=== PATIENT | male | born 1955 | race African-American/Black ===

== ENCOUNTER → 2017-02-20 | Outpatient (CLI) | payer MEDICARE ==
--- NOTE | 2017-02-20 15:51 | US ---
EXAMINATION TYPE: US venous doppler duplex UE DATE OF EXAM: 02/20/2017 COMPARISON: NONE CLINICAL HISTORY: 61-year-old male R22.32, R22.31 SWELLING, Mass, lump LT AND RT UPPER LIMB. Pain elvin ateral arms. Superficial lumps noted bilateral arms, patient on blood thinner SIDE PERFORMED: bilateral TECHNIQUE: Grayscale, color doppler, spectral doppler imaging performed of the deep veins of the upp er extremities without and with compression. FINDINGS: There is normal flow, compressibility and vascular waveforms. Right Arm: No evidence of DVT. Hyperechoic area noted within area of lump right upper arm = 1.3 x 0.6 x 0.8cm Left Arm: No evidence of DVT. Fistula noted left lower arm IMPRESSION: 1. No evidence for DVT within the bilateral upper extremities. 2. At the site of lump in the right upper arm, there is a 1.3 cm hyperechoic area just deep to the sk in surface. This could represent a lipoma or area of fat necrosis. This can be followed clinically. I f there is enlargement, the area can be reimaged.
== END | disposition home or self-care (01) ==
LOC: RADUSWWP 14:43
PROVIDERS: ATTEND Family Medicine
DX: R22.31 Localized swelling, mass and lump, right upper limb (principal)
CPT/HCPCS: 93970

== ENCOUNTER 2017-08-24 23:45 | Inpatient (IN) | payer MEDICARE ==
[2017-08-25] MEDS ORDERED: NAFCILLIN 2 GM in DEXTROSE 5% IN WATER 50 ML IVPB STA ×2 (00:34)
[2017-08-25 01:08] LABS: Anisocytosis Slight; Basophils % (A) 0 %; Eosinophils % (A) 0 %; HCT 36.1 % (39.0-53.0); HGB 11.6 gm/dL (13.0-17.5); Lymphocytes # (A) 2.2 k/uL (1.0-4.8); Lymphocytes % (A) 25 %; MCH 32.3 pg (25.0-35.0); MCHC 32.2 g/dL (31.0-37.0); MCV 100.1 fL (80.0-100.0); Macrocytosis Slight; Mean Platelet Volume 7.8; Monocytes # (A) 0.5 k/uL (0-1.0); Monocytes % (A) 6 %; Neutrophils # (A) 6.1 k/uL (1.3-7.7); Neutrophils % (A) 67 %; Platelet Count 203 k/uL (150-450); RBC 3.61 m/uL (4.30-5.90); RDW 17.3 % (11.5-15.5); WBC 9.1 k/uL (3.8-10.6)
[2017-08-25 01:20] LABS: Calcium 8.8 mg/dL (8.4-10.2); Potassium 4.9 mmol/L (3.5-5.1)
--- NOTE | 2017-08-25 01:29 | XR ---
EXAMINATION TYPE: XR foot complete RT DATE OF EXAM: 08/25/2017 COMPARISON: 11/30/2013 HISTORY: Pain and swelling TECHNIQUE: 3 views. FINDINGS: There is erosion on the first metatarsal head. There is erosion on both sides of the IP joint of the big toe. There is amputation deformity of multiple toes at the PIP joint of the second third and four th toes. There is subluxation significant deformity at the fifth MP joint. There are plantar and Achi lles calcaneal spurs. There is soft tissue swelling around the entire foot. IMPRESSION: Multiple amputation deformity. Erosions and subluxation could relate to rheumatoid arthri tis. No specific evidence for osteomyelitis. There is progression of amputation deformity of the toes compared to old exam.
[2017-08-25 01:56] LABS: Erythrocyte Sedimentation Rate 46 mm/hr (0-15)
[2017-08-25] MEDS ORDERED: HYDROmorphone 0.5 MG/0.5 ML SYRINGE IVP STA (02:42)
--- NOTE | 2017-08-25 02:59 | ED ---
Lower Extremity Injury HPI - General Chief Complaint: Extremity Injury, Lower Stated Complaint: Foot Pain Time Seen by Provider: 08/25/17 00:03 Source: patient Mode of arrival: wheelchair Limitations: no limitations - History of Present Illness Initial Comments: this patient is a 62-year-old man with history of previous foot ulcers, post amputation. He presents to be evaluated for suspected right foot infection, as well as having left pretibial ulcer. the symptoms have been developing over the past few days, worsening today. History is also from the patient's who states that he started having drainage from his foot today and given his past history there were concerned about developing infection. The patient does believe that over the past few days she has been having an exacerbation of his rheumatoid arthritis related to swelling of his bilatera feet. patient also denies systemic symptoms, no fever or chills, chest pain, dyspnea, palpitations MD Complaint: foot injury -: days(s) Injury: Leg: Left, Foot: Right, Left Place: home Severity: moderate Improves With: nothing Worsens With: palpation Associated Symptoms: swelling - Related Data Previous Rx's Medication Instructions Recorded Clindamycin HCl [Cleocin] 450 mg PO Q8H #21 cap 08/25/17 Allergies Allergy/AdvReac Type Severity Reaction Status Date / Time Sulfa (Sulfonamide Allergy Rash/Hives Verified 08/24/17 23:52 Antibiotics) Review of Systems ROS Statement: Those systems with pertinent positive or pertinent negative responses have been documented in the HPI. ROS Other: All systems not noted in ROS Statement are negative. Constitutional: Denies: fever, chills, weakness Respiratory: Denies: cough, dyspnea Cardiovascular: Reports: edema. Denies: chest pain, palpitations, orthopnea, syncope Gastrointestinal: Denies: abdominal pain, vomiting, diarrhea Musculoskeletal: Denies: back pain Skin: Reports: lesions (left leg and right foot). Denies: rash Neurological: Reports: paresthesias (chronic). Denies: weakness, numbness Hematological/Lymphatic: Denies: easy bleeding Past Medical History Past Medical History: Dialysis, Deep Vein Thrombosis (DVT), Pulmonary Embolus ( PE), Rheumatoid Arthritis (RA) Additional Past Medical History / Comment(s): gout, sickle cell History of Any Multi-Drug Resistant Organisms: MRSA MDRO Source:: foot Past Surgical History: Joint Replacement, Orthopedic Surgery Past Psychological History: No Psychological Hx Reported Smoking Status: Never smoker Past Alcohol Use History: None Reported Past Drug Use History: Marijuana General Exam Limitations: no limitations General appearance: alert, in no apparent distress, obese Head exam: Present: atraumatic, normocephalic Eye exam: Present: normal appearance. Absent: scleral icterus, conjunctival injection Respiratory exam: Present: normal lung sounds bilaterally. Absent: respiratory distress, wheezes, rales, rhonchi, stridor Cardiovascular Exam: Present: regular rate, normal rhythm, normal heart sounds. Absent: systolic murmur, diastolic murmur, rubs, gallop GI/Abdominal exam: Present: soft. Absent: distended, tenderness, guarding, rebound Extremities exam: Present: pedal edema, other Right Upper Leg exam: Present: normal inspection Knee exam: Present: normal inspection Lower Leg exam: Present: full ROM, swelling. Absent: tenderness, abrasion, erythema, palpable cord, Homans' sign Ankle exam: Present: full ROM, tenderness, swelling. Absent: abrasion, laceration, ecchymosis, deformity, crepitus, erythema Foot/Toe exam: Present: swelling (patient has a small ulceration to the distal end of the toe. There was some small amount of serous drainage. No obvious purulent drainage. Minimal erythema, and no warmth.) Neurovascular tendon exam: Present: no vascular compromise, sensory deficit Back exam: Absent: CVA tenderness (R), CVA tenderness (L) Neurological exam: Present: alert. Absent: motor sensory deficit Course Vital Signs 08/24/17 08/25/17 08/25/17 23:48 02:10 04:31 Temperature 98.3 F 100.1 F H Pulse Rate 71 74 Respiratory 18 18 Rate Blood Pressure 150/67 133/79 O2 Sat by Pulse 100 Oximetry 08/25/17 05:16 Temperature 97.2 F L Pulse Rate 74 Respiratory 18 Rate Blood Pressure 133/79 O2 Sat by Pulse 97 Oximetry Medical Decision Making - Medical Decision Making this patient is a 62-year-old man with history of previous MRSA infection of the feet, he is a patient of Dr. Schroeder, having been seen here previously. Patient had x-ray of the foot which does not show gas in the tissue nor evidence of osteomyelitis on the x-ray. Patient is started on nafcillin here, and we discussed outpatient course of clindamycin, but the patient is complaining of increasing pain and therefore admitted under observation to control symptoms and have infectious disease consult. He is given 1 dose of vancomycin. I did obtain a culture of the drainage from the toe and this is pending. - Lab Data Result diagrams: 08/25/17 00:45 08/25/17 00:45 Lab Results 08/25/17 08/25/17 Range/Units 00:45 00:45 WBC 9.1 (3.8-10.6) k/uL RBC 3.61 L (4.30-5.90) m/uL Hgb 11.6 L (13.0-17.5) gm/dL Hct 36.1 L (39.0-53.0) % MCV 100.1 H (80.0-100.0) fL MCH 32.3 (25.0-35.0) pg MCHC 32.2 (31.0-37.0) g/dL RDW 17.3 H (11.5-15.5) % Plt Count 203 (150-450) k/uL Neutrophils % 67 % Lymphocytes % 25 % Monocytes % 6 % Eosinophils % 0 % Basophils % 0 % Neutrophils # 6.1 (1.3-7.7) k/uL Lymphocytes # 2.2 (1.0-4.8) k/uL Monocytes # 0.5 (0-1.0) k/uL Eosinophils # 0.0 (0-0.7) k/uL Basophils # 0.0 (0-0.2) k/uL Anisocytosis Slight Macrocytosis Slight ESR 46 H (0-15) mm/hr Sodium 143 (137-145) mmol/L Potassium 4.9 (3.5-5.1) mmol/L Chloride 109 H (98-107) mmol/L Carbon Dioxide 24 (22-30) mmol/L Anion Gap 10 mmol/L BUN 38 H (9-20) mg/dL Creatinine 1.50 H (0.66-1.25) mg/dL Est GFR (MDRD) Af Amer 58 (>60 ml/min/1.73 sqM) Est GFR (MDRD) Non-Af 48 (>60 ml/min/1.73 sqM) Glucose 113 H (74-99) mg/dL Calcium 8.8 (8.4-10.2) mg/dL Disposition Clinical Impression: Foot ulcer, right Disposition: ADMITTED IP TO THIS HOSP Condition: Fair
[2017-08-25] MEDS ORDERED: NALOXONE 0.4 MG/ML 1 ML VIAL IV PRN (04:59)
[2017-08-25] MEDS ORDERED: ACETAMINOPHEN TAB 325 MG TAB PO PRN (04:59)
[2017-08-25] MEDS ORDERED: ONDANSETRON 4 MG/2 ML VIAL IVP PRN (04:59)
[2017-08-25] MEDS ORDERED: VANCOMYCIN IV PER PHARMACY 1 EACH MISC MISCELLANE PRN (05:02)
[2017-08-25] MEDS ORDERED: VANCOMYCIN 2,250 MG in SODIUM CHLORIDE 0.9% 500 ML IVPB STA (05:05)
[2017-08-25] MEDS ORDERED: methylPREDNISolone SOD SUCCI 125 MG/2 ML VIAL IV STA (06:02)
[2017-08-25] MEDS: SODIUM CHLORIDE 0.9% 1,000 ML IV SCH (06:29)
[2017-08-25] MEDS ORDERED: NAFCILLIN 2 GM in DEXTROSE 5% IN WATER 50 ML IVPB SCH ×2 (08:00)
[2017-08-25] MEDS ORDERED: METHOTREXATE 20 MG PO SCH (09:00)
[2017-08-25 11:47] LABS: INR 3.4 (<1.2); Prothrombin Time 30.7 sec (9.0-12.0)
[2017-08-25] MEDS: predniSONE 10 MG TAB PO SCH ×2 (12:19→21:16)
[2017-08-25] MEDS: FOLIC ACID 1 MG TAB PO SCH (12:20)
[2017-08-25] MEDS: CHOLECALCIFEROL 1,000 UNIT TAB PO SCH (12:20)
[2017-08-25] MEDS: amLODIPine 10 MG TAB PO SCH (12:20)
[2017-08-25] MEDS: ALLOPURINOL 300 MG TAB PO SCH (12:20)
[2017-08-25] MEDS: METOPROLOL TARTRATE 25 MG TAB PO SCH ×2 (12:21→21:16)
[2017-08-25] MEDS: CITALOPRAM HYDROBROMIDE 20 MG TAB PO SCH (12:21)
[2017-08-25] MEDS: LISINOPRIL 10 MG TAB PO SCH ×2 (12:21→21:16)
[2017-08-25] MEDS: CYANOCOBALAMIN 500 MCG TAB PO SCH (12:21)
[2017-08-25] MEDS ORDERED: METHOTREXATE SODIUM 2.5 MG TAB PO SCH (14:00)
[2017-08-25] MEDS: cefTRIAXone IN SWFI 2,000 MG/20 ML SYRINGE IVP SCH (14:37)
--- NOTE | 2017-08-25 14:40 | P.CONS ---
History of Present Illness - Reason for Consult Consult date: 08/25/17 - Chief Complaint New ulcer right foot second toe - History of Present Illness 62-year-old male presents to the emergency center for evaluation of the new onset of ulceration to his right foot second toe. 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 He has a long-standing history of rheumatoid arthritis with significant destruction. He is on methotrexate and prednisone as the only therapy. He is not on a biological. He relates his arthritis of course is progressive but has been doing relatively well. He had a small ulceration which was from a skin crack to the site of the current ulceration. This is a couple weeks ago. His treated locally and was doing well but now was reopened and is draining. It is at a site where he used to have a nail but that's been gone for a long time. He's had no systemic symptoms such as fevers chills or rigors or sweats. He does have ongoing difficulties with his mobility but pushes through with the treatment of his arthritis. He is [place] citizen living in [place]. He this point in time is denying any other new significant symptoms. Review of Systems HEENT:Denies headache or acute visual change. Denies sinus or mouth discomforts. Denies neck stiffness or pain. Denies significant oral cavity pain. Denies difficulty on swallowing. Lungs: Denies significant shortness of breath, cough, sputum production, or hemoptysis. Cardiovascular: Denies significant shortness of breath, chest pain, chest wall pain, orthopnea, dyspnea on exertion, syncope Gastrointestinal:Denies nausea, vomiting, diarrhea, constipation, hematemesis, melena, hematochezia. No no significant change of bowel habit noticed. Musculoskeletal: Has chronic joint pains from his progressive rheumatoid arthritis. Skin: As per the HPI has the new ulcer right foot second toe Neuro: Denies headache or visual change. Denies any new onset weakness or difficulty with ambulation. Denies falls or seizures. Psychiatric:Denies anxiety or depression. Endocrine: Denies significant fatigue, denies significant weight loss or weight gain. Past Medical History Past Medical History: Dialysis, Deep Vein Thrombosis (DVT), Pulmonary Embolus ( PE), Rheumatoid Arthritis (RA) Additional Past Medical History / Comment(s): gout, sickle cell History of Any Multi-Drug Resistant Organisms: MRSA Year Discovered:: 2013 MDRO Source:: foot Past Surgical History: Joint Replacement, Orthopedic Surgery Additional Past Surgical History / Comment(s): Left knee replaced; multiple toe amputations Past Psychological History: No Psychological Hx Reported Additional Psychological History / Comment(s): lives with his . [place] citizen living in [place]. 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 No animal exposures Smoking Status: Never smoker Past Alcohol Use History: None Reported Past Drug Use History: Marijuana Medications and Allergies Home Medications and Allergies Comment(s): Current Medications Acetaminophen (Tylenol Tab) 650 mg PO Q6HR PRN PRN Reason: Mild Pain or Fever > 100.5 Hydrocodone Bitart/Acetaminophen ([place] 5-325) 1 each PO Q4HR PRN PRN Reason: Moderate Pain Allopurinol (Zyloprim) 300 mg PO DAILY [facility] Last Admin: 08/25/17 12:20 Dose: 300 mg Amlodipine Besylate (Norvasc) 10 mg PO DAILY [facility] Last Admin: 08/25/17 12:20 Dose: 10 mg Ceftriaxone Sodium (Rocephin) 2,000 mg IVP Q24HR [facility] Cholecalciferol (Vitamin D3) 1,000 unit PO DAILY [facility] Last Admin: 08/25/17 12:20 Dose: 1,000 unit Citalopram Hydrobromide (Celexa) 20 mg PO DAILY [facility] Last Admin: 08/25/17 12:21 Dose: 20 mg Cyanocobalamin (Vitamin B-12) 1,000 mcg PO DAILY [facility] Last Admin: 08/25/17 12:21 Dose: 1,000 mcg Folic Acid (Folic Acid) 0.5 mg PO DAILY [facility] Last Admin: 08/25/17 12:20 Dose: 0.5 mg Sodium Chloride (Saline 0.9%) 1,000 mls @ 20 mls/hr IV .Q24H [facility] Last Admin: 08/25/17 06:29 Dose: 20 mls/hr Vancomycin HCl 2,250 mg/ (Sodium Chloride) 500 mls @ 167 mls/hr IVPB Q16H [facility] Lisinopril (Zestril) 10 mg PO BID [facility] Last Admin: 08/25/17 12:21 Dose: 10 mg Methotrexate (Methotrexate) 20 mg PO Long@0900 [facility] Last Admin: 08/25/17 14:14 Dose: 20 mg Metoprolol Tartrate (Lopressor) 25 mg PO BID [facility] Last Admin: 08/25/17 12:21 Dose: 25 mg Naloxone HCl (Narcan) 0.2 mg IV Q2M PRN PRN Reason: Opioid Reversal Ondansetron HCl (Zofran) 4 mg IVP Q8HR PRN PRN Reason: Nausea And Vomiting Prednisone () 10 mg PO BID [facility] Last Admin: 08/25/17 12:19 Dose: 10 mg Warfarin Sodium (Coumadin) 2.5 mg [facility] Warfarin Sodium (Coumadin) 5 mg PO SUMO [facility] Home Medications Medication Instructions Recorded Confirmed Type Allopurinol [Zyloprim] 300 mg PO DAILY 08/25/17 08/25/17 History Cholecalciferol [Vitamin D3] 1,000 unit PO DAILY 08/25/17 08/25/17 History Cinnamon Bark [Cinnamon] 500 mg PO DAILY 08/25/17 08/25/17 History Citalopram Hydrobromide [CeleXA] 20 mg PO DAILY 08/25/17 08/25/17 History Cyanocobalamin (Vitamin B-12) 1,000 mcg PO DAILY 08/25/17 08/25/17 History [Vitamin B-12] Fish Oil/Dha/Epa [Fish Oil 1,200 1 cap PO DAILY 08/25/17 08/25/17 History mg Fish Oil] Folic Acid 0.4 mg PO DAILY 08/25/17 08/25/17 History Lisinopril [Zestril] 10 mg PO BID 08/25/17 08/25/17 History Methotrexate Sodium [Methotrexate] 20 mg PO Q7D 08/25/17 08/25/17 History Metoprolol Tartrate [Lopressor] 25 mg PO BID 08/25/17 08/25/17 History Warfarin [Coumadin] 2.5 mg PO TUTH 08/25/17 08/25/17 History Warfarin [Coumadin] 5 mg PO SUMOWEFRSA 08/25/17 08/25/17 History amLODIPine [Norvasc] 10 mg PO DAILY 08/25/17 08/25/17 History oxyCODONE-APAP 10-325MG [Percocet 1 tab PO Q6HR PRN 08/25/17 08/25/17 History 10-325 mg] predniSONE 10 mg PO BID 08/25/17 08/25/17 History Allergies Allergy/AdvReac Type Severity Reaction Status Date / Time Sulfa (Sulfonamide Allergy Rash/Hives Verified 08/25/17 08:13 Antibiotics) Physical Exam Vitals: Vital Signs Temp Pulse Pulse Resp BP BP Pulse Ox 08/25/17 06:04 97.1 F L 76 16 139/83 98 08/25/17 05:16 97.2 F L 74 18 133/79 97 08/25/17 04:31 74 18 133/79 08/25/17 02:10 100.1 F H 08/24/17 23:48 98.3 F 71 18 150/67 100 Intake and Output 08/24/17 08/25/17 08/25/17 22:59 06:59 14:59 Other: # Voids 0 Weight 158.757 kg Pleasant superobese 62-year-old male who is in no acute distress. HEENT: Anicteric conjunctiva are pink and moist nasal mucosa grossly intact without significant lesions, there is no thrush. Neck: The neck is supple without significant lymphadenopathy or thyromegaly. Lungs: Good bilateral air entry without significant crackles or wheezing. There is no significant bronchial sounds. There is no egophony or dullness. Heart: Regular rate and rhythm with an audible S1-S2, no S3 loud S4. There is no significant murmur click or rub, PMI was nondisplaced. Abdomen: Obese, Positive bowel sounds soft and nontender without palpable masses or organomegaly. There was no guarding or rebound. Extremities: The upper extremities do show evidence of the significant changes from his rheumatoid arthritis with swelling and joint destruction. The right lower extremity has evidence of the stomach and bony absorption from the rheumatoid arthritis and has had amputation to the great toe. Right lower extremity shows similar but there is now swelling to the foot on its dorsum as well as the new ulceration to the right foot second toe. Ulceration is measuring a 0.5 x 0.5 x 0.5 cm. Bloody drainage sent to the laboratory for anaerobic culture. Neuro: Awake alert oriented to person place and time. There are no acute new gross focal sensory motor deficits. Results CBC & Chem 7: 08/25/17 00:45 08/25/17 00:45 Labs: Abnormal Lab Results - Last 24 Hours (Table) 08/25/17 08/25/17 08/25/17 Range/Units 00:45 00:45 00:45 RBC 3.61 L (4.30-5.90) m/uL Hgb 11.6 L (13.0-17.5) gm/dL Hct 36.1 L (39.0-53.0) % MCV 100.1 H (80.0-100.0) fL RDW 17.3 H (11.5-15.5) % ESR 46 H (0-15) mm/hr PT 30.7 H (9.0-12.0) sec INR 3.4 H (<1.2) Chloride 109 H (98-107) mmol/L BUN 38 H (9-20) mg/dL Creatinine 1.50 H (0.66-1.25) mg/dL Glucose 113 H (74-99) mg/dL Microbiology - Last 24 Hours (Table) 08/25/17 00:45 Wound Culture - Preliminary Foot - Right Laboratory Results WBC 9.1 k/uL (3.8-10.6) 08/25/17 00:45 RBC 3.61 m/uL (4.30-5.90) L 08/25/17 00:45 Hgb 11.6 gm/dL (13.0-17.5) L 08/25/17 00:45 Hct 36.1 % (39.0-53.0) L 08/25/17 00:45 MCV 100.1 fL (80.0-100.0) H 08/25/17 00:45 MCH 32.3 pg (25.0-35.0) 08/25/17 00:45 MCHC 32.2 g/dL (31.0-37.0) 08/25/17 00:45 RDW 17.3 % (11.5-15.5) H 08/25/17 00:45 Plt Count 203 k/uL (150-450) 08/25/17 00:45 Neutrophils % 67 % 08/25/17 00:45 Lymphocytes % 25 % 08/25/17 00:45 Monocytes % 6 % 08/25/17 00:45 Eosinophils % 0 % 08/25/17 00:45 Basophils % 0 % 01/14/18 00:45 Neutrophils # 6.1 k/uL (1.3-7.7) 08/25/17 00:45 Lymphocytes # 2.2 k/uL (1.0-4.8) 08/25/17 00:45 Monocytes # 0.5 k/uL (0-1.0) 08/25/17 00:45 Eosinophils # 0.0 k/uL (0-0.7) 08/25/17 00:45 Basophils # 0.0 k/uL (0-0.2) 08/25/17 00:45 Anisocytosis Slight 08/25/17 00:45 Macrocytosis Slight 08/25/17 00:45 ESR 46 mm/hr (0-15) H 08/25/17 00:45 PT 30.7 sec (9.0-12.0) H 08/25/17 00:45 INR 3.4 (<1.2) H 08/25/17 00:45 Sodium 143 mmol/L (137-145) 08/25/17 00:45 Potassium 4.9 mmol/L (3.5-5.1) 08/25/17 00:45 Chloride 109 mmol/L (98-107) H 08/25/17 00:45 Carbon Dioxide 24 mmol/L (22-30) 08/25/17 00:45 Anion Gap 10 mmol/L 08/25/17 00:45 BUN 38 mg/dL (9-20) H 08/25/17 00:45 Creatinine 1.50 mg/dL (0.66-1.25) H 08/25/17 00:45 Est GFR (MDRD) Af Amer 58 (>60 ml/min/1.73 sqM) 08/25/17 00:45 Est GFR (MDRD) Non-Af 48 (>60 ml/min/1.73 sqM) 08/25/17 00:45 Glucose 113 mg/dL (74-99) H 08/25/17 00:45 Calcium 8.8 mg/dL (8.4-10.2) 08/25/17 00:45 Microbiology 08/25/17 00:45 Foot - Right Wound Culture - Preliminary Comments: X-ray shows evidence of the significant destruction rheumatoid arthritis not able to discern most mellitus of the right foot second toe Assessment and Plan (1) Rheumatoid arthritis involving multiple sites Current Visit: Yes Status: Acute Code(s): M06.9 - RHEUMATOID ARTHRITIS, UNSPECIFIED SNOMED Code(s): 567765755 (2) Foot ulcer, right Narrative/Plan: 62-year-old male presents to which she center with the new onset of ulceration to the right foot second toe. He had a small injury to that area several weeks ago the site was treated and healed but is now reopened with a significant ulceration and likely is tracking to bone by its depth. Bone scan is requested to further evaluate this infection. Wound culture including anaerobic culture now been sent. Has history of MRSA. With that antimicrobial therapy with vancomycin is started. Also with concerns will add and Rocephin until we have further data so gram negatives are coverage such as E. coli. He does not have a history of Pseudomonas infection. He is nondiabetic. Is very dry skin and this will be treated. Has significant swelling to the left leg will be treated and wrapped. Recent laboratory is requesting that his sed rate and CRP which will be difficult to discern with his underlying rheumatoid arthritis. It bone scan is positive option #1 will be antibiotic therapy. However given his advanced arthritis he may do well if the site is amputated. Watchers nutrition is adequate multivitamin will be added and monitor. Current Visit: Yes Status: Acute Code(s): L97.519 - NON-PRS CHRONIC ULCER OTH PRT RIGHT FOOT W UNSP SEVERITY SNOMED Code(s): 10237759
[2017-08-25] MEDS: AMMONIUM LACTATE 12% CREAM 140 GM TUBE TOPICAL SCH (16:24)
--- NOTE | 2017-08-25 16:43 | HP ---
HISTORY AND PHYSICAL DATE OF ADMISSION: 08/25/17 PRESENTING COMPLAINT: Right big toe infection. HISTORY OF PRESENTING COMPLAINT: This is a very pleasant 62-year-old patient of Dr. Vaca. Here with his . Chronic stable medical conditions include history of gout, sickle cell, has got advanced rheumatoid arthritis. The patient has got history of DVT and PE. The patient has rather debilitating rheumatoid arthritis, was following with Dr. Damico locally, but now is looking into follow up with [facility]. About a week ago, the patient had a slit of the right big toe that was locally treated by the and that healed up. Now the patient presented with some pus coming out of the right big toe and decided to present to the hospital. At the same time patient's rheumatoid arthritis has flared up. Denies any fever, loss of appetite. Infectious Disease was consulted. REVIEW OF SYSTEMS: CONSTITUTIONAL: Tired. HEENT: None. RESPIRATORY: None. CARDIOVASCULAR: None. GASTROINTESTINAL: None. GENITOURINARY: None. MUSCULOSKELETAL: Aches and pains in different joints. DERMATOLOGICAL: As above. LYMPHATICS: None. PSYCHIATRY: None. NEUROLOGICAL: Uses a cane. PAST MEDICAL HISTORY: DVT, PE, advanced rheumatoid arthritis, gout, sickle cell disease. PAST SURGICAL HISTORY: Joint replacement, left knee replacement, multiple toe amputations. SOCIAL HISTORY: The patient is an [place] citizen, but lives with his in [place]. Does not drink or smoke alcohol. 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 Patient does use marijuana for pain. HOME MEDICATIONS: 1. Methotrexate 20 mg every 7 days. 2. Prednisone 10 mg p.o. b.i.d. 3. Percocet 10 1 tab q.6h p.r.n. 4. Norvasc 10 mg p.o. daily. 5. Coumadin 2.5 mg on Saturday, and 5 mg on Saturday, Saturday, Saturday, Saturday, Saturday. 6. Lopressor 25 mg p.o. b.i.d. 7. Zestril 10 mg b.i.d. 8. Folic acid 0.4 mg p.o. daily. 9. Fish oil 1 capsule p.o. daily. 10.Vitamin B12 1000 mcg p.o. daily. 11.Celexa 20 mg p.o. daily. 12.Cinnamon 500 mg p.o. daily. 13.Vitamin D3 1000 units p.o. daily. 14.Allopurinol 300 mg p.o. daily. ALLERGIES: SULFUR. PHYSICAL EXAMINATION: Temperature 97.7, pulse 54, respiratory 18, blood pressure 133/72, pulse ox 97% on room air. GENERAL APPEARANCE: Well built, BMI 44.9, lying in bed, not in distress. EYES: Pupils equal. Conjunctivae normal. HEENT: Oral cavity normal. NECK: JVD not raised. Mass not palpable. RESPIRATORY: Effort, lungs slightly decreased breath sounds. CARDIOVASCULAR: First and second sounds, no edema. ABDOMEN: Soft, nontender. Liver and spleen not palpable. LYMPHATIC: No lymph node palpable in neck or axillae. PSYCHIATRY: Alert and oriented x3. Mood and affect normal. EXTREMITIES: Amputation of the toe on the left side. Dressing over the right toe. Severe disfigurement of both hands and feet with classical findings of advanced rheumatoid arthritis including prominent metacarpophalangeal joint, ulnar division of the fingers, both swan-neck and boutonniere deformity. INVESTIGATION: White count 9.1, hemoglobin 11.6, INR 3.4, potassium 4.9, BUN 38, creatinine 1.50. Patient's BUN and creatinine were 41/1.97 back in September of 2015. ASSESSMENT: 1. Acute right big toe infection. Need to rule out osteomyelitis. 2. Chronic advanced debilitating rheumatoid arthritis in multiple joints, bilateral. 3. Morbid obesity, BMI 44.9. 4. Gout. 5. Coumadin monitoring. 6. Depression, not otherwise specified. 7. Chronic gout. PLAN: At this point, the patient is on IV ceftriaxone, vancomycin, INR will be closely followed. The patient was seen by Dr. Schroeder from Infectious Disease and a bone scan was ordered. Care was discussed with the patient and at the bedside. Questions were answered. We will get Vascular Surgery involved in anticipation in case surgery needs to be done. Care was discussed with the patient and . Questions were answered. MMODL / IJN: [id number] /
[2017-08-25] MEDS: VANCOMYCIN 2,250 MG in SODIUM CHLORIDE 0.9% 500 ML IVPB SCH (17:00)
[2017-08-25] MEDS: HYDROcodone/APAP 5-325MG 1 EACH TAB PO PRN (21:23)
[2017-08-26] MEDS: SODIUM CHLORIDE 0.9% 1,000 ML IV SCH (05:01)
[2017-08-26] MEDS: cefTRIAXone IN SWFI 2,000 MG/20 ML SYRINGE IVP SCH (09:17)
[2017-08-26] MEDS: VANCOMYCIN 2,250 MG in SODIUM CHLORIDE 0.9% 500 ML IVPB SCH (09:17)
[2017-08-26] MEDS: AMMONIUM LACTATE 12% CREAM 140 GM TUBE TOPICAL SCH (09:17)
[2017-08-26] MEDS: CHOLECALCIFEROL 1,000 UNIT TAB PO SCH (09:17)
[2017-08-26] MEDS: LISINOPRIL 10 MG TAB PO SCH ×2 (09:18→21:27)
[2017-08-26] MEDS: ALLOPURINOL 300 MG TAB PO SCH (09:18)
[2017-08-26] MEDS: amLODIPine 10 MG TAB PO SCH (09:18)
[2017-08-26] MEDS: CITALOPRAM HYDROBROMIDE 20 MG TAB PO SCH (09:18)
[2017-08-26] MEDS: predniSONE 10 MG TAB PO SCH ×2 (09:18→21:29)
[2017-08-26] MEDS: METOPROLOL TARTRATE 25 MG TAB PO SCH ×2 (09:18→21:27)
[2017-08-26] MEDS: FOLIC ACID 1 MG TAB PO SCH (09:18)
[2017-08-26] MEDS: CYANOCOBALAMIN 500 MCG TAB PO SCH (09:18)
[2017-08-26 11:26] LABS: INR 2.4 (<1.2); Prothrombin Time 21.9 sec (9.0-12.0)
[2017-08-26] MEDS: MULTIVITAMINS, THERA 1 EACH TAB PO SCH (12:15)
--- NOTE | 2017-08-26 13:23 | CONS ---
CONSULTATION This is a 62-year-old gentleman who came to the emergency room with history of ulceration of the right foot, third toe. The patient has history of arthritis. He had second toe and fourth and fifth toes have been removed in the past. PHYSICAL EXAMINATION: NECK: Supple. Trachea central. CHEST: Clear on auscultation. ABDOMEN: Soft. Brachial and radial pulses are present. Femorals are 1+. Right foot third toe has ulcer at the distal phalanx. He had some toe removed in the past. PLAN: Plan is patient is scheduled to have a bone scan. The patient was seen by Dr. Rhett Schroeder. At this point, we will continue with Beatris and jose a for the ulcer and the patient is scheduled to have a bone scan. If it is positive, he may need toe amputation. We will follow with you. I have discussed this case with Dr. Rhett Schroeder, when patient needs surgical intervention, we will proceed. MMMARIMARL / SHERYLN: [id number] /
[2017-08-26 13:27] LABS: Anisocytosis Slight; Basophils % (A) 0 %; Eosinophils % (A) 0 %; HCT 32.9 % (39.0-53.0); HGB 10.1 gm/dL (13.0-17.5); Lymphocytes # (A) 1.2 k/uL (1.0-4.8); Lymphocytes % (A) 16 %; MCH 32.1 pg (25.0-35.0); MCHC 30.8 g/dL (31.0-37.0); MCV 104.2 fL (80.0-100.0); Macrocytosis Moderate; Mean Platelet Volume 8.6; Monocytes # (A) 0.6 k/uL (0-1.0); Monocytes % (A) 8 %; Neutrophils # (A) 5.4 k/uL (1.3-7.7); Neutrophils % (A) 75 %; Platelet Count 182 k/uL (150-450); RBC 3.16 m/uL (4.30-5.90); RDW 17.2 % (11.5-15.5); WBC 7.3 k/uL (3.8-10.6)
--- NOTE | 2017-08-26 14:18 | NM ---
EXAMINATION TYPE: NM bone 3 phase DATE OF EXAM: 08/26/2017 COMPARISON: X-ray 08/25/2017 HISTORY: Swelling right foot Triple phase bone scintigraphy was performed following the injection of29.1 mCi Tc 99m MDP. Immediat e images and hours post injection images acquired. FINDINGS: There is increased perfusion to the right foot near the second and third digit. Increased soft tissue uptake noted. Delayed imaging demonstrates increased focal uptake. IMPRESSION: Findings are positive triple phase bone scan. Findings may been the basis of osteomyelitis involving the right second or third digit although the x-ray suggests a area of dislocation of the distal phala nx which could also account for the findings. Correlate clinically.
[2017-08-26 14:26] VITALS: BMI 44.9
--- NOTE | 2017-08-26 17:26 | PN ---
PROGRESS NOTE DATE OF SERVICE: 08/26/17 ATTENDING NOTE: Patient seen and examined by me. I discussed with nurse practitioner, Ms. Woodson. The patient presents with right foot toe suspected osteolysis. Saw the patient earlier today. Bone scan is pending. Pain is controlled. at the bedside. EXAMINATION: Temperature 96.7, pulse 72, respiratory 18, blood pressure 135/74, pulse ox 94%. Lying in bed. Lungs fair entry. Cardiovascular: First and second sounds normal. INVESTIGATION: White count 7.3, hemoglobin 10.1, INR 2.4. ASSESSMENT: 1. Acute right foot 2nd toe infection, possible osteomyelitis. Bone scan pending. 2. Chronic advanced debilitating rheumatoid arthritis, multiple joints bilateral. 3. Chronic kidney disease stage 3 probably from nephrosclerosis. PLAN: Continue current medication and treatment plan. Await input from Dr. Schroeder and follow. MMODL / IJN: [id number] /
[2017-08-26] MEDS ORDERED: WARFARIN 5 MG TAB PO SCH (18:00)
--- NOTE | 2017-08-26 19:11 | P.PN ---
Progress Note - Text Progress Note Date: 08/26/17 DATE OF SERVICE: 08/26/2017 PRESENTING COMPLAINT: Right second toe infection HISTORY OF PRESENT ILLNESS: 62-year-old male who noticed about a week ago had a slit in the right second toe that received local wound care treatment by his and healed. It was noted again to have some pus coming out of the right second toe and presented to the emergency department and was admitted for an acute right second toe infection. INTERVAL HISTORY: 08/26/2017: Lying in bed appears comfortable. is at the bedside. Dressing changes per infectious disease, afebrile, no nausea no vomiting no diarrhea. Right second toe does not bother him not painful. Tolerating his diet eating between 50-100% of his meals, up with assistance and a walker. Last BM prior 2017.. REVIEW OF SYSTEMS: Done for constitutional ,cardiovascular, GI, pulmonary with relevant findings as above. CURRENT MEDICATIONS Tylenol, [place], Zyloprim, Norvasc, Rocephin, vitamin D3, Celexa, vitamin B12, folic acid, Zestril, methotrexate, Lopressor, Theragran vitamins, Narcan, Zofran , prednisone, vancomycin, warfarin PHYSICAL EXAM VITAL SIGNS: Temperature 96.7, pulse 62, respiratory rate 18, pressure 135/74, oxygen saturation 94% on CPAP. GENERAL APPEARANCE: Lying in bed, not in distress. HEENT: Normocephalic, Pupils equal. Conjunctiva normal. JVD not raised. Mass not palpable.: RESPIRATORY: Respiratory effort increased. Lungs decreased to auscultation. CARDIOVASCULAR: First and second sounds normal. No edema. ABDOMEN: Soft. Liver and spleen not palpable. No tenderness. No mass palpable. PSYCHIATRY: Alert and oriented x3. Mood and affect normal. EXTREMITIES: Left upper extremity with AV fistula in place positive for thrill and bruit Amputation of toes on the left side. Dressing over the right toe, severe disfigurement of both hands and feet with classical Finding of rheumatoid arthritis including metacarpophalangeal joint ulnar division of the fingers and both swan neck and boutonniere deformity INVESTIGATIONS: LABS: Hemoglobin 10.1, INR 2.4, BONE SCAN: Findings are positive triple phase bone scan may be the base of osteomyelitis involving the right second or third digit although x-ray suggested area of dislocation at the distal phalanx which could also account for the findings. ASSESSMENT: -Acute right second toe infection, in a patient who has advanced rheumatoid arthritis in multiple joints, bone scan confirms osteomyelitis. -Chronic advanced debilitating rheumatoid arthritis multiple joints, bilateral. -Organ obesity body mass index 44.9. -Gout -Coumadin and 90 monitoring. -Depression not otherwise specified. PLAN: Continue patient on IV ceftriaxone and vancomycin, follow INR. Local wound care to the right second toe include medical honey with a dressing. Vascular surgery is involved and is prepared to perform whatever surgery is necessary. Await additional input from Dr. Schroeder. Plan of care discussed with the patient and at bedside there in agreement. We will follow closely. SOFTWARE REVERSE ENGINEER statement: Patient was seen and examined by nurse practitioner Alicia Woodson and all elements of the case discussed with attending Dr. Berry
--- NOTE | 2017-08-26 20:28 | P.PN ---
Subjective Progress Note Date: 08/26/17 Principal diagnosis: Infection right foot 62-year-old male presents to the emergency center for evaluation of the new onset of ulceration to his right foot second toe. 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 He has a long-standing history of rheumatoid arthritis with significant destruction. He is on methotrexate and prednisone as the only therapy. He is not on a biological. He relates his arthritis of course is progressive but has been doing relatively well. He had a small ulceration which was from a skin crack to the site of the current ulceration. This is a couple weeks ago. His treated locally and was doing well but now was reopened and is draining. It is at a site where he used to have a nail but that's been gone for a long time. He's had no systemic symptoms such as fevers chills or rigors or sweats. He does have ongoing difficulties with his mobility but pushes through with the treatment of his arthritis. He is [place] citizen living in [place]. He this point in time is denying any other new significant symptoms. Bone scan has been performed revealing evidence of the osteomyelitis to the right foot deformed toe. Objective - Vital Signs Vital signs: Vital Signs Temp 97.0 F L 08/26/17 15:00 Pulse 69 08/26/17 15:41 Resp 18 08/26/17 15:41 BP 127/75 08/26/17 15:00 Pulse Ox 100 08/26/17 15:00 Intake & Output 08/26/17 08/26/17 08/27/17 06:59 18:59 06:59 Intake Total 660 500 Balance 660 500 Weight 158.757 kg Intake: IV 660 500 Sodium Chloride 0.9% 1, 160 000 ml @ 20 mls/hr IV . Q24H KEVIN Rx#:[id number] Vancomycin 2,250 mg In 500 500 Sodium Chloride 0.9% 500 ml @ 167 mls/hr IVPB Q16H KEVIN Rx#:[id number] Other: # Voids 2 2 # Bowel Movements 2 - Exam Pleasant superobese 62-year-old male who is in no acute distress. HEENT: Anicteric conjunctiva are pink and moist nasal mucosa grossly intact without significant lesions, there is no thrush. Neck: The neck is supple without significant lymphadenopathy or thyromegaly. Lungs: Good bilateral air entry without significant crackles or wheezing. There is no significant bronchial sounds. There is no egophony or dullness. Heart: Regular rate and rhythm with an audible S1-S2, no S3 loud S4. There is no significant murmur click or rub, PMI was nondisplaced. Abdomen: Obese, Positive bowel sounds soft and nontender without palpable masses or organomegaly. There was no guarding or rebound. Extremities: The upper extremities do show evidence of the significant changes from his rheumatoid arthritis with swelling and joint destruction. The right lower extremity has evidence of the stomach and bony absorption from the rheumatoid arthritis and has had amputation to the great toe. Right lower extremity shows similar but there is now swelling to the foot on its dorsum as well as the new ulceration to the right foot second toe. Ulceration is measuring a 0.5 x 0.5 x 0.5 cm. Bloody drainage sent to the laboratory for anaerobic culture. Neuro: Awake alert oriented to person place and time. There are no acute new gross focal sensory motor deficits. - Labs CBC & Chem 7: 08/26/17 10:59 08/25/17 00:45 Labs: Abnormal Lab Results - Last 24 Hours (Table) 08/26/17 08/26/17 Range/Units 10:59 10:59 RBC 3.16 L (4.30-5.90) m/uL Hgb 10.1 L (13.0-17.5) gm/dL Hct 32.9 L (39.0-53.0) % MCV 104.2 H (80.0-100.0) fL MCHC 30.8 L (31.0-37.0) g/dL RDW 17.2 H (11.5-15.5) % PT 21.9 H (9.0-12.0) sec INR 2.4 H (<1.2) Microbiology - Last 24 Hours (Table) 08/25/17 00:45 Gram Stain - Preliminary Foot - Right Wound Culture - Preliminary Presumptive Staph aureus 08/25/17 00:45 Blood Culture - Preliminary Blood No Growth after 24 hours 08/25/17 13:11 Anaerobic Culture - Preliminary Foot - Right Laboratory Results WBC 7.3 k/uL (3.8-10.6) 08/26/17 10:59 RBC 3.16 m/uL (4.30-5.90) L 08/26/17 10:59 Hgb 10.1 gm/dL (13.0-17.5) L 08/26/17 10:59 Hct 32.9 % (39.0-53.0) L 08/26/17 10:59 MCV 104.2 fL (80.0-100.0) H 08/26/17 10:59 MCH 32.1 pg (25.0-35.0) 08/26/17 10:59 MCHC 30.8 g/dL (31.0-37.0) L 08/26/17 10:59 RDW 17.2 % (11.5-15.5) H 08/26/17 10:59 Plt Count 182 k/uL (150-450) 08/26/17 10:59 Neutrophils % 75 % 08/26/17 10:59 Lymphocytes % 16 % 08/26/17 10:59 Monocytes % 8 % 08/26/17 10:59 Eosinophils % 0 % 08/26/17 10:59 Basophils % 0 % 08/26/17 10:59 Neutrophils # 5.4 k/uL (1.3-7.7) 08/26/17 10:59 Lymphocytes # 1.2 k/uL (1.0-4.8) 08/26/17 10:59 Monocytes # 0.6 k/uL (0-1.0) 08/26/17 10:59 Eosinophils # 0.0 k/uL (0-0.7) 08/26/17 10:59 Basophils # 0.0 k/uL (0-0.2) 08/26/17 10:59 Anisocytosis Slight 08/26/17 10:59 Macrocytosis Moderate 08/26/17 10:59 ESR 46 mm/hr (0-15) H 08/25/17 00:45 PT 21.9 sec (9.0-12.0) H 08/26/17 10:59 INR 2.4 (<1.2) H 08/26/17 10:59 Sodium 143 mmol/L (137-145) 08/25/17 00:45 Potassium 4.9 mmol/L (3.5-5.1) 08/25/17 00:45 Chloride 109 mmol/L (98-107) H 08/25/17 00:45 Carbon Dioxide 24 mmol/L (22-30) 08/25/17 00:45 Anion Gap 10 mmol/L 08/25/17 00:45 BUN 38 mg/dL (9-20) H 08/25/17 00:45 Creatinine 1.50 mg/dL (0.66-1.25) H 08/25/17 00:45 Est GFR (MDRD) Af Amer 58 (>60 ml/min/1.73 sqM) 08/25/17 00:45 Est GFR (MDRD) Non-Af 48 (>60 ml/min/1.73 sqM) 08/25/17 00:45 Glucose 113 mg/dL (74-99) H 08/25/17 00:45 Calcium 8.8 mg/dL (8.4-10.2) 08/25/17 00:45 Microbiology 08/25/17 00:45 Foot - Right Gram Stain - Preliminary 08/25/17 00:45 Foot - Right Wound Culture - Preliminary Presumptive Staph aureus 08/25/17 00:45 Blood Blood Culture - Preliminary No Growth after 24 hours 08/25/17 13:11 Foot - Right Anaerobic Culture - Preliminary Assessment and Plan (1) Rheumatoid arthritis involving multiple sites Current Visit: Yes Status: Acute Code(s): M06.9 - RHEUMATOID ARTHRITIS, UNSPECIFIED SNOMED Code(s): 490582696 (2) Foot ulcer, right Narrative/Plan: 62-year-old male presents to which she center with the new onset of ulceration to the right foot second toe. He had a small injury to that area several weeks ago the site was treated and healed but is now reopened with a significant ulceration and likely is tracking to bone by its depth. Bone scan is requested to further evaluate this infection. Wound culture including anaerobic culture now been sent. Has history of MRSA. With that antimicrobial therapy with vancomycin is started. Also with concerns will add and Rocephin until we have further data so gram negatives are coverage such as E. coli. He does not have a history of Pseudomonas infection. He is nondiabetic. Is very dry skin and this will be treated. Has significant swelling to the left leg will be treated and wrapped. Recent laboratory is requesting that his sed rate and CRP which will be difficult to discern with his underlying rheumatoid arthritis. Case is discussed with the vascular surgeon. The bone scan is positive for infection of that deformed toe. Given the great difficulties at that site amputation of the toe appears to be the most prudent at this point in time. Ensure that nutrition is adequate multivitamin will be added and monitor. Antibiotic therapy is streamlined to vancomycin until surgery, and then plans will be for oral therapy at discharge Current Visit: Yes Status: Acute Code(s): L97.519 - NON-PRS CHRONIC ULCER OTH PRT RIGHT FOOT W UNSP SEVERITY SNOMED Code(s): 51613693
[2017-08-26] MEDS: HYDROcodone/APAP 5-325MG 1 EACH TAB PO PRN (23:26)
[2017-08-27] MEDS: VANCOMYCIN 2,250 MG in SODIUM CHLORIDE 0.9% 500 ML IVPB SCH ×2 (02:44→17:22)
[2017-08-27] MEDS: SODIUM CHLORIDE 0.9% 1,000 ML IV SCH (06:05)
[2017-08-27 08:22] LABS: Anion Gap 8 mmol/L; Blood Urea Nitrogen 21 mg/dL (9-20); Carbon Dioxide 24 mmol/L (22-30); Chloride 112 mmol/L (98-107); Glucose 107 mg/dL (74-99); INR 1.7 (<1.2); Potassium 4.3 mmol/L (3.5-5.1); Sodium 144 mmol/L (137-145)
[2017-08-27] MEDS: predniSONE 10 MG TAB PO SCH ×2 (09:00→21:08)
[2017-08-27] MEDS: METOPROLOL TARTRATE 25 MG TAB PO SCH ×2 (09:00→21:08)
[2017-08-27] MEDS: LISINOPRIL 10 MG TAB PO SCH ×2 (09:00→21:08)
[2017-08-27] MEDS: AMMONIUM LACTATE 12% CREAM 140 GM TUBE TOPICAL SCH (10:36)
--- NOTE | 2017-08-27 11:14 | CDI ---
Last Revision, July 2017 Documentation Clarification Form Date: 08/27/2017 10:44:00 AM From: Karen White RN, CCDS Admit Date: 08/26/2017 2:06:00 PM Patient Name: Danyel Tobar Visit Number: [id number] Discharge Date: ATTENTION: The Clinical Documentation Specialists (CDI) and [facility] Coding Staff appreciate your assistance in clarifying documentation. Please respond to the clarification below the line at the bottom and electronically sign. The CDI & [facility] Coding staff will review the response and follow-up if needed. Please note: Queries are made part of the Legal Health Record. If you have any questions, please contact the author of this message via ITS. Dr. Rhett Schroeder Osteomyelitis has been documented in the progress notes 08/26/17. History/Risk Factors: Chronic Rheumatoid arthritis, CKD stage 3, Chronic gout, Sickle cell, previous MRSA of the feet Clinical Indicators: Present for evaluation of suspected right foot infection developing over the past few days. Labs: WBC 9.1, BUN 38, CR 1.50, ESR 46 Bone scan: Findings may be the basis of osteomyelitis involving the right second or third digit although the x-ray suggests area of dislocation of the distal phalanx with could also account for the findings. Treatment: Vancomycin IV PTD Dressing change per protocol/orders Nutrition support with MVI Surgery consult In your professional opinion, please specify the following: Laterality and Location (if known, specify part of bone): Left Right Bilateral Upper Lower Acuity: Acute Chronic Subacute Unable to Determine Cause: Viral (specify organism if know): Bacterial (specify organism if know): Other (please specify): Unable to Determine Associated condition (if applicable): Diabetic Major osseous defect (specify site) Other (please specify): Please continue to document in your progress notes and discharge summary in order to capture severity of illness and risk of mortality. Include clinical findings that support your diagnosis. Patient had osteomyelitis of the right distal third toe with Staph Aureus, Acute in nature associated with his rheumatoid arthritis MTDD
--- NOTE | 2017-08-27 11:36 | P.PN ---
Progress Note - Text 62-year-old gentleman, patient was seen right foot third toe ulcer with osteo- patient is an IV antibiotic under care of Dr. Rhett Schroeder patient is scheduled to have a right foot third toe amputation risk and complication bleeding infection nonhealing has been discussed patient understand and we will proceed
[2017-08-27] MEDS ORDERED: IV FLUID CONTINUATION 1,000 ML IV ONE (11:56)
[2017-08-27] MEDS ORDERED: MIDAZOLAM 2 MG/2 ML VIAL ONE (12:38)
[2017-08-27] MEDS ORDERED: fentaNYL (PF) 50 MCG/ML 2 ML AMP ONE (12:38)
[2017-08-27] MEDS ORDERED: KETAMINE 10 MG/ML 20 ML VIAL ONE (12:38)
[2017-08-27] MEDS ORDERED: PROPOFOL 10 MG/ML 20 ML VIAL IV ONE (12:38)
[2017-08-27] MEDS ORDERED: GLYCOPYRROLATE 0.2 MG/ML 2 ML VIAL ONE (12:38)
[2017-08-27] MEDS ORDERED: LIDOCAINE 1% INJ 10MG/ML (20 ML MDV) SQ ONE ×2 (12:56)
--- NOTE | 2017-08-27 13:45 | OP ---
OPERATIVE REPORT PREOPERATIVE DIAGNOSIS: Infected ulcer right foot, third toe. OPERATION: Amputation of the right foot, third toe. PROCEDURE: This patient was brought to the operating room. Right foot was prepped and draped in a sterile manner. 1% Lidocaine was infiltrated for block and a circular incision was made at the base of the proximal phalanx. Deepened through the skin and tendon of the plantar and dorsal aspect of the foot were divided. Then the use of bone cutter and phalanx was divided and there was some bleeding point which was controlled and wound was copiously irrigated with saline and fascia was approximated with 3-0 Vicryl and the skin was closed with 4-0 Vicryl with interrupted suture. Dressing applied. Patient tolerated the procedure well. LUCIANO / SHERYLN: [id number] /
[2017-08-27] MEDS ORDERED: HYDROmorphone 2 MG/ML 1 ML SYRINGE IVP ONE ×2 (14:04→14:12)
[2017-08-27] MEDS: CHOLECALCIFEROL 1,000 UNIT TAB PO SCH (15:01)
[2017-08-27] MEDS: CITALOPRAM HYDROBROMIDE 20 MG TAB PO SCH (15:01)
[2017-08-27] MEDS: CYANOCOBALAMIN 500 MCG TAB PO SCH (15:01)
[2017-08-27] MEDS: FOLIC ACID 1 MG TAB PO SCH (15:01)
[2017-08-27] MEDS: ALLOPURINOL 300 MG TAB PO SCH (15:01)
[2017-08-27] MEDS: MULTIVITAMINS, THERA 1 EACH TAB PO SCH (15:01)
[2017-08-27] MEDS: amLODIPine 10 MG TAB PO SCH (15:01)
[2017-08-27] MEDS ORDERED: VANCOMYCIN TROUGH DUE 1 EACH MISC MISCELLANE ONE (17:00)
[2017-08-27] MEDS: HYDROcodone/APAP 5-325MG 1 EACH TAB PO PRN ×2 (17:30→21:09)
[2017-08-27] MEDS ORDERED: WARFARIN 2.5 MG TAB PO SCH (18:00)
--- NOTE | 2017-08-27 19:15 | P.PN ---
Progress Note - Text Progress Note Date: 08/27/17 DATE OF SERVICE: 08/27/2017 PRESENTING COMPLAINT: Right second toe infection HISTORY OF PRESENT ILLNESS: 62-year-old male who noticed about a week ago had a slit in the right second toe that received local wound care treatment by his and healed. It was noted again to have some pus coming out of the right second toe and presented to the emergency department and was admitted for an acute right second toe infection. INTERVAL HISTORY: 08/27/2017: Lying in bed appears comfortable. at the bedside. Currently nothing by mouth for right third toe amputation. Afebrile, vital signs stable. No complaints of pain or discomfort. Up with assistance and a walker or wheelchair. Last BM 08/26/2017. 08/26/2017: Lying in bed appears comfortable. is at the bedside. Dressing changes per infectious disease, afebrile, no nausea no vomiting no diarrhea. Right second toe does not bother him not painful. Tolerating his diet eating between 50-100% of his meals, up with assistance and a walker. Last BM 08/26/2017.. REVIEW OF SYSTEMS: Done for constitutional ,cardiovascular, GI, pulmonary with relevant findings as above. CURRENT MEDICATIONS Tylenol, [place], Zyloprim, Norvasc, Rocephin, vitamin D3, Celexa, vitamin B12, folic acid, Zestril, methotrexate, Lopressor, Theragran vitamins, Narcan, Zofran , prednisone, vancomycin, warfarin PHYSICAL EXAM VITAL SIGNS: Temperature 97.4, pulse 76, respiratory rate 18, blood pressure 141/74, oxygen saturation 98% on room air. GENERAL APPEARANCE: Lying in bed, not in distress. HENT: Normocephalic, JVD not raised. Mass not palpable. EYES: Pupils equal. Conjunctiva normal RESPIRATORY: Respiratory effort increased. Lungs decreased to auscultation. CARDIOVASCULAR: First and second sounds normal. No edema. ABDOMEN: Soft, pendulous abdomen Liver and spleen not palpable. No tenderness. No mass palpable. PSYCHIATRY: Alert and oriented x3. Mood and affect normal. EXTREMITIES: Left upper extremity with AV fistula in place positive for thrill and bruit Amputation of toes on the left side. Dressing over the right toe, severe disfigurement of both hands and feet with classical Finding of rheumatoid arthritis including metacarpophalangeal joint ulnar division of the fingers and both swan neck and boutonniere deformity INVESTIGATIONS: LABS: INR 1.7, chloride 112, BUN 21, creatinine 1.30 ASSESSMENT: -Acute osteomyelitis of the right third toe in a patient who has advanced rheumatoid arthritis in multiple joints. -Chronic kidney disease stage III likely due to hypertensive nephrosclerosis -Chronic advanced debilitating rheumatoid arthritis multiple joints, bilateral. -Morbid obesity body mass index 44.9. -Gout -Coumadin monitoring. -Depression not otherwise specified. PLAN: Patient is scheduled to be taken to the OR for a right third toe amputation for osteomyelitis. Antibiotics streamlined to IV vancomycin, at time of discharge patient will be placed on oral antibiotics. Follow INR. Plan of care discussed with the patient and at bedside and they are in agreement. We will follow closely. CAN SEALER statement: Patient was seen and examined by nurse practitioner Alicia Woodson and all elements of the case discussed with attending Dr. Berry
--- NOTE | 2017-08-27 21:48 | P.PN ---
Subjective Progress Note Date: 08/27/17 Principal diagnosis: Infection right foot 62-year-old male presents to the emergency center for evaluation of the new onset of ulceration to his right foot second toe. 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 He has a long-standing history of rheumatoid arthritis with significant destruction. He is on methotrexate and prednisone as the only therapy. He is not on a biological. He relates his arthritis of course is progressive but has been doing relatively well. He had a small ulceration which was from a skin crack to the site of the current ulceration. This is a couple weeks ago. His treated locally and was doing well but now was reopened and is draining. It is at a site where he used to have a nail but that's been gone for a long time. He's had no systemic symptoms such as fevers chills or rigors or sweats. He does have ongoing difficulties with his mobility but pushes through with the treatment of his arthritis. He is [place] citizen living in [place]. He this point in time is denying any other new significant symptoms. Bone scan has been performed revealing evidence of the osteomyelitis to the right foot deformed toe. Vascular surgery was contacted. Patient is now had the amputation of that grossly infected toe Objective - Vital Signs Vital signs: Vital Signs Temp 97.5 F L 08/27/17 15:00 Pulse 66 08/27/17 15:50 Resp 18 08/27/17 15:00 BP 115/63 08/27/17 15:50 Pulse Ox 99 08/27/17 15:35 Intake & Output 08/27/17 08/27/17 08/28/17 06:59 18:59 06:59 Intake Total 250 Output Total 5 Balance 245 Weight 158.757 kg Intake: IV 250 Output: Estimated Blood Loss 5 Other: # Voids 1 3 1 # Bowel Movements 1 1 - Exam Pleasant superobese 62-year-old male who is in no acute distress. HEENT: Anicteric conjunctiva are pink and moist nasal mucosa grossly intact without significant lesions, there is no thrush. Neck: The neck is supple without significant lymphadenopathy or thyromegaly. Lungs: Good bilateral air entry without significant crackles or wheezing. There is no significant bronchial sounds. There is no egophony or dullness. Heart: Regular rate and rhythm with an audible S1-S2, no S3 loud S4. There is no significant murmur click or rub, PMI was nondisplaced. Abdomen: Obese, Positive bowel sounds soft and nontender without palpable masses or organomegaly. There was no guarding or rebound. Extremities: The upper extremities do show evidence of the significant changes from his rheumatoid arthritis with swelling and joint destruction. The right lower extremity has evidence of the stomach and bony absorption from the rheumatoid arthritis and has had amputation to the great toe. The right foot is dressed from the recent toe amputation. The dressings that removed in its a short time since the surgery. Neuro: Awake alert oriented to person place and time. There are no acute new gross focal sensory motor deficits. - Labs CBC & Chem 7: 08/26/17 10:59 08/27/17 07:24 Labs: Abnormal Lab Results - Last 24 Hours (Table) 08/27/17 08/27/17 Range/Units 07:24 07:24 PT 16.0 H (9.0-12.0) sec INR 1.7 H (<1.2) Chloride 112 H (98-107) mmol/L BUN 21 H (9-20) mg/dL Creatinine 1.30 H (0.66-1.25) mg/dL Glucose 107 H (74-99) mg/dL Microbiology - Last 24 Hours (Table) 08/27/17 13:15 Tissue Culture - Preliminary Toe - Right Third 08/27/17 13:15 Anaerobic Culture - Preliminary Toe - Right Third 08/25/17 00:45 Gram Stain - Final Foot - Right Wound Culture - Final Staphylococcus aureus 08/25/17 00:45 Blood Culture - Preliminary Blood No Growth after 48 hours Laboratory Results WBC 7.3 k/uL (3.8-10.6) 08/26/17 10:59 RBC 3.16 m/uL (4.30-5.90) L 08/26/17 10:59 Hgb 10.1 gm/dL (13.0-17.5) L 08/26/17 10:59 Hct 32.9 % (39.0-53.0) L 08/26/17 10:59 MCV 104.2 fL (80.0-100.0) H 08/26/17 10:59 MCH 32.1 pg (25.0-35.0) 08/26/17 10:59 MCHC 30.8 g/dL (31.0-37.0) L 08/26/17 10:59 RDW 17.2 % (11.5-15.5) H 08/26/17 10:59 Plt Count 182 k/uL (150-450) 08/26/17 10:59 Neutrophils % 75 % 08/26/17 10:59 Lymphocytes % 16 % 08/26/17 10:59 Monocytes % 8 % 08/26/17 10:59 Eosinophils % 0 % 08/26/17 10:59 Basophils % 0 % 08/26/17 10:59 Neutrophils # 5.4 k/uL (1.3-7.7) 08/26/17 10:59 Lymphocytes # 1.2 k/uL (1.0-4.8) 08/26/17 10:59 Monocytes # 0.6 k/uL (0-1.0) 08/26/17 10:59 Eosinophils # 0.0 k/uL (0-0.7) 08/26/17 10:59 Basophils # 0.0 k/uL (0-0.2) 08/26/17 10:59 Anisocytosis Slight 08/26/17 10:59 Macrocytosis Moderate 08/26/17 10:59 ESR 46 mm/hr (0-15) H 08/25/17 00:45 PT 16.0 sec (9.0-12.0) H 08/27/17 07:24 INR 1.7 (<1.2) H 08/27/17 07:24 Sodium 144 mmol/L (137-145) 08/27/17 07:24 Potassium 4.3 mmol/L (3.5-5.1) 08/27/17 07:24 Chloride 112 mmol/L (98-107) H 08/27/17 07:24 Carbon Dioxide 24 mmol/L (22-30) 08/27/17 07:24 Anion Gap 8 mmol/L 08/27/17 07:24 BUN 21 mg/dL (9-20) H 08/27/17 07:24 Creatinine 1.30 mg/dL (0.66-1.25) H 08/27/17 07:24 Est GFR (MDRD) Af Amer >60 (>60 ml/min/1.73 sqM) 08/27/17 07:24 Est GFR (MDRD) Non-Af 56 (>60 ml/min/1.73 sqM) 08/27/17 07:24 Glucose 107 mg/dL (74-99) H 08/27/17 07:24 Calcium 9.0 mg/dL (8.4-10.2) 08/27/17 07:24 Vancomycin Trough 23.7 ug/mL 08/27/17 16:58 C. difficile (EIA) Intrp Negative (Negative) 08/26/17 20:18 Microbiology 08/27/17 13:15 Toe - Right Third Tissue Culture - Preliminary 08/27/17 13:15 Toe - Right Third Anaerobic Culture - Preliminary 08/25/17 00:45 Foot - Right Gram Stain - Final 08/25/17 00:45 Foot - Right Wound Culture - Final Staphylococcus aureus 08/25/17 00:45 Blood Blood Culture - Preliminary No Growth after 48 hours 08/25/17 13:11 Foot - Right Anaerobic Culture - Preliminary Assessment and Plan (1) Rheumatoid arthritis involving multiple sites Current Visit: Yes Status: Acute Code(s): M06.9 - RHEUMATOID ARTHRITIS, UNSPECIFIED SNOMED Code(s): 003473435 (2) Foot ulcer, right Narrative/Plan: 62-year-old male presents to which she center with the new onset of ulceration to the right foot second toe. He had a small injury to that area several weeks ago the site was treated and healed but is now reopened with a significant ulceration and likely is tracking to bone by its depth. Bone scan is requested to further evaluate this infection. Wound culture including anaerobic culture now been sent. Has history of MRSA. With that antimicrobial therapy with vancomycin is started. Also with concerns will add and Rocephin until we have further data so gram negatives are coverage such as E. coli. He does not have a history of Pseudomonas infection. He is nondiabetic. Is very dry skin and this will be treated. Has significant swelling to the left leg will be treated and wrapped. Recent laboratory is requesting that his sed rate and CRP which will be difficult to discern with his underlying rheumatoid arthritis. Case is discussed with the vascular surgeon. The bone scan is positive for infection of that deformed toe. Given the great difficulties amputation was deemed most appropriate in this is now occurred. Ensure that nutrition is adequate multivitamin will be added and monitor. Antibiotic therapy is streamlined to vancomycin until surgery, and then plans will be for oral therapy at discharge, Keflex 500 mg every 8 hours for 7 days will be sent. Likely discharge tomorrow. Current Visit: Yes Status: Acute Code(s): L97.519 - NON-PRS CHRONIC ULCER OTH PRT RIGHT FOOT W UNSP SEVERITY SNOMED Code(s): 56577380
--- NOTE | 2017-08-27 22:12 | PN ---
PROGRESS NOTE DATE OF SERVICE: 08/27/2017. ATTENDING NOTE: This patient was seen and examined by me. I discussed the case with the nurse practitioner Ms. Woodson. Patient presented with osteomyelitis of the right foot third toe, status post amputation. Dressing in place. at the bedside. Rather comfortable. On examination, temperature 97.5, pulse 91, respiration 18, blood pressure 112/58, pulse ox 96% on room air. Lungs are clear. CARDIOVASCULAR: First and second sounds normal. Right foot in a dressing. ASSESSMENT: 1. Acute osteomyelitis of the right foot third toe, status post amputation. 2. Chronic advanced debilitating rheumatoid arthritis in multiple joints. PLAN: Coumadin to be resumed. MMODL / IJN: [id number] /
[2017-08-28] MEDS: SODIUM CHLORIDE 0.9% 1,000 ML IV SCH (06:09)
[2017-08-28 08:10] LABS: INR 1.4 (<1.2); Prothrombin Time 13.4 sec (9.0-12.0)
[2017-08-28] MEDS: HYDROcodone/APAP 5-325MG 1 EACH TAB PO PRN ×2 (08:33→13:56)
[2017-08-28] MEDS: amLODIPine 10 MG TAB PO SCH (08:33)
[2017-08-28] MEDS: ALLOPURINOL 300 MG TAB PO SCH (08:33)
[2017-08-28] MEDS: CHOLECALCIFEROL 1,000 UNIT TAB PO SCH (08:34)
[2017-08-28] MEDS: CITALOPRAM HYDROBROMIDE 20 MG TAB PO SCH (08:34)
[2017-08-28] MEDS: predniSONE 10 MG TAB PO SCH (08:35)
[2017-08-28] MEDS: CYANOCOBALAMIN 500 MCG TAB PO SCH (08:35)
[2017-08-28] MEDS: METOPROLOL TARTRATE 25 MG TAB PO SCH (08:35)
[2017-08-28] MEDS: FOLIC ACID 1 MG TAB PO SCH (08:35)
[2017-08-28] MEDS: LISINOPRIL 10 MG TAB PO SCH (08:35)
[2017-08-28] MEDS ORDERED: VANCOMYCIN 2,250 MG in SODIUM CHLORIDE 0.9% 500 ML IVPB SCH (12:00)
[2017-08-28] MEDS: MULTIVITAMINS, THERA 1 EACH TAB PO SCH (13:56)
--- NOTE | 2017-08-28 14:10 | DS ---
DISCHARGE SUMMARY DATE OF ADMISSION: 08/25/2017 DATE OF DISCHARGE: 08/28/2017 FINAL DIAGNOSES: 1. Acute osteomyelitis of the right third toe in a patient who has got advanced rheumatoid arthritis. 2. Chronic advancing debilitating rheumatoid arthritis, multiple joints, bilateral. 3. Morbid obesity, body mass index of 44.9. 4. Gout. 5. Coumadin monitoring. 6. Depression, not otherwise specified. 7. Chronic kidney disease stage 3 from nephrosclerosis. HOSPITAL COURSE: This very pleasant gentleman presented with osteomyelitis of the right foot, third toe. Bone scan was done. Seen by Dr. Schroeder, Infectious Disease and Dr. Colmenares from Vascular Surgery. Decision was made, admitted the patient. Did have an amputation of the same. I spoke to Dr. Colmenares today. Okayed the patient to go home. Patient will see him in the office in a week's time. Patient has some pain from his rheumatoid arthritis. Patient's BUN and creatinine is 21/1.30. Care was discussed the patient. PHYSICAL EXAM: Lungs are clear. CARDIOVASCULAR: First and second sounds are normal. Dressing over the right foot. DISCHARGE MEDICATIONS: 1. Allopurinol 300 mg p.o. daily. 2. Vitamin D three thousand units p.o. daily. 3. Cinnamon 500 mg p.o. daily. 4. Celexa 20 mg p.o. daily. 5. Vitamin B12 one thousand mcg p.o. daily. 6. Fish oil 1 capsule p.o. daily. 7. Folic acid 0.4 mg p.o. daily. 8. Zestril 10 mg p.o. b.i.d. 9. Methotrexate 20 mg p.o. daily for 7 days. 10.Lopressor 25 p.o. b.i.d. 11.Coumadin 2.5 mg on Saturday, and 5 mg on Saturday, Saturday, Saturday, Saturday, Saturday. 12.Norvasc 10 mg a day. 13.Percocet 10 one tablet q.6 p.r.n. 14.Prednisone 10 mg b.i.d. 15.Keflex 500 mg p.o. q.8. 16.Lac-Hydrin 12% topical daily. 17.Multivitamin 1 tab p.o. daily. Follow up with Dr. Vaca in 1 week; Dr. Schroeder in [address] John Colmenares in 1 week. Labs, CBC, BMP in a week. Pro time in 3 days. Care was discussed with the patient. MMMARIMARL / IJN: [id number] /
[2017-08-28 14:47] VITALS: BP 138/69; PULSE 74; RESP 18; TEMP 97.2
== END 2017-08-28 16:50 | disposition home or self-care (01) | DRG 504 ==
LOC: EC 23:45 → 4MS4W 08-25 04:59 → OBSVTOIN 08-26 14:06
PROVIDERS: ADMIT Hospitalist; ATTEND Hospitalist
PROC: 0Y6T0Z1 Detachment at Right 3rd Toe, High, Open Approach (ICD-10-PCS; principal; 2017-08-27 07:30)
DX: M86.171 Other acute osteomyelitis, right ankle and foot (principal); Z68.41 Body mass index [BMI] 40.0-44.9, adult; N18.3 Chronic kidney disease, stage 3 (moderate); D57.1 Sickle-cell disease without crisis; E66.01 Morbid (severe) obesity due to excess calories; L97.519 Non-pressure chronic ulcer of other part of right foot with unspecified severity; M06.9 Rheumatoid arthritis, unspecified; F32.9 Major depressive disorder, single episode, unspecified; I12.9 Hypertensive chronic kidney disease with stage 1 through stage 4 chronic kidney disease, or unspecified chronic kidney disease; M1A.9XX0 Chronic gout, unspecified, without tophus (tophi); Z79.01 Long term (current) use of anticoagulants; Z79.52 Long term (current) use of systemic steroids; Z79.899 Other long term (current) drug therapy; Z86.718 Personal history of other venous thrombosis and embolism; Z86.711 Personal history of pulmonary embolism; Z96.652 Presence of left artificial knee joint; Z89.429 Acquired absence of other toe(s), unspecified side; Z88.2 Allergy status to sulfonamides; Z86.14 Personal history of Methicillin resistant Staphylococcus aureus infection
CPT/HCPCS: 36415; 78315; 80048; 80202; 85025; 85610; 85652; 87040; 87070; 87075; 87077; 87186; 87205; 87324; 96365; 96375; 99284

== ENCOUNTER → 2018-01-09 | Outpatient (CLI) | payer MEDICARE ==
--- NOTE | 2018-01-09 17:36 | CT ---
EXAMINATION TYPE: CT abdomen w con DATE OF EXAM: 01/09/2018 COMPARISON: NONE INDICATION: Upper Abdominal pain DLP: 3722.8 mGycm, Automated exposure control for dose reduction was used. CONTRAST: 100 mL of Isovue 300. Study performed with Oral Contrast TECHNIQUE: Axial images were obtained from above the diaphragm to the pubic rami in the axial plane a t 5 mm thick sections. Reconstructed images are reviewed on the computer in the coronal plane. FINDINGS: Limited CT sections are obtained the lung bases. The lung bases are clear. CT ABDOMEN: Liver: There is a 1.5 cm ill-defined density along the medial right lobe liver. Series 4 image 25. Carlos rders are irregular. This does not appear to be a simple cyst. Metastatic disease is not excluded. Fo llow-up is recommended. Consider ultrasound abdomen for additional evaluation. Series 4 image 25 Spleen: Normal Pancreas: Normal Adrenal glands: The adrenal glands are normal. Gallbladder: Normal Kidneys: No masses are evident. No hydronephrosis is present. Multiple renal cysts are present bila terally. No individual cyst appears suspicious. There is beam hardening artifact causing some limitat ion on the evaluation. The largest cyst on the right is in the posterior lateral right mid kidney reg ion measuring 5.4 cm but 46 Hounsfield units. The largest cyst on the left is at the superior pole me asures 3.5 cm and 46 Hounsfield units. Recommend attempting renal ultrasound for better documentation of the cysts. Aorta: Vascular calcification is within the aorta. Inferior vena cava: Normal. CT PELVIS: Loops of bowel within the abdomen and pelvis are normal. Fecal debris is within the colon. No dil ated loops of bowel are evident. Appendix: There is limited visualization of a normal-appearing appendix. IMPRESSIONS: 1. Multiple bilateral renal cysts. Whether artifact from beam hardening or complex cysts these canno t be classified as simple cysts on the kidneys and additional evaluation with ultrasound is recommend ed. 2. Ill-defined 1.5 cm hypodensity medial right lobe liver. Recommend additional evaluation with abdom en ultrasound.
== END | disposition home or self-care (01) ==
LOC: RADCTMAIN 12:20
PROVIDERS: ATTEND Family Medicine
DX: N28.1 Cyst of kidney, acquired (principal); R93.2 Abnormal findings on diagnostic imaging of liver and biliary tract
CPT/HCPCS: 82565; 84520; 74160; 36415; Q9967

== ENCOUNTER → 2018-04-29 | Outpatient (CLI) | payer MEDICARE ==
--- NOTE | 2018-04-29 11:47 | US ---
EXAMINATION TYPE: US liver DATE OF EXAM: 04/29/2018 COMPARISON: CT 01/09/2018, ultrasound 03/19/2012 CLINICAL HISTORY: K76.9 Liver lesion,R93.[address] scanned showed liver lesion. EXAM MEASUREMENTS: Liver Length: 21.2 cm Gallbladder Wall: 0.2 cm Right Kidney: 11.2 x 6.3 x 5.9 cm Pancreas: wnl Liver: Echogenic. Enlarged. Right lobe liver lesion with posterior enhancement, internal echoes an d irregular borders = 3.7 x 2.0 x 2.1 cm., similar lesion present on prior ultrasound. Left lobe cyst ic appearing lesion - 1.2 x 1.4 x 1.2 cm Gallbladder: wnl Evidence for sonographic Benson's sign: neg CBD: Obscured by overlying bowel gas CHD: wnl Right Kidney: Multiple cystic appearing lesions seen throughout kidney. Largest lateral - 5.1 x 5.0 x 5.9 cm. Largest medial, lower pole = 4.1 x 3.6 x 4.0 cm IMPRESSION: Correlate for hepatic steatosis, hepatomegaly. Liver lesions are chronic, possible julia iomas, MRI liver could be performed for better characterization. Multiple cysts associated with the r ight kidney.
== END | disposition home or self-care (01) ==
LOC: RADUSWWP 08:56
PROVIDERS: ATTEND Surgery Plastic and Reconstructive Surgery
DX: K76.9 Liver disease, unspecified (principal); N28.1 Cyst of kidney, acquired
CPT/HCPCS: 76705

== ENCOUNTER 2018-05-14 19:03 | Inpatient (IN) | payer MEDICARE ==
--- NOTE | 2018-05-14 19:42 | ED ---
General Adult HPI - General Chief complaint: Extremity Injury, Lower Stated complaint: Leg rash Time Seen by Provider: 05/14/18 19:21 Source: patient, RN notes reviewed Mode of arrival: wheelchair Limitations: no limitations - History of Present Illness Initial comments: Patient is a pleasant 63-year-old male presenting to the emergency department with rash and right leg. Patient does have history of similar symptoms previously associated with cellulitis. Patient did have an episode 2 days ago where his knee gave out and he fell. Patient felt too weak to get up. Patient noticed rash this morning. Patient has discomfort of his right leg. Patient does have similar rash previously associated with cellulitis. Patient does have some discomfort however states it is mild. No swelling of the knee itself. No fevers. Patient does feel shaky. Patient does have history of severe peripheral vascular disease. Patient does have previous amputations and did have fistula placed however is not on dialysis. - Related Data Home Medications Medication Instructions Recorded Confirmed Allopurinol [Zyloprim] 300 mg PO DAILY 08/25/17 05/14/18 Cholecalciferol [Vitamin D3] 1,000 unit PO DAILY 08/25/17 05/14/18 Cyanocobalamin (Vitamin B-12) 1,000 mcg PO DAILY 08/25/17 05/14/18 [Vitamin B-12] Fish Oil/Dha/Epa [Fish Oil 1,200 1 cap PO DAILY 08/25/17 05/14/18 mg Fish Oil] Folic Acid 0.4 mg PO DAILY 08/25/17 05/14/18 Lisinopril [Zestril] 10 mg PO BID 08/25/17 05/14/18 Methotrexate Sodium [Methotrexate] 20 mg PO CASANOVA 08/25/17 05/14/18 Metoprolol Tartrate [Lopressor] 25 mg PO BID 08/25/17 05/14/18 Warfarin [Coumadin] 2.5 mg PO TH 08/25/17 05/14/18 Warfarin [Coumadin] 5 mg PO SUMOTUWEFRSA 08/25/17 05/14/18 oxyCODONE-APAP 10-325MG [Percocet 1 tab PO Q6HR PRN 08/25/17 05/14/18 10-325 mg] predniSONE 20 mg PO BID 08/25/17 05/14/18 Atorvastatin Calcium [Lipitor] 20 mg PO DAILY 05/14/18 05/14/18 DULoxetine HCL [Cymbalta] 30 mg PO DAILY 05/14/18 05/14/18 Multivitamins, Thera [Multivitamin 1 tab PO DAILY@1200 05/14/18 05/14/18 (formulary)] Previous Rx's Medication Instructions Recorded Ammonium Lactate Cream [Lac-Hydrin 1 applic TOPICAL DAILY cream 08/28/17 12% Cream] Allergies Allergy/AdvReac Type Severity Reaction Status Date / Time Sulfa (Sulfonamide Allergy Rash/Hives Verified 05/14/18 19:56 Antibiotics) Review of Systems ROS Statement: Those systems with pertinent positive or pertinent negative responses have been documented in the HPI. ROS Other: All systems not noted in ROS Statement are negative. Constitutional: Denies: fever Eyes: Denies: eye pain ENT: Denies: ear pain Respiratory: Denies: cough Cardiovascular: Denies: chest pain Endocrine: Reports: fatigue Gastrointestinal: Denies: abdominal pain Genitourinary: Denies: dysuria Musculoskeletal: Denies: back pain Skin: Reports: rash Neurological: Reports: weakness (Generalized) Past Medical History Past Medical History: Dialysis, Deep Vein Thrombosis (DVT), Pulmonary Embolus ( PE), Rheumatoid Arthritis (RA) Additional Past Medical History / Comment(s): gout, sickle cell History of Any Multi-Drug Resistant Organisms: MRSA Date of last positivie culture/infection: 2013 MDRO Source:: foot Past Surgical History: Joint Replacement, Orthopedic Surgery Additional Past Surgical History / Comment(s): Left knee replaced; multiple toe amputations Past Psychological History: No Psychological Hx Reported Smoking Status: Never smoker Past Alcohol Use History: None Reported Past Drug Use History: Marijuana General Exam Limitations: no limitations General appearance: alert, in no apparent distress Head exam: Present: atraumatic Eye exam: Present: normal appearance ENT exam: Present: normal oropharynx Neck exam: Present: normal inspection Respiratory exam: Present: normal lung sounds bilaterally Cardiovascular Exam: Present: irregular rhythm GI/Abdominal exam: Present: soft. Absent: tenderness Extremities exam: Present: other (Right leg with erythema from the mid thigh to mid calf on the medial portion. There is some bolus formation. There is mild warmth and mild tenderness. No significant knee swelling or effusion. Only mild discomfort with range of motion.) Neurological exam: Present: alert Psychiatric exam: Present: normal affect, normal mood Skin exam: Present: erythema Course Vital Signs 05/14/18 19:14 Temperature 98.1 F Pulse Rate 64 Respiratory 20 Rate Blood Pressure 129/66 O2 Sat by Pulse 99 Oximetry - Reevaluation(s) Reevaluation #1: 05/14/18 21:19 Case was discussed in detail with Dr. Hernandez from orthopedics. He states patient could be placed in knee immobilizer and follow-up with him. He states patient does not need to be admitted for orthopedic trauma reasons. Secondary to this patient would be admitted to medicine however he states he can still consult. 05/14/18 22:41 Fluid bolus given based on ideal body weight of 86.2 kg. EKG Findings - EKG Comments: EKG Findings:: A. fib with rate of 113. QRS 74. QT 284. QTC 389. Normal axis. Normal QRS. Nonspecific T waves. Procedures - Sepsis Sepsis Focused Exam #1 Sepsis Focused Exam Date: 05/14/18 Sepsis Focused Exam Time: 22:42 Sepsis Focused Exam Complete: Yes Vital Signs & RN Notes Reviewed: Yes Capillary Refill: < 2 Seconds: Fingers, Toes Peripheral Pulses: Normal: Radial (R), Radial (L) Skin Color: Erythema Respiratory Exam: normal lung sounds Cardiovascular Exam: tachycardia Medical Decision Making - Medical Decision Making Patient reevaluated and resting comfortably in bed. Patient and family updated on results and plan. Leg reexamined. Leg is not tense. Distally the leg is neurovascular intact. There is still concern for cellulitis. Lactic acid is likely secondary to patient and lactic acidosis with elevation of CPK. Case was also discussed in detail with Dr. machado, who will admit for Dr. Vaca. He also request consult with Dr. Schroeder. - Lab Data Result diagrams: 05/14/18 19:47 05/14/18 19:47 Lab Results 05/14/18 05/14/18 05/14/18 Range/Units 19:47 19:47 19:47 WBC 12.6 H (3.8-10.6) k/uL RBC 3.23 L (4.30-5.90) m/uL Hgb 10.5 L (13.0-17.5) gm/dL Hct 31.9 L (39.0-53.0) % MCV 98.8 (80.0-100.0) fL MCH 32.4 (25.0-35.0) pg MCHC 32.8 (31.0-37.0) g/dL RDW 16.6 H (11.5-15.5) % Plt Count 226 (150-450) k/uL Neutrophils % 76 % Lymphocytes % 19 % Monocytes % 4 % Eosinophils % 1 % Basophils % 0 % Neutrophils # 9.6 H (1.3-7.7) k/uL Lymphocytes # 2.4 (1.0-4.8) k/uL Monocytes # 0.5 (0-1.0) k/uL Eosinophils # 0.1 (0-0.7) k/uL Basophils # 0.0 (0-0.2) k/uL Anisocytosis Slight Macrocytosis Slight Sodium 140 (137-145) mmol/L Potassium 5.0 (3.5-5.1) mmol/L Chloride 104 (98-107) mmol/L Carbon Dioxide 22 (22-30) mmol/L Anion Gap 14 mmol/L BUN 41 H (9-20) mg/dL Creatinine 1.89 H (0.66-1.25) mg/dL Est GFR (CKD-EPI)AfAm 43 (>60 ml/min/1.73 sqM) Est GFR (CKD-EPI)NonAf 37 (>60 ml/min/1.73 sqM) Glucose 155 H (74-99) mg/dL Plasma Lactic Acid [place] 5.3 H* (0.7-2.0) mmol/L Calcium 9.8 (8.4-10.2) mg/dL Total Bilirubin 1.5 H (0.2-1.3) mg/dL AST 88 H (17-59) U/L ALT 43 (21-72) U/L Alkaline Phosphatase 64 (38-126) U/L Creatine Kinase (55-170) U/L Total Protein 6.5 (6.3-8.2) g/dL Albumin 3.7 (3.5-5.0) g/dL 05/14/18 Range/Units 20:18 WBC (3.8-10.6) k/uL RBC (4.30-5.90) m/uL Hgb (13.0-17.5) gm/dL Hct (39.0-53.0) % MCV (80.0-100.0) fL MCH (25.0-35.0) pg MCHC (31.0-37.0) g/dL RDW (11.5-15.5) % Plt Count (150-450) k/uL Neutrophils % % Lymphocytes % % Monocytes % % Eosinophils % % Basophils % % Neutrophils # (1.3-7.7) k/uL Lymphocytes # (1.0-4.8) k/uL Monocytes # (0-1.0) k/uL Eosinophils # (0-0.7) k/uL Basophils # (0-0.2) k/uL Anisocytosis Macrocytosis Sodium (137-145) mmol/L Potassium (3.5-5.1) mmol/L Chloride (98-107) mmol/L Carbon Dioxide (22-30) mmol/L Anion Gap mmol/L BUN (9-20) mg/dL Creatinine (0.66-1.25) mg/dL Est GFR (CKD-EPI)AfAm (>60 ml/min/1.73 sqM) Est GFR (CKD-EPI)NonAf (>60 ml/min/1.73 sqM) Glucose (74-99) mg/dL Plasma Lactic Acid [place] (0.7-2.0) mmol/L Calcium (8.4-10.2) mg/dL Total Bilirubin (0.2-1.3) mg/dL AST (17-59) U/L ALT (21-72) U/L Alkaline Phosphatase (38-126) U/L Creatine Kinase 1541 H* (55-170) U/L Total Protein (6.3-8.2) g/dL Albumin (3.5-5.0) g/dL - Radiology Data Radiology results: image reviewed (X-ray of the right knee shows proximal tib- fib fracture with displacement.) Disposition Clinical Impression: Cellulitis of right leg, Lactic acidosis Disposition: ADMITTED IP TO THIS [facility] Condition: Serious Is patient prescribed a controlled substance at d/c from ED?: No Decision Time: 21:41
[2018-05-14] MEDS ORDERED: SODIUM CHLORIDE 0.9% 500 ML 500 ML IV SCH (19:45)
[2018-05-14 20:10] LABS: Anisocytosis Slight; Basophils % (A) 0 %; Eosinophils # (A) 0.1 k/uL (0-0.7); Eosinophils % (A) 1 %; HCT 31.9 % (39.0-53.0); HGB 10.5 gm/dL (13.0-17.5); Lymphocytes # (A) 2.4 k/uL (1.0-4.8); Lymphocytes % (A) 19 %; MCH 32.4 pg (25.0-35.0); MCHC 32.8 g/dL (31.0-37.0); MCV 98.8 fL (80.0-100.0); Macrocytosis Slight; Mean Platelet Volume 7.4; Monocytes # (A) 0.5 k/uL (0-1.0); Monocytes % (A) 4 %; Neutrophils # (A) 9.6 k/uL (1.3-7.7); Neutrophils % (A) 76 %; Platelet Count 226 k/uL (150-450); RBC 3.23 m/uL (4.30-5.90); RDW 16.6 % (11.5-15.5); WBC 12.6 k/uL (3.8-10.6)
[2018-05-14 20:20] LABS: Albumin 3.7 g/dL (3.5-5.0); Calcium 9.8 mg/dL (8.4-10.2); Total Bilirubin 1.5 mg/dL (0.2-1.3); Total Protein 6.5 g/dL (6.3-8.2)
--- NOTE | 2018-05-14 20:32 | XR ---
EXAMINATION TYPE: XR knee complete RT DATE OF EXAM: 05/14/2018 COMPARISON: NONE HISTORY: Pain TECHNIQUE: 3 views FINDINGS: There is comminuted fractures of the proximal tibia and fibula metaphyses. There is no sign ificant displacement of the major fragments. There is 1 cm posterior displacement of the distal tibia fragment. There is extensive spurring on the patella. There is a 2 cm bony density inferior to the p atella that could be a large chip fracture of the tibia. 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 IMPRESSION: Comminuted acute fractures proximal tibia and fibula.
[2018-05-14] MEDS ORDERED: SODIUM CHLORIDE 0.9% 1,000 ML IV STA ×2 (21:35)
[2018-05-14] MEDS ORDERED: SODIUM CHLORIDE 0.9% 500 ML 600 ML IV STA (21:35)
[2018-05-14] MEDS ORDERED: PIPERACILLIN-TAZOBACTAM 3.375 GM in DEXTROSE/WATER 1 50ML.BAG IVPB STA (21:36)
[2018-05-14] MEDS ORDERED: NALOXONE 0.4 MG/ML 1 ML VIAL IV PRN (21:41)
[2018-05-14] MEDS ORDERED: HYDROmorphone 1 MG/ML 1 ML SYRINGE IVP PRN (21:41)
[2018-05-14 22:16] LABS: Appearance,Urine Clear (Clear); Bilirubin,Urine Negative (Negative); Blood,Urine Negative (Negative); Color,Urine Yellow; Glucose,Urine (UA) Negative (Negative); Ketones,Urine Negative (Negative); Leukocyte Esterase,Urine Negative (Negative); Nitrite,Urine Negative (Negative); PH, Urine 6.5 (5.0-8.0); Protein,Urine Trace (Negative); Urobilinogen,Urine <2.0 mg/dL (<2.0)
[2018-05-14] MEDS: HYDROmorphone 1 MG/ML 1 ML SYRINGE IVP PRN (22:18)
[2018-05-14] MEDS: predniSONE 20 MG TAB PO SCH (23:42)
[2018-05-14] MEDS: LISINOPRIL 10 MG TAB PO SCH (23:42)
[2018-05-14] MEDS: METOPROLOL TARTRATE 25 MG TAB PO SCH (23:42)
[2018-05-14] MEDS: SODIUM CHLORIDE 0.9% 1,000 ML IV SCH (23:43)
[2018-05-15 00:15] VITALS: BMI 43.6
[2018-05-15 00:35] LABS: INR 3.6 (<1.2); Partial Thromboplastin Time 44.7 sec (22.0-30.0); Prothrombin Time 32.2 sec (9.0-12.0)
[2018-05-15 01:15] LABS: Creatine Kinase MB 3.8 ng/mL (0.0-2.4)
[2018-05-15 01:21] LABS: Troponin I 0.046 ng/mL (0.000-0.034)
[2018-05-15] MEDS: HYDROmorphone 1 MG/ML 1 ML SYRINGE IVP PRN ×2 (04:17→17:57)
[2018-05-15] MEDS: SODIUM CHLORIDE 0.9% 1,000 ML IV SCH ×3 (06:06→23:07)
[2018-05-15 06:31] LABS: Anisocytosis Slight; Basophils % (A) 0 %; Eosinophils # (A) 0.1 k/uL (0-0.7); Eosinophils % (A) 1 %; HCT 27.1 % (39.0-53.0); HGB 9.1 gm/dL (13.0-17.5); Lymphocytes # (A) 1.3 k/uL (1.0-4.8); Lymphocytes % (A) 14 %; MCH 33.2 pg (25.0-35.0); MCHC 33.4 g/dL (31.0-37.0); MCV 99.3 fL (80.0-100.0); Macrocytosis Slight; Mean Platelet Volume 7.2; Monocytes # (A) 0.5 k/uL (0-1.0); Monocytes % (A) 5 %; Neutrophils # (A) 7.3 k/uL (1.3-7.7); Neutrophils % (A) 79 %; Platelet Count 181 k/uL (150-450); RBC 2.73 m/uL (4.30-5.90); RDW 16.8 % (11.5-15.5); WBC 9.1 k/uL (3.8-10.6)
[2018-05-15 06:35] LABS: INR 3.4 (<1.2); Prothrombin Time 30.2 sec (9.0-12.0)
[2018-05-15 07:17] LABS: Albumin 2.8 g/dL (3.5-5.0); Calcium 8.7 mg/dL (8.4-10.2); Potassium 4.8 mmol/L (3.5-5.1); Total Bilirubin 1.5 mg/dL (0.2-1.3); Total Protein 5.5 g/dL (6.3-8.2)
[2018-05-15 07:44] LABS: Troponin I 0.05 ng/mL (0.000-0.034)
[2018-05-15] MEDS: oxyCODONE-APAP 10-325MG 1 EACH TAB PO PRN ×3 (07:53→20:26)
--- NOTE | 2018-05-15 08:30 | P.CNOR ---
History of Present Illness - [facility] Consult date: 05/15/18 Consult reason: fracture (Proximal tibia/fibular fracture) History of present illness: This is a 63-year-old male with multiple medical comorbidities with history of injury to his right leg. He states that he was ambulating in his home and felt a crack in his lower leg which caused him to fall. He is fairly certain that his leg fracture prior to the fall. He has history of rheumatoid arthritis and has been on prednisone and methotrexate for several years. The patient also has peripheral vascular disease and neuropathy. He states that he is not diabetic that he is aware of. He has had removal of the lesser toes to the right foot secondary to vascular compromise. The date of his fall is 2017. He reportedly was unable to ambulate at the time and laid on the floor for quite some time. The patient was found to be and rhabdomyolysis on arrival to the emergency department last evening. He was found to have a proximal tib/ fib fracture. He is admitted to internal medicine and we're consulted for orthopedic evaluation. Patient's BMI is 43.6. Past Medical History Past Medical History: Dialysis, Deep Vein Thrombosis (DVT), Hypertension, Pulmonary Embolus (PE), Renal Disease, Rheumatoid Arthritis (RA) Additional Past Medical History / Comment(s): gout, sickle cell, CKD stage 3 ( dialysis 2004), sleep apnea, pneuropathy, glaucoma History of Any Multi-Drug Resistant Organisms: MRSA Year Discovered:: 2013 MDRO Source:: foot Past Surgical History: Joint Replacement, Orthopedic Surgery Additional Past Surgical History / Comment(s): Left knee replaced; multiple toe amputations Past Anesthesia/Blood Transfusion Reactions: No Reported Reaction Past Psychological History: No Psychological Hx Reported Additional Psychological History / Comment(s): lives with his . [place] citizen living in [place]. 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 No animal exposures Smoking Status: Never smoker Past Alcohol Use History: None Reported Past Drug Use History: Marijuana Additional Drug Use History / Comment(s): Patient uses marijuana brownies for pain, weekly - Past Family History Father Family Medical History: Diabetes Mellitus, Myocardial Infarction ([place]) Mother Family Medical History: CVA/TIA Sister(s) Family Medical History: Hypertension Additional Family Medical History / Comment(s): RA Medications and Allergies Home Medications Medication Instructions Recorded Confirmed Type Allopurinol [Zyloprim] 300 mg PO DAILY 08/25/17 05/14/18 History Cholecalciferol [Vitamin D3] 1,000 unit PO DAILY 08/25/17 05/14/18 History Cyanocobalamin (Vitamin B-12) 1,000 mcg PO DAILY 08/25/17 05/14/18 History [Vitamin B-12] Fish Oil/Dha/Epa [Fish Oil 1,200 1 cap PO DAILY 08/25/17 05/14/18 History mg Fish Oil] Folic Acid 0.4 mg PO DAILY 08/25/17 05/14/18 History Lisinopril [Zestril] 10 mg PO BID 08/25/17 05/14/18 History Methotrexate Sodium [Methotrexate] 20 mg PO CASANOVA 08/25/17 05/14/18 History Metoprolol Tartrate [Lopressor] 25 mg PO BID 08/25/17 05/14/18 History Warfarin [Coumadin] 2.5 mg PO TH 08/25/17 05/14/18 History Warfarin [Coumadin] 5 mg PO SUMOTUWEFRSA 08/25/17 05/14/18 History oxyCODONE-APAP 10-325MG [Percocet 1 tab PO Q6HR PRN 08/25/17 05/14/18 History 10-325 mg] predniSONE 20 mg PO BID 08/25/17 05/14/18 History Ammonium Lactate Cream [Lac-Hydrin 1 applic TOPICAL DAILY cream 08/28/17 Rx 12% Cream] Atorvastatin Calcium [Lipitor] 20 mg PO DAILY 05/14/18 05/14/18 History DULoxetine HCL [Cymbalta] 30 mg PO DAILY 05/14/18 05/14/18 History Multivitamins, Thera [Multivitamin 1 tab PO DAILY@1200 05/14/18 05/14/18 History (formulary)] Allergies Allergy/AdvReac Type Severity Reaction Status Date / Time Sulfa (Sulfonamide Allergy Rash/Hives Verified 05/14/18 19:56 Antibiotics) Physical Examination This is a 63-year-old male in no acute distress. He is alert and oriented 3. The patient is moderately obese. Exam of the head neck reveal no obvious deformity. He complains of no neck pain. Exam of the upper extremities unremarkable. No deformities noted. Exam of the lower extremities reveals multiple large fracture blisters to the anterior aspect of the right lower leg. One of the blisters has opened. There is moderate swelling to the lower leg. There is pain with palpation about the proximal tibia. Significant swelling to the foot. He is missing the lesser toes. Exam of the left lower extremity is unremarkable. Pedal pulses are not palpable. Results X-rays of the right tib-fib reveal a minimally displaced proximal tibia fracture and proximal fibular fracture. There is possibly an avulsion of the tibial tubercle which is displaced superiorly. - Labs Labs: Abnormal Lab Results - Last 24 Hours (Table) 05/14/18 05/14/18 05/14/18 Range/Units 19:47 19:47 19:47 WBC 12.6 H (3.8-10.6) k/uL RBC 3.23 L (4.30-5.90) m/uL Hgb 10.5 L (13.0-17.5) gm/dL Hct 31.9 L (39.0-53.0) % RDW 16.6 H (11.5-15.5) % Neutrophils # 9.6 H (1.3-7.7) k/uL PT (9.0-12.0) sec INR (<1.2) APTT (22.0-30.0) sec Chloride (98-107) mmol/L Carbon Dioxide (22-30) mmol/L BUN 41 H (9-20) mg/dL Creatinine 1.89 H (0.66-1.25) mg/dL Glucose 155 H (74-99) mg/dL Plasma Lactic Acid Easton 5.3 H* (0.7-2.0) mmol/L Total Bilirubin 1.5 H (0.2-1.3) mg/dL AST 88 H (17-59) U/L Creatine Kinase (55-170) U/L Total Creatine Kinase (55-170) U/L CK-MB (CK-2) (0.0-2.4) ng/mL Troponin I (0.000-0.034) ng/mL Total Protein (6.3-8.2) g/dL Albumin (3.5-5.0) g/dL Urine Protein (Negative) 05/14/18 05/14/18 05/14/18 Range/Units 20:18 22:01 23:54 WBC (3.8-10.6) k/uL RBC (4.30-5.90) m/uL Hgb (13.0-17.5) gm/dL Hct (39.0-53.0) % RDW (11.5-15.5) % Neutrophils # (1.3-7.7) k/uL PT 32.2 H (9.0-12.0) sec INR 3.6 H (<1.2) APTT 44.7 H (22.0-30.0) sec Chloride (98-107) mmol/L Carbon Dioxide (22-30) mmol/L BUN (9-20) mg/dL Creatinine (0.66-1.25) mg/dL Glucose (74-99) mg/dL Plasma Lactic Acid Easton (0.7-2.0) mmol/L Total Bilirubin (0.2-1.3) mg/dL AST (17-59) U/L Creatine Kinase 1541 H* (55-170) U/L Total Creatine Kinase (55-170) U/L CK-MB (CK-2) (0.0-2.4) ng/mL Troponin I (0.000-0.034) ng/mL Total Protein (6.3-8.2) g/dL Albumin (3.5-5.0) g/dL Urine Protein Trace H (Negative) 05/14/18 05/14/18 05/15/18 Range/Units 23:54 23:54 06:13 WBC (3.8-10.6) k/uL RBC 2.73 L (4.30-5.90) m/uL Hgb 9.1 L (13.0-17.5) gm/dL Hct 27.1 L (39.0-53.0) % RDW 16.8 H (11.5-15.5) % Neutrophils # (1.3-7.7) k/uL PT (9.0-12.0) sec INR (<1.2) APTT (22.0-30.0) sec Chloride (98-107) mmol/L Carbon Dioxide (22-30) mmol/L BUN (9-20) mg/dL Creatinine (0.66-1.25) mg/dL Glucose (74-99) mg/dL Plasma Lactic Acid Easton 2.4 H* (0.7-2.0) mmol/L Total Bilirubin (0.2-1.3) mg/dL AST (17-59) U/L Creatine Kinase (55-170) U/L Total Creatine Kinase 1443 H* (55-170) U/L CK-MB (CK-2) 3.8 H (0.0-2.4) ng/mL Troponin I 0.046 H* (0.000-0.034) ng/mL Total Protein (6.3-8.2) g/dL Albumin (3.5-5.0) g/dL Urine Protein (Negative) 05/15/18 05/15/18 05/15/18 Range/Units 06:13 06:13 06:13 WBC (3.8-10.6) k/uL RBC (4.30-5.90) m/uL Hgb (13.0-17.5) gm/dL Hct (39.0-53.0) % RDW (11.5-15.5) % Neutrophils # (1.3-7.7) k/uL PT 30.2 H (9.0-12.0) sec INR 3.4 H (<1.2) APTT (22.0-30.0) sec Chloride 112 H (98-107) mmol/L Carbon Dioxide 20 L (22-30) mmol/L BUN 35 H (9-20) mg/dL Creatinine 1.69 H (0.66-1.25) mg/dL Glucose 146 H (74-99) mg/dL Plasma Lactic Acid Easton (0.7-2.0) mmol/L Total Bilirubin 1.5 H (0.2-1.3) mg/dL AST 77 H (17-59) U/L Creatine Kinase (55-170) U/L Total Creatine Kinase 1282 H* (55-170) U/L CK-MB (CK-2) 3.0 H (0.0-2.4) ng/mL Troponin I 0.050 H* (0.000-0.034) ng/mL Total Protein 5.5 L (6.3-8.2) g/dL Albumin 2.8 L (3.5-5.0) g/dL Urine Protein (Negative) Microbiology - Last 24 Hours (Table) 05/14/18 22:01 Urine Culture - Preliminary Urine,Voided H & H 05/14/18 05/15/18 Range/Units 19:47 06:13 Hgb 10.5 L 9.1 L (13.0-17.5) gm/dL Hct 31.9 L 27.1 L (39.0-53.0) % Coagulation 05/14/18 05/15/18 Range/Units 23:54 06:13 INR 3.6 H 3.4 H (<1.2) Result Diagrams: 05/15/18 06:13 05/15/18 06:13 Assessment and Plan (1) Fracture, pathologic, tibia/fibula Current Visit: Yes Status: Acute Code(s): M84.469A - PATHOLOGICAL FRACTURE, UNSP TIBIA AND FIBULA, INIT FOR FX SNOMED Code(s): 873883414 (2) Lactic acidosis Current Visit: Yes Status: Acute Code(s): E87.2 - ACIDOSIS SNOMED Code(s) : 70274033 (3) Rheumatoid arthritis involving multiple sites Current Visit: No Status: Acute Code(s): M06.9 - RHEUMATOID ARTHRITIS, UNSPECIFIED SNOMED Code(s): 262597385 (4) Atrial fibrillation Current Visit: Yes Status: Acute Code(s): I48.91 - UNSPECIFIED ATRIAL FIBRILLATION SNOMED Code(s): 46515564 (5) Obesity Current Visit: Yes Status: Acute Code(s): E66.9 - OBESITY, UNSPECIFIED SNOMED Code(s): 302423430 (6) Peripheral vascular disease Current Visit: Yes Status: Acute Code(s): I73.9 - PERIPHERAL VASCULAR DISEASE, UNSPECIFIED SNOMED Code(s): 485003493 (7) Rhabdomyolysis Current Visit: Yes Status: Acute Code(s): M62.82 - RHABDOMYOLYSIS SNOMED Code(s): 819809978 Plan: The clinical and x-fabrice findings are discussed with the patient and with Dr. Hernandez is recommended he have CT scan for further evaluation. With his multiple medical comorbidities and the extent of this fracture, it may be recommended that he go to a tertiary care center for fixation. He will need the fracture blisters to resolve prior to any surgical fixation. It may be 1-2 weeks before any surgical intervention is recommended. He is to remain in the knee immobilizer and remain nonweightbearing.
[2018-05-15] MEDS: PIPERACILLIN-TAZOBACTAM 3.375 GM in DEXTROSE/WATER 1 50ML.BAG IVPB SCH ×2 (09:40→17:48)
[2018-05-15] MEDS: ATORVASTATIN 20 MG TAB PO SCH (09:41)
[2018-05-15] MEDS: LISINOPRIL 10 MG TAB PO SCH ×2 (09:42→20:25)
[2018-05-15] MEDS: CYANOCOBALAMIN 500 MCG TAB PO SCH (09:42)
[2018-05-15] MEDS: DULoxetine HCL 30 MG CAPSULE.DR PO SCH (09:42)
[2018-05-15] MEDS: predniSONE 20 MG TAB PO SCH ×2 (09:43→20:26)
[2018-05-15] MEDS: FOLIC ACID 1 MG TAB PO SCH (09:43)
[2018-05-15] MEDS: METOPROLOL TARTRATE 25 MG TAB PO SCH ×2 (09:43→20:26)
[2018-05-15] MEDS: PANTOPRAZOLE 40 MG/10 ML VIAL IV SCH (09:44)
[2018-05-15] MEDS: AMMONIUM LACTATE 12% CREAM 140 GM TUBE TOPICAL SCH (09:52)
[2018-05-15] MEDS: ALLOPURINOL 300 MG TAB PO SCH (09:52)
[2018-05-15 13:07] LABS: Magnesium 1.7 mg/dL (1.6-2.3)
--- NOTE | 2018-05-15 13:18 | ECHOF ---
Referral Reason:elevated trop, new afib MEASUREMENTS -------- HEIGHT: 188.0 cm WEIGHT: 153.8 kg BP: 121/84 RVIDd: 3.9 cm (< 3.3) IVSd: 1.6 cm (0.6 - 1.1) LVIDd: 5.3 cm (3.9 - 5.3) LVPWd: 1.6 cm (0.6 - 1.1) IVSs: 2.1 cm LVIDs: 4.1 cm LVPWs: 2.1 cm LAESV Index (A-L): 27.58 ml/m Ao Diam: 3.6 cm (2.0 - 3.7) AV Cusp: 1.8 cm (1.5 - 2.6) LA Diam: 4.7 cm (2.7 - 3.8) EPSS: 1.1 cm MV E Robin: 0.87 m/s MV DecT: 343 ms MV A Robin: 0.01 m/s MV E/A Ratio: 137.35 RAP: 5.00 mmHg RVSP: 27.68 mmHg MV EF SLOPE: 142.03 mm/s (70 - 150) MV EXCURSION: 2.49 cm (> 18.000) FINDINGS -------- Atrial fibrillation. This was a technically adequate study. The left ventricular size is normal. There is mild concentric left ventricular hypertrophy. Overa ll left ventricular systolic function is low-normal with, an EF between 50 - 55 %. The right ventricle is mild to moderately enlarged. Normal LA size by volume 22+/-6 ml/m2. The right atrium is normal in size. There is mild aortic valve sclerosis. Trace amount of aortic regurgitation. There is no evidence of aortic stenosis. Mild mitral annular calcification present. Mild mitral regurgitation is present. Mild tricuspid regurgitation present. Right ventricular systolic pressure is normal at < 35 mmHg. The right ventricular systolic pressure, as measured by Doppler, is 27.68mmHg. The pulmonic valve was not well visualized. There is no pulmonic regurgitation present. The aortic root size is normal. Normal inferior vena cava with normal inspiratory collapse consistent with estimated right atrial pre ssure of 5 mmHg. There is no pericardial effusion. CONCLUSIONS -------- 1. Atrial fibrillation. 2. This was a technically adequate study. 3. The left ventricular size is normal. 4. There is mild concentric left ventricular hypertrophy. 5. Overall left ventricular systolic function is low-normal with, an EF between 50 - 55 %. 6. The right ventricle is mild to moderately enlarged. 7. Normal LA size by volume 22+/-6 ml/m2. 8. There is mild aortic valve sclerosis. 9. Mild mitral annular calcification present. 10. Mild mitral regurgitation is present. 11. Mild tricuspid regurgitation present. 12. Right ventricular systolic pressure is normal at < 35 mmHg. 13. The pulmonic valve was not well visualized. 14. There is no pulmonic regurgitation present. 15. The aortic root size is normal. 16. There is no pericardial effusion. ENVIRONMENTAL REMEDIATION ENGINEER: Glenroy Maza RDCS
[2018-05-15] MEDS ORDERED: METOPROLOL TARTRATE 25 MG TAB PO STA (13:30)
[2018-05-15 13:33] LABS: Creatine Kinase MB 3.5 ng/mL (0.0-2.4)
[2018-05-15] MEDS: MULTIVITAMINS, THERA 1 EACH TAB PO SCH (13:34)
--- NOTE | 2018-05-15 13:36 | P.CRDCN ---
History of Present Illness History of present illness: Mr. Ventura is a pleasant 63-year-old male past medical history significant for chronic kidney disease secondary to nephrosclerosis history of hemodialysis in the past, hypertension, rheumatoid arthritis, gout, PE and DVT in the past on schedule announcer anticoagulation and dyslipidemia. He denies coronary artery disease or arrhythmia. 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 We have been asked to see him in consultation for elevated troponin and atrial fibrillation on admission. He denies history of a- fib in the past and states he has been on coumadin for history of recurrent PE. He states on Saturday he fell at home after his knee "gave out". He states he was too weak to get himself up and he laid on the floor until his came back into town Saturday. Then after that he was helped up to bed and slept until yesterday. He was having right leg pain so he came in for evaluation. Xray obtained of the right knee indicates he suffered a comminuted acute fracture of proximal tib/fib. Ortho has been consulted and is ordering a CT for further information. Laboratory data obtained on admission reveals acute rhabdomyolysis. WBC 12.6 repeat today 9.1, hgb 9.1, plt 181, INR 3.4, sodium 140 , potassium 4.8, creatinine 1.69, lactic acid on admission 5.3 repeat 2.4, CK 1541, 1443. 1282, troponin 0.046, 0.05. He was given a 2L bolus in ED. He denies chest pain, shortness of breath, dizziness or palpitations. He states his urine is dark brown in color. EKG reveals atrial fibrillation with rate 113. No acute ST or T-wave abnormalities. Current cardiac medications include lisinopril 10 mg BID, lopressor 25 mg BID, atorvastatin 20 mg daily and coumadin. He also takes cymbalta, prednisone, percocet, methotrexate and allopurinol. Review of Systems At the time of my exam: CONSTITUTIONAL: Denies fever. Denies chills. EYES: Denies blurred vision. Denies vision changes. Denies eye pain. EARS, NOSE, MOUTH & THROAT: Denies headache. Denies sore throat. Denies ear pain. CARDIOVASCULAR: Denies chest pain. Denies shortness of breath. Denies orthopnea. Denies PND. Denies palpitations. RESPIRATORY: Denies cough. GASTROINTESTINAL: Denies abdominal pain. Denies diarrhea. Denies constipation. Denies nausea. Denies vomiting. MUSCULOSKELETAL: Complains of pain in the right knee and leg. INTEGUMENTARY: Denies pruitis. Denies rash. NEUROLOGIC: Denies numbness. Denies tingling. Denies weakness. PSYCHIATRIC: Denies anxiety. Denies depression. ENDOCRINE: Denies fatigue. Denies weight change. Denies polydipsia. Denies polyurina. GENITOURINARY: Denies burning, hematuria or urgency with micturation. Complains of dark colored urine. HEMATOLOGIC: Denies history of anemia. Denies bleeding. Past Medical History Past Medical History: Dialysis, Deep Vein Thrombosis (DVT), Hypertension, Pulmonary Embolus (PE), Renal Disease, Rheumatoid Arthritis (RA) Additional Past Medical History / Comment(s): gout, sickle cell, CKD stage 3 ( dialysis 2004), sleep apnea, pneuropathy, glaucoma History of Any Multi-Drug Resistant Organisms: MRSA Date of last positivie culture/infection: 2013 MDRO Source:: foot Past Surgical History: Joint Replacement, Orthopedic Surgery Additional Past Surgical History / Comment(s): Left knee replaced; multiple toe amputations Past Anesthesia/Blood Transfusion Reactions: No Reported Reaction Past Psychological History: No Psychological Hx Reported Additional Psychological History / Comment(s): lives with his . [place] citizen living in [place]. 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 No animal exposures Smoking Status: Never smoker Past Alcohol Use History: None Reported Past Drug Use History: Marijuana Additional Drug Use History / Comment(s): Patient uses marijuana brownies for pain, weekly - Past Family History Father Family Medical History: Diabetes Mellitus, Myocardial Infarction ([place]) Mother Family Medical History: CVA/TIA Sister(s) Family Medical History: Hypertension Additional Family Medical History / Comment(s): RA Medications and Allergies Home Medications Medication Instructions Recorded Confirmed Type Allopurinol [Zyloprim] 300 mg PO DAILY 08/25/17 05/14/18 History Cholecalciferol [Vitamin D3] 1,000 unit PO DAILY 08/25/17 05/14/18 History Cyanocobalamin (Vitamin B-12) 1,000 mcg PO DAILY 08/25/17 05/14/18 History [Vitamin B-12] Fish Oil/Dha/Epa [Fish Oil 1,200 1 cap PO DAILY 08/25/17 05/14/18 History mg Fish Oil] Folic Acid 0.4 mg PO DAILY 08/25/17 05/14/18 History Lisinopril [Zestril] 10 mg PO BID 08/25/17 05/14/18 History Methotrexate Sodium [Methotrexate] 20 mg PO CASANOVA 08/25/17 05/14/18 History Metoprolol Tartrate [Lopressor] 25 mg PO BID 08/25/17 05/14/18 History Warfarin [Coumadin] 2.5 mg PO TH 08/25/17 05/14/18 History Warfarin [Coumadin] 5 mg PO SUMOTUWEFRSA 08/25/17 05/14/18 History oxyCODONE-APAP 10-325MG [Percocet 1 tab PO Q6HR PRN 08/25/17 05/14/18 History 10-325 mg] predniSONE 20 mg PO BID 08/25/17 05/14/18 History Ammonium Lactate Cream [Lac-Hydrin 1 applic TOPICAL DAILY cream 08/28/17 Rx 12% Cream] Atorvastatin Calcium [Lipitor] 20 mg PO DAILY 05/14/18 05/14/18 History DULoxetine HCL [Cymbalta] 30 mg PO DAILY 05/14/18 05/14/18 History Multivitamins, Thera [Multivitamin 1 tab PO DAILY@1200 05/14/18 05/14/18 History (formulary)] Allergies Allergy/AdvReac Type Severity Reaction Status Date / Time Sulfa (Sulfonamide Allergy Rash/Hives Verified 05/14/18 19:56 Antibiotics) Physical Exam Vitals: Vital Signs Temp Pulse Pulse Resp BP BP Pulse Ox 05/15/18 03:17 101 H 18 05/15/18 02:59 98.9 F 101 H 18 121/84 95 05/14/18 23:26 99.2 F 101 H 18 131/87 05/14/18 23:06 111 H 16 05/14/18 19:14 98.1 F 64 20 129/66 99 Intake and Output 05/14/18 05/15/18 05/15/18 22:59 06:59 14:59 Intake Total 222 Output Total 500 Balance -500 222 Intake: Oral 222 Output: Urine 500 Other: # Voids 1 Weight 154.221 kg 154.2 kg GENERAL: This is a 63-year-old -[place] male in no apparent distress at the time of my examination. HEENT: Head is atraumatic, normocephalic. Pupils are equal, round. Sclerae anicteric. Conjunctivae are clear. Mucous membranes of the mouth are moist. Neck is supple. There is no jugular venous distention. No carotid bruit is heard. LUNGS: Clear to auscultation no wheezes, rales or rhonchi. No chest wall tenderness is noted on palpation or with deep breathing. HEART: Irregular rate and rhythm without murmurs, rubs or gallops. S1 and S2 heard. ABDOMEN: Soft, nontender. Bowel sounds are heard. No organomegaly noted. EXTREMITIES: No calf tenderness noted. Bilateral lower extremity nonpitting edema. Bilateral hand and wrist deformity. VASCULAR: Radial and dorsalis pedis pulses palpated, no evidence of clubbing. NEUROLOGIC: Patient is awake, alert and oriented x3. Results 05/15/18 06:13 05/15/18 06:13 Cardiac Enzymes 05/14/18 05/14/18 05/15/18 Range/Units 19:47 23:54 06:13 AST 88 H 77 H (17-59) U/L CK-MB (CK-2) 3.8 H (0.0-2.4) ng/mL Troponin I 0.046 H* (0.000-0.034) ng/mL 05/15/18 Range/Units 06:13 AST (17-59) U/L CK-MB (CK-2) 3.0 H (0.0-2.4) ng/mL Troponin I 0.050 H* (0.000-0.034) ng/mL Coagulation 05/14/18 05/15/18 Range/Units 23:54 06:13 PT 32.2 H 30.2 H (9.0-12.0) sec APTT 44.7 H (22.0-30.0) sec CBC 05/14/18 05/15/18 Range/Units 19:47 06:13 WBC 12.6 H 9.1 (3.8-10.6) k/uL RBC 3.23 L 2.73 L (4.30-5.90) m/uL Hgb 10.5 L 9.1 L (13.0-17.5) gm/dL Hct 31.9 L 27.1 L (39.0-53.0) % Plt Count 226 181 (150-450) k/uL Comprehensive Metabolic Panel 05/14/18 05/15/18 Range/Units 19:47 06:13 Sodium 140 140 (137-145) mmol/L Potassium 5.0 4.8 (3.5-5.1) mmol/L Chloride 104 112 H (98-107) mmol/L Carbon Dioxide 22 20 L (22-30) mmol/L BUN 41 H 35 H (9-20) mg/dL Creatinine 1.89 H 1.69 H (0.66-1.25) mg/dL Glucose 155 H 146 H (74-99) mg/dL Calcium 9.8 8.7 (8.4-10.2) mg/dL AST 88 H 77 H (17-59) U/L ALT 43 38 (21-72) U/L Alkaline Phosphatase 64 55 (38-126) U/L Total Protein 6.5 5.5 L (6.3-8.2) g/dL Albumin 3.7 2.8 L (3.5-5.0) g/dL Current Medications Generic Name Dose Route Start Last Admin Trade Name Freq PRN Reason Stop Dose Admin Allopurinol 300 mg 05/15/18 09:00 Zyloprim PO DAILY [facility] Atorvastatin Calcium 20 mg 05/15/18 09:00 Lipitor PO DAILY [facility] Cyanocobalamin 1,000 mcg 05/15/18 09:00 Vitamin B-12 PO DAILY [facility] Duloxetine HCl 30 mg 05/15/18 09:00 Cymbalta PO DAILY [facility] Folic Acid 0.5 mg 05/15/18 09:00 Folic Acid PO DAILY [facility] Hydromorphone HCl 1 mg 05/14/18 21:41 05/15/18 04:17 Dilaudid IVP 1 mg Q3HR PRN Administration Severe Pain Hydromorphone HCl 0.5 mg 05/14/18 21:41 Dilaudid IVP Q3HR PRN Moderate Pain Piperacillin/Tazobactam/ 50 mls @ 12.5 mls/hr 05/15/18 08:00 Dextrose 3.375 gm/ IV Solution IVPB Q8HR [facility] Sodium Chloride 1,000 mls @ 125 mls/hr 05/14/18 21:45 05/15/18 06:06 Saline 0.9% IV Not Given .Q8H [facility] Lactic Acid 1 applic 05/15/18 09:00 Ammonium Lactate TOPICAL DAILY [facility] Lisinopril 10 mg 05/14/18 22:30 05/14/18 23:42 Zestril PO 10 mg BID KEVIN Administration Methotrexate 20 mg 05/18/18 09:00 Methotrexate PO CASANOVA [facility] Metoprolol Tartrate 25 mg 05/14/18 22:30 05/14/18 23:42 Lopressor PO 25 mg BID KEVIN Administration Multivitamins 1 each 05/15/18 12:00 Theragran PO DAILY@1200 [facility] Naloxone HCl 0.2 mg 05/14/18 21:41 Narcan IV Q2M PRN Opioid Reversal Oxycodone/Acetaminophen 1 each 05/14/18 22:24 05/15/18 07:53 Percocet 10-325 PO 1 each Q6HR PRN Administration Pain Pantoprazole Sodium 40 mg 05/15/18 09:00 Protonix IV DAILY [facility] Prednisone 20 mg 05/14/18 22:30 05/14/18 23:42 PO 20 mg BID KEVIN Administration Warfarin Sodium 2.5 mg 05/15/18 18:00 Coumadin PO Th@1800 [facility] Warfarin Sodium 5 mg 05/16/18 18:00 Coumadin PO SuMoTuWeFrSa@1800 [facility] Intake and Output 05/14/18 05/15/18 05/15/18 22:59 06:59 14:59 Intake Total 222 Output Total 500 Balance -500 222 Intake: Oral 222 Output: Urine 500 Other: # Voids 1 Weight 154.221 kg 154.2 kg 05/15/18 06:13 05/15/18 06:13 Assessment and Plan Assessment: ASSESSMENT Acute rhabdomyolysis secondary to fall and prolonged time on the floor due to weakness and inability to himself up. Lactic acidosis Acute fracture of right tib/fib Supratherapeutic INR, 3.4-3.6 Chronic kidney disease, GFR 50 Paroxysmal atrial fibrillation with mildly rapid ventricular response Hypertension Dyslipidemia History of neuropathy with multiple toe amputations in the past, most recently in August 2017 History of DVT and PE in the past on senior living anticoagulation. Last PE was in 2012 per the patient. Rheumatoid arthritis Morbid obesity PLAN Obtain 2D echocardiogram and doppler study to assess cardiac structure and function. Ongoing telemetry monitoring. Check TSH and magnesium level. Coumadin has been held per primary for possibility of surgical intervention and supratherapeutic INR. Continue with beta stephen as previously ordered, may increase if needed. We will continue to follow and make recommendations accordingly. Thank you kindly for this consultation. Nurse Practitioner note has been reviewed, I agree with a documented findings and plan of care. Patient was seen and examined.
[2018-05-15 13:51] LABS: Troponin I 0.038 ng/mL (0.000-0.034)
--- NOTE | 2018-05-15 14:01 | CT ---
EXAMINATION TYPE: CT knee RT wo con DATE OF EXAM: 05/15/2018 COMPARISON: Plain film 05/14/2018 HISTORY: right knee fracture. CT DLP: 913.3 mGycm Automated exposure control for dose reduction was used. Helical imaging through the right knee. Three -dimensional post processing performed on an alternate workstation. FINDINGS: The proximal metadiaphyseal comminuted fracture of the tibia with displacement of fracture fragments is confirmed. Some medial displacement of the distal femur in relation to the fracture. Underlying os teoarthritic changes are extensive. Multiple ossific foreign bodies present within the suprapatellar joint space compatible with synovial osteochondromatosis, suprapatellar joint effusion noted, suprapa tellar bursa is distended. There are likely loose bodies within the joint and about the joint. Joint space loss is present especially in the medial lateral compartments, hypertrophic change also present at the patellofemoral joint. Extensive subcutaneous edema is present. Patellar tendon is intact, nneka driceps tendon intact. There is no evident dislocation. Mild subluxation laterally at the patellofemo ral joint. Proximal fibular shows a comminuted fracture. Additional ossific densities present about t he knee. Subchondral geode formation is present. Ossific density present distal to the patella shows chronic remodeling change. IMPRESSION: PROXIMAL TIBIA AND FIBULAR FRACTURES DESCRIBED, ADDITIONAL FINDINGS ABOVE.
[2018-05-15] MEDS ORDERED: WARFARIN 2.5 MG TAB PO SCH (18:00)
--- NOTE | 2018-05-15 19:25 | PN ---
PROGRESS NOTE ADDENDUM: The nurse called me back in the telemetry room, there was a message for me about the patient being bradycardic. Hence, that information is to be deleted. The patient is not bradycardic, nor has he had any pauses. LUCIANO / EILU: [id number] /
--- NOTE | 2018-05-15 19:49 | HP ---
HISTORY AND PHYSICAL DATE OF ADMISSION: 05/14/2018 DATE OF SERVICE: 05/15/2018 PRESENTING COMPLAINT: Fall. HISTORY OF PRESENTING COMPLAINT: This is a very pleasant 63-year-old patient of Dr. Vaca. Chronic stable medical conditions include chronic debilitating rheumatoid arthritis, morbid obesity, gout, depression, chronic kidney disease, stage III, from nephrosclerosis. The patient is an [place] citizen who lives near [place] with his . Normally he uses a walker to get about. Two days ago patient was walking and suddenly felt a pop in his leg and went down on the floor. He could not pick himself up. He was on the floor at least overnight. Subsequently the patient was transferred here and admitted. Patient was found to have bullae on the right lower extremity below the fracture. Patient was found to have acute fractures of the proximal tibia and fibula with some displacement of the distal tibia. Denies any fever or chills. Orthopedics was consulted. The patient also when presented was found to be in atrial fibrillation, rate uncontrolled, and patient was put on Lopressor earlier by Cardiology; patient actually is on his home dose. This afternoon actually patient had an episode, as per the telemetry room, where he had about a 2- or 3-second pause and the heart rate has gone down to the 40s and 30s. Patient currently has a support wrap on the right lower extremity. Orthopedics is not planning for any acute intervention at the present time. REVIEW OF SYSTEMS: CONSTITUTIONAL: None. HEENT: None. RESPIRATORY: None. CARDIOVASCULAR: As above. GASTROINTESTINAL: None. GENITOURINARY: None. MUSCULOSKELETAL: As above. Arthritic pain in the joints. DERMATOLOGICAL: Bullae on the right lower extremity. HEMATOLOGICAL: None. LYMPHATICS: None. PSYCHIATRY: Depression, controlled. NEUROLOGICAL: Patient has neuropathic changes. PAST MEDICAL HISTORY: 1. DVT. 2. Hypertension. 3. PE. 4. Chronic kidney disease. 5. Sickle disease. 6. Rheumatoid arthritis. 7. Gout. 8. Sleep apnea. 9. Peripheral neuropathy. 10.Glaucoma. PAST SURGICAL HISTORY: 1. Joint replacement. 2. Left knee replaced. 3. Multiple toe amputations. SOCIAL HISTORY: Patient is to his and lives near [place] in [place]. No alcohol or smoking. 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 No smoking. The patient does use marijuana brownies for chronic pain. FAMILY HISTORY: Diabetes, myocardial infarction. HOME MEDICATIONS: 1. Cymbalta 30 mg p.o. daily. 2. Prednisone 20 mg p.o. b.i.d. 3. Vitamin B12 1000 mcg p.o. daily. 4. Lipitor 20 mg p.o. daily. 5. Percocet 1 tablet q.6 p.r.n. 6. Coumadin 2.5 mg on and 5 mg on Saturday, Saturday, Saturday, Saturday, Saturday, Saturday. 7. Multivitamin 1 tablet p.o. daily. 8. Lopressor 25 mg b.i.d. 9. Methotrexate 20 mg on Saturday. 10.Zestril 10 mg p.o. b.i.d. 11.Folic acid 0.4 mg p.o. daily. 12.Fish oil 1 capsule p.o. daily. 13.Vitamin D3 1000 units p.o. daily. 14.Lac-Hydrin 12% one application topically daily. 15.Allopurinol 300 mg p.o. daily. ALLERGIES: SULFA. PHYSICAL EXAMINATION: VITAL SIGNS ON PRESENTATION: Temperature 98.1, pulse 111, respiration 18, blood pressure 131/87, pulse ox 95% on CPAP. GENERAL APPEARANCE: Well built; BMI 43.6. Sitting up. Tired-appearing. EYES: Pupils equal. Conjunctivae normal. HEENT: External appearance of nose and ears normal. Oral cavity normal. NECK: JVD unable to assess. Mass not palpable. RESPIRATORY: Effort normal. LUNGS: Fair air entry. CARDIOVASCULAR: Heart sounds irregular. No edema. ABDOMEN: Soft, nontender. Liver and spleen not palpable. LYMPHATIC: No lymph node palpable in neck or axillae. PSYCHIATRY: Alert and oriented x3. Mood and affect slightly anxious-appearing. MUSCULOSKELETAL: Severe deformity in multiple digits. Patient has got also evidence of amputation on the feet of the digits. DERMATOLOGICAL: Patient has superficial blisters on the right lower extremity. PSYCHIATRY: Alert and oriented x3. Mood and affect normal. INVESTIGATIONS: White count 12.6, hemoglobin 10.5. INR was 3.6, potassium 5, BUN 41, creatinine 1.89. Lactic acid 5.3. CPK 1541. Troponin 0.046, 0.050. EKG tracing, personally reviewed by me, shows atrial flutter/fibrillation with rapid ventricular rate. Also I was called that the patient was having between 2- and 3- second pauses later this afternoon. Patient has a tibia and fibula fracture. ASSESSMENT: 1. Persistent atrial fibrillation with rapid ventricular rate, also with episodes of bradycardia and sinus pause. 2. Spontaneous tibia and fibula fracture on the right side. 3. Acute rhabdomyolysis in the setting of renal failure secondary to fall. 4. Morbid obesity with body mass index of 43.6. 5. Chronic kidney disease, stage III, probably from nephrosclerosis. 6. Coumadin monitoring. INR is therapeutic. 7. Normocytic anemia, likely due to underlying chronic kidney disease. 8. Obstructive sleep apnea. Uses CPAP machine. 9. Troponin leak in the setting of renal failure and no clinical evidence of acute coronary syndrome. 10.Lactic acidosis in the clinical setting. If patient is not septic, does not need any further intervention; probably a type 2. 11.Depression not otherwise specified. 12.Metabolic acidosis from renal failure. PLAN: Patient was started on IV Zosyn. Consultations were made to Cardiology, Infectious Disease. Care was discussed with the patient and his at the bedside. We will also add sodium bicarbonate tablets. MMODL / IJN: [id number] /
[2018-05-15 20:49] LABS: Glucose,Whole Blood 135 mg/dL (75-99)
--- NOTE | 2018-05-15 22:16 | P.CONS ---
History of Present Illness - Reason for Consult Consult date: 05/15/18 - Chief Complaint Fracture right leg - History of Present Illness 63-year-old -[place] male presents to the emergency center by car after suffering a fall at home. The patient is well-known to the service from his multiple bouts of osteomyelitis related to his diabetic foot infections. The patient called his who was at a conference in [place], they do live in [place]. She was concerned that something was wrong and left a conference to check on the . Upon getting home he was lying on the floor unable to arise. The patient related that he was walking carrying food that he had just ordered he hurt his leg snap felted snap and then he fell to the ground. He was unable to get of the strength to move but was able to call his for help. EMS did lower him into the car and brought him to our emergency center. Upon arrival there is evidence of the pathological fracture to the right leg and is ready been seen by orthopedics. There are large fracture blisters that are present which is inhibiting surgical intervention at this time. With concerns to his diabetes and infection the consult was requested. Review of Systems HEENT:Denies headache or acute visual change. Denies sinus or mouth discomforts. Denies neck stiffness or pain. Denies significant oral cavity pain. Denies difficulty on swallowing. Lungs: Denies significant shortness of breath, cough, sputum production, or hemoptysis. Cardiovascular: Denies significant shortness of breath, chest pain, chest wall pain, orthopnea, dyspnea on exertion, syncope Gastrointestinal:Denies nausea, vomiting, diarrhea, constipation, hematemesis, melena, hematochezia. No no significant change of bowel habit noticed. Musculoskeletal: Has chronic joint pains from his progressive rheumatoid arthritis. Has evidence of the swelling and pain to the right leg, and a history of several toe amputation Skin: Significant blisters to the right leg Neuro: Denies headache or visual change. Denies any new onset weakness or difficulty with ambulation. Patient is clear that the leg snap and then he fell he had no loss of consciousness or seizure Psychiatric:Denies anxiety or depression. Endocrine: Denies significant fatigue, denies significant weight loss or weight gain. Past Medical History Past Medical History: Dialysis, Deep Vein Thrombosis (DVT), Hypertension, Pulmonary Embolus (PE), Renal Disease, Rheumatoid Arthritis (RA) Additional Past Medical History / Comment(s): gout, sickle cell, CKD stage 3 ( dialysis 2004), sleep apnea, pneuropathy, glaucoma History of Any Multi-Drug Resistant Organisms: MRSA Year Discovered:: 2013 MDRO Source:: foot Past Surgical History: Joint Replacement, Orthopedic Surgery Additional Past Surgical History / Comment(s): Left knee replaced; multiple toe amputations Past Anesthesia/Blood Transfusion Reactions: No Reported Reaction Past Psychological History: No Psychological Hx Reported Additional Psychological History / Comment(s): lives with his . [place] citizen living in [place]. No tobacco use or alcohol use. 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 No international travel. No animal exposures Smoking Status: Never smoker Past Alcohol Use History: None Reported Past Drug Use History: Marijuana Additional Drug Use History / Comment(s): Patient uses marijuana brownies for pain, weekly - Past Family History Father Family Medical History: Diabetes Mellitus, Myocardial Infarction (CA) Mother Family Medical History: CVA/TIA Sister(s) Family Medical History: Hypertension Additional Family Medical History / Comment(s): RA Medications and Allergies Home Medications and Allergies Comment(s): Current Medications Allopurinol (Zyloprim) 300 mg PO DAILY [facility] Last Admin: 05/15/18 09:52 Dose: 300 mg Atorvastatin Calcium (Lipitor) 20 mg PO DAILY [facility] Last Admin: 05/15/18 09:41 Dose: 20 mg Cyanocobalamin (Vitamin B-12) 1,000 mcg PO DAILY [facility] Last Admin: 05/15/18 09:42 Dose: 1,000 mcg Duloxetine HCl (Cymbalta) 30 mg PO DAILY [facility] Last Admin: 05/15/18 09:42 Dose: 30 mg Folic Acid (Folic Acid) 0.5 mg PO DAILY [facility] Last Admin: 05/15/18 09:43 Dose: 0.5 mg Hydromorphone HCl (Dilaudid) 1 mg IVP Q3HR PRN PRN Reason: Severe Pain Last Admin: 05/15/18 17:57 Dose: 1 mg Hydromorphone HCl (Dilaudid) 0.5 mg IVP Q3HR PRN PRN Reason: Moderate Pain Piperacillin/Tazobactam/ (Dextrose 3.375 gm/ IV Solution) 50 mls @ 12.5 mls/hr IVPB Q8HR [facility] Last Admin: 05/15/18 17:48 Dose: 12.5 mls/hr Sodium Chloride (Saline 0.9%) 1,000 mls @ 125 mls/hr IV .Q8H [facility] Last Admin: 05/15/18 13:53 Dose: 125 mls/hr Daptomycin 500 mg/ Sodium (Chloride) 50 mls @ 100 mls/hr IVPB HS [facility]; Protocol Lactic Acid (Ammonium Lactate) 1 applic TOPICAL DAILY [facility] Last Admin: 05/15/18 09:52 Dose: 1 applic Lisinopril (Zestril) 10 mg PO BID [facility] Last Admin: 05/15/18 20:25 Dose: 10 mg Methotrexate (Methotrexate) 20 mg PO CASANOVA [facility] Metoprolol Tartrate (Lopressor) 25 mg PO BID [facility] Last Admin: 05/15/18 20:26 Dose: 25 mg Multivitamins (Theragran) 1 each PO DAILY@1200 [facility] Last Admin: 05/15/18 13:34 Dose: 1 each Naloxone HCl (Narcan) 0.2 mg IV Q2M PRN PRN Reason: Opioid Reversal Oxycodone/Acetaminophen (Percocet 10-325) 1 each PO Q6HR PRN PRN Reason: Pain Last Admin: 05/15/18 20:26 Dose: 1 each Pantoprazole Sodium (Protonix) 40 mg IV DAILY [facility] Last Admin: 05/15/18 09:44 Dose: 40 mg Prednisone () 20 mg PO BID [facility] Last Admin: 05/15/18 20:26 Dose: 20 mg Warfarin Sodium (Coumadin) 2.5 mg PO Th@1800 [facility] Warfarin Sodium (Coumadin) 5 mg PO [id number] [facility] Home Medications Medication Instructions Recorded Confirmed Type Allopurinol [Zyloprim] 300 mg PO DAILY 08/25/17 05/14/18 History Cholecalciferol [Vitamin D3] 1,000 unit PO DAILY 08/25/17 05/14/18 History Cyanocobalamin (Vitamin B-12) 1,000 mcg PO DAILY 08/25/17 05/14/18 History [Vitamin B-12] Fish Oil/Dha/Epa [Fish Oil 1,200 1 cap PO DAILY 08/25/17 05/14/18 History mg Fish Oil] Folic Acid 0.4 mg PO DAILY 08/25/17 05/14/18 History Lisinopril [Zestril] 10 mg PO BID 08/25/17 05/14/18 History Methotrexate Sodium [Methotrexate] 20 mg PO CASANOVA 08/25/17 05/14/18 History Metoprolol Tartrate [Lopressor] 25 mg PO BID 08/25/17 05/14/18 History Warfarin [Coumadin] 2.5 mg PO TH 08/25/17 05/14/18 History Warfarin [Coumadin] 5 mg PO [id number] 08/25/17 05/14/18 History oxyCODONE-APAP 10-325MG [Percocet 1 tab PO Q6HR PRN 08/25/17 05/14/18 History 10-325 mg] predniSONE 20 mg PO BID 08/25/17 05/14/18 History Ammonium Lactate Cream [Lac-Hydrin 1 applic TOPICAL DAILY cream 08/28/17 Rx 12% Cream] Atorvastatin Calcium [Lipitor] 20 mg PO DAILY 05/14/18 05/14/18 History DULoxetine HCL [Cymbalta] 30 mg PO DAILY 05/14/18 05/14/18 History Multivitamins, Thera [Multivitamin 1 tab PO DAILY@1200 05/14/18 05/14/18 History (formulary)] Allergies Allergy/AdvReac Type Severity Reaction Status Date / Time Sulfa (Sulfonamide Allergy Rash/Hives Verified 05/14/18 19:56 Antibiotics) Physical Exam Vitals: Vital Signs Temp Pulse Pulse Pulse Pulse Resp BP 05/15/18 20:19 98.7 F 86 18 104/69 05/15/18 15:00 125 H 05/15/18 14:56 98.9 F 98 16 104/61 05/15/18 13:30 117 H 05/15/18 07:41 98.5 F 95 18 110/72 05/15/18 03:17 101 H 18 05/15/18 02:59 98.9 F 101 H 18 121/84 05/14/18 23:26 99.2 F 101 H 18 131/87 05/14/18 23:06 111 H 16 Pulse Ox 05/15/18 20:19 98 05/15/18 15:00 05/15/18 14:56 99 05/15/18 13:30 05/15/18 07:41 05/15/18 03:17 05/15/18 02:59 95 05/14/18 23:26 10/03/18 23:06 Intake and Output 05/15/18 05/15/18 05/15/18 06:59 14:59 22:59 Intake Total 2454 780 Output Total 500 1200 Balance -500 1254 780 Intake: Intake, IV Titration 800 500 Amount Piperacillin-Tazobactam 3 50 .375 gm In Dextrose/Water 1 50ml.bag @ 12.5 mls/hr IVPB ONCE STA Rx#: [id number] Sodium Chloride 0.9% 1, 750 500 000 ml @ 125 mls/hr IV . Q8H [facility] Rx#:[id number] Oral 1654 280 Output: Urine 500 1200 Other: # Voids 1 Weight 154.2 kg 154.2 kg Pleasant superobese 63-year-old male who is in no acute distress. HEENT: Anicteric conjunctiva are pink and moist nasal mucosa grossly intact without significant lesions, there is no thrush. Neck: The neck is supple without significant lymphadenopathy or thyromegaly. Lungs: Good bilateral air entry without significant crackles or wheezing. There is no significant bronchial sounds. There is no egophony or dullness. Heart: Regular rate and rhythm with an audible S1-S2, no S3 loud S4. There is no significant murmur click or rub, PMI was nondisplaced. Abdomen: Obese, Positive bowel sounds soft and nontender without palpable masses or organomegaly. There was no guarding or rebound. Extremities: The upper extremities do show evidence of the significant changes from his rheumatoid arthritis with swelling and joint destruction. The right lower extremity has evidence of the stomach and bony absorption from the rheumatoid arthritis and has had amputation to the great toe. The right leg reveals evidence of the significant swelling from the knee distally. Multiple fracture blisters are seen anteriorly. There is discomfort with any range of motion. The foot itself has minimal swelling compared to baseline but no new eye but it ulcers are seen. Neuro: Awake alert oriented to person place and time. There are no acute new gross focal sensory motor deficits.Does have distinct neuropathy from the feet proximally Results CBC & Chem 7: 05/15/18 06:13 05/15/18 06:13 Labs: Abnormal Lab Results - Last 24 Hours (Table) 05/14/18 05/14/18 05/14/18 Range/Units 22:01 23:54 23:54 RBC (4.30-5.90) m/uL Hgb (13.0-17.5) gm/dL Hct (39.0-53.0) % RDW (11.5-15.5) % PT 32.2 H (9.0-12.0) sec INR 3.6 H (<1.2) APTT 44.7 H (22.0-30.0) sec Chloride (98-107) mmol/L Carbon Dioxide (22-30) mmol/L BUN (9-20) mg/dL Creatinine (0.66-1.25) mg/dL Glucose (74-99) mg/dL POC Glucose (mg/dL) (75-99) mg/dL Plasma Lactic Acid [place] (0.7-2.0) mmol/L Total Bilirubin (0.2-1.3) mg/dL AST (17-59) U/L Total Creatine Kinase 1443 H* (55-170) U/L CK-MB (CK-2) 3.8 H (0.0-2.4) ng/mL Troponin I 0.046 H* (0.000-0.034) ng/mL Total Protein (6.3-8.2) g/dL Albumin (3.5-5.0) g/dL Urine Protein Trace H (Negative) 05/14/18 05/15/18 05/15/18 Range/Units 23:54 06:13 06:13 RBC 2.73 L (4.30-5.90) m/uL Hgb 9.1 L (13.0-17.5) gm/dL Hct 27.1 L (39.0-53.0) % RDW 16.8 H (11.5-15.5) % PT (9.0-12.0) sec INR (<1.2) APTT (22.0-30.0) sec Chloride 112 H (98-107) mmol/L Carbon Dioxide 20 L (22-30) mmol/L BUN 35 H (9-20) mg/dL Creatinine 1.69 H (0.66-1.25) mg/dL Glucose 146 H (74-99) mg/dL POC Glucose (mg/dL) (75-99) mg/dL Plasma Lactic Acid [place] 2.4 H* (0.7-2.0) mmol/L Total Bilirubin 1.5 H (0.2-1.3) mg/dL AST 77 H (17-59) U/L Total Creatine Kinase (55-170) U/L CK-MB (CK-2) (0.0-2.4) ng/mL Troponin I (0.000-0.034) ng/mL Total Protein 5.5 L (6.3-8.2) g/dL Albumin 2.8 L (3.5-5.0) g/dL Urine Protein (Negative) 05/15/18 05/15/18 05/15/18 Range/Units 06:13 06:13 12:19 RBC (4.30-5.90) m/uL Hgb (13.0-17.5) gm/dL Hct (39.0-53.0) % RDW (11.5-15.5) % PT 30.2 H (9.0-12.0) sec INR 3.4 H (<1.2) APTT (22.0-30.0) sec Chloride (98-107) mmol/L Carbon Dioxide (22-30) mmol/L BUN (9-20) mg/dL Creatinine (0.66-1.25) mg/dL Glucose (74-99) mg/dL POC Glucose (mg/dL) (75-99) mg/dL Plasma Lactic Acid [place] (0.7-2.0) mmol/L Total Bilirubin (0.2-1.3) mg/dL AST (17-59) U/L Total Creatine Kinase 1282 H* 1323 H* (55-170) U/L CK-MB (CK-2) 3.0 H 3.5 H (0.0-2.4) ng/mL Troponin I 0.050 H* 0.038 H* (0.000-0.034) ng/mL Total Protein (6.3-8.2) g/dL Albumin (3.5-5.0) g/dL Urine Protein (Negative) 05/15/18 Range/Units 20:38 RBC (4.30-5.90) m/uL Hgb (13.0-17.5) gm/dL Hct (39.0-53.0) % RDW (11.5-15.5) % PT (9.0-12.0) sec INR (<1.2) APTT (22.0-30.0) sec Chloride (98-107) mmol/L Carbon Dioxide (22-30) mmol/L BUN (9-20) mg/dL Creatinine (0.66-1.25) mg/dL Glucose (74-99) mg/dL POC Glucose (mg/dL) 135 H (75-99) mg/dL Plasma Lactic Acid [place] (0.7-2.0) mmol/L Total Bilirubin (0.2-1.3) mg/dL AST (17-59) U/L Total Creatine Kinase (55-170) U/L CK-MB (CK-2) (0.0-2.4) ng/mL Troponin I (0.000-0.034) ng/mL Total Protein (6.3-8.2) g/dL Albumin (3.5-5.0) g/dL Urine Protein (Negative) Microbiology - Last 24 Hours (Table) 05/14/18 22:01 Urine Culture - Preliminary Urine,Voided Laboratory Results WBC 9.1 k/uL (3.8-10.6) 05/15/18 06:13 RBC 2.73 m/uL (4.30-5.90) L 05/15/18 06:13 Hgb 9.1 gm/dL (13.0-17.5) L 05/15/18 06:13 Hct 27.1 % (39.0-53.0) L 05/15/18 06:13 MCV 99.3 fL (80.0-100.0) 05/15/18 06:13 MCH 33.2 pg (25.0-35.0) 05/15/18 06:13 MCHC 33.4 g/dL (31.0-37.0) 05/15/18 06:13 RDW 16.8 % (11.5-15.5) H 05/15/18 06:13 Plt Count 181 k/uL (150-450) 05/15/18 06:13 Neutrophils % 79 % 05/15/18 06:13 Lymphocytes % 14 % 05/15/18 06:13 Monocytes % 5 % 05/15/18 06:13 Eosinophils % 1 % 05/15/18 06:13 Basophils % 0 % 05/15/18 06:13 Neutrophils # 7.3 k/uL (1.3-7.7) 05/15/18 06:13 Lymphocytes # 1.3 k/uL (1.0-4.8) 05/15/18 06:13 Monocytes # 0.5 k/uL (0-1.0) 05/15/18 06:13 Eosinophils # 0.1 k/uL (0-0.7) 05/15/18 06:13 Basophils # 0.0 k/uL (0-0.2) 05/15/18 06:13 Anisocytosis Slight 05/15/18 06:13 Macrocytosis Slight 05/15/18 06:13 PT 30.2 sec (9.0-12.0) H 05/15/18 06:13 INR 3.4 (<1.2) H 05/15/18 06:13 APTT 44.7 sec (22.0-30.0) H 05/14/18 23:54 Sodium 140 mmol/L (137-145) 05/15/18 06:13 Potassium 4.8 mmol/L (3.5-5.1) 05/15/18 06:13 Chloride 112 mmol/L (98-107) H 05/15/18 06:13 Carbon Dioxide 20 mmol/L (22-30) L 05/15/18 06:13 Anion Gap 8 mmol/L 05/15/18 06:13 BUN 35 mg/dL (9-20) H 05/15/18 06:13 Creatinine 1.69 mg/dL (0.66-1.25) H 05/15/18 06:13 Est GFR (CKD-EPI)AfAm 50 (>60 ml/min/1.73 sqM) 05/15/18 06:13 Est GFR (CKD-EPI)NonAf 43 (>60 ml/min/1.73 sqM) 05/15/18 06:13 Glucose 146 mg/dL (74-99) H 05/15/18 06:13 POC Glucose (mg/dL) 135 mg/dL (75-99) H 05/15/18 20:38 POC Glu Insurance Billing Specialist ID Liliam Reno 05/15/18 20:38 Lactic Ac Sepsis Rflx Y 05/14/18 20:28 Plasma Lactic Acid [place] 2.4 mmol/L (0.7-2.0) H* 05/14/18 23:54 Calcium 8.7 mg/dL (8.4-10.2) 05/15/18 06:13 Magnesium 1.7 mg/dL (1.6-2.3) 05/15/18 12:19 Total Bilirubin 1.5 mg/dL (0.2-1.3) H 05/15/18 06:13 AST 77 U/L (17-59) H 05/15/18 06:13 ALT 38 U/L (21-72) 05/15/18 06:13 Alkaline Phosphatase 55 U/L (38-126) 05/15/18 06:13 Creatine Kinase 1541 U/L (55-170) H* 05/14/18 20:18 Total Creatine Kinase 1323 U/L (55-170) H* 05/15/18 12:19 CK-MB (CK-2) 3.5 ng/mL (0.0-2.4) H 05/15/18 12:19 CK-MB (CK-2) Rel Index 0.3 05/15/18 12:19 Troponin I 0.038 ng/mL (0.000-0.034) H* 05/15/18 12:19 Total Protein 5.5 g/dL (6.3-8.2) L 05/15/18 06:13 Albumin 2.8 g/dL (3.5-5.0) L 05/15/18 06:13 TSH 0.600 mIU/L (0.465-4.680) 05/15/18 12:19 Urine Color Yellow 05/14/18 22:01 Urine Appearance Clear (Clear) 05/14/18 22:01 Urine pH 6.5 (5.0-8.0) 05/14/18 22:01 Ur Specific [place] 1.010 (1.001-1.035) 05/14/18 22:01 Urine Protein Trace (Negative) H 05/14/18 22:01 Urine Glucose (UA) Negative (Negative) 05/14/18 22:01 Urine Ketones Negative (Negative) 05/14/18 22:01 Urine Blood Negative (Negative) 05/14/18 22:01 Urine Nitrite Negative (Negative) 05/14/18 22:01 Urine Bilirubin Negative (Negative) 05/14/18 22:01 Urine Urobilinogen <2.0 mg/dL (<2.0) 05/14/18 22:01 Ur Leukocyte Esterase Negative (Negative) 05/14/18 22:01 Microbiology 05/14/18 22:01 Urine,Voided Urine Culture - Preliminary Comments: X-ray of the right knee reveals a comminuted fracture of the proximal tibia and fibula Assessment and Plan (1) Fracture, pathologic, tibia/fibula Narrative/Plan: 63-year-old male presents to Hospital via car after EMS in [place] was able to pick him up and place him into the car. Upon arrival to the emergency center there was evidence of the significant abnormality to the right leg and x-ray revealed evidence of the significant fracture to the right tibia and fibula. The patient is a long-standing history of rheumatoid arthritis and is on multiple agents that includes methotrexate and steroids. Patient likely has a pathological fracture at this area. Orthopedics is evaluated. His developed large fracture blisters and hopefully those will settle soon and the go to the operating room for more definitive surgical intervention. With his long-standing history of diabetes he is at significant risk of infection and antibiotics have been already started with Zosyn, will add in daptomycin for now with concerns to her resistant gram-positive infection. Pathology at the time of surgery to further help define the etiology and whether this is a chronic infection at the site resulting in this difficulty. Pathology will also help to find other types of disease potential. Pain control appears to be adequate Continue with close blood glucose control. Patient does have new onset atrial fibrillation and is being monitored by cardiology. With his history of pulmonary embolism is already anticoagulated. The results of pathology will be followed closely. Cultures in process. Current Visit: Yes Status: Acute Code(s): M84.469A - PATHOLOGICAL FRACTURE, UNSP TIBIA AND FIBULA, INIT FOR FX SNOMED Code(s): 617541206 (2) Blister of right leg Current Visit: Yes Status: Acute Code(s): S80.821A - BLISTER (NONTHERMAL), RIGHT LOWER LEG, INITIAL ENCOUNTER SNOMED Code(s): 389664980 (3) Diabetes mellitus type 2 with complications Current Visit: Yes Status: Acute Code(s): E11.8 - TYPE 2 DIABETES MELLITUS WITH UNSPECIFIED COMPLICATIONS SNOMED Code(s): 51769285
[2018-05-15] MEDS ORDERED: DAPTOmycin 500 MG in SODIUM CHLORIDE 0.9% 50 ML IVPB SCH (23:00)
[2018-05-16] MEDS: PIPERACILLIN-TAZOBACTAM 3.375 GM in DEXTROSE/WATER 1 50ML.BAG IVPB SCH ×3 (01:32→17:20)
[2018-05-16] MEDS: oxyCODONE-APAP 10-325MG 1 EACH TAB PO PRN ×3 (02:59→17:59)
[2018-05-16] MEDS: HYDROmorphone 1 MG/ML 1 ML SYRINGE IVP PRN ×2 (05:12→10:40)
[2018-05-16] MEDS: SODIUM CHLORIDE 0.9% 1,000 ML IV SCH ×2 (07:05→13:17)
[2018-05-16] MEDS: ATORVASTATIN 20 MG TAB PO SCH (08:12)
[2018-05-16] MEDS: AMMONIUM LACTATE 12% CREAM 140 GM TUBE TOPICAL SCH (08:12)
[2018-05-16] MEDS: predniSONE 20 MG TAB PO SCH (08:12)
[2018-05-16] MEDS: DULoxetine HCL 30 MG CAPSULE.DR PO SCH (08:12)
[2018-05-16] MEDS: CYANOCOBALAMIN 500 MCG TAB PO SCH (08:12)
[2018-05-16] MEDS: PANTOPRAZOLE 40 MG/10 ML VIAL IV SCH (08:12)
[2018-05-16] MEDS: LISINOPRIL 10 MG TAB PO SCH (08:13)
[2018-05-16] MEDS: METOPROLOL TARTRATE 25 MG TAB PO SCH (08:13)
[2018-05-16] MEDS: ALLOPURINOL 300 MG TAB PO SCH (08:13)
[2018-05-16] MEDS: FOLIC ACID 1 MG TAB PO SCH (08:19)
[2018-05-16 08:20] LABS: INR 2.5 (<1.2); Prothrombin Time 22.5 sec (9.0-12.0)
[2018-05-16 08:28] LABS: Calcium 8.3 mg/dL (8.4-10.2); Potassium 4.8 mmol/L (3.5-5.1)
[2018-05-16] MEDS ORDERED: METOPROLOL TARTRATE 25 MG TAB PO STA (10:33)
--- NOTE | 2018-05-16 10:36 | P.PN ---
Subjective Mr. Rosen is seen and examined sitting up in bed in no acute distress. Past medical history significant for chronic kidney disease secondary to nephrosclerosis history of hemodialysis in the past, hypertension, rheumatoid arthritis, gout, PE and DVT in the past on snf anticoagulation and dyslipidemia. He was found to be in atrial fibrillation upon admission. Documented heart rates have been between 60-80, although telemetry tracings indicated episodes of rapid rate 115-120. Currently maintained on lopresor [address] of the knee confirms diagnosis of proximal tib/fib fractures. Pt states there is no immediate plans for surgery until blisters heal to the lower extremity. Blood pressure 148/82. Laboratory data reviewed, sodium 140, potassium 4.8, creatinine 1.7, INR 2.5, TSH 0.6, magnesium 1.7, No repeat lactic acid or total CK. Echocardiogram obtained reveals preserved left ventricular systolic function with ejection fraction 50-55%, mild aortic valve sclerosis with no stenosis, mild MR and mild TR. Objective - Vital Signs Vital signs: Vital Signs Temp 97.5 F L 05/16/18 07:35 Pulse 63 05/16/18 07:35 Resp 18 05/16/18 07:35 BP 148/82 05/16/18 07:35 Pulse Ox 95 05/16/18 07:35 Intake & Output 05/15/18 05/16/18 05/16/18 18:59 06:59 18:59 Intake Total 2734 1500 440 Output Total 1200 1000 Balance 1534 500 440 Weight 154.2 kg Intake: Intake, IV Titration 800 1500 Amount Piperacillin-Tazobactam 3 50 .375 gm In Dextrose/Water 1 50ml.bag @ 12.5 mls/hr IVPB ONCE STA Rx#: [id number] Sodium Chloride 0.9% 1, 750 1500 000 ml @ 125 mls/hr IV . Q8H [facility] Rx#:[id number] Oral 1934 440 Output: Urine 1200 1000 - Exam GENERAL: Well-appearing, well-nourished and in no acute distress. NECK: Supple without JVD or thyromegaly. LUNGS: Breath sounds clear to auscultation bilaterally. Respiration equal and unlabored. No wheezes, rales or rhonchi. HEART: Irregular rate and rhythm without murmurs, rubs or gallops. S1 and S2 heard. EXTREMITIES: Normal range of motion, bilateral lower extremity non-pitting edema. Right lower leg brace in place. No clubbing or cyanosis. Peripheral pulses intact. - Labs CBC & Chem 7: 05/15/18 06:13 05/16/18 07:47 Labs: Abnormal Lab Results - Last 24 Hours (Table) 05/15/18 05/15/18 05/16/18 Range/Units 12:19 20:38 07:47 PT 22.5 H (9.0-12.0) sec INR 2.5 H (<1.2) Chloride (98-107) mmol/L Carbon Dioxide (22-30) mmol/L BUN (9-20) mg/dL Creatinine (0.66-1.25) mg/dL Glucose (74-99) mg/dL POC Glucose (mg/dL) 135 H (75-99) mg/dL Calcium (8.4-10.2) mg/dL Total Creatine Kinase 1323 H* (55-170) U/L CK-MB (CK-2) 3.5 H (0.0-2.4) ng/mL Troponin I 0.038 H* (0.000-0.034) ng/mL 05/16/18 Range/Units 07:47 PT (9.0-12.0) sec INR (<1.2) Chloride 113 H (98-107) mmol/L Carbon Dioxide 18 L (22-30) mmol/L BUN 39 H (9-20) mg/dL Creatinine 1.70 H (0.66-1.25) mg/dL Glucose 132 H (74-99) mg/dL POC Glucose (mg/dL) (75-99) mg/dL Calcium 8.3 L (8.4-10.2) mg/dL Total Creatine Kinase (55-170) U/L CK-MB (CK-2) (0.0-2.4) ng/mL Troponin I (0.000-0.034) ng/mL Microbiology - Last 24 Hours (Table) 05/14/18 19:47 Blood Culture - Preliminary Blood No Growth after 24 hours 05/14/18 22:01 Urine Culture - Preliminary Urine,Voided Assessment and Plan Assessment: ASSESSMENT Acute rhabdomyolysis secondary to fall and prolonged time on the floor due to weakness and inability to himself up. Lactic acidosis Acute fracture of right tib/fib Supratherapeutic INR, 3.4-3.6 Chronic kidney disease, GFR 50 Paroxysmal atrial fibrillation with mildly rapid ventricular response Hypertension Dyslipidemia History of neuropathy with multiple toe amputations in the past, most recently in August 2017 History of DVT and PE in the past on intermission coordinator anticoagulation. Last PE was in 2012 per the patient. Rheumatoid arthritis Morbid obesity PLAN If no plans for surgical intervention, coumadin should be resumed. Increase lopressor to 50 mg BID, additional dose of 25 mg now. Ongoing medical management. Follow up with Dr. Almonte in 2-3 weeks post-discharge. Nurse Practitioner note has been reviewed, I agree with a documented findings and plan of care. Patient was seen and examined.
[2018-05-16] MEDS: MULTIVITAMINS, THERA 1 EACH TAB PO SCH (10:40)
--- NOTE | 2018-05-16 10:46 | P.PN ---
Subjective Progress Note Date: 05/16/18 Principal diagnosis: Fracture right proximal tib-fib. Multiple fracture blisters right lower leg. Multiple medical comorbidities. This is a pleasant 63-year-old -[place] male who we're following regarding his proximal tib-fib fractures to the right leg. He has no new complaints or concerns today. He has maintained his knee immobilizer. Objective - Vital Signs Vital signs: Vital Signs Temp 97.5 F L 05/16/18 07:35 Pulse 63 05/16/18 07:35 Resp 18 05/16/18 07:35 BP 148/82 05/16/18 07:35 Pulse Ox 95 05/16/18 07:35 Intake & Output 05/15/18 05/16/18 05/16/18 18:59 06:59 18:59 Intake Total 2734 1500 440 Output Total 1200 1000 Balance 1534 500 440 Weight 154.2 kg Intake: Intake, IV Titration 800 1500 Amount Piperacillin-Tazobactam 3 50 .375 gm In Dextrose/Water 1 50ml.bag @ 12.5 mls/hr IVPB ONCE STA Rx#: [id number] Sodium Chloride 0.9% 1, 750 1500 000 ml @ 125 mls/hr IV . Q8H [facility] Rx#:[id number] Oral 1934 440 Output: Urine 1200 1000 - Exam This is a pleasant 63-year-old male in no acute distress. He is alert and oriented 3. Exam of the lower extremity reveals that his fracture blisters have ruptured. Dressing is in place. Dressing is changed today. His knee immobilizer has an opening at the top with an exposed metal stay. Immobilizer is removed. The patient can wiggle his great toe. Lesser toes are absent secondary to amputation. No palpable pulses noted to the foot. Full ankle motion. - Labs CBC & Chem 7: 05/15/18 06:13 05/16/18 07:47 Labs: Abnormal Lab Results - Last 24 Hours (Table) 05/15/18 05/15/18 05/16/18 Range/Units 12:19 20:38 07:47 PT 22.5 H (9.0-12.0) sec INR 2.5 H (<1.2) Chloride (98-107) mmol/L Carbon Dioxide (22-30) mmol/L BUN (9-20) mg/dL Creatinine (0.66-1.25) mg/dL Glucose (74-99) mg/dL POC Glucose (mg/dL) 135 H (75-99) mg/dL Calcium (8.4-10.2) mg/dL Total Creatine Kinase 1323 H* (55-170) U/L CK-MB (CK-2) 3.5 H (0.0-2.4) ng/mL Troponin I 0.038 H* (0.000-0.034) ng/mL 05/16/18 Range/Units 07:47 PT (9.0-12.0) sec INR (<1.2) Chloride 113 H (98-107) mmol/L Carbon Dioxide 18 L (22-30) mmol/L BUN 39 H (9-20) mg/dL Creatinine 1.70 H (0.66-1.25) mg/dL Glucose 132 H (74-99) mg/dL POC Glucose (mg/dL) (75-99) mg/dL Calcium 8.3 L (8.4-10.2) mg/dL Total Creatine Kinase (55-170) U/L CK-MB (CK-2) (0.0-2.4) ng/mL Troponin I (0.000-0.034) ng/mL Microbiology - Last 24 Hours (Table) 05/14/18 19:47 Blood Culture - Preliminary Blood No Growth after 24 hours Assessment and Plan (1) Fracture, pathologic, tibia/fibula Current Visit: Yes Status: Acute Code(s): M84.469A - PATHOLOGICAL FRACTURE, UNSP TIBIA AND FIBULA, INIT FOR FX SNOMED Code(s): 335727305 (2) Lactic acidosis Current Visit: Yes Status: Acute Code(s): E87.2 - ACIDOSIS SNOMED Code(s) : 52510032 (3) Rheumatoid arthritis involving multiple sites Current Visit: No Status: Acute Code(s): M06.9 - RHEUMATOID ARTHRITIS, UNSPECIFIED SNOMED Code(s): 543432673 (4) Atrial fibrillation Current Visit: Yes Status: Acute Code(s): I48.91 - UNSPECIFIED ATRIAL FIBRILLATION SNOMED Code(s): 71453960 (5) Obesity Current Visit: Yes Status: Acute Code(s): E66.9 - OBESITY, UNSPECIFIED SNOMED Code(s): 061426090 (6) Peripheral vascular disease Current Visit: Yes Status: Acute Code(s): I73.9 - PERIPHERAL VASCULAR DISEASE, UNSPECIFIED SNOMED Code(s): 878717772 (7) Rhabdomyolysis Current Visit: Yes Status: Acute Code(s): M62.82 - RHABDOMYOLYSIS SNOMED Code(s): 915473501 Plan: The clinical and x-fabrice findings are discussed with the patient. The patient is evaluated by Dr. Hernandez as well today who has reviewed the computed tomography scan. With the patient significant peripheral vascular disease and multiple medical comorbidities, it is recommended the patient be transferred to a tertiary care center for definitive treatment of this fracture and his arthritis. We're planning transfer today if it can possibly be arranged. The patient is advised that he may not have surgical intervention for another week or so while the fracture blisters resolve.
[2018-05-16 15:29] VITALS: BP 108/68; PULSE 70; RESP 16; TEMP 98.1
[2018-05-16] MEDS ORDERED: WARFARIN 5 MG TAB PO SCH ×2 (18:00)
[2018-05-16] MEDS ORDERED: METOPROLOL TARTRATE 25 MG TAB PO SCH (21:00)
--- NOTE | 2018-05-16 22:49 | P.PN ---
Subjective Progress Note Date: 05/16/18 63-year-old -[place] male presents to the emergency center by car after suffering a fall at home. The patient is well-known to the service from his multiple bouts of osteomyelitis related to his diabetic foot infections. The patient called his who was at a conference in [place], they do live in [place]. She was concerned that something was wrong and left a conference to check on the . Upon getting home he was lying on the floor unable to arise. The patient related that he was walking carrying food that he had just ordered he hurt his leg snap felted snap and then he fell to the ground. He was unable to get of the strength to move but was able to call his for help. EMS did lower him into the car and brought him to our emergency center. Upon arrival there is evidence of the pathological fracture to the right leg and is ready been seen by orthopedics. There are large fracture blisters that are present which is inhibiting surgical intervention at this time. 05/16/2018 patient has little change and the fracture blisters are present and leg swelling continues. Has been seen by ortho and are concerned. Objective - Vital Signs Vital signs: Vital Signs Temp 98.1 F 05/16/18 15:00 Pulse 70 05/16/18 15:00 Resp 16 05/16/18 15:00 BP 108/68 05/16/18 15:00 Pulse Ox 99 05/16/18 15:00 Intake & Output 05/16/18 05/16/18 05/17/18 06:59 18:59 06:59 Intake Total 1500 1740 Output Total 1000 Balance 500 1740 Intake: Intake, IV Titration 1500 Amount Sodium Chloride 0.9% 1, 1500 000 ml @ 125 mls/hr IV . Q8H [facility] Rx#:[id number] Oral 1740 Output: Urine 1000 Other: # Voids 3 - Exam Pleasant superobese 63-year-old male who is in no acute distress. HEENT: Anicteric conjunctiva are pink and moist nasal mucosa grossly intact without significant lesions, there is no thrush. Neck: The neck is supple without significant lymphadenopathy or thyromegaly. Lungs: Good bilateral air entry without significant crackles or wheezing. There is no significant bronchial sounds. There is no egophony or dullness. Heart: Regular rate and rhythm with an audible S1-S2, no S3 loud S4. There is no significant murmur click or rub, PMI was nondisplaced. Abdomen: Obese, Positive bowel sounds soft and nontender without palpable masses or organomegaly. There was no guarding or rebound. Extremities: The upper extremities do show evidence of the significant changes from his rheumatoid arthritis with swelling and joint destruction. The right lower extremity has evidence of the stomach and bony absorption from the rheumatoid arthritis and has had amputation to the great toe. The right leg reveals evidence of the significant swelling from the knee distally. Multiple fracture blisters are seen anteriorly. There is discomfort with any range of motion. The foot itself has minimal swelling compared to baseline but no new eye but it ulcers are seen. Neuro: Awake alert oriented to person place and time. There are no acute new gross focal sensory motor deficits.Does have distinct neuropathy from the feet proximally - Labs CBC & Chem 7: 05/15/18 06:13 05/16/18 07:47 Labs: Abnormal Lab Results - Last 24 Hours (Table) 05/16/18 05/16/18 Range/Units 07:47 07:47 PT 22.5 H (9.0-12.0) sec INR 2.5 H (<1.2) Chloride 113 H (98-107) mmol/L Carbon Dioxide 18 L (22-30) mmol/L BUN 39 H (9-20) mg/dL Creatinine 1.70 H (0.66-1.25) mg/dL Glucose 132 H (74-99) mg/dL Calcium 8.3 L (8.4-10.2) mg/dL Microbiology - Last 24 Hours (Table) 05/14/18 19:47 Blood Culture - Preliminary Blood No Growth after 48 hours 05/14/18 22:01 Urine Culture - Final Urine,Voided Laboratory Results WBC 9.1 k/uL (3.8-10.6) 05/15/18 06:13 RBC 2.73 m/uL (4.30-5.90) L 05/15/18 06:13 Hgb 9.1 gm/dL (13.0-17.5) L 05/15/18 06:13 Hct 27.1 % (39.0-53.0) L 05/15/18 06:13 MCV 99.3 fL (80.0-100.0) 05/15/18 06:13 MCH 33.2 pg (25.0-35.0) 05/15/18 06:13 MCHC 33.4 g/dL (31.0-37.0) 05/15/18 06:13 RDW 16.8 % (11.5-15.5) H 05/15/18 06:13 Plt Count 181 k/uL (150-450) 05/15/18 06:13 Neutrophils % 79 % 05/15/18 06:13 Lymphocytes % 14 % 05/15/18 06:13 Monocytes % 5 % 05/15/18 06:13 Eosinophils % 1 % 05/15/18 06:13 Basophils % 0 % 05/15/18 06:13 Neutrophils # 7.3 k/uL (1.3-7.7) 05/15/18 06:13 Lymphocytes # 1.3 k/uL (1.0-4.8) 05/15/18 06:13 Monocytes # 0.5 k/uL (0-1.0) 05/15/18 06:13 Eosinophils # 0.1 k/uL (0-0.7) 05/15/18 06:13 Basophils # 0.0 k/uL (0-0.2) 05/15/18 06:13 Anisocytosis Slight 05/15/18 06:13 Macrocytosis Slight 05/15/18 06:13 PT 22.5 sec (9.0-12.0) H 05/16/18 07:47 INR 2.5 (<1.2) H 05/16/18 07:47 APTT 44.7 sec (22.0-30.0) H 05/14/18 23:54 Sodium 140 mmol/L (137-145) 05/16/18 07:47 Potassium 4.8 mmol/L (3.5-5.1) 05/16/18 07:47 Chloride 113 mmol/L (98-107) H 05/16/18 07:47 Carbon Dioxide 18 mmol/L (22-30) L 05/16/18 07:47 Anion Gap 9 mmol/L 05/16/18 07:47 BUN 39 mg/dL (9-20) H 05/16/18 07:47 Creatinine 1.70 mg/dL (0.66-1.25) H 05/16/18 07:47 Est GFR (CKD-EPI)AfAm 50 (>60 ml/min/1.73 sqM) 05/16/18 07:47 Est GFR (CKD-EPI)NonAf 43 (>60 ml/min/1.73 sqM) 05/16/18 07:47 Glucose 132 mg/dL (74-99) H 05/16/18 07:47 POC Glucose (mg/dL) 135 mg/dL (75-99) H 05/15/18 20:38 POC Glu Fiber Technician BRITNEY Liliam [place] 05/15/18 20:38 Lactic Ac Sepsis Rflx Y 05/14/18 20:28 Plasma Lactic Acid [place] 2.4 mmol/L (0.7-2.0) H* 05/14/18 23:54 Calcium 8.3 mg/dL (8.4-10.2) L 05/16/18 07:47 Magnesium 1.7 mg/dL (1.6-2.3) 05/15/18 12:19 Total Bilirubin 1.5 mg/dL (0.2-1.3) H 05/15/18 06:13 AST 77 U/L (17-59) H 05/15/18 06:13 ALT 38 U/L (21-72) 05/15/18 06:13 Alkaline Phosphatase 55 U/L (38-126) 05/15/18 06:13 Creatine Kinase 1541 U/L (55-170) H* 05/14/18 20:18 Total Creatine Kinase 1323 U/L (55-170) H* 05/15/18 12:19 CK-MB (CK-2) 3.5 ng/mL (0.0-2.4) H 05/15/18 12:19 CK-MB (CK-2) Rel Index 0.3 05/15/18 12:19 Troponin I 0.038 ng/mL (0.000-0.034) H* 05/15/18 12:19 Total Protein 5.5 g/dL (6.3-8.2) L 05/15/18 06:13 Albumin 2.8 g/dL (3.5-5.0) L 05/15/18 06:13 TSH 0.600 mIU/L (0.465-4.680) 05/15/18 12:19 Urine Color Yellow 05/14/18: Urine Appearance Clear (Clear) 05/14/18 22: Urine pH 6.5 (5.0-8.0) 05/14/18 22: Ur Specific [place] 1.010 (1.001-1.035) 05/14/18 22: Urine Protein Trace (Negative) H 05/14/18 22: Urine Glucose (UA) Negative (Negative) 05/14/18: Urine Ketones Negative (Negative) 05/14/18 22: Urine Blood Negative (Negative) 05/14/18 22: Urine Nitrite Negative (Negative) 05/14/18 22: Urine Bilirubin Negative (Negative) 05/14/18: Urine Urobilinogen <2.0 mg/dL (<2.0) 05/14/18 22: Ur Leukocyte Esterase Negative (Negative) 05/14/18 22: Microbiology 05/14/18 19:47 Blood Blood Culture - Preliminary No Growth after 48 hours 05/14/18: Urine,Voided Urine Culture - Final Assessment and Plan (1) Fracture, pathologic, tibia/fibula Narrative/Plan: 63-year-old male presents to Hospital via car after EMS in [place] was able to pick him up and place him into the car. Upon arrival to the emergency center there was evidence of the significant abnormality to the right leg and x-ray revealed evidence of the significant fracture to the right tibia and fibula. The patient is a long-standing history of rheumatoid arthritis and is on multiple agents that includes methotrexate and steroids. Patient likely has a pathological fracture at this area. Orthopedics is evaluated. His developed large fracture blisters and hopefully those will settle soon and the go to the operating room for more definitive surgical intervention. With his long-standing history of diabetes he is at significant risk of infection and antibiotics have been already started with Zosyn, will add in daptomycin for now with concerns to her resistant gram-positive infection. Pathology at the time of surgery to further help define the etiology and whether this is a chronic infection at the site resulting in this difficulty. Pathology will also help to find other types of disease potential. Pain control appears to be adequate Continue with close blood glucose control. Patient does have new onset atrial fibrillation and is being monitored by cardiology. With his history of pulmonary embolism is already anticoagulated. The results of pathology will be followed closely. Cultures in process. 05/16/2018 patient will be transferred to the orthopedic trauma service at [facility] for surgical intervention soon. Continue antibiotics with Zosyn and Dapto for now. Status: Acute Code(s): M84.469A - PATHOLOGICAL FRACTURE, UNSP TIBIA AND FIBULA , INIT FOR FX SNOMED Code(s): 109316090 (2) Blister of right leg Status: Acute Code(s): S80.821A - BLISTER (NONTHERMAL), RIGHT LOWER LEG, INITIAL ENCOUNTER SNOMED Code(s): 194737086 (3) Diabetes mellitus type 2 with complications Status: Acute Code(s): E11.8 - TYPE 2 DIABETES MELLITUS WITH UNSPECIFIED COMPLICATIONS SNOMED Code(s): 36231335
--- NOTE | 2018-05-17 08:48 | DS ---
DISCHARGE SUMMARY DATE OF ADMISSION: 05/14/18. DATE OF DISCHARGE: 05/16/18. FINAL DIAGNOSES: 1. Acute right tibia fibula fracture secondary to fall. 2. Persistent atrial fibrillation with rapid ventricular rate on admission. 3. Acute rhabdomyolysis in the setting of renal failure and secondary to fall. 4. Morbid obesity, BMI of 43.6. 5. Chronic kidney disease stage III from nephrosclerosis. 6. Coumadin monitoring, INR is therapeutic. 7. Normocytic anemia likely due to chronic kidney disease. 8. Obstructive sleep apnea uses CPAP machine. 9. Troponin leak in setting of renal failure. No clinical evidence of acute coronary syndrome. 10.Lactic acidosis probably type 2. 11.Depression, not otherwise specified. 12.Metabolic acidosis from renal failure. 13.Possible acute cellulitis right lower extremity and fracture blisters. HOSPITAL COURSE: This patient has advanced rheumatoid arthritis and did take a fall secondary to spontaneous rupture of his tibia and fibula. Laid on the floor for some time, found to have fracture blisters on the leg and evidence of cellulitis. Patient is put on IV antibiotics. Also patient with atrial fibrillation with rapid ventricular rate. 2D echocardiogram was done that showed the EF of 50-55 percent. Given the complication of the right leg and fracture blisters infection, Orthopedics decided that the patient should get transferred out to [facility] and they spoke to the attending physician there for higher level of care. This was discussed with the patient and his . PHYSICAL EXAMINATION: Temperature 97.5, pulse 63, respirations 18, blood pressure 140/82, pulse ox 95% on room air. On exam, lungs fair entry. Multiple disfiguring joints both in the hand and feet and a brace on the right lower extremity. LABS: INR was 2.5. Potassium 4.8, BUN 39, creatinine 1.70. CONSULTATIONS: 1. Dr. Schroeder, Infectious Disease. 2. Dr. Almonte from Cardiology. 3. Dr. Hernandez from Orthopedics. DISPOSITION: [facility]. MMODL / IJN: [id number] /
[2018-05-18] MEDS ORDERED: METHOTREXATE SODIUM 2.5 MG TAB PO SCH (09:00)
--- NOTE | 2018-05-21 08:42 | CDI ---
Last Revision, July 2017 Documentation Clarification Form Date: 05/21/18 From: Noemi Padilla Phone: If you have a question regarding this query, please contact Anny Roland at [phone] between 8am and 5pm. Admit Date: 05/14/2018 9:41:00 PM Patient Name: Danyel Ventura Visit Number: [id number] Discharge Date: ATTENTION: The Clinical Documentation Specialists (CDI) and [facility] Coding Staff appreciate your assistance in clarifying documentation. Please respond to the clarification below the line at the bottom and electronically sign. The CDI & [facility] Coding staff will review the response and follow-up if needed. Please note: Queries are made part of the Legal Health Record. If you have any questions, please contact the author of this message via ITS. Will Stewart MD Conflicting documentation has been found in the medical record. Per the orthopedic consult the patient states that he is not diabetic that he is aware of. Per Rhett Schroeder consult note and 05/16 progress note, documentation states that the patient is well known to the service from his multiple bouts of osteomyelitis related to his diabetic foot infections. There is no documentation of diabetes in any of your notes. The patient is not on any type of diabetic medication. History/Risk Factors: Patient has a history of peripheral vascular disease and peripheral neuropathy with multiple lesser toe amputations previously and chronic debilitating rheumatoid arthritis for which the patient takes methotrexate and steroids. The patienet is on Patient was admitted for pathological fracture of the right proximal tib/fib. Clinical Indicators: Elevated blood sugar but patient is on steroids. Blood sugars ran between 132 and 155 during stay. Treatment: There was no hypoglycemic medication given to the patient. In your opinion what is the most clinically appropriate diagnosis for this patient? DM type I DM type II Other explanation of clinical findings Unable to determine (no explanation for clinical findings) __ pt does not have diabetes MTDD
[2018-05-22] MEDS ORDERED: WARFARIN 2.5 MG TAB PO SCH (18:00)
== END 2018-05-16 18:07 | disposition short-term general hospital (02) | DRG 543 ==
LOC: EC 19:03 → 3SUR 21:41
PROVIDERS: ADMIT Hospitalist; ATTEND Hospitalist
DX: M84.461A Pathological fracture, right tibia, initial encounter for fracture (principal); E87.2 Acidosis; I48.1 Persistent atrial fibrillation; L03.115 Cellulitis of right lower limb; M62.82 Rhabdomyolysis; Z68.41 Body mass index [BMI] 40.0-44.9, adult; M84.463A Pathological fracture, right fibula, initial encounter for fracture; E11.22 Type 2 diabetes mellitus with diabetic chronic kidney disease; E66.01 Morbid (severe) obesity due to excess calories; G62.9 Polyneuropathy, unspecified; D63.1 Anemia in chronic kidney disease; I73.9 Peripheral vascular disease, unspecified; E78.5 Hyperlipidemia, unspecified; F32.9 Major depressive disorder, single episode, unspecified; G47.33 Obstructive sleep apnea (adult) (pediatric); G89.29 Other chronic pain; H40.9 Unspecified glaucoma; I12.9 Hypertensive chronic kidney disease with stage 1 through stage 4 chronic kidney disease, or unspecified chronic kidney disease; M06.9 Rheumatoid arthritis, unspecified; M10.9 Gout, unspecified; N18.3 Chronic kidney disease, stage 3 (moderate); R79.1 Abnormal coagulation profile; R77.9 Abnormality of plasma protein, unspecified; I08.3 Combined rheumatic disorders of mitral, aortic and tricuspid valves; Z86.718 Personal history of other venous thrombosis and embolism; Z86.711 Personal history of pulmonary embolism; Z79.01 Long term (current) use of anticoagulants; Z79.52 Long term (current) use of systemic steroids; Z79.899 Other long term (current) drug therapy; Z88.2 Allergy status to sulfonamides; Z96.652 Presence of left artificial knee joint; Z86.14 Personal history of Methicillin resistant Staphylococcus aureus infection; Z83.3 Family history of diabetes mellitus; Z82.49 Family history of ischemic heart disease and other diseases of the circulatory system; Z82.61 Family history of arthritis; Z82.3 Family history of stroke; W19.XXXA Unspecified fall, initial encounter; Y92.009 Unspecified place in unspecified non-institutional (private) residence as the place of occurrence of the external cause
CPT/HCPCS: 36415; 80048; 80053; 81003; 82550; 82553; 83605; 83735; 84443; 84484; 85025; 85610; 85730; 87040; 87086; 93005; 93306; 96361; 96365; 96375; 99285

== ENCOUNTER 2018-10-13 16:40 | Inpatient (IN) | payer MEDICARE ==
[2018-10-13] MEDS ORDERED: SODIUM CHLORIDE 0.9% 1,000 ML IV STA (17:13)
--- NOTE | 2018-10-13 17:16 | ED ---
Chest Pain HPI - General Chief Complaint: Chest Pain Stated Complaint: chest pain Time Seen by Provider: 10/13/18 16:58 Source: patient, family, RN notes reviewed Mode of arrival: wheelchair Limitations: no limitations - History of Present Illness Initial Comments: This is a 63-year-old male with a history of rheumatoid arthritis history of pulmonary embolism in 2012 history of right ORIF of the tib-fib for a fracture from using steroids who presents with complaints of not feeling well for past 3 or 4 days she had some cough he's had a cough with some brown phlegm with specks of blood in this morning he coughed up about a teaspoon of blood he states it was dark red. His discomfort is chest some exertional dyspnea. He currently is having no chest pain he is some exertional dyspnea with no overt shortness of breath at rest. The patient is currently on Coumadin. MD Complaint: chest pain, other - Related Data Home Medications Medication Instructions Recorded Confirmed Allopurinol [Zyloprim] 300 mg PO DAILY 08/25/17 10/13/18 Cholecalciferol [Vitamin D3] 1,000 unit PO DAILY 08/25/17 10/13/18 Cyanocobalamin (Vitamin B-12) 1,000 mcg PO DAILY 08/25/17 10/13/18 [Vitamin B-12] Folic Acid 0.4 mg PO DAILY 08/25/17 10/13/18 Lisinopril [Zestril] 10 mg PO BID 08/25/17 10/13/18 Metoprolol Tartrate [Lopressor] 25 mg PO BID 08/25/17 10/13/18 Warfarin [Coumadin] 2.5 mg PO TU 08/25/17 10/13/18 Warfarin [Coumadin] 5 mg PO SUMOWETHFRSA 08/25/17 10/13/18 oxyCODONE-APAP 10-325MG [Percocet 1 tab PO Q6HR PRN 08/25/17 10/13/18 10-325 mg] Atorvastatin Calcium [Lipitor] 20 mg PO DAILY 05/14/18 10/13/18 DULoxetine HCL [Cymbalta] 30 mg PO DAILY 05/14/18 10/13/18 Multivitamins, Thera [Multivitamin 1 tab PO DAILY@1200 05/14/18 10/13/18 (formulary)] Latanoprost/Pf [Latanoprost 0.005% 1 drop BOTH EYES HS 10/13/18 10/13/18 Eye Drop] predniSONE 10 mg PO DAILY 10/13/18 10/13/18 Allergies Allergy/AdvReac Type Severity Reaction Status Date / Time Sulfa (Sulfonamide Allergy Rash/Hives Verified 10/13/18 17:29 Antibiotics) Review of Systems ROS Statement: Those systems with pertinent positive or pertinent negative responses have been documented in the HPI. ROS Other: All systems not noted in ROS Statement are negative. EKG Findings - EKG Results: EKG: interpreted by CAMMIED (Atrial fibrillation with a response rate of 104 QRS 80 QT since QTC 44/531 PVCs noted nonspecific anterior configuration.) Past Medical History Past Medical History: Deep Vein Thrombosis (DVT), Hypertension, Pulmonary Embolus (PE), Renal Disease, Rheumatoid Arthritis (RA) Additional Past Medical History / Comment(s): gout, sickle cell, CKD stage 3 ( dialysis 2004), sleep apnea, pneuropathy, glaucoma History of Any Multi-Drug Resistant Organisms: MRSA Date of last positivie culture/infection: 2013 MDRO Source:: foot Past Surgical History: Joint Replacement, Orthopedic Surgery Additional Past Surgical History / Comment(s): Left knee replaced; multiple toe amputations Past Anesthesia/Blood Transfusion Reactions: No Reported Reaction Past Psychological History: No Psychological Hx Reported Smoking Status: Never smoker Past Alcohol Use History: None Reported Past Drug Use History: Marijuana - Past Family History Father Family Medical History: Diabetes Mellitus, Myocardial Infarction (MA) Mother Family Medical History: CVA/TIA Sister(s) Family Medical History: Hypertension Additional Family Medical History / Comment(s): RA General Exam - General Exam Comments Initial Comments: This is a well-developed morbidly obese male who is awake alert oriented 3 Limitations: no limitations General appearance: alert, anxious Head exam: Present: atraumatic, normocephalic, normal inspection Eye exam: Present: normal appearance, PERRL, EOMI. Absent: scleral icterus, conjunctival injection, periorbital swelling ENT exam: Present: normal exam, mucous membranes moist Neck exam: Present: normal inspection. Absent: tenderness, meningismus, lymphadenopathy Respiratory exam: Present: normal lung sounds bilaterally. Absent: respiratory distress, wheezes, rales, rhonchi, stridor Cardiovascular Exam: Present: tachycardia, irregular rhythm. Absent: systolic murmur, diastolic murmur, rubs, gallop, clicks GI/Abdominal exam: Present: soft, normal bowel sounds. Absent: distended, tenderness, guarding, rebound, rigid Extremities exam: Present: normal inspection, full ROM, normal capillary refill , pedal edema (The edema in his lower extremities is no worse than usual.). Absent: tenderness, joint swelling, calf tenderness Back exam: Present: normal inspection Neurological exam: Present: alert, oriented X3, CN II-XII intact Psychiatric exam: Present: normal affect, normal mood Skin exam: Present: warm, dry, intact, normal color. Absent: rash Course Vital Signs 10/13/18 10/13/18 10/13/18 16:51 18:30 19:30 Temperature 97.8 F Pulse Rate 108 H 98 101 H Respiratory 18 20 20 Rate Blood Pressure 149/92 144/94 128/81 O2 Sat by Pulse 98 95 98 Oximetry - Reevaluation(s) Reevaluation #1: 10/13/18 20:35 Reevaluation patient reveals he is resting comfortably though still have some dyspnea no chest pain at this time. Reevaluation #2: 10/13/18 20:37 I did reevaluate patient several occasions thrown stay. Reevaluation #3: 10/13/18 20:37 secured entrance monitor: This is ordered due to the patient's chest pain and shortness of breath. Atrial fibrillation with a rapid ventricular response the scene of 105 on my examination. Occasional PVCs noted Chest Pain MDM - MDM Imaging reveals evidence of increased pulmonary vascular congestion. I did discuss findings the patient and his family as well as with Dr. Berry. The presentation is consistent with congestive heart failure chronic atrial fibrillation. Patient does have hemoptysis his Coumadin level subtherapeutic however because the hemoptysis after discussion with Dr. Berry the patient will remain without any coagulation at this time. Patient be admitted with cardiology consultation. He was hypomagnesemic and did receive IV magnesium. Critical Care Time Critical Care Time: Yes Critical Care Time: 3 AM is a cart was includes this presentation with history physical labs x-rays multiple reevaluation of the patient discussed with the patient family regarding findings review of old charting discussion with the admitting physician admission orders and documentation of the above. Disposition Clinical Impression: Congestive heart failure (CHF), Rapid atrial fibrillation, Hemoptysis, Elevated troponin, Renal insufficiency syndrome, Hypomagnesemia Disposition: ADMITTED IP TO THIS HOSP Condition: Serious Referrals: Josse Vaca DO [Primary Care Provider] - 1-2 days
[2018-10-13 17:47] LABS: Anisocytosis Slight; Basophils % (A) 0 %; Eosinophils # (A) 0.1 k/uL (0-0.7); Eosinophils % (A) 1 %; HCT 40.3 % (39.0-53.0); HGB 12.8 gm/dL (13.0-17.5); Lymphocytes # (A) 2.6 k/uL (1.0-4.8); Lymphocytes % (A) 29 %; MCH 29.6 pg (25.0-35.0); MCHC 31.7 g/dL (31.0-37.0); MCV 93.4 fL (80.0-100.0); Mean Platelet Volume 7.1; Monocytes # (A) 0.4 k/uL (0-1.0); Monocytes % (A) 5 %; Neutrophils # (A) 5.8 k/uL (1.3-7.7); Neutrophils % (A) 64 %; Platelet Count 236 k/uL (150-450); RBC 4.32 m/uL (4.30-5.90); RDW 17.8 % (11.5-15.5)
[2018-10-13 17:58] LABS: Albumin 3.5 g/dL (3.5-5.0); Calcium 9.5 mg/dL (8.4-10.2); INR 1.3 (<1.2); Magnesium 1.5 mg/dL (1.6-2.3); Partial Thromboplastin Time 28.5 sec (22.0-30.0); Potassium 4.8 mmol/L (3.5-5.1); Prothrombin Time 13.3 sec (9.0-12.0); Total Bilirubin 1.1 mg/dL (0.2-1.3); Total Protein 6.8 g/dL (6.3-8.2)
--- NOTE | 2018-10-13 18:15 | XR ---
EXAMINATION TYPE: XR chest 2V DATE OF EXAM: 10/13/2018 COMPARISON: Chest x-ray October 06, 2013 HISTORY: Shortness breath and chest pain. TECHNIQUE: Frontal and lateral views of the chest are obtained. FINDINGS: There is no focal air space opacity, pleural effusion, or pneumothorax seen. The cardiac silhouette size is enlarged. New mild central vascular congestion is felt present. Retrocardiac opa city felt to reflect moderate size hiatal hernia is noted. The osseous structures are intact. IMPRESSION: Cardiomegaly with perhaps new mild central vascular congestion, correlate for CHF exacer bation.
[2018-10-13] MEDS ORDERED: MAGNESIUM SULFATE-D5W PMX 1 GM in DEXTROSE/WATER 1 100ML.BAG IVPB ONE (19:18)
[2018-10-13] MEDS ORDERED: FUROSEMIDE 10 MG/ML 4 ML VIAL IV STA (19:18)
[2018-10-13] MEDS ORDERED: NITROGLYCERIN OINT 1 INCH/GM PACKET TOPICAL STA (20:44)
[2018-10-13] MEDS ORDERED: WARFARIN 5 MG TAB PO SCH (21:00)
[2018-10-13] MEDS: NITROGLYCERIN OINT 1 INCH/GM PACKET TOPICAL SCH (22:31)
[2018-10-13] MEDS: METOPROLOL TARTRATE 25 MG TAB PO SCH (22:54)
[2018-10-13] MEDS: LISINOPRIL 10 MG TAB PO SCH (22:54)
[2018-10-13] MEDS: oxyCODONE-APAP 10-325MG 1 EACH TAB PO PRN (22:54)
[2018-10-13] MEDS: LATANOPROST 0.005% OPHTH DROPS 2.5 ML BTL BOTH EYES SCH (22:54)
[2018-10-13] MEDS: IPRATROPIUM-ALBUTEROL 3 ML NEB INHALATION SCH (23:34)
--- NOTE | 2018-10-13 23:46 | HP ---
HISTORY AND PHYSICAL DATE OF ADMISSION: 10/13/2018. DATE OF SERVICE: 10/13/2018. PRESENTING COMPLAINT: Feeling unwell. HISTORY OF PRESENTING COMPLAINT: This is a very pleasant 63-year-old patient with multiple medical problems. The patient's chronic stable medical conditions include chronic debilitating rheumatoid arthritis, morbid obesity, gout, depression, chronic kidney disease stage 3 from nephrosclerosis. The patient lives near [place] with his . The patient was here in May of last year when he had a fracture of the tibia fibula. The patient was transferred out to [facility] where repair was carried out this month successfully. The patient now just started weightbearing. The patient also has known underlying atrial fibrillation. The patient now presents with 2 days of feeling unwell, felt a bit stuffy in the chest. Has got a cough, sputum that is yellow and brown. Also a little bit of blood was present. Patient is rather short of breath. Appetite otherwise is fair. Bowels are regular. There may be a slight fever. at the bedside. REVIEW OF SYSTEMS: CONSTITUTIONAL: Tired, low-grade fever. HEENT: None. RESPIRATORY: As above. CARDIOVASCULAR: None. GASTROINTESTINAL: None. GENITOURINARY: None. MUSCULOSKELETAL: Arthritic pain in different joints. DERMATOLOGICAL: None. HEMATOLOGICAL: None. LYMPHATIC: None. PSYCH: Depression, controlled. NEUROLOGIC: Neuropathic changes. PAST MEDICAL HISTORY: DVT, hypertension, PE, chronic kidney disease, sickle disease, rheumatoid arthritis, gout, sleep apnea, peripheral neuropathy, glaucoma, right tib-fib fracture. PAST SURGICAL HISTORY: Joint replacement, left knee replaced, multiple toe amputations, tib-fib surgery in May 2018 at [facility]. SOCIAL HISTORY: The patient is , lives with his near [place]. 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 No alcohol. Occasionally does marijuana for pain. FAMILY HISTORY: Diabetes, myocardial infarction, rheumatoid arthritis. HOME MEDICATIONS: 1. Prednisone 10 mg a day. 2. Percocet 10 one tablet every 6 hours p.r.n. 3. Coumadin 2.5 mg on Saturday, 5 mg on Saturday, Saturday, Saturday, , Saturday, Saturday. 4. Multivitamin tablet p.o. daily. 5. Lopressor 25 mg b.i.d. 6. Zestril 10 mg b.i.d. 7. Metoprolol 0.005% 1 drop to both eyes at bedtime. 8. Folic acid 0.4 mg a day. 9. Cymbalta 30 mg a day. 10.Vitamin B12, 1000 mcg a day. 11.Vitamin D3, 1000 units p.o. daily. 12.Lipitor 20 mg p.o. daily. 13.Allopurinol 300 mg p.o. daily. ALLERGIES: SULFA. PHYSICAL EXAMINATION: Vital signs on presentation, temperature 97.8, pulse 108, respiration 18, blood pressure 140/92, pulse ox 98% on room air. GENERAL APPEARANCE: Well built. BMI 48.8. Lying in bed, awake. EYES: Pupils equal. Conjunctiva slightly injected. HEENT: External appearance of nose is normal. Oral cavity normal. NECK JVD unable to assess. Mass not palpable. Respiratory effort increased. LUNGS: Diminished breath sounds. CARDIOVASCULAR: 1st and 2nd sounds. Minimal edema. ABDOMEN: Distended soft. Liver and spleen not palpable. LYMPHATIC: No lymph nodes palpable in the neck or axillae. PSYCHIATRY: Alert and oriented x3. Mood and affect normal. NEUROLOGIC: Pupils equal. Power and sensation grossly intact. Decreased sensation distally. INVESTIGATIONS: White count 9, hemoglobin 12.8, potassium 4.8, INR 1.3, BUN 23, creatinine 1.48. Troponin 0.042. ProBNP 3810. EKG tracing personally reviewed by me, shows atrial flutter fibrillation with some PVCs. Chest x-ray film cannot be reviewed, report shows cardiomegaly with possibly vascular congestion. ASSESSMENT: 1. This patient presents with feeling unwell for 2 days, stuffy, cold-like symptoms, cough with yellow-brown sputum. Most likely has underlying acute tracheobronchitis/pneumonia, which is a common cause of hemoptysis, especially that the patient has takes anticoagulation. 2. Recent right tibia fibula surgery. The patient is allowed to start weightbearing. 3. Persistent atrial flutter fibrillation, chronically on Coumadin. 4. Morbid obesity, BMI more than 45. 5. Chronic kidney disease stage 3 from nephrosclerosis. 6. Gastroesophageal reflux disease. 7. Obstructive sleep apnea, uses CPAP machine. 8. Depression, not otherwise specified. 9. Troponin leak in the setting of renal failure with no obvious cardiac symptoms, highly doubt acute coronary syndrome. 10.Coumadin monitoring with subtherapeutic INR. PLAN: Patient will be started on IV ceftriaxone. Home medications will be resumed. The patient's Coumadin will be continued right now until further evaluation by Pulmonary, especially in view of some amount of hemoptysis. If this is to become more severe, than the Coumadin will have to be held. We will get a cardiology opinion and a pulmonary opinion. Care was discussed with the patient and at the bedside. Questions were answered. MMMARIMARL / IJN: [id number] /
[2018-10-14] MEDS: FUROSEMIDE 40 MG TAB PO SCH ×2 (00:14→08:45)
[2018-10-14] MEDS: IPRATROPIUM-ALBUTEROL 3 ML NEB INHALATION SCH ×6 (04:32→23:31)
[2018-10-14] MEDS: ATORVASTATIN 20 MG TAB PO SCH (08:45)
[2018-10-14] MEDS: METOPROLOL TARTRATE 25 MG TAB PO SCH ×2 (08:45→20:55)
[2018-10-14] MEDS: ALLOPURINOL 300 MG TAB PO SCH (08:45)
[2018-10-14] MEDS: DULoxetine HCL 30 MG CAPSULE.DR PO SCH (08:45)
[2018-10-14] MEDS: LISINOPRIL 10 MG TAB PO SCH (08:45)
[2018-10-14] MEDS: predniSONE 10 MG TAB PO SCH (08:45)
[2018-10-14] MEDS: NITROGLYCERIN OINT 1 INCH/GM PACKET TOPICAL SCH (08:45)
[2018-10-14] MEDS: oxyCODONE-APAP 10-325MG 1 EACH TAB PO PRN ×3 (08:55→23:23)
[2018-10-14] MEDS ORDERED: APIXABAN 5 MG TAB PO SCH (10:15)
--- NOTE | 2018-10-14 10:18 | P.CRDCN ---
History of Present Illness Consult date: 10/14/18 Requesting physician: Will Berry Consult reason: congestive heart failure Chief complaint: Shortness of breath History of present illness: This is a pleasant 63-year-old -[place]ish gentleman with history of rheumatoid arthritis, prior pulmonary embolism and DVT in 2012, chronic persiste nt atrial fibrillation, history of right ORIF for a recent fracture, borderline diabetes, hypertension, hyperlipidemia, renal disease stage III, sickle cell anemia, who has been on Coumadin for anticoagulation. He presents to the hospital with symptoms of a 3-4 day duration of cough with associated brown phlegm with noted bright red blood, patient has also been more short of breath than usual. He had an episode of chest discomfort with associated shortness of breath. For all of these reasons she came to the emergency room for further evaluation. Patient's concern was that he may have another blood clot in his lung. Into the patient and his , he is recently seen Dr. bernardo dun[facility]. His chest x-ray on admission showed cardiomegaly with new mild central vascular congestion. EKG shows atrial fibrillation with mildly rapid ventricular response and occasional PVC. In May of this year, patient was admitted here to the hospital he had an echocardiogram with Doppler study performed at that time which revealed a normal left ventricular systolic function. Blood pressure on arrival here 148/90, heart rate 108, 98% on room air. White blood cell count is normal, hemoglobin 12.8, platelet count 236. Sodium 142, potassium 4.8, BUN 23 and creatinine 1.4. BNP level 3810. Magnesium 1.5. Troponins 0.042, 0.054. INR subtherapeutic at 1.3. Past Medical History Past Medical History: Atrial Fibrillation, Asthma, Deep Vein Thrombosis (DVT), Hypertension, Pulmonary Embolus (PE), Renal Disease, Rheumatoid Arthritis (RA) Additional Past Medical History / Comment(s): gout, sickle cell, CKD stage 3 (dialysis 2004), sleep apnea, pneuropathy, glaucoma History of Any Multi-Drug Resistant Organisms: MRSA Date of last positivie culture/infection: 2013 MDRO Source:: foot Past Surgical History: Joint Replacement, Orthopedic Surgery Additional Past Surgical History / Comment(s): Left knee replaced; multiple toe amputations, tib/fib surgery in May 2018 Past Anesthesia/Blood Transfusion Reactions: No Reported Reaction Past Psychological History: No Psychological Hx Reported Additional Psychological History / Comment(s): lives with his . [place] citizen living in [place]. No tobacco use or alcohol use. 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 No international travel. No animal exposures Smoking Status: Never smoker Past Alcohol Use History: None Reported Past Drug Use History: Marijuana Additional Drug Use History / Comment(s): pt. states he occasionally eats ma rijuana edibles for pain - Past Family History Father Family Medical History: Diabetes Mellitus, Myocardial Infarction ([place]) Mother Family Medical History: CVA/TIA Sister(s) Family Medical History: Hypertension Additional Family Medical History / Comment(s): RA Medications and Allergies Home Medications Medication Instructions Recorded Confirmed Type Allopurinol [Zyloprim] 300 mg PO DAILY 08/25/17 10/13/18 History Cholecalciferol [Vitamin D3] 1,000 unit PO DAILY 08/25/17 10/13/18 History Cyanocobalamin (Vitamin B-12) 1,000 mcg PO DAILY 08/25/17 10/13/18 History [Vitamin B-12] Folic Acid 0.4 mg PO DAILY 08/25/17 10/13/18 History Lisinopril [Zestril] 10 mg PO BID 08/25/17 10/13/18 History Metoprolol Tartrate [Lopressor] 25 mg PO BID 08/25/17 10/13/18 History Warfarin [Coumadin] 2.5 mg PO TU 08/25/17 10/13/18 History Warfarin [Coumadin] 5 mg PO SUMOWETHFRSA 08/25/17 10/13/18 History oxyCODONE-APAP 10-325MG [Percocet 1 tab PO Q6HR PRN 08/25/17 10/13/18 History 10-325 mg] Atorvastatin Calcium [Lipitor] 20 mg PO DAILY 05/14/18 10/13/18 History DULoxetine HCL [Cymbalta] 30 mg PO DAILY 05/14/18 10/13/18 History Multivitamins, Thera [Multivitamin 1 tab PO DAILY@1200 05/14/18 10/13/18 History (formulary)] Latanoprost/Pf [Latanoprost 0.005% 1 drop BOTH EYES HS 10/13/18 10/13/18 History Eye Drop] predniSONE 10 mg PO DAILY 10/13/18 10/13/18 History Allergies Allergy/AdvReac Type Severity Reaction Status Date / Time Sulfa (Sulfonamide Allergy Rash/Hives Verified 10/13/18 17:29 Antibiotics) Physical Exam Vitals: Vital Signs Temp Pulse Pulse Resp BP BP Pulse Ox 10/14/18 08:30 97.3 F L 111 H 22 146/89 98 10/14/18 08:03 84 10/14/18 07:53 80 10/14/18 05:25 88 19 10/14/18 05:05 98.3 F 88 18 125/79 100 10/14/18 04:45 88 10/14/18 04:33 88 10/14/18 01:30 88 19 10/14/18 00:00 98.3 F 101 H 19 137/81 100 10/13/18 23:43 90 10/13/18 23:35 90 100 10/13/18 21:45 98.1 F 85 20 136/78 99 10/13/18 21:40 20 10/13/18 21:00 97.8 F 68 20 135/97 95 10/13/18 19:30 101 H 20 128/81 98 10/13/18 18:30 98 20 144/94 95 10/13/18 16:51 97.8 F 108 H 18 149/92 98 Intake and Output 10/13/18 10/14/18 10/14/18 22:59 06:59 14:59 Intake Total 210 Balance 210 Intake: Intake, IV Titration 210 Amount Sodium Chloride 0.9% 1, 160 000 ml @ 20 mls/hr IV . Q24H [facility] Rx#:[id number] cefTRIAXone 1 gm In 50 Sodium Chloride 0.9% 50 ml @ 100 mls/hr IVPB Q24H [facility] Rx#:[id number] Other: Voiding Method Urinal Urinal # Voids 1 3 Weight 163.293 kg 165.4 kg GENERAL: This is a 63-year-old -[place] male in no apparent distress at the time of my examination. HEENT: Head is atraumatic, normocephalic. Pupils are equal, round. Sclerae anicteric. Conjunctivae are clear. Mucous membranes of the mouth are moist. Neck is supple. There is jugular venous distention. No carotid bruit is heard. LUNGS: Reveal diminished air entry to bilateral bases with rales noted at bilateral bases. HEART: Irregular rate and rhythm without murmurs, rubs or gallops. S1 and S2 heard. ABDOMEN: Soft, obese, nontender. Bowel sounds are heard. No organomegaly noted. EXTREMITIES: No calf tenderness noted. Bilateral lower extremity nonpitting edema. Bilateral hand and wrist deformity. VASCULAR: Radial and dorsalis pedis pulses palpated, no evidence of clubbing. NEUROLOGIC: Patient is awake, alert and oriented x3. Results 10/13/18 17:25 10/13/18 17:25 Cardiac Enzymes 10/13/18 10/13/18 10/14/18 Range/Units 17:25 17:25 03:09 AST 31 (17-59) U/L Troponin I 0.042 H* 0.054 H* (0.000-0.034) ng/mL Coagulation 10/13/18 Range/Units 17:25 PT 13.3 H (9.0-12.0) sec APTT 28.5 (22.0-30.0) sec CBC 10/13/18 Range/Units 17:25 WBC 9.0 (3.8-10.6) k/uL RBC 4.32 (4.30-5.90) m/uL Hgb 12.8 L (13.0-17.5) gm/dL Hct 40.3 (39.0-53.0) % Plt Count 236 (150-450) k/uL Comprehensive Metabolic Panel 10/13/18 Range/Units 17:25 Sodium 142 (137-145) mmol/L Potassium 4.8 (3.5-5.1) mmol/L Chloride 109 H (98-107) mmol/L Carbon Dioxide 23 (22-30) mmol/L BUN 23 H (9-20) mg/dL Creatinine 1.48 H (0.66-1.25) mg/dL Glucose 149 H (74-99) mg/dL Calcium 9.5 (8.4-10.2) mg/dL AST 31 (17-59) U/L ALT 31 (21-72) U/L Alkaline Phosphatase 73 (38-126) U/L Total Protein 6.8 (6.3-8.2) g/dL Albumin 3.5 (3.5-5.0) g/dL Current Medications Generic Name Dose Route Start Last Admin Trade Name Ramonq PRN Reason Stop Dose Admin Albuterol/Ipratropium 3 ml 10/14/18 00:00 10/14/18 07:53 Duoneb 0.5 Mg-3 Mg/3 Ml Soln INHALATION 3 ml Q4HR [facility] Administration Allopurinol 300 mg 10/14/18 09:00 10/14/18 08:45 Zyloprim PO 300 mg DAILY [facility] Administration Aspirin 325 mg 10/14/18 20:49 Aspirin PO DAILY [facility] Atorvastatin Calcium 20 mg 10/14/18 09:00 10/14/18 08:45 Lipitor PO 20 mg DAILY [facility] Administration Cholecalciferol 1,000 unit 10/14/18 09:00 Vitamin D3 PO DAILY [facility] Cyanocobalamin 1,000 mcg 10/14/18 09:00 Vitamin B-12 PO DAILY [facility] Duloxetine HCl 30 mg 10/14/18 09:00 10/14/18 08:45 Cymbalta PO 30 mg DAILY [facility] Administration Folic Acid 1 mg 10/14/18 12:00 Folic Acid PO DAILY@1200 [facility] Furosemide 40 mg 10/14/18 00:00 10/14/18 08:45 Lasix PO 40 mg Q8HR [facility] Administration Sodium Chloride 1,000 mls @ 20 mls/hr 10/13/18 17:13 10/13/18 18:43 Saline 0.9% IV 10/14/18 17:12 20 mls/hr .Q24H [facility] Administration Ceftriaxone Sodium 1 gm/ 50 mls @ 100 mls/hr 10/14/18 00:00 10/14/18 00:12 Sodium Chloride IVPB 100 mls/hr Q24H [facility] Administration Latanoprost 1 drops 10/13/18 21:00 10/13/18 22:54 Xalatan 0.005% BOTH EYES 1 drops HS [facility] Administration Lisinopril 10 mg 10/13/18 21:00 10/14/18 08:45 Zestril PO 10 mg BID [facility] Administration Metoprolol Tartrate 25 mg 10/13/18 21:00 10/14/18 08:45 Lopressor PO 25 mg BID [facility] Administration Multivitamins 1 each 10/14/18 12:00 Theragran PO DAILY@1200 [facility] Nitroglycerin 1 inch 10/13/18 22:00 03/05/19 08:45 Nitro-Bid Oint TOPICAL 1 inch QID [facility] Administration Oxycodone/Acetaminophen 1 each 10/13/18 20:50 10/14/18 08:55 Percocet 10-325 PO 1 each Q6HR PRN Administration Pain Prednisone 10 mg 10/14/18 09:00 10/14/18 08:45 PO 10 mg DAILY [facility] Administration Warfarin Sodium 5 mg 10/13/18 21:00 10/13/18 22:54 Coumadin PO 5 mg [id number]@1800 [facility] Administration Warfarin Sodium 2.5 mg 10/14/18 18:00 Coumadin PO Tu@1800 [facility] Intake and Output 10/13/18 10/14/18 10/14/18 22:59 06:59 14:59 Intake Total 210 Balance 210 Intake: Intake, IV Titration 210 Amount Sodium Chloride 0.9% 1, 160 000 ml @ 20 mls/hr IV . Q24H [facility] Rx#:[id number] cefTRIAXone 1 gm In 50 Sodium Chloride 0.9% 50 ml @ 100 mls/hr IVPB Q24H [facility] Rx#:[id number] Other: Voiding Method Urinal Urinal # Voids 1 3 Weight 163.293 kg 165.4 kg 10/13/18 17:25 10/13/18 17:25 EKG Interpretations (text) EKG shows atrial fibrillation with moderately rapid ventricular response and occasional PVC. Assessment and Plan Plan: Assessment and plan #1 symptoms of cough with blood-tinged sputum, associated episode of chest discomfort, rule out pulmonary embolism in a patient with known history of PE in the past. On Coumadin, subtherapeutic. #2 symptoms of progressively worsening shortness of breath, congestive heart failure, diastolic acute on chronic, BNP 3810. #3 acute on chronic renal failure, stage III #4 hypertension #5 diabetes #6 hyperlipidemia #7 rheumatoid arthritis #8 abnormality in troponin, similar to prior admissions, could be secondary to abnormal renal function #9 sleep apnea #10 gout #11 chronic persistent atrial fibrillation on Coumadin for anticoagulation, INR subtherapeutic #12 hypomagnesemia Plan We will repeat an echocardiogram with Doppler study. We will also request a d- dimer be performed, to rule out the possibility of recurrent pulmonary embolism. Replace magnesium. Initiate IV Lasix monitoring intake and output along with daily weights and daily lytes BUN and creatinine. We will also discontinue the patient's Coumadin and start the patient on Eliquis, this was discussed with the patient in detail. Continue Nitropaste, add hydralazine. Further wanda mmendations to follow. DNP note has been reviewed, I agree with a documented findings and plan of care. Patient was seen and examined.
[2018-10-14] MEDS ORDERED: LISINOPRIL 10 MG TAB PO ONE (10:30)
[2018-10-14] MEDS: CHOLECALCIFEROL 1,000 UNIT TAB PO SCH (10:48)
[2018-10-14] MEDS: MULTIVITAMINS, THERA 1 EACH TAB PO SCH (10:48)
[2018-10-14] MEDS: ASPIRIN 81 MG PO SCH (10:48)
[2018-10-14] MEDS: ISOSORBIDE MONONITRATE ER 30 MG TAB.ER.24H PO SCH (10:48)
[2018-10-14] MEDS: hydrALAZINE HCL 25 MG TAB PO SCH ×2 (10:48→20:55)
[2018-10-14] MEDS: APIXABAN 5 MG TAB PO SCH ×2 (10:49→21:08)
[2018-10-14] MEDS: FOLIC ACID 1 MG TAB PO SCH (10:49)
[2018-10-14] MEDS: CYANOCOBALAMIN 500 MCG TAB PO SCH (10:49)
[2018-10-14 11:42] LABS: D-Dimer 0.9 mg/L FEU (<0.60); INR 1.3 (<1.2); Prothrombin Time 13.5 sec (9.0-12.0)
--- NOTE | 2018-10-14 15:13 | P.CNPUL ---
History of Present Illness Consult date: 10/14/18 Requesting physician: Will Berry Reason for consult: dyspnea, other Chief complaint: cough, congestion, hemoptysis History of present illness: This is a 63 -year-old -Turk[place] male with past medical history of obstructive sleep apnea on CPAP, chronic bronchial asthma, rheumatoid arthritis , chronic anemia, gout, past history of pulmonary embolism in 2013, and atrial fibrillation, and patient is on chronic anticoagulation the form of Coumadin. Patient presented to the emergency department with a few days history of cough, chest congestion, hemoptysis, abdominal discomfort on both sides of the torso from episodes of coughing.denied any fever or chills, denied any chest pain, no syncope.chest x-ray was completed and showed cardiomegaly with new mild central vascular congestion. labs showed a white blood cell count of 9.0, hemoglobin of 12.8, INR was subtherapeutic of 1.3, and patient states his been compliant with his Coumadin, sodium was 142, potassium is 4.8, chloride is 109, BUN was 23 and creatinine was 1.48. Patient does have underlying chronic kidney disease, and in the past has required hemodialysis. troponins were elevated to 0.042, 0.054, and 0.045. Magnesium was low at 1.5 proBNP was 3810. He has been afebrile. The amount of hemoptysis he describes as about a teaspoon. patient did have some increased swelling in his lower extremities. EKG showed atrial fibrillation with a rate of 104 BPM. He's been seen by cardiology, and his Coumadin was switched over to Eliquis. D-Dimer was slightly elevated to 0.90. he was started on IV Lasix at 40 mg every 12 hours, he is on oral prednisone at 10 mg daily for his history of rheumatoid arthritis, empiric antibiotics were added, and patient is on breathing treatments. Review of Systems All systems: negative Constitutional: Denies chills, Denies fever Eyes: denies blurred vision, denies pain Ears, nose, mouth and throat: Denies headache, Denies sore throat Cardiovascular: Denies chest pain, Denies shortness of breath Respiratory: Reports congestion, Reports cough with sputum, Reports dyspnea, Reports hemoptysis, Reports sleep apnea, Denies cough Gastrointestinal: Denies abdominal pain, Denies diarrhea, Denies nausea, Denies vomiting Musculoskeletal: Denies myalgias Integumentary: Denies pruritus, Denies rash Neurological: Denies numbness, Denies weakness Psychiatric: Denies anxiety, Denies depression Endocrine: Denies fatigue, Denies weight change Past Medical History Past Medical History: Atrial Fibrillation, Asthma, Deep Vein Thrombosis (DVT), Hypertension, Pulmonary Embolus (PE), Renal Disease, Rheumatoid Arthritis (RA) Additional Past Medical History / Comment(s): gout, sickle cell, CKD stage 3 ( dialysis 2004), sleep apnea, pneuropathy, glaucoma History of Any Multi-Drug Resistant Organisms: MRSA Date of last positivie culture/infection: 2013 MDRO Source:: foot Past Surgical History: Joint Replacement, Orthopedic Surgery Additional Past Surgical History / Comment(s): Left knee replaced; multiple toe amputations, tib/fib surgery in May 2018 Past Anesthesia/Blood Transfusion Reactions: No Reported Reaction Past Psychological History: No Psychological Hx Reported Additional Psychological History / Comment(s): lives with his . [place] citizen living in [place]. No tobacco use or alcohol use. 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 No international travel. No animal exposures Smoking Status: Never smoker Past Alcohol Use History: None Reported Past Drug Use History: Marijuana Additional Drug Use History / Comment(s): pt. states he occasionally eats marijuana edibles for pain - Past Family History Father Family Medical History: Diabetes Mellitus, Myocardial Infarction ([place]) Mother Family Medical History: CVA/TIA Sister(s) Family Medical History: Hypertension Additional Family Medical History / Comment(s): RA Medications and Allergies Home Medications Medication Instructions Recorded Confirmed Type Allopurinol [Zyloprim] 300 mg PO DAILY 08/25/17 10/13/18 History Cholecalciferol [Vitamin D3] 1,000 unit PO DAILY 08/25/17 10/13/18 History Cyanocobalamin (Vitamin B-12) 1,000 mcg PO DAILY 08/25/17 10/13/18 History [Vitamin B-12] Folic Acid 0.4 mg PO DAILY 08/25/17 10/13/18 History Lisinopril [Zestril] 10 mg PO BID 08/25/17 10/13/18 History Metoprolol Tartrate [Lopressor] 25 mg PO BID 08/25/17 10/13/18 History Warfarin [Coumadin] 2.5 mg PO TU 08/25/17 10/13/18 History Warfarin [Coumadin] 5 mg PO SUMOWETHFRSA 08/25/17 10/13/18 History oxyCODONE-APAP 10-325MG [Percocet 1 tab PO Q6HR PRN 08/25/17 10/13/18 History 10-325 mg] Atorvastatin Calcium [Lipitor] 20 mg PO DAILY 05/14/18 10/13/18 History DULoxetine HCL [Cymbalta] 30 mg PO DAILY 05/14/18 10/13/18 History Multivitamins, Thera [Multivitamin 1 tab PO DAILY@1200 05/14/18 10/13/18 History (formulary)] Latanoprost/Pf [Latanoprost 0.005% 1 drop BOTH EYES HS 10/13/18 10/13/18 History Eye Drop] predniSONE 10 mg PO DAILY 10/13/18 10/13/18 History Allergies Allergy/AdvReac Type Severity Reaction Status Date / Time Sulfa (Sulfonamide Allergy Rash/Hives Verified 10/13/18 17:29 Antibiotics) Physical Exam Vitals: Vital Signs Temp Pulse Pulse Resp BP BP Pulse Ox 10/14/18 11:53 86 10/14/18 11:45 97.9 F 102 H 20 158/81 97 10/14/18 11:43 85 10/14/18 08:30 97.3 F L 111 H 22 146/89 98 10/14/18 08:03 84 10/14/18 07:53 80 10/14/18 05:25 88 19 10/14/18 05:05 98.3 F 88 18 125/79 100 10/14/18 04:45 88 10/14/18 04:33 88 10/14/18 01:30 88 19 10/14/18 00:00 98.3 F 101 H 19 137/81 100 10/13/18 23:43 90 10/13/18 23:35 90 100 10/13/18 21:45 98.1 F 85 20 136/78 99 10/13/18 21:40 20 10/13/18 21:00 97.8 F 68 20 135/97 95 10/13/18 19:30 101 H 20 128/81 98 10/13/18 18:30 98 20 144/94 95 10/13/18 16:51 97.8 F 108 H 18 149/92 98 Intake and Output 10/13/18 10/14/18 10/14/18 22:59 06:59 14:59 Intake Total 210 360 Balance 210 360 Intake: Intake, IV Titration 210 Amount Sodium Chloride 0.9% 1, 160 000 ml @ 20 mls/hr IV . Q24H [facility] Rx#:[id number] cefTRIAXone 1 gm In 50 Sodium Chloride 0.9% 50 ml @ 100 mls/hr IVPB Q24H [facility] Rx#:[id number] Oral 360 Other: Voiding Method Urinal Urinal # Voids 1 3 1 Weight 163.293 kg 165.4 kg 165.4 kg GENERAL EXAM: Alert, pleasant, 63-year-old -Turk[place] male, obese, on 2 L per nasal cannula with a pulse ox of 97%comfortable in no apparent distress. HEAD: Normocephalic/atraumatic. EYES: Normal reaction of pupils, equal size. Conjunctiva pink, right scleral redness, could be related to episodes of coughing spells NOSE: Clear with pink turbinates. THROAT: No erythema or exudates. NECK: No masses, no JVD, no thyroid enlargement, no adenopathy. CHEST: No chest wall deformity. Symmetrical expansion. LUNGS: Equal air entry with a few a few rhonchi, and wheezes CVS: Regular rate and rhythm, normal S1 and S2, no gallops, no murmurs, no rubs ABDOMEN: Soft, nontender. No hepatosplenomegaly, normal bowel sounds, no guarding or rigidity. EXTREMITIES: No clubbing, mild edema, no cyanosis, 2+ pulses and upper and lower extremities. MUSCULOSKELETAL: Muscle strength and tone normal. Right wrist bony prominence maybe related to rheumatoid arthritis SPINE: No scoliosis or deformity SKIN: No rashes CENTRAL NERVOUS SYSTEM: Alert and oriented -3. No focal deficits, tone is normal in all 4 extremities. PSYCHIATRIC: Alert and oriented -3. Appropriate affect. Intact judgment and insight. Results - Laboratory Findings CBC and BMP: 10/13/18 17:25 10/13/18 17:25 PT/INR, D-dimer PT 13.5 sec (9.0-12.0) H 10/14/18 10:31 INR 1.3 (<1.2) H 10/14/18 10:31 D-Dimer 0.90 mg/L FEU (<0.60) H 10/14/18 10:31 Abnormal lab findings: Abnormal Labs 10/13/18 10/13/18 10/13/18 17:25 17:25 17:25 Hgb 12.8 L RDW 17.8 H PT 13.3 H INR 1.3 H D-Dimer Chloride 109 H BUN 23 H Creatinine 1.48 H Glucose 149 H Magnesium 1.5 L Troponin I 10/13/18 10/14/18 10/14/18 17:25 03:09 08:51 Hgb RDW PT INR D-Dimer Chloride BUN Creatinine Glucose Magnesium Troponin I 0.042 H* 0.054 H* 0.045 H* 10/14/18 10:31 Hgb RDW PT 13.5 H INR 1.3 H D-Dimer 0.90 H Chloride BUN Creatinine Glucose Magnesium Troponin I - Diagnostic Findings Chest x-ray: report reviewed, image reviewed Additional studies: EKG reviewed Assessment and Plan Plan: Assessment: #1. Hemoptysis related to oral anticoagulation, and tracheobronchitis. Patient was on oral Coumadin at home, did have 2 episodes of limited hemoptysis, about a teaspoon's worth #2. History of DVTs and pulmonary embolism in 2012 on chronic anticoagulation with Coumadin, which was subtherapeutic on admission, with INR 1.3 #3. Chronic persistent atrial fibrillation, on Coumadin, which has been switched to Eliquis #4. History of right ORIF for a recent fracture a few months ago, and patient has been sedentary, and not weightbearing up until a few weeks ago. #5. Chronic kidney disease stage III #6. Mildly elevated d-dimer, with hemoptysis, patient was on chronic anticoagulation although was subtherapeutic, patient has been switched to oral Eliquis. renal profile is abnormal, unable to do CT angios of the chest, VQ scan would probably be of little value in view of abnormal chest x-rays findings , and the patient will be on oral anticoagulation on oral Eliquis #7. acute exacerbation of chronic congestive heart failure, with diastolic dysfunction #8. Hypertension, hyperlipidemia, diabetes mellitus, morbid obesity, rheumatoid arthritis #9. Sleep apnea on CPAP therapy #10. Gout #11. Elevated troponins, cardiology following Plan: We'll continue current medical treatment, continue with IV Lasix, chest x-ray findings were reviewed with Dr. Moore, and consistent with fluid overload, congestive heart failure. No pneumonic process, hemoptysis was limited, has resolved, and would be related to tracheobronchitis and anticoagulation. The possibility of pulmonary embolism was considered, there was mild elevation of the d-dimer, however patient is already being treated with oral Eliquis, and cannot obtain CT angios of the chest in view of abnormal creatinine at this time. No significant hypoxemia or tachycardia. No chest pain. I performed a history & physical examination of the patient and discussed their management with my nurse practitioner, Lakeisha Strauss. I reviewed the nurse practitioner's note and agree with the documented findings and plan of care. Lung sounds are positive for scattered rhonchi and wheezes. The findings and the impression was discussed with the patient. I attest to the documentation by the nurse practitioner. Time with Patient: Greater than 30
--- NOTE | 2018-10-14 15:37 | NM ---
EXAMINATION TYPE: NM pul vent and perfuse DATE OF EXAM: 10/14/2018 COMPARISON: Chest x-ray 10/13/2017 HISTORY: Elevated d-dimer, chest pain and shortness of breath TECHNIQUE: Utilizing inhalation of 70.8 mCi Tc 99m DTPA aerosol and intravenous injection of 5 mCi o f Tc 99m MAA, ventilation and perfusion images are acquired post injection in multiple projections. FINDINGS: Small subsegmental perfusion abnormality noted along the distribution of anterior aspect of the right middle lobe as compared to ventilation images. No other ventilation/perfusion mismatch. Otherwise r elatively homogenous uptake of the right from C1 ventilation and perfusion images. IMPRESSION: Intermediate to low probability for pulmonary embolus.
[2018-10-14] MEDS ORDERED: WARFARIN 2.5 MG TAB PO SCH (18:00)
[2018-10-14] MEDS ORDERED: ASPIRIN 325 MG TAB PO SCH (20:49)
[2018-10-14] MEDS: FUROSEMIDE 10 MG/ML 4 ML VIAL IV SCH (20:55)
[2018-10-14] MEDS: LATANOPROST 0.005% OPHTH DROPS 2.5 ML BTL BOTH EYES SCH (21:08)
[2018-10-15] MEDS: IPRATROPIUM-ALBUTEROL 3 ML NEB INHALATION SCH ×6 (03:34→23:28)
[2018-10-15] MEDS: oxyCODONE-APAP 10-325MG 1 EACH TAB PO PRN ×2 (06:21→16:44)
[2018-10-15] MEDS: predniSONE 10 MG TAB PO SCH (08:25)
[2018-10-15] MEDS: CYANOCOBALAMIN 500 MCG TAB PO SCH (08:25)
[2018-10-15] MEDS: LISINOPRIL 20 MG TAB PO SCH (08:25)
[2018-10-15] MEDS: APIXABAN 5 MG TAB PO SCH ×2 (08:25→20:31)
[2018-10-15] MEDS: CHOLECALCIFEROL 1,000 UNIT TAB PO SCH (08:25)
[2018-10-15] MEDS: hydrALAZINE HCL 25 MG TAB PO SCH ×2 (08:25→20:31)
[2018-10-15] MEDS: ALLOPURINOL 300 MG TAB PO SCH (08:26)
[2018-10-15] MEDS: FUROSEMIDE 10 MG/ML 4 ML VIAL IV SCH ×2 (08:26→20:31)
[2018-10-15] MEDS: MULTIVITAMINS, THERA 1 EACH TAB PO SCH (08:26)
[2018-10-15] MEDS: ASPIRIN 81 MG PO SCH (08:26)
[2018-10-15] MEDS: METOPROLOL TARTRATE 25 MG TAB PO SCH ×2 (08:26→17:48)
[2018-10-15] MEDS: DULoxetine HCL 30 MG CAPSULE.DR PO SCH (08:26)
[2018-10-15] MEDS: ISOSORBIDE MONONITRATE ER 30 MG TAB.ER.24H PO SCH (08:26)
[2018-10-15] MEDS: ATORVASTATIN 20 MG TAB PO SCH (08:26)
[2018-10-15] MEDS: FOLIC ACID 1 MG TAB PO SCH (08:26)
[2018-10-15 10:20] LABS: Calcium 8.9 mg/dL (8.4-10.2); Potassium 3.7 mmol/L (3.5-5.1)
--- NOTE | 2018-10-15 11:11 | US ---
EXAMINATION TYPE: US venous doppler duplex LE BI DATE OF EXAM: 10/15/2018 10:38 AM COMPARISON: 01/02/2016 US CLINICAL HISTORY: r/o dvt. Swelling. SIDE PERFORMED: Bilateral TECHNIQUE: The lower extremity deep venous system is examined utilizing real time linear array sonog mariano with graded compression, doppler sonography and color-flow sonography. VESSELS IMAGED: External Iliac Vein (EIV) Common Femoral Vein Deep Femoral Vein Greater Saphenous Vein * Femoral Vein Popliteal Vein Small Saphenous Vein * Proximal Calf Veins (* superficial vessels) There is normal flow, compressibility, vascular waveforms. Difficult exam due to body habitus Right Leg: Negative for DVT Left Leg: Negative for DVT IMPRESSION: No evident deep venous thrombosis at or above the knees.
--- NOTE | 2018-10-15 13:34 | P.PN ---
Subjective Progress Note Date: 10/15/18 This is a pleasant 63-year-old -[place] gentleman with history of rheumatoid arthritis, prior pulmonary embolism and DVT in 2012, chronic persistent atrial fibrillation, history of right ORIF for a recent fracture, borderline diabetes, hypertension, hyperlipidemia, renal disease stage III, sickle cell anemia, who has been on Coumadin for anticoagulation. He presents to the hospital with symptoms of a 3-4 day duration of cough with associated brown phlegm with noted bright red blood, patient has also been more short of breath than usual. He had an episode of chest discomfort with associated shortness of breath. For all of these reasons she came to the emergency room for further evaluation. Patient's concern was that he may have another blood clot in his lung. Into the patient and his , he is recently seen Dr. chang on in the office as a new patient. His chest x-ray on admission showed cardiomegaly with new mild central vascular congestion. EKG shows atrial fibrillation with mildly rapid ventricular response and occasional PVC. In May of this year, patient was admitted here to the hospital he had an echocardiogram with Doppler study performed at that time which revealed a normal left ventricular systolic function. Blood pressure on arrival here 148/90, heart rate 108, 98% on room air. White blood cell count is normal, hemoglobin 12.8, platelet count 236. Sodium 142, potassium 4.8, BUN 23 and creatinine 1.4. BNP level 3810. Magnesium 1.5. Troponins 0.042, 0.054. INR subtherapeutic at 1.3. 10/15/2018 Patient was seen and examined this morning, overall feeling better. His weight is down today. Lung perfusion scan was low probability for pulmonary embolism. He continues to be on IV Lasix. Blood pressure 134/70 with a heart rate in the 90s, 95% on room air. Sodium 141, potassium 3.7, BUN 31 and creatinine 1.8 today. Objective - Vital Signs Vital signs: Vital Signs Temp 97.7 F 10/15/18 11:57 Pulse 94 10/15/18 11:57 Resp 20 10/15/18 11:57 BP 134/74 10/15/18 11:57 Pulse Ox 95 10/15/18 11:57 Intake & Output 10/14/18 10/15/18 10/15/18 18:59 06:59 18:59 Intake Total 840 620 222 Balance 840 620 222 Weight 165.4 kg 162 kg Intake: IV 20 0.9 20 Intake, IV Titration 120 Amount Sodium Chloride 0.9% 1, 20 000 ml @ 20 mls/hr IV . Q24H [facility] Rx#:[id number] cefTRIAXone 1 gm In 100 Sodium Chloride 0.9% 50 ml @ 100 mls/hr IVPB Q24H [facility] Rx#:[id number] Oral [phone] Other: Voiding Method Urinal # Voids 1 1 - Exam GENERAL: This is a 63-year-old -[place] male in no apparent distress at the time of my examination. HEENT: Head is atraumatic, normocephalic. Pupils are equal, round. Sclerae anicteric. Conjunctivae are clear. Mucous membranes of the mouth are moist. Neck is supple. There is jugular venous distention. No carotid bruit is heard. LUNGS: Reveal diminished air entry to bilateral bases with rales noted at bilateral bases. HEART: Irregular rate and rhythm without murmurs, rubs or gallops. S1 and S2 heard. ABDOMEN: Soft, obese, nontender. Bowel sounds are heard. No organomegaly noted. EXTREMITIES: No calf tenderness noted. Bilateral lower extremity nonpitting edema. Bilateral hand and wrist deformity. VASCULAR: Radial and dorsalis pedis pulses palpated, no evidence of clubbing. NEUROLOGIC: Patient is awake, alert and oriented x3. - Labs CBC & Chem 7: 10/13/18 17:25 10/15/18 09:40 Labs: Abnormal Lab Results - Last 24 Hours (Table) 10/15/18 Range/Units 09:40 BUN 31 H (9-20) mg/dL Creatinine 1.81 H (0.66-1.25) mg/dL Glucose 125 H (74-99) mg/dL Assessment and Plan Plan: Assessment and plan #1 symptoms of cough with blood-tinged sputum, associated episode of chest discomfort, rule out pulmonary embolism in a patient with known history of PE in the past. On Coumadin, subtherapeutic. #2 symptoms of progressively worsening shortness of breath, congestive heart failure, diastolic acute on chronic, BNP 3810. #3 acute on chronic renal failure, stage III #4 hypertension #5 diabetes #6 hyperlipidemia #7 rheumatoid arthritis #8 abnormality in troponin, similar to prior admissions, could be secondary to abnormal renal function #9 sleep apnea #10 gout #11 chronic persistent atrial fibrillation on Coumadin for anticoagulation, INR subtherapeutic #12 hypomagnesemia Plan Echocardiogram with Doppler study remains pending. Lung perfusion scan was low probability for pulmonary embolism. Venous duplex study was also performed wh ich was negative for DVT. We will continue current dose of IV Lasix, recommend consultation with nephrology. Check lytes BUN and creatinine in the morning. DNP note has been reviewed, I agree with a documented findings and plan of care. Patient was seen and examined.
--- NOTE | 2018-10-15 15:56 | P.PN ---
Subjective Progress Note Date: 10/15/18 Principal diagnosis: Hemoptysis, tracheobronchitis. This is a 63 -year-old -[place] male with past medical history of obstructive sleep apnea on CPAP, chronic bronchial asthma, rheumatoid arthritis, chronic anemia, gout, past history of pulmonary embolism in 2012, and atrial fibrillation, and patient is on chronic anticoagulation the form of Coumadin. Patient presented to the emergency department with a few days history of cough, chest congestion, hemoptysis, abdominal discomfort on both sides of the torso from episodes of coughing.denied any fever or chills, denied any chest pain, no syncope.chest x-ray was completed and showed cardiomegaly with new mild central vascular congestion. labs showed a white blood cell count of 9.0, hemoglobin of 12.8, INR was subtherapeutic of 1.3, and patient states his been compliant with his Coumadin, sodium was 142, potassium is 4.8, chloride is 109, BUN was 23 and creatinine was 1.48. Patient does have underlying chronic kidney disease, and in the past has required hemodialysis. troponins were elevated to 0.042, 0.054, and 0.045. Magnesium was low at 1.5 proBNP was 3810. He has been afebrile. The amount of hemoptysis he describes as about a teaspoon. patient did have some increased swelling in his lower extremities. EKG showed atrial fibrillation with a rate of 104 BPM. He's been seen by cardiology, and his Coumadin was switched over to Eliquis. D-Dimer was slightly elevated to 0.90. he was started on IV Lasix at 40 mg every 12 hours, he is on oral prednisone at 10 mg daily for his history of rheumatoid arthritis, empiric antibiotics were added, and patient is on breathing treatments. On 10/15/2018 patient seen in follow-up on selective care unit, he is resting comfortably in bed, on CPAP. Did bring up a small amount of blood-tinged sputum this morning, a single episode, no further hemoptysis, vital signs are stable, no fever or chills. Patient has been switched from Coumadin to Eliquis Cardiology, he underwent a VQ scan last night which showed intermediate to low probability for pulmonary embolism, sounds are diminished, no significant rhonchi or wheezing, patient continues on IV diuretics, he is on antibiotic coverage in the form of Rocephin. He is on oral prednisone, and breathing treat ments. Lower extremity edema is improving, ultrasound of lower extremity did not show any evidence of DVT, today's labs have been reviewed, BNP was done, normal CBC, a large less are within normal limits, B1 is 31 and creatinine is 1.81. No complaints of chest pain, no worsening shortness of breath. Objective - Vital Signs Vital signs: Vital Signs Temp 97.7 F 10/15/18 11:57 Pulse 90 10/15/18 15:46 Resp 20 10/15/18 11:57 BP 134/74 10/15/18 11:57 Pulse Ox 98 10/15/18 15:36 Intake & Output 10/14/18 10/15/18 10/15/18 18:59 06:59 18:59 Intake Total 840 620 222 Balance 840 620 222 Weight 165.4 kg 162 kg Intake: IV 20 0.9 20 Intake, IV Titration 120 Amount Sodium Chloride 0.9% 1, 20 000 ml @ 20 mls/hr IV . Q24H [facility] Rx#:[id number] cefTRIAXone 1 gm In 100 Sodium Chloride 0.9% 50 ml @ 100 mls/hr IVPB Q24H [facility] Rx#:[id number] Oral [phone] Other: Voiding Method Urinal # Voids 1 1 1 - Exam GENERAL EXAM: Alert, pleasant, 63-year-old -[place] male, obese, on 2 L per nasal cannula with a pulse ox of 97%comfortable in no apparent distress. HEAD: Normocephalic/atraumatic. EYES: Normal reaction of pupils, equal size. Conjunctiva pink, right scleral redness, could be related to episodes of coughing spells NOSE: Clear with pink turbinates. THROAT: No erythema or exudates. NECK: No masses, no JVD, no thyroid enlargement, no adenopathy. CHEST: No chest wall deformity. Symmetrical expansion. LUNGS: Diminished breath sounds bilaterally, no rhonchi or wheezes CVS: Regular rate and rhythm, normal S1 and S2, no gallops, no murmurs, no rubs ABDOMEN: Soft, nontender. No hepatosplenomegaly, normal bowel sounds, no guarding or rigidity. EXTREMITIES: No clubbing, mild edema, no cyanosis, 2+ pulses and upper and lower extremities. MUSCULOSKELETAL: Muscle strength and tone normal. Right wrist bony prominence maybe related to rheumatoid arthritis SPINE: No scoliosis or deformity SKIN: No rashes CENTRAL NERVOUS SYSTEM: Alert and oriented -3. No focal deficits, tone is normal in all 4 extremities. PSYCHIATRIC: Alert and oriented -3. Appropriate affect. Intact judgment and insight. - Labs CBC & Chem 7: 10/13/18 17:25 10/15/18 09:40 Labs: Abnormal Lab Results - Last 24 Hours (Table) 10/15/18 Range/Units 09:40 BUN 31 H (9-20) mg/dL Creatinine 1.81 H (0.66-1.25) mg/dL Glucose 125 H (74-99) mg/dL Assessment and Plan Plan: Assessment: #1. Hemoptysis related to oral anticoagulation, and tracheobronchitis. Patient was on oral Coumadin at home, did have 2 episodes of limited hemoptysis, about a teaspoon's worth #2. History of DVTs and pulmonary embolism in 2012 on chronic anticoagulation with Coumadin, which was subtherapeutic on admission, with INR 1.3. VQ scan was completed and showed low to intermediate probability of pulmonary embolism, lower extremity Dopplers were negative for DVT #3. Chronic persistent atrial fibrillation, on Coumadin, which has been switched to Eliquis #4. History of right ORIF for a recent fracture a few months ago, and patient has been sedentary, and not weightbearing up until a few weeks ago. #5. Chronic kidney disease stage III #6. Mildly elevated d-dimer, with hemoptysis, patient was on chronic anticoagulation although was subtherapeutic, patient has been switched to oral Eliquis. renal profile is abnormal, unable to do CT angios of the chest, VQ scan would probably be of little value in view of abnormal chest x-rays findings, and the patient will be on oral anticoagulation on oral Eliquis #7. acute exacerbation of chronic congestive heart failure, with diastolic dysfunction #8. Hypertension, hyperlipidemia, diabetes mellitus, morbid obesity, rheumatoid arthritis #9. Sleep apnea on CPAP therapy #10. Gout #11. Elevated troponins, cardiology following Plan: Continue with current medical treatment, continue IV Rocephin, nebulized bronchodilators, and oral prednisone. Patient did have one episode of blood tinged sputum this morning, this was sent for culture. Fever or chills, no worsening shortness of breath or chest pain. No hypoxemia, no tachycardia. Continues on oral Eliquis, VQ scan and lower extremity Dopplers were noted. Continue with CPAP support at night. Continue to follow I performed a history & physical examination of the patient and discussed their management with my nurse practitioner, Lakeisha Strauss. I reviewed the nurse practitioner's note and agree with the documented findings and plan of care. Lung sounds are positive for scattered rhonchi and wheezes. The findings and the impression was discussed with the patient. I attest to the documentation by the nurse practitioner. Time with Patient: Less than 30
--- NOTE | 2018-10-15 17:39 | ECHOF ---
Referral Reason:chf MEASUREMENTS -------- HEIGHT: 182.9 cm WEIGHT: 165.1 kg BP: RVIDd: 2.8 cm (< 3.3) IVSd: 1.6 cm (0.6 - 1.1) LVIDd: 4.6 cm (3.9 - 5.3) LVPWd: 2.0 cm (0.6 - 1.1) IVSs: 2.2 cm LVIDs: 4.4 cm LVPWs: 1.6 cm LA Diam: 5.9 cm (2.7 - 3.8) LAESV Index (A-L): 49.95 ml/m Ao Diam: 3.5 cm (2.0 - 3.7) AV Cusp: 2.0 cm (1.5 - 2.6) LA Diam: 4.5 cm (2.7 - 3.8) MV EXCURSION: 25.141 mm (> 18.000) MV EF SLOPE: 113 mm/s (70 - 150) EPSS: 0.4 cm MV E Robin: 0.71 m/s MV DecT: 158 ms MV A Robin: 0.03 m/s MV E/A Ratio: 26.37 RAP: 5.00 mmHg RVSP: 32.74 mmHg FINDINGS -------- Atrial fibrillation. This was a technically adequate study. Morbid Obesity The left ventricular size is normal. There is moderate concentric left ventricular hypertrophy. O verall left ventricular systolic function is low-normal with, an EF between 50 - 55 %. The right ventricle is normal in size. The left atrium is markedly dilated. LA is severely dilated >40 ml/m2 The right atrial size is normal. The aortic valve is trileaflet, and appears structurally normal. No aortic stenosis or regurgitation. The mitral valve leaflets are mildly thickened. Mild mitral annular calcification present. Mild-t o-moderate mitral regurgitation is present. Mild tricuspid regurgitation present. There is no evidence of pulmonary hypertension. The right v entricular systolic pressure, as measured by Doppler, is 32.74mmHg. Trace/mild (physiologic) pulmonic regurgitation. The aortic root size is normal. There is no pericardial effusion. CONCLUSIONS -------- 1. This was a technically adequate study. 2. Morbid Obesity 3. The left ventricular size is normal. 4. There is moderate concentric left ventricular hypertrophy. 5. Overall left ventricular systolic function is low-normal with, an EF between 50 - 55 %. 6. The right ventricle is normal in size. 7. The left atrium is markedly dilated. 8. LA is severely dilated >40 ml/m2 9. The right atrial size is normal. 10. The aortic valve is trileaflet, and appears structurally normal. No aortic stenosis or regurgitat ion. 11. The mitral valve leaflets are mildly thickened. 12. Mild mitral annular calcification present. 13. [id number] mitral regurgitation is present. 14. Mild tricuspid regurgitation present. 15. There is no evidence of pulmonary hypertension. 16. The right ventricular systolic pressure, as measured by Doppler, is 32.74mmHg. 17. Trace/mild (physiologic) pulmonic regurgitation. 18. The aortic root size is normal. 19. There is no pericardial effusion. GOLF COURSE ASSISTANT: Agustina Tovar RDCS
[2018-10-15] MEDS: LATANOPROST 0.005% OPHTH DROPS 2.5 ML BTL BOTH EYES SCH (20:42)
--- NOTE | 2018-10-15 23:44 | PN ---
PROGRESS NOTE DATE OF SERVICE: 10/15/2018. PRESENT COMPLAINT: Tired. INTERVAL HISTORY: The patient is admitted with what appears to be pneumonia, tracheobronchitis, hemoptysis from the same. Did come to see the patient twice yesterday. The patient is off the floor. The patient had a perfusion scan of the lungs showing probably low probability. Also Doppler ultrasounds were negative for DVT in both legs. The patient did cough up a small amount of blood today with lung congestion, otherwise doing better. Did tolerate a diet. REVIEW OF SYSTEMS: Done for constitutional, cardiovascular, GI; relevant findings as above. CURRENT MEDICATIONS: Reviewed that include Eliquis, DuoNeb, IV ceftriaxone, IV Lasix. PHYSICAL EXAMINATION: VITAL SIGNS: Temperature 97.4, pulse 57, respirations 20, blood pressure 120/66, pulse ox 96% on room air. GENERAL APPEARANCE: Lying in bed, more comfortable. EYES: Pupils equal. Conjunctivae injected. NECK: JVD unable to assess. Mass not palpable. Respiratory effort increased. LUNGS: Diminished breath sounds. CARDIOVASCULAR: 1st and 2nd sounds normal. Minimal edema. ABDOMEN: Distended, soft. Liver and spleen not palpable. PSYCHIATRY: Alert and oriented x3. Mood and affect normal. INVESTIGATIONS: Doppler ultrasound negative for DVT. Perfusion scan moderate to low probability. BUN 31, creatinine 1.81. Influenza A and B negative. ASSESSMENT: 1. Acute tracheobronchitis/pneumonia, present on admission. 2. Hemoptysis from above in the setting of patient being on anticoagulants. 3. Recent right tibia fibula surgery. The patient can now weightbear. 4. Persistent atrial flutter fibrillation, chronically has been on Coumadin. 5. Morbid obesity BMI more than 45. 6. Chronic kidney disease stage 3 from nephrosclerosis. 7. Gastroesophageal reflux disease. 8. Obstructive sleep apnea, uses CPAP machine. 9. Depression, not otherwise specified. 10.Troponin leak in the setting of renal failure with no obvious cardiac symptoms. Doubt acute coronary syndrome. 11.Coumadin monitoring, which is now being switched over to Eliquis. 12.Acute on chronic congestive heart failure from diastolic dysfunction. The patient is on IV Lasix as per Cardiology. 13.Suspect acute renal failure probably prerenal from diuresis. Creatinine has gone from 1.48 to 1.81. PLAN: Continue medication and treatment plan. Care was discussed with Dr. Marin. Also discussed with the patient and . Keep a close eye on the renal function. MMODL / IJN: [id number] /
[2018-10-16] MEDS ORDERED: IPRATROPIUM-ALBUTEROL 3 ML NEB ONE (03:15)
[2018-10-16] MEDS: IPRATROPIUM-ALBUTEROL 3 ML NEB INHALATION SCH ×5 (05:55→19:19)
[2018-10-16 06:58] LABS: Calcium 9.2 mg/dL (8.4-10.2); Potassium 3.7 mmol/L (3.5-5.1)
[2018-10-16] MEDS: APIXABAN 5 MG TAB PO SCH ×2 (09:24→20:10)
[2018-10-16] MEDS: ALLOPURINOL 300 MG TAB PO SCH (09:24)
[2018-10-16] MEDS: ASPIRIN 81 MG PO SCH (09:25)
[2018-10-16] MEDS: ATORVASTATIN 20 MG TAB PO SCH (09:25)
[2018-10-16] MEDS: CYANOCOBALAMIN 500 MCG TAB PO SCH (09:26)
[2018-10-16] MEDS: CHOLECALCIFEROL 1,000 UNIT TAB PO SCH (09:26)
[2018-10-16] MEDS: hydrALAZINE HCL 25 MG TAB PO SCH ×2 (09:27→20:09)
[2018-10-16] MEDS: ISOSORBIDE MONONITRATE ER 30 MG TAB.ER.24H PO SCH (09:27)
[2018-10-16] MEDS: DULoxetine HCL 30 MG CAPSULE.DR PO SCH (09:27)
[2018-10-16] MEDS: METOPROLOL TARTRATE 25 MG TAB PO SCH ×2 (09:28→20:09)
[2018-10-16] MEDS: predniSONE 10 MG TAB PO SCH (09:28)
[2018-10-16] MEDS: LISINOPRIL 20 MG TAB PO SCH (09:28)
[2018-10-16] MEDS: oxyCODONE-APAP 10-325MG 1 EACH TAB PO PRN ×2 (09:30→20:09)
[2018-10-16] MEDS: FUROSEMIDE 10 MG/ML 4 ML VIAL IV SCH ×2 (09:31→20:10)
[2018-10-16] MEDS: MULTIVITAMINS, THERA 1 EACH TAB PO SCH (11:40)
[2018-10-16] MEDS: FOLIC ACID 1 MG TAB PO SCH (11:40)
--- NOTE | 2018-10-16 12:13 | P.PN ---
Subjective Progress Note Date: 10/16/18 This is a pleasant 63-year-old -Mong[place]ian gentleman with history of rheumatoid arthritis, prior pulmonary embolism and DVT in 2012, chronic persistent atrial fibrillation, history of right ORIF for a recent fracture, borderline diabetes, hypertension, hyperlipidemia, renal disease stage III, sickle cell anemia, who has been on Coumadin for anticoagulation. He presents to the hospital with symptoms of a 3-4 day duration of cough with associated brown phlegm with noted bright red blood, patient has also been more short of breath than usual. He had an episode of chest discomfort with associated shortness of breath. For all of these reasons she came to the emergency room for further evaluation. Patient's concern was that he may have another blood clot in his lung. Into the patient and his , he is recently seen Dr. chang on in the office as a new patient. His chest x-ray on admission showed cardiomegaly with new mild central vascular congestion. EKG shows atrial fibrillation with mildly rapid ventricular response and occasional PVC. In May of this year, patient was admitted here to the hospital he had an echocardiogram with Doppler study performed at that time which revealed a normal left ventricular systolic function. Blood pressure on arrival here 148/90, heart rate 108, 98% on room air. White blood cell count is normal, hemoglobin 12.8, platelet count 236. Sodium 142, potassium 4.8, BUN 23 and creatinine 1.4. BNP level 3810. Magnesium 1.5. Troponins 0.042, 0.054. INR subtherapeutic at 1.3. 10/15/2018 Patient was seen and examined this morning, overall feeling better. His weight is down today. Lung perfusion scan was low probability for pulmonary embolism. He continues to be on IV Lasix. Blood pressure 134/70 with a heart rate in the 90s, 95% on room air. Sodium 141, potassium 3.7, BUN 31 and creatinine 1.8 today. 10/16/2018 Patient seen and examined this morning, continues to feel better each day. His weight today is down 3 kg, BUN 30, creatinine 1.7. Venous duplex study was negative for DVT in the lower extremity. He continues to be on IV Lasix. We will continue IV Lasix, repeat chest x-ray in the morning. Objective - Vital Signs Vital signs: Vital Signs Temp 96.6 F L 10/16/18 08:10 Pulse 108 H 10/16/18 11:24 Resp 20 10/16/18 08:10 BP 139/61 10/16/18 08:10 Pulse Ox 94 L 10/16/18 08:10 Intake & Output 10/15/18 10/16/18 10/16/18 18:59 06:59 18:59 Intake Total 444 Output Total 1550 300 Balance 444 -1550 -300 Intake: Oral 444 Output: Urine 1550 300 Other: Voiding Method Urinal Urinal # Voids 1 1 - Exam GENERAL: This is a 63-year-old -Mongolian male in no apparent distress at the time of my examination. HEENT: Head is atraumatic, normocephalic. Pupils are equal, round. Sclerae anicteric. Conjunctivae are clear. Mucous membranes of the mouth are moist. Neck is supple. There is jugular venous distention. No carotid bruit is heard. LUNGS: Reveal diminished air entry to bilateral bases with rales noted at bilateral bases. HEART: Irregular rate and rhythm without murmurs, rubs or gallops. S1 and S2 heard. ABDOMEN: Soft, obese, nontender. Bowel sounds are heard. No organomegaly noted. EXTREMITIES: No calf tenderness noted. Bilateral lower extremity nonpitting edema, improving. Bilateral hand and wrist deformity. VASCULAR: Radial and dorsalis pedis pulses palpated, no evidence of clubbing. NEUROLOGIC: Patient is awake, alert and oriented x3. - Labs CBC & Chem 7: 10/13/18 17:25 10/16/18 05:45 Labs: Abnormal Lab Results - Last 24 Hours (Table) 10/16/18 Range/Units 05:45 BUN 30 H (9-20) mg/dL Creatinine 1.71 H (0.66-1.25) mg/dL Glucose 107 H (74-99) mg/dL Microbiology - Last 24 Hours (Table) 10/15/18 13:35 Gram Stain - Preliminary Sputum Assessment and Plan Plan: Assessment and plan #1 symptoms of cough with blood-tinged sputum, associated episode of chest discomfort, rule out pulmonary embolism in a patient with known history of PE in the past. #2 symptoms of progressively worsening shortness of breath, congestive heart failure, diastolic acute on chronic, BNP 3810. #3 acute on chronic renal failure, stage III #4 hypertension #5 diabetes #6 hyperlipidemia #7 rheumatoid arthritis #8 abnormality in troponin, similar to prior admissions, could be secondary to abnormal renal function #9 sleep apnea #10 gout #11 chronic persistent atrial fibrillation on Coumadin at home for anticoagulation, INR subtherapeutic on admission #12 hypomagnesemia Plan Echocardiogram with Doppler study revealed a normal left ventricular systolic function with mild to moderate mitral regurgitation. We will continue IV Lasix for 24 hours, repeat chest x-ray in the morning. Venous duplex study negative for DVT DNP note has been reviewed, I agree with a documented findings and plan of care. Patient was seen and examined.
--- NOTE | 2018-10-16 14:00 | P.NPCON ---
History of Present Illness - Reason for Consult acute renal failure - History of Present Illness Reason for consultation: Acute kidney injury History of present illness: Patient is a 63-year-old male seen in renal consultation for acute kidney injury on chronic kidney disease. Patient has chronic kidney disease stage III with baseline creatinine near 1.5. Creatinine was 1.8 100 admission and is 1.71 t jolene. He presented to the hospital with cough. He also had an episode of hemoptysis. He does have a history of PE and a VQ scan this admission revealed intermediate probability of PE. He was maintained on Coumadin as an outpatient however his INR was subtherapeutic on admission. He is now on eliquis. No evidence of DVT in his lower extremity is. He has history of diastolic CHF with mild to moderate mitral regurgitation. Edema in his extremities is improving. Good urine output. No hematuria or dysuria. Currently maintained on Lasix 40 mg IV twice daily. Denies regular use of NSAIDs. He does have history of rheumatoid arthritis. Vital signs are stable. General: The patient appeared well nourished and normally developed. HEENT: Head exam is unremarkable. Neck is without jugular venous distension. LUNGS: Breath sounds decreased. HEART: Rate and Rhythm are regular. First and second heart sounds normal. No murmurs, rubs or gallops. ABDOMEN: Abdominal exam reveals normal bowel sounds. Non-tender and non- distended. No evidence of peritonitis. EXTREMITITES: 1+ edema. Past Medical History Past Medical History: Atrial Fibrillation, Asthma, Deep Vein Thrombosis (DVT), Hypertension, Pulmonary Embolus (PE), Renal Disease, Rheumatoid Arthritis (RA) Additional Past Medical History / Comment(s): gout, sickle cell, CKD stage 3 (dialysis 2004), sleep apnea, pneuropathy, glaucoma History of Any Multi-Drug Resistant Organisms: MRSA Date of last positivie culture/infection: 2013 MDRO Source:: foot Past Surgical History: Joint Replacement, Orthopedic Surgery Additional Past Surgical History / Comment(s): Left knee replaced; multiple toe amputations, tib/fib surgery in May 2018 Past Anesthesia/Blood Transfusion Reactions: No Reported Reaction Past Psychological History: No Psychological Hx Reported Additional Psychological History / Comment(s): lives with his . [place] citizen living in [place]. No tobacco use or alcohol use. 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 No international travel. No animal exposures Smoking Status: Never smoker Past Alcohol Use History: None Reported Past Drug Use History: Marijuana Additional Drug Use History / Comment(s): pt. states he occasionally eats marijuana edibles for pain - Past Family History Father Family Medical History: Diabetes Mellitus, Myocardial Infarction ([place]) Mother Family Medical History: CVA/TIA Sister(s) Family Medical History: Hypertension Additional Family Medical History / Comment(s): RA Medications and Allergies Home Medications Medication Instructions Recorded Confirmed Type Allopurinol [Zyloprim] 300 mg PO DAILY 08/25/17 10/13/18 History Cholecalciferol [Vitamin D3] 1,000 unit PO DAILY 08/25/17 10/13/18 History Cyanocobalamin (Vitamin B-12) 1,000 mcg PO DAILY 08/25/17 10/13/18 History [Vitamin B-12] Folic Acid 0.4 mg PO DAILY 08/25/17 10/13/18 History Lisinopril [Zestril] 10 mg PO BID 08/25/17 10/13/18 History Metoprolol Tartrate [Lopressor] 25 mg PO BID 08/25/17 10/13/18 History Warfarin [Coumadin] 2.5 mg PO TU 08/25/17 10/13/18 History Warfarin [Coumadin] 5 mg PO SUMOWETHFRSA 08/25/17 10/13/18 History oxyCODONE-APAP 10-325MG [Percocet 1 tab PO Q6HR PRN 08/25/17 10/13/18 History 10-325 mg] Atorvastatin Calcium [Lipitor] 20 mg PO DAILY 05/14/18 10/13/18 History DULoxetine HCL [Cymbalta] 30 mg PO DAILY 05/14/18 10/13/18 History Multivitamins, Thera [Multivitamin 1 tab PO DAILY@1200 05/14/18 10/13/18 History (formulary)] Latanoprost/Pf [Latanoprost 0.005% 1 drop BOTH EYES HS 10/13/18 10/13/18 History Eye Drop] predniSONE 10 mg PO DAILY 10/13/18 10/13/18 History Allergies Allergy/AdvReac Type Severity Reaction Status Date / Time Sulfa (Sulfonamide Allergy Rash/Hives Verified 10/13/18 17:29 Antibiotics) Physical Exam Vitals: Vital Signs Temp Pulse Pulse Resp BP Pulse Ox 10/16/18 11:30 99 18 128/69 97 10/16/18 11:24 108 H 10/16/18 11:12 108 H 10/16/18 08:10 96.6 F L 115 H 20 139/61 94 L 10/16/18 07:36 100 10/16/18 07:23 100 10/16/18 04:00 105 H 18 139/86 99 10/16/18 03:30 108 H 10/16/18 03:20 104 H 10/15/18 23:40 104 H 10/15/18 23:28 100 10/15/18 23:24 97.5 F L 105 H 15 149/74 97 10/15/18 20:30 107 H 18 131/61 100 10/15/18 19:47 89 10/15/18 19:38 86 10/15/18 16:00 97.4 F L 57 L 20 122/66 96 10/15/18 15:46 90 10/15/18 15:36 88 98 Intake and Output 10/15/18 10/16/18 10/16/18 22:59 06:59 14:59 Intake Total 222 Output Total 1000 550 300 Balance -778 -550 -300 Intake: Oral 222 Output: Urine 1000 550 300 Other: Voiding Method Urinal Urinal Urinal # Voids 1 1 Results - Lab Results Most recent lab results Calcium 9.2 mg/dL (8.4-10.2) 10/16/18 05:45 Magnesium 1.5 mg/dL (1.6-2.3) L 10/13/18 17:25 10/13/18 17:25 10/16/18 05:45 Assessment and Plan Plan: Assessment: 1. Acute kidney injury mostly prerenal secondary to cardiorenal syndrome. Creatinine peaked at 1.8 this admission and is 1.71 today. 2. Chronic kidney disease stage III with baseline creatinine near 1.5 secondary to nephrosclerosis. 3. Diastolic CHF with mild to moderate mitral regurgitation. 4. Volume overload improving the diuresis. 5. History of PE maintained on Eliquis. 6. Hypertension with chronic kidney disease. Controlled. Plan: Maintain Lasix 40 mg IV twice daily. Check urinalysis. Check renal ultrasound. Maintain current antihypertensives, including lisinopril for now. Repeat electrolytes in the morning. Thank you for the consultation. I will continue to follow the patient with you during his hospital stay.
--- NOTE | 2018-10-16 14:32 | US ---
EXAMINATION TYPE: US kidneys/renal and bladder DATE OF EXAM: 10/16/2018 COMPARISON: 01/09/2018 CLINICAL HISTORY: emile. h/o renal cysts EXAM MEASUREMENTS: Right Kidney: 13.1 x 7.1 x 8.5 cm Left Kidney: 13.6 x 7.2 x 6.5 cm Right Kidney: multiple hypoechoic nodules seen, largest = 6.6cm inferior pole Left Kidney: multiple hypoechoic nodules seen, largest = 4.1cm inferior pole Bladder: not distended therefore bladder limited. IMPRESSION: 1. Multiple hypoechoic nodules involving the kidneys some of which do not meet the criteria of a simp le cyst. These indeterminate nodules correspond to the CT findings at 01/09/2018 where there Hounsfiel d units were not consistent with simple cyst. Correlate with MRI as clinically warranted. 2. No hydronephrosis or nephrolithiasis.
--- NOTE | 2018-10-16 16:40 | CT ---
EXAMINATION TYPE: CT chest wo con DATE OF EXAM: 10/16/2018 COMPARISON: Radiograph 10/13/[address] abdomen 01/09/2018 HISTORY: 63-year-old male hemoptysis TECHNIQUE: Contiguous axial scanning of the chest without IV contrast. Coronal and sagittal reconstru ctions performed. CT DLP: 1046.6 mGycm Automated exposure control for dose reduction was used. FINDINGS: Heart upper limits of normal in size without pericardial effusion. Mild coronary vessel calcification s are present. Mild atherosclerotic arch calcifications with conventional arch vessel branching anatomy. No thoracic lymphadenopathy by CT size criteria. Borderline to mildly enlarged caliber to the main right and left pulmonary arteries are 2.6 and 2.8 c m, respectively, suggesting underlying pulmonary arterial hypertension. Mild upper lung centrilobular emphysema. Strandy atelectasis or scarring at the posterior lung bases. Some additional subpleural reticular densities at the lung bases are also demonstrated without chris honeycombing. There may be some subtle tree-in-bud opacity inferior lingula, axial image 37. No anahy k consolidation or pleural effusion. Visualized upper abdomen and shows a couple hypodense lesions, probably cysts measuring 1 cm or small er in the left liver lobe. Gallbladder borderline distended at 4.1 cm wide. Exophytic 4.7 cm cystic lesion from the anterior aspect of the pancreatic head/neck region. On 018, this measured 4.1 cm. Cystic replacement of the kidneys. There is variable density involving many of the kidney lesions, li christopher due to complication with hemorrhagic or proteinaceous debris. Cysts measure up to 5.3 cm in the visualized upper abdomen. These have varied in size as compared to 01/09/2018. Left-sided colonic diverticulosis. Bones: Degenerative changes of the right shoulder. Endplate spondylosis lower thoracic spine. There IMPRESSION: 1. COPD WITH MILD EMPHYSEMA. PULMONARY ARTERIAL HYPERTENSION. 2. RETICULAR CHANGES AT THE LUNG BASES COULD REPRESENT SOME INTERSTITIAL FIBROTIC CHANGES OR DIP. 3. SOME MILD TREE-IN-BUD DENSITIES INFERIOR LINGULA COULD REPRESENT INFLAMMATORY OR INFECTIOUS BRONCH IOLITIS. 4. SOME FINDINGS IN THE UPPER ABDOMEN INCLUDING MULTIPLE LESIONS OF THE KIDNEYS, QUERY HISTORY OF ADP CKD. THE LESIONS HAVE VARIED IN SIZE FROM 01/09/2018. CYSTS MANY OF WHICH ARE COMPLICATED WITH PROTEIN ACEOUS OR HEMORRHAGIC DEBRIS ARE FAVORED. 5. HOWEVER, THERE IS A ENLARGING EXOPHYTIC LESION FROM THE PANCREATIC HEAD/NECK MEASURING 4.7 CM (ABHI BROCK 4.1 CM, PREVIOUSLY). PANCREAS MRI CAN ASSESS FOR ANY INTERNAL COMPLEXITY. THE MRI WOULD ALSO BE U SEFUL FOR ASSESSING THE KIDNEY LESIONS. 6. BORDERLINE HYDROPIC GALLBLADDER PROBABLY DUE TO FASTING STATE. IF RIGHT UPPER QUADRANT PAIN OR CON CERN FOR EARLY ACUTE CHOLECYSTITIS, FOLLOW-UP ULTRASOUND OR HIDA SCAN.
--- NOTE | 2018-10-16 16:53 | P.PN ---
Subjective Progress Note Date: 10/16/18 Principal diagnosis: Hemoptysis, tracheobronchitis. This is a 63 -year-old -A[place] male with past medical history of obstructive sleep apnea on CPAP, chronic bronchial asthma, rheumatoid arthritis, chronic anemia, gout, past history of pulmonary embolism in 2012, and atrial fibrillation, and patient is on chronic anticoagulation the form of Coumadin. Patient presented to the emergency department with a few days history of cough, chest congestion, hemoptysis, abdominal discomfort on both sides of the torso from episodes of coughing.denied any fever or chills, denied any chest pain, no syncope.chest x-ray was completed and showed cardiomegaly with new mild central vascular congestion. labs showed a white blood cell count of 9.0, hemoglobin of 12.8, INR was subtherapeutic of 1.3, and patient states his been compliant with his Coumadin, sodium was 142, potassium is 4.8, chloride is 109, BUN was 23 and creatinine was 1.48. Patient does have underlying chronic kidney disease, and in the past has required hemodialysis. troponins were elevated to 0.042, 0.054, and 0.045. Magnesium was low at 1.5 proBNP was 3810. He has been afebrile. The amount of hemoptysis he describes as about a teaspoon. patient did have some increased swelling in his lower extremities. EKG showed atrial fibrillation with a rate of 104 BPM. He's been seen by cardiology, and his Coumadin was switched over to Eliquis. D-Dimer was slightly elevated to 0.90. he was started on IV Lasix at 40 mg every 12 hours, he is on oral prednisone at 10 mg daily for his history of rheumatoid arthritis, empiric antibiotics were added, and patient is on breathing treatments. On 10/15/2018 patient seen in follow-up on selective care unit, he is resting comfortably in bed, on CPAP. Did bring up a small amount of blood-tinged sputum this morning, a single episode, no further hemoptysis, vital signs are stable, no fever or chills. Patient has been switched from Coumadin to Eliquis Cardiology, he underwent a VQ scan last night which showed intermediate to low probability for pulmonary embolism, sounds are diminished, no significant rhonchi or wheezing, patient continues on IV diuretics, he is on antibiotic coverage in the form of Rocephin. He is on oral prednisone, and breathing treat ments. Lower extremity edema is improving, ultrasound of lower extremity did not show any evidence of DVT, today's labs have been reviewed, BNP was done, normal CBC, a large less are within normal limits, B1 is 31 and creatinine is 1.81. No complaints of chest pain, no worsening shortness of breath. On 10/16/2018 patient seen in follow-up. He is alert and awake, in no acute distress, he is resting comfortably in bed, he is wearing CPAP at bedtime and as needed during the day, on today's exam patient sounds less congested, his cough is essentially dry, did bring up a very small amount of brownish colored sputum this morning. Influenza screen was negative, antibiotic coverage in the form of Rocephin, he is on oral anticoagulation in the form of Eliquis, continues on IV diuretics, is in negative fluid balance, -1106 mL. Complaints of worsening chest pain, or shortness of breath. Objective - Vital Signs Vital signs: Vital Signs Temp 96.6 F L 10/16/18 08:10 Pulse 108 H 10/16/18 11:24 Resp 20 10/16/18 08:10 BP 139/61 10/16/18 08:10 Pulse Ox 94 L 10/16/18 08:10 Intake & Output 10/15/18 10/16/18 10/16/18 18:59 06:59 18:59 Intake Total 444 Output Total 1550 300 Balance 444 -1550 -300 Intake: Oral 444 Output: Urine 1550 300 Other: Voiding Method Urinal Urinal # Voids 1 1 - Exam GENERAL EXAM: Alert, pleasant, 63-year-old -Azerbaijani male, obese, on room air with a pulse ox of 94% HEAD: Normocephalic/atraumatic. EYES: Normal reaction of pupils, equal size. Conjunctiva pink, right scleral redness, could be related to episodes of coughing spells NOSE: Clear with pink turbinates. THROAT: No erythema or exudates. NECK: No masses, no JVD, no thyroid enlargement, no adenopathy. CHEST: No chest wall deformity. Symmetrical expansion. LUNGS: Diminished breath sounds bilaterally, no rhonchi or wheezes CVS: Regular rate and rhythm, normal S1 and S2, no gallops, no murmurs, no rubs ABDOMEN: Soft, nontender. No hepatosplenomegaly, normal bowel sounds, no guarding or rigidity. EXTREMITIES: No clubbing, mild edema, no cyanosis, 2+ pulses and upper and lower extremities. MUSCULOSKELETAL: Muscle strength and tone normal. Right wrist bony prominence maybe related to rheumatoid arthritis SPINE: No scoliosis or deformity SKIN: No rashes CENTRAL NERVOUS SYSTEM: Alert and oriented -3. No focal deficits, tone is normal in all 4 extremities. PSYCHIATRIC: Alert and oriented -3. Appropriate affect. Intact judgment and insight. - Labs CBC & Chem 7: 10/13/18 17:25 10/16/18 05:45 Labs: Abnormal Lab Results - Last 24 Hours (Table) 10/16/18 Range/Units 05:45 BUN 30 H (9-20) mg/dL Creatinine 1.71 H (0.66-1.25) mg/dL Glucose 107 H (74-99) mg/dL Microbiology - Last 24 Hours (Table) 10/15/18 13:35 Gram Stain - Preliminary Sputum Assessment and Plan Plan: Assessment: #1. Hemoptysis related to oral anticoagulation, and tracheobronchitis. Patient was on oral Coumadin at home, did have 2 episodes of limited hemoptysis, about a teaspoon's worth #2. History of DVTs and pulmonary embolism in 2012 on chronic anticoagulation with Coumadin, which was subtherapeutic on admission, with INR 1.3. VQ scan was completed and showed low to intermediate probability of pulmonary embolism, lower extremity Dopplers were negative for DVT #3. Chronic persistent atrial fibrillation, on Coumadin, which has been switched to Eliquis #4. History of right ORIF for a recent fracture a few months ago, and patient has been sedentary, and not weightbearing up until a few weeks ago. #5. Chronic kidney disease stage III #6. Mildly elevated d-dimer, with hemoptysis, patient was on chronic anticoagulation although was subtherapeutic, patient has been switched to oral Eliquis. renal profile is abnormal, unable to do CT angios of the chest, VQ scan would probably be of little value in view of abnormal chest x-rays findings, and the patient will be on oral anticoagulation on oral Eliquis #7. acute exacerbation of chronic congestive heart failure, with diastolic dysfunction #8. Hypertension, hyperlipidemia, diabetes mellitus, morbid obesity, rheumatoid arthritis #9. Sleep apnea on CPAP therapy #10. Gout #11. Elevated troponins, cardiology following Plan: We'll continue current medical treatment, patient is on IV diuretics, empiric antibiotics, less congested, less short of breath today. No complaints of chest pain, room air pulse ox 94%. Influenza screen was negative. Patient had a small amount of hemoptysis this morning, will obtain CT chest without contrast, we'll continue to follow I performed a history & physical examination of the patient and discussed their management with my nurse practitioner, Lakeisha Strauss. I reviewed the nurse practitioner's note and agree with the documented findings and plan of care. Lung sounds are positive for scattered rhonchi and wheezes. The findings and the impression was discussed with the patient. I attest to the documentation by the nurse practitioner. Time with Patient: Less than 30
[2018-10-16] MEDS: LATANOPROST 0.005% OPHTH DROPS 2.5 ML BTL BOTH EYES SCH (20:09)
[2018-10-16] MEDS ORDERED: IPRATROPIUM-ALBUTEROL 3 ML NEB INHALATION PRN (20:39)
[2018-10-16 21:52] LABS: Appearance,Urine Clear (Clear); Bilirubin,Urine Negative (Negative); Blood,Urine Negative (Negative); Color,Urine Yellow; Glucose,Urine (UA) Negative (Negative); Ketones,Urine Negative (Negative); Leukocyte Esterase,Urine Negative (Negative); Nitrite,Urine Negative (Negative); Protein,Urine Trace (Negative); Specific Gravity,Urine 1.008 (1.001-1.035); Urobilinogen,Urine <2.0 mg/dL (<2.0)
--- NOTE | 2018-10-16 22:24 | PN ---
PROGRESS NOTE DATE OF SERVICE: 10/16/2018 PRESENTING COMPLAINT: Tired. INTERVAL HISTORY: Patient admitted with pneumonia, tracheobronchitis, some hemoptysis. DVT/PE was ruled out. Patient did tolerate some diet. Lying in bed. REVIEW OF SYSTEMS: Done for constitutional, cardiovascular, GI, pulmonary; relevant findings as above. CURRENT MEDICATIONS: Reviewed. They include: 1. Eliquis. 2. DuoNeb. 3. IV ceftriaxone. 4. IV Lasix. PHYSICAL EXAMINATION: Temperature 98, pulse 120, respiration 18, blood pressure 140/70, pulse ox 98% on room air. GENERAL APPEARANCE: Lying in bed, awake. EYES: Pupils equal. Conjunctivae injected. NECK: JVD unable to assess. Mass not palpable. RESPIRATORY: Effort increased. LUNGS: Diminished breath sounds. CARDIOVASCULAR: First and second sounds normal. Minimal edema. ABDOMEN: Distended, soft. Liver and spleen not palpable. PSYCHIATRY: Alert and oriented x3. Mood and affect normal. INVESTIGATIONS: Potassium 3.7, BUN 30, creatinine 1.71. Abdominal ultrasound shows multiple hypoechoic nodules in the right kidney and in the left kidney. CT scan of the chest shows emphysema. There is some tree-in-bud opacity in the inferior lingula, exophytic 4.7 cm cystic lesion in the pancreas from the pancreatic head and neck. ASSESSMENT: 1. Pneumonia, present on admission. 2. Hemoptysis, probably from pneumonia and patient being on anticoagulants. 3. Persistent atrial flutter/fibrillation; chronically has been on anticoagulation. 4. Morbid obesity with body mass index of 45. 5. Chronic kidney disease, stage III, from nephrosclerosis. 6. Gastroesophageal reflux disease. 7. Obstructive sleep apnea. Uses CPAP machine. 8. Depression not otherwise specified. 9. Troponin leak in the setting of renal failure, not felt to be acute coronary syndrome. 10.Anticoagulation with Eliquis. 11.Acute on chronic congestive heart failure from diastolic dysfunction. Patient remains on IV Lasix. 12.Acute renal failure from diuresis. Creatinine has gone from 1.48 to 1.81. 13.Bilateral hypoechoic nodules involving both the kidneys. 14.Exophytic lesion from the pancreatic head, 4.7 cm. PLAN: Continue current medication and treatment plan. Will discuss with the other consultants regarding further plan of action. Patient has multiple things going on. MMODL / IJN: [id number] /
[2018-10-17] MEDS: oxyCODONE-APAP 10-325MG 1 EACH TAB PO PRN ×3 (05:23→21:56)
[2018-10-17 07:03] LABS: Calcium 9.1 mg/dL (8.4-10.2); Magnesium 1.5 mg/dL (1.6-2.3); Potassium 3.7 mmol/L (3.5-5.1)
[2018-10-17] MEDS: IPRATROPIUM-ALBUTEROL 3 ML NEB INHALATION SCH ×4 (08:07→20:23)
[2018-10-17] MEDS: ALLOPURINOL 300 MG TAB PO SCH (09:10)
[2018-10-17] MEDS: APIXABAN 5 MG TAB PO SCH ×2 (09:11→21:57)
[2018-10-17] MEDS: ASPIRIN 81 MG PO SCH (09:11)
[2018-10-17] MEDS: ATORVASTATIN 20 MG TAB PO SCH (09:11)
[2018-10-17] MEDS: CHOLECALCIFEROL 1,000 UNIT TAB PO SCH (09:11)
[2018-10-17] MEDS: ISOSORBIDE MONONITRATE ER 30 MG TAB.ER.24H PO SCH (09:12)
[2018-10-17] MEDS: DULoxetine HCL 30 MG CAPSULE.DR PO SCH (09:12)
[2018-10-17] MEDS: hydrALAZINE HCL 25 MG TAB PO SCH ×2 (09:12→21:57)
[2018-10-17] MEDS: CYANOCOBALAMIN 500 MCG TAB PO SCH (09:12)
[2018-10-17] MEDS: LISINOPRIL 20 MG TAB PO SCH (09:13)
[2018-10-17] MEDS: METOPROLOL TARTRATE 25 MG TAB PO SCH ×2 (09:13→21:57)
[2018-10-17] MEDS: predniSONE 10 MG TAB PO SCH (09:13)
[2018-10-17] MEDS: FUROSEMIDE 10 MG/ML 4 ML VIAL IV SCH (09:14)
--- NOTE | 2018-10-17 10:21 | XR ---
EXAMINATION TYPE: XR chest 2V DATE OF EXAM: 10/17/2018 COMPARISON: Prior chest x-ray 10/13/2018 HISTORY: Congestive heart failure follow-up TECHNIQUE: Frontal and lateral views of the chest are obtained. FINDINGS: Heart remains enlarged. Technique is apical lordotic and there are cardiac leads. No evide nt airspace disease, pneumothorax, or pleural effusion. Minimal patchy basilar density noted posterio rly. Prominent lung volume could be indicative of underlying COPD. IMPRESSION: Basilar atelectasis. Emphysema. See dictated report CT scan of the chest 10/16/2018, addit ional findings above
[2018-10-17] MEDS: FOLIC ACID 1 MG TAB PO SCH (12:27)
[2018-10-17] MEDS: MULTIVITAMINS, THERA 1 EACH TAB PO SCH (12:27)
[2018-10-17] MEDS ORDERED: Magnesium Replacement Protocol 1 EACH MISC MISCELLANE PRN (14:06)
--- NOTE | 2018-10-17 14:13 | P.PN ---
Subjective This is a pleasant 63-year-old -[place]ese gentleman with history of rheumatoid arthritis, prior pulmonary embolism and DVT in 2012, chronic p ersistent atrial fibrillation, history of right ORIF for a recent fracture, borderline diabetes, hypertension, hyperlipidemia, renal disease stage III, sickle cell anemia, who has been on Coumadin for anticoagulation. He presents to the hospital with symptoms of a 3-4 day duration of cough with associated brown phlegm with noted bright red blood, patient has also been more short of breath than usual. He had an episode of chest discomfort with associated shortness of breath. For all of these reasons she came to the emergency room for further evaluation. Patient's concern was that he may have another blood clot in his lung. Into the patient and his , he is recently seen Dr. chang on in the office as a new patient. His chest x-ray on admission showed cardiomegaly with new mild central vascular congestion. EKG shows atrial fibrillation with mildly rapid ventricular response and occasional PVC. In May of this year, patient was admitted here to the hospital he had an echocardiogram with Doppler study performed at that time which revealed a normal left ventricular systolic function. Blood pressure on arrival here 148/90, heart rate 108, 98% on room air. White blood cell count is normal, hemoglobin 12.8, platelet count 236. Sodium 142, potassium 4.8, BUN 23 and creatinine 1.4. BNP level 3810. Magnesium 1.5. Troponins 0.042, 0.054. INR subtherapeutic at 1.3. 10/15/2018 Patient was seen and examined this morning, overall feeling better. His weight is down today. Lung perfusion scan was low probability for pulmonary embolism. He continues to be on IV Lasix. Blood pressure 134/70 with a heart rate in the 90s, 95% on room air. Sodium 141, potassium 3.7, BUN 31 and creatinine 1.8 today. 10/16/2018 Patient seen and examined this morning, continues to feel better each day. His weight today is down 3 kg, BUN 30, creatinine 1.7. Venous duplex study was ne gative for DVT in the lower extremity. He continues to be on IV Lasix. We will continue IV Lasix, repeat chest x-ray in the morning. 10/17/2018 Mr. Ventura is seen and examined resting comfortably laying flat in bed. He states his breathing has improved. Denies chest pain, dizziness or palpitations. Blood pressure 141/76 heart rate 103. Chest xray reveals basilar atelectasis and emphysema. CT chest shows COPD with mild emphysema and pulmonary artery hypertension, some interstitial fibrotic changes at the lung base, multiple lesions of the kidneys as well as a lesion within the pancreas. His weight is down 5 kg over the last 2 days and has a negative fluid balance of 1320 cc. laboratory data reviewed, sodium 139, potassium 3.7, creatinine 1.88, magnesium 1.5. Currently maintained on metoprolol 25 mg twice a day, lisinopril 20 mg daily, Imdur 30 mg daily, hydralazine 25 mg twice a day, Lasix 40 mg IV twice a day, atorvastatin 20 mg daily, aspirin 81 mg daily and Eliquis 5 mg twice a day. GENERAL: Well-appearing, well-nourished and in no acute distress. NECK: Supple without JVD or thyromegaly. LUNGS: Breath sounds clear to auscultation bilaterally. Respiration equal and unlabored. No wheezes, rales or rhonchi. Diminished bilaterally. HEART: Irregular rate and rhythm without murmurs, rubs or gallops. S1 and S2 heard. EXTREMITIES: Normal range of motion, trace bilateral lower extremity edema. No clubbing or cyanosis. Peripheral pulses intact. ASSESSMENT Acute on chronic diastolic heart failure, improving Hemoptysis, anti-coagulation has been switched from coumadin to eliquis Acute on chronic kidney disease Troponin abnormality secondary to renal function Hypomagnesemia Hypertension Dyslipidemia Diabetes mellitus Chronic persistent atrial fibrillation on lay out former anticoagulation PLAN Transition to oral diuretics. Ongoing medical management. We will continue to follow. Nurse Practitioner note has been reviewed, I agree with a documented findings and plan of care. Patient was seen and examined. Objective - Vital Signs Vital signs: Vital Signs Temp 98.1 F 10/17/18 05:15 Pulse 70 10/17/18 12:10 Resp 20 10/17/18 05:15 BP 141/76 10/17/18 05:15 Pulse Ox 96 10/17/18 05:15 Intake & Output 10/16/18 10/17/18 10/17/18 18:59 06:59 18:59 Intake Total 180 480 Output Total 300 1200 Balance -120 -1200 480 Weight 156.5 kg Intake: Oral 180 480 Output: Urine 300 1200 Other: Voiding Method Urinal Urinal - Labs CBC & Chem 7: 10/13/18 17:25 10/17/18 06:05 Labs: Abnormal Lab Results - Last 24 Hours (Table) 10/16/18 10/17/18 Range/Units Unknown 06:05 BUN 33 H (9-20) mg/dL Creatinine 1.88 H (0.66-1.25) mg/dL Glucose 109 H (74-99) mg/dL Magnesium 1.5 L (1.6-2.3) mg/dL Urine Protein Trace H (Negative)
--- NOTE | 2018-10-17 14:48 | P.PN ---
Subjective Progress Note Date: 10/17/18 Principal diagnosis: Hemoptysis, tracheobronchitis. This is a 63 -year-old -[place] male with past medical history of obstructive sleep apnea on CPAP, chronic bronchial asthma, rheumatoid arthritis, chronic anemia, gout, past history of pulmonary embolism in 2012, and atrial fibrillation, and patient is on chronic anticoagulation the form of Coumadin. Patient presented to the emergency department with a few days history of cough, chest congestion, hemoptysis, abdominal discomfort on both sides of the torso from episodes of coughing.denied any fever or chills, denied any chest pain, no syncope.chest x-ray was completed and showed cardiomegaly with new mild central vascular congestion. labs showed a white blood cell count of 9.0, hemoglobin of 12.8, INR was subtherapeutic of 1.3, and patient states his been compliant with his Coumadin, sodium was 142, potassium is 4.8, chloride is 109, BUN was 23 and creatinine was 1.48. Patient does have underlying chronic kidney disease, and in the past has required hemodialysis. troponins were elevated to 0.042, 0.054, and 0.045. Magnesium was low at 1.5 proBNP was 3810. He has been afebrile. The amount of hemoptysis he describes as about a teaspoon. patient did have some increased swelling in his lower extremities. EKG showed atrial fibrillation with a rate of 104 BPM. He's been seen by cardiology, and his Coumadin was switched over to Eliquis. D-Dimer was slightly elevated to 0.90. he was started on IV Lasix at 40 mg every 12 hours, he is on oral prednisone at 10 mg daily for his history of rheumatoid arthritis, empiric antibiotics were added, and patient is on breathing treatments. On 10/15/2018 patient seen in follow-up on selective care unit, he is resting comfortably in bed, on CPAP. Did bring up a small amount of blood-tinged sputum this morning, a single episode, no further hemoptysis, vital signs are stable, no fever or chills. Patient has been switched from Coumadin to Eliquis Cardiology, he underwent a VQ scan last night which showed intermediate to low probability for pulmonary embolism, sounds are diminished, no significant rhonchi or wheezing, patient continues on IV diuretics, he is on antibiotic coverage in the form of Rocephin. He is on oral prednisone, and breathing treat ments. Lower extremity edema is improving, ultrasound of lower extremity did not show any evidence of DVT, today's labs have been reviewed, BNP was done, normal CBC, a large less are within normal limits, B1 is 31 and creatinine is 1.81. No complaints of chest pain, no worsening shortness of breath. On 10/16/2018 patient seen in follow-up. He is alert and awake, in no acute distress, he is resting comfortably in bed, he is wearing CPAP at bedtime and as needed during the day, on today's exam patient sounds less congested, his cough is essentially dry, did bring up a very small amount of brownish colored sputum this morning. Influenza screen was negative, antibiotic coverage in the form of Rocephin, he is on oral anticoagulation in the form of Eliquis, continues on IV diuretics, is in negative fluid balance, -1106 mL. Complaints of worsening chest pain, or shortness of breath. On 10/17/2018 patient seen in follow-up on [facility], he is resting comfortably in bed, in no acute distress, patient had a CT chest done yesterday, and the findings were consistent with COPD, with mild emphysema, pulmonary arterial hypertension, there was some mild reticular changes at the lung bases that could represent some interstitial fibrotic changes. There was some mild tree-in-bud densities in the inferior lingula that could represent inflammatory or infectious bronchiolitis. Upper abdomen findings include multiple lesions of the kidneys, but most concerning there was an enlarging exophytic lesion from the pancreatic head/neck measuring 4.7 cm which had previously measured 4.1 cm MRI pancreas was recommended for follow-up. But otherwise patient is less congested, he is wearing his CPAP unit during the day during naps, and at bedtime, no worsening shortness of breath, very small amount of brownish sputum this morning, no significant hemoptysis, afebrile, sputum culture gram stain showed no organisms. Objective - Vital Signs Vital signs: Vital Signs Temp 98.1 F 10/17/18 05:15 Pulse 70 10/17/18 12:10 Resp 20 10/17/18 05:15 BP 141/76 10/17/18 05:15 Pulse Ox 96 10/17/18 05:15 Intake & Output 10/16/18 10/17/18 10/17/18 18:59 06:59 18:59 Intake Total 180 480 Output Total 300 1200 Balance -120 -1200 480 Weight 156.5 kg Intake: Oral 180 480 Output: Urine 300 1200 Other: Voiding Method Urinal Urinal - Exam GENERAL EXAM: Alert, pleasant, 63-year-old -[place] male, obese, on room air with a pulse ox of 94% HEAD: Normocephalic/atraumatic. EYES: Normal reaction of pupils, equal size. Conjunctiva pink, right scleral redness, could be related to episodes of coughing spells NOSE: Clear with pink turbinates. THROAT: No erythema or exudates. NECK: No masses, no JVD, no thyroid enlargement, no adenopathy. CHEST: No chest wall deformity. Symmetrical expansion. LUNGS: Diminished breath sounds bilaterally, no rhonchi or wheezes CVS: Regular rate and rhythm, normal S1 and S2, no gallops, no murmurs, no rubs ABDOMEN: Soft, nontender. No hepatosplenomegaly, normal bowel sounds, no gu arding or rigidity. EXTREMITIES: No clubbing, mild edema, no cyanosis, 2+ pulses and upper and lower extremities. MUSCULOSKELETAL: Muscle strength and tone normal. Right wrist bony prominence maybe related to rheumatoid arthritis SPINE: No scoliosis or deformity SKIN: No rashes CENTRAL NERVOUS SYSTEM: Alert and oriented -3. No focal deficits, tone is normal in all 4 extremities. PSYCHIATRIC: Alert and oriented -3. Appropriate affect. Intact judgment and insight. - Labs CBC & Chem 7: 10/13/18 17:25 10/17/18 06:05 Labs: Abnormal Lab Results - Last 24 Hours (Table) 10/16/18 10/17/18 Range/Units Unknown 06:05 BUN 33 H (9-20) mg/dL Creatinine 1.88 H (0.66-1.25) mg/dL Glucose 109 H (74-99) mg/dL Magnesium 1.5 L (1.6-2.3) mg/dL Urine Protein Trace H (Negative) Assessment and Plan Plan: Assessment: #1. Hemoptysis related to oral anticoagulation, and tracheobronchitis. Patient was on oral Coumadin at home, did have 2 episodes of limited hemoptysis, about a teaspoon's worth. CT chest was obtained, and the findings are consistent with COPD with mild emphysema in the upper lobes, and there were some interstitial fibrotic changes at the lung bases, and some mild changes in the inferior lingula that could represent inflammatory or infectious bronchiolitis. #2. Pancreatic mass, seen on the lower cuts of the CT chest, measuring 4.7 cm which had increased from previous studies. #3. History of DVTs and pulmonary embolism in 2013 on chronic anticoagulation with Coumadin, which was subtherapeutic on admission, with INR 1.3. VQ scan was completed and showed low to intermediate probability of pulmonary embolism, lower extremity Dopplers were negative for DVT #4. Chronic persistent atrial fibrillation, on Coumadin, which has been switched to Eliquis #5. History of right ORIF for a recent fracture a few months ago, and patient has been sedentary, and not weightbearing up until a few weeks ago. #6. Chronic kidney disease stage III #7. Mildly elevated d-dimer, with hemoptysis, patient was on chronic anticoagulation although was subtherapeutic, patient has been switched to oral Eliquis. renal profile is abnormal, unable to do CT angios of the chest, VQ scan would probably be of little value in view of abnormal chest x-rays findings, and the patient will be on oral anticoagulation on oral Eliquis #8. acute exacerbation of chronic congestive heart failure, with diastolic dysfunction #9. Hypertension, hyperlipidemia, diabetes mellitus, morbid obesity, rheumatoid arthritis #10. Sleep apnea on CPAP therapy #11. Gout #12. Elevated troponins, cardiology following Plan: CT chest findings were reviewed by Dr. Moore, nonspecific findings with some limited scarring at the lung bases, in some changes that could to inflammatory or infectious bronchiolitis in the inferior lingula, but most concerning was a pancreatic mass this seems to have increased from previous exams, and we will consult GI service for investigation, and obtain a CA 199 level. Otherwise breathing is improving, but short of breath, no significant hemoptysis, no complaints of chest pain. Vital signs stable. I performed a history & physical examination of the patient and discussed their management with my nurse practitioner, Lakeisha Strauss. I reviewed the nurse practitioner's note and agree with the documented findings and plan of care. Lung sounds are positive for scattered rhonchi and wheezes. The findings and the impression was discussed with the patient. I attest to the documentation by the nurse practitioner. Time with Patient: Less than 30
[2018-10-17] MEDS ORDERED: FUROSEMIDE 20 MG TAB PO SCH (16:00)
[2018-10-17] MEDS: MAGNESIUM SULFATE-D5W PMX 1 GM in DEXTROSE/WATER 1 100ML.BAG IVPB SCH ×2 (16:09→17:15)
[2018-10-17] MEDS: LATANOPROST 0.005% OPHTH DROPS 2.5 ML BTL BOTH EYES SCH (21:57)
--- NOTE | 2018-10-17 22:43 | PN ---
PROGRESS NOTE Patient is seen for followup for acute kidney injury which appears to be mainly cardiorenal. He is currently being diuresed. Echocardiogram shows ejection fraction of 50-55% with severely dilated left atrium. Serum creatinine was 1.4 on initial admission, currently staying at 1.8-1.7 mg/dL. Review of previous labs shows serum creatinine of 1.[address] back to 2016. UA is benign. EXAMINATION: On examination today, blood pressure is 114/75, heart rate 90 per minute. Patient is afebrile. Examination of the heart S1 and S2. Examination lungs bilateral breath sounds are heard. Decreased breath sounds bases with basal crackles heard bilaterally. Abdomen is soft, morbidly obese. Examination lower extremities shows chronic skin changes, chronic edema bilaterally 2+. EMS DIRECTOR exam is grossly intact. LAB: Show sodium 139, potassium 3.7, chloride 102, BUN 33, serum creatinine 1.8. UA shows trace protein. ASSESSMENT: 1. Acute kidney injury, cardiorenal, currently maintained on Lasix. Patient's IV Lasix has been changed to p.o. I would maintain 40 mg b.i.d. at least for [address] of the chest does not show significant pulmonary edema. 2. Lower extremity edema secondary to pulmonary hypertension as well as diastolic heart failure. 3. Chronic kidney disease, most likely secondary to polycystic kidney disease. 4. A complex cyst noted on the kidneys possibly related to hemorrhage within the cyst. 5. Pancreatic cyst, needs MRI for further assessment. 6. Chronic atrial fibrillation with rapid ventricular response, currently with controlled ventricular response, maintained on anticoagulation. PLAN: Change Lasix to 40 p.o. b.i.d. Repeat labs in a.m. The patient will need outpatient followup with Urology and Nephrology. MMODL / IJN: [id number] /
--- NOTE | 2018-10-18 00:28 | PN ---
PROGRESS NOTE DATE OF SERVICE: 10/17/2018. PRESENTING COMPLAINT: Tired. INTERVAL HISTORY: Patient admitted with pneumonia, tracheobronchitis, hemoptysis, DVT; PE was ruled out. Overall feeling a bit better. The patient has a pancreatic head mass for which oncology and GI are being consulted to see what is the best way to approach the same. This was discussed with the patient. REVIEW OF SYSTEMS: Done for constitutional, cardiovascular, GI, pulmonary; relevant findings as above. CURRENT MEDICATIONS: Reviewed, that include DuoNeb, Eliquis, IV ceftriaxone. EXAMINATION: Afebrile, pulse 94, respirations 20, blood pressure 120/75, pulse ox 100 percent on CPAP. GENERAL APPEARANCE: Lying in bed, awake. EYES: Pupils equal. Conjunctiva injected. NECK JVD unable to assess. Mass not palpable. Respiratory effort increased. LUNGS: Decreased breath sounds. CARDIOVASCULAR: 1st and 2nd sounds. Minimal edema. ABDOMEN: Distended, soft. Liver and spleen not palpable. PSYCHIATRY: Alert and oriented x3. Mood and affect normal. INVESTIGATIONS: Potassium 3.7, BUN 33, creatinine 1.88. ASSESSMENT: 1. Pneumonia, present on admission. 2. Hemoptysis, probably from pneumonia, from being on anticoagulants. 3. Persistent atrial flutter fibrillation, chronically has been on anticoagulation. 4. Morbid obesity BMI 45. 5. Chronic kidney disease stage 3 from nephrosclerosis. 6. Gastroesophageal reflux disease. 7. Obstructive sleep apnea uses CPAP. 8. Depression, not otherwise specified. 9. Troponin leak in the setting of renal failure, not felt to be acute coronary syndrome. 10.Anticoagulation on Eliquis. 11.Acute on chronic congestive heart failure from diastolic dysfunction. The patient had been on IV Lasix. 12.Acute renal failure, on dialysis, probably prerenal component. 13.Bilateral hypoechoic nodules involving both the kidneys. 14.Hepatic lesion on the pancreatic head 4.7 cm. PLAN: I did talk to the patient about the CT scan findings. We will get Oncology and GI opinion to see what was the best way to approach the mass. The patient is switched over to p.o. Lasix by Nephrology. Will follow. MMODL / IJN: [id number] /
[2018-10-18 07:57] LABS: Magnesium 1.9 mg/dL (1.6-2.3); Potassium 3.9 mmol/L (3.5-5.1)
[2018-10-18] MEDS: IPRATROPIUM-ALBUTEROL 3 ML NEB INHALATION SCH ×4 (08:29→19:29)
[2018-10-18] MEDS: DULoxetine HCL 30 MG CAPSULE.DR PO SCH (09:12)
[2018-10-18] MEDS: CHOLECALCIFEROL 1,000 UNIT TAB PO SCH (09:12)
[2018-10-18] MEDS: APIXABAN 5 MG TAB PO SCH ×2 (09:12→20:50)
[2018-10-18] MEDS: METOPROLOL TARTRATE 25 MG TAB PO SCH ×2 (09:12→20:49)
[2018-10-18] MEDS: ATORVASTATIN 20 MG TAB PO SCH (09:12)
[2018-10-18] MEDS: LISINOPRIL 20 MG TAB PO SCH (09:13)
[2018-10-18] MEDS: ASPIRIN 81 MG PO SCH (09:13)
[2018-10-18] MEDS: FUROSEMIDE 40 MG TAB PO SCH ×2 (09:13→15:38)
[2018-10-18] MEDS: hydrALAZINE HCL 25 MG TAB PO SCH ×2 (09:13→20:50)
[2018-10-18] MEDS: ISOSORBIDE MONONITRATE ER 30 MG TAB.ER.24H PO SCH (09:13)
[2018-10-18] MEDS: predniSONE 10 MG TAB PO SCH (09:13)
[2018-10-18] MEDS: ALLOPURINOL 300 MG TAB PO SCH (09:13)
[2018-10-18] MEDS: CYANOCOBALAMIN 500 MCG TAB PO SCH (09:13)
[2018-10-18] MEDS: oxyCODONE-APAP 10-325MG 1 EACH TAB PO PRN ×3 (09:18→20:49)
--- NOTE | 2018-10-18 09:19 | P.PN ---
Subjective Patient is seen in follow-up for acute kidney injury. Renal function is stable. He is currently maintained on Lasix 40 mg orally twice daily. Dyspnea and edema of both improved. Oral intake is fair. No vomiting or diarrhea. Vital signs are stable. General: The patient appeared well nourished and normally developed. HEENT: Head exam is unremarkable. Neck is without jugular venous distension. LUNGS: Breath sounds decreased. HEART: Rate and Rhythm are regular. First and second heart sounds normal. No murmurs, rubs or gallops. ABDOMEN: Abdominal exam reveals normal bowel sounds. Non-tender and non- distended. No evidence of peritonitis. EXTREMITITES: Trace edema. Objective - Vital Signs Vital signs: Vital Signs Temp 97.2 F L 10/18/18 08:00 Pulse 76 10/18/18 08:43 Resp 16 10/18/18 08:00 BP 140/83 10/18/18 08:00 Pulse Ox 95 10/18/18 08:29 Intake & Output 10/17/18 10/18/18 10/18/18 18:59 06:59 18:59 Intake Total 1130 Output Total 650 Balance 480 Weight 156.4 kg Intake: Oral 1130 Output: Urine 650 Other: Voiding Method Urinal Urinal Urinal # Voids 0 - Labs CBC & Chem 7: 10/13/18 17:25 10/18/18 06:41 Labs: Abnormal Lab Results - Last 24 Hours (Table) 10/18/18 Range/Units 06:41 BUN 39 H (9-20) mg/dL Creatinine 1.92 H (0.66-1.25) mg/dL Glucose 107 H (74-99) mg/dL Microbiology - Last 24 Hours (Table) 10/15/18 13:35 Gram Stain - Final Sputum Sputum Culture - Final Assessment and Plan Plan: Assessment: 1. Acute kidney injury mostly prerenal secondary to cardiorenal syndrome. Renal function relatively stable. 2. Chronic kidney disease stage III with baseline creatinine near 1.5 secondary to nephrosclerosis. 3. Diastolic CHF with mild to moderate mitral regurgitation. 4. Volume overload improving the diuresis. 5. History of PE maintained on Eliquis. 6. Hypertension with chronic kidney disease. Controlled. 7. Complex cysts on the kidneys. 8. Hypomagnesemia secondary to diuresis status post replacement. Better. Plan: Maintain Lasix 40 mg po twice daily. Patient will need to follow-up with urology as an outpatient for the complex kidney cysts.
[2018-10-18] MEDS: MULTIVITAMINS, THERA 1 EACH TAB PO SCH (11:15)
[2018-10-18] MEDS: FOLIC ACID 1 MG TAB PO SCH (11:15)
--- NOTE | 2018-10-18 12:03 | P.CONS ---
History of Present Illness - Reason for Consult Consult date: 10/18/18 cystic mass of pancreas - History of Present Illness The patient is a 63-year-old [place] male, with multiple medical problems. He was admitted to the hospital with increasing shortness of breath, cough and chest congestion. He was also having intermittent hemoptysis. He required ICU care. During this admission, he had a VQ scan, that was low to intermediate probability for PE, Dopplers of the lower extremities which were negative, and a CT scan of the chest. Definite evidence of pneumonia was not found. He is currently improved with aggressive medical treatment per the admitting service, and pulmonary medicine. Due to his other medical issues, which include CAD, he is being followed by cardiology and nephrology. CT of the chest incidentally noted a 4.7 cm cystic lesion in the pancreas. This appeared to have increased in size compared to previous CAT scan done in 12/27, when it was 4.1 cm. Consult was therefore placed for further evaluation and recommendations. The patient denied any prior history of pancreatitis or heavy alcohol use. There is no family history of breast or pancreatic cancer. he does have a history of multiple cysts of the kidneys Review of Systems Constitutional: Reports fatigue, Reports weakness Eyes: right as per HPI, right bulging eye, right decreased vision, right diplopia, right discharge, right dry eye, right irritation, right itching, right photophobia, right loss of peripheral vision, right loss of vision, right tunnel vision/blind spots, denies blurred vision, denies pain Ears, nose, mouth and throat: Reports hoarseness Cardiovascular: Reports edema, Reports palpitations, Reports shortness of breath Respiratory: Reports congestion (this to your patient), Reports cough with sputum, Reports hemoptysis (the treatment. The patient will continue.) Gastrointestinal: Reports as per HPI, Denies abdominal pain, Denies diarrhea, Denies nausea, Denies vomiting Genitourinary: Reports as per HPI Musculoskeletal: Reports muscle weakness (7 any) Integumentary: Denies pruritus, Denies rash Neurological: Reports weakness Psychiatric: Denies anxiety, Denies depression Endocrine: Reports palpitations Hematologic/Lymphatic: Reports as per HPI Past Medical History Past Medical History: Atrial Fibrillation, Asthma, Deep Vein Thrombosis (DVT), Hypertension, Pulmonary Embolus (PE), Renal Disease, Rheumatoid Arthritis (RA) Additional Past Medical History / Comment(s): gout, sickle cell, CKD stage 3 (dialysis 2004), sleep apnea, pneuropathy, glaucoma History of Any Multi-Drug Resistant Organisms: MRSA Year Discovered:: 2013 MDRO Source:: foot Past Surgical History: Joint Replacement, Orthopedic Surgery Additional Past Surgical History / Comment(s): Left knee replaced; multiple toe amputations, tib/fib surgery in May 2018 Past Anesthesia/Blood Transfusion Reactions: No Reported Reaction Past Psychological History: No Psychological Hx Reported Additional Psychological History / Comment(s): lives with his . [place] citizen living in [place]. No tobacco use or alcohol use. 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 No international travel. No animal exposures Smoking Status: Never smoker Past Alcohol Use History: None Reported Past Drug Use History: Marijuana Additional Drug Use History / Comment(s): pt. states he occasionally eats marijuana edibles for pain - Past Family History Father Family Medical History: Diabetes Mellitus, Myocardial Infarction (DC) Mother Family Medical History: CVA/TIA Sister(s) Family Medical History: Hypertension Additional Family Medical History / Comment(s): RA Medications and Allergies Home Medications Medication Instructions Recorded Confirmed Type Allopurinol [Zyloprim] 300 mg PO DAILY 08/25/17 10/13/18 History Cholecalciferol [Vitamin D3] 1,000 unit PO DAILY 08/25/17 10/13/18 History Cyanocobalamin (Vitamin B-12) 1,000 mcg PO DAILY 08/25/17 10/13/18 History [Vitamin B-12] Folic Acid 0.4 mg PO DAILY 08/25/17 10/13/18 History Lisinopril [Zestril] 10 mg PO BID 08/25/17 10/13/18 History Metoprolol Tartrate [Lopressor] 25 mg PO BID 08/25/17 10/13/18 History Warfarin [Coumadin] 2.5 mg PO TU 08/25/17 10/13/18 History Warfarin [Coumadin] 5 mg PO SUMOWETHFRSA 08/25/17 10/13/18 History oxyCODONE-APAP 10-325MG [Percocet 1 tab PO Q6HR PRN 08/25/17 10/13/18 History 10-325 mg] Atorvastatin Calcium [Lipitor] 20 mg PO DAILY 05/14/18 10/13/18 History DULoxetine HCL [Cymbalta] 30 mg PO DAILY 05/14/18 10/13/18 History Multivitamins, Thera [Multivitamin 1 tab PO DAILY@1200 05/14/18 10/13/18 History (formulary)] Latanoprost/Pf [Latanoprost 0.005% 1 drop BOTH EYES HS 10/13/18 10/13/18 History Eye Drop] predniSONE 10 mg PO DAILY 10/13/18 10/13/18 History Allergies Allergy/AdvReac Type Severity Reaction Status Date / Time Sulfa (Sulfonamide Allergy Rash/Hives Verified 10/13/18 17:29 Antibiotics) Physical Exam Vitals: Vital Signs Temp Pulse Pulse Resp BP Pulse Ox 10/18/18 08:43 76 10/18/18 08:29 72 95 10/18/18 08:00 97.2 F L 85 16 140/83 99 10/18/18 04:35 97.9 F 94 16 142/68 98 10/18/18 00:15 85 19 135/76 100 10/17/18 21:50 98.0 F 104 H 18 118/60 95 10/17/18 20:36 74 10/17/18 20:24 70 10/17/18 16:41 72 10/17/18 16:27 74 94 L 10/17/18 16:10 96 16 119/65 97 10/17/18 12:10 70 10/17/18 12:05 94 20 124/75 100 10/17/18 11:56 70 Intake and Output 10/17/18 10/18/18 10/18/18 22:59 06:59 14:59 Intake Total 420 Balance 420 Intake: Oral 420 Other: Voiding Method Urinal Urinal # Voids 0 0 Weight 156.4 kg - Constitutional General appearance: no acute distress - EENT Eyes: EOMI, PERRLA ENT: hearing grossly normal, normal oropharynx - Neck Neck: no lymphadenopathy Thyroid: bilateral: normal size - Respiratory Respiratory: bilateral: diminished - Cardiovascular Rhythm: irregularly irregular (Diarrhea patient) Heart sounds: normal: S1, S2 - Gastrointestinal General gastrointestinal: normal bowel sounds, soft - Integumentary Integumentary: normal - Neurologic Neurologic: CNII-XII intact - Musculoskeletal LUE AV fistula for dialysis access Musculoskeletal: generalized weakness, strength equal bilaterally - Psychiatric Psychiatric: A&O x's 3, appropriate affect Results CBC & Chem 7: 10/13/18 17:25 10/18/18 06:41 Labs: Abnormal Lab Results - Last 24 Hours (Table) 10/18/18 Range/Units 06:41 BUN 39 H (9-20) mg/dL Creatinine 1.92 H (0.66-1.25) mg/dL Glucose 107 H (74-99) mg/dL Microbiology - Last 24 Hours (Table) 10/15/18 13:35 Gram Stain - Final Sputum Sputum Culture - Final Comments: VQ scan report reviewed Chest x-ray: report reviewed CT scan - chest: report reviewed US - abdomen: report reviewed Venous US: report reviewed Assessment and Plan (1) Cystic mass of pancreas Narrative/Plan: The patient has a known cystic lesion in the pancreas, initially seen in 12/27. This is increased in size on the current study. Given the cystic nature, and minor change in size over 10 months, the clinical suspicion for malignancy is overall low. I did discuss with the patient that further evaluation would be reasonable. An MRI can be done, but without contrast would not be helpful study. Given the patient's chronic kidney disease, contrast cannot be used at this time. Therefore, I would recommend that the patient have an endoscopic ultrasound as an outpatient after resolution of his acute problems. With this procedure, he can also have a biopsy at the same time if the lesion is noted to be suspicious. He will need to be set up for this at a tertiary institution ([facility], or [facility]) after discharge. Check tumor markers. However unless these are markedly increased, it would be considered nonspecific Current Visit: Yes Status: Acute Code(s): K86.2 - CYST OF PANCREAS SNOMED Code(s): 15800000 Plan: The patient has multiple other medical issues, which are unrelated to his pancreatic finding. Deferred to the admitting service and other consultants for management of the same.
--- NOTE | 2018-10-18 13:18 | P.PN ---
Subjective Progress Note Date: 10/18/18 Principal diagnosis: hemoptysis secondary to tracheobronchitis. This is a 63 -year-old -[place] male with past medical history of obstructive sleep apnea on CPAP, chronic bronchial asthma, rheumatoid arthritis, chronic anemia, gout, past history of pulmonary embolism in 2012, and atrial fibrillation, and patient is on chronic anticoagulation the form of Coumadin. Patient presented to the emergency department with a few days history of cough, chest congestion, hemoptysis, abdominal discomfort on both sides of the torso from episodes of coughing.denied any fever or chills, denied any chest pain, no syncope.chest x-ray was completed and showed cardiomegaly with new mild central vascular congestion. labs showed a white blood cell count of 9.0, hemoglobin of 12.8, INR was subtherapeutic of 1.3, and patient states his been compliant with his Coumadin, sodium was 142, potassium is 4.8, chloride is 109, BUN was 23 and creatinine was 1.48. Patient does have underlying chronic kidney disease, and in the past has required hemodialysis. troponins were elevated to 0.042, 0.054, and 0.045. Magnesium was low at 1.5 proBNP was 3810. He has been afebrile. The amount of hemoptysis he describes as about a teaspoon. patient did have some increased swelling in his lower extremities. EKG showed atrial fibrillation with a rate of 104 BPM. He's been seen by cardiology, and his Coumadin was switched over to Eliquis. D-Dimer was slightly elevated to 0.90. he was started on IV Lasix at 40 mg every 12 hours, he is on oral prednisone at 10 mg daily for his history of rheumatoid arthritis, empiric antibiotics were added, and patient is on breathing treatments. On 10/15/2018 patient seen in follow-up on selective care unit, he is resting comfortably in bed, on CPAP. Did bring up a small amount of blood-tinged sputum this morning, a single episode, no further hemoptysis, vital signs are stable, no fever or chills. Patient has been switched from Coumadin to Eliquis Cardiology, he underwent a VQ scan last night which showed intermediate to low probability for pulmonary embolism, sounds are diminished, no significant rhonchi or wheezing, patient continues on IV diuretics, he is on antibiotic coverage in the form of Rocephin. He is on oral prednisone, and breathing treatments. Lower extremity edema is improving, ultrasound of lower extremity did not show any evidence of DVT, today's labs have been reviewed, BNP was done, normal CBC, a large less are within normal limits, B1 is 31 and creatinine is 1.81. No complaints of chest pain, no worsening shortness of breath. On 10/16/2018 patient seen in follow-up. He is alert and awake, in no acute distress, he is resting comfortably in bed, he is wearing CPAP at bedtime and as needed during the day, on today's exam patient sounds less congested, his cough is essentially dry, did bring up a very small amount of brownish colored sputum this morning. Influenza screen was negative, antibiotic coverage in the form of Rocephin, he is on oral anticoagulation in the form of Eliquis, continues on IV diuretics, is in negative fluid balance, -1106 mL. Complaints of worsening chest pain, or shortness of breath. On 10/17/2018 patient seen in follow-up on [facility] care unit, he is resting comfortably in bed, in no acute distress, patient had a CT chest done yesterday, and the findings were consistent with COPD, with mild emphysema, pulmonary arterial hypertension, there was some mild reticular changes at the lung bases that could represent some interstitial fibrotic changes. There was some mild tree-in-bud densities in the inferior lingula that could represent inflammatory or infectious bronchiolitis. Upper abdomen findings include multiple lesions of the kidneys, but most concerning there was an enlarging exophytic lesion from the pancreatic head/neck measuring 4.7 cm which had previously measured 4.1 cm MRI pancreas was recommended for follow-up. But otherwise patient is less congested, he is wearing his CPAP unit during the day during naps, and at bedtime, no worsening shortness of breath, very small amount of brownish sputum this morning, no significant hemoptysis, afebrile, sputum culture gram stain showed no organisms. Patient was reevaluated today on 10/18/2018, patient is resting, denies any specific complaints, no further episodes of hemoptysis. He did have some dark brown sputum earlier today. But no active hemoptysis. He did have a CT of the chest which showed nonspecific findings, and nonspecific fibrotic changes. Patient is doing well from the pulmonary perspective, and he is now being followed by oncology for his suspicious pancreatic lesion, and outpatient follow-up was recommended. From my perspective the patient is doing well, and at this point I don't see the value of bronchoscopy unless the patient develops worsening hemoptysis. His sputum cultures have been negative so far.labs were reviewed today, continues to have worsening renal functioning creatinine is 1.92. Objective - Vital Signs Vital signs: Vital Signs Temp 97.2 F L 10/18/18 12:00 Pulse 84 10/18/18 12:58 Resp 16 10/18/18 12:00 BP 134/91 10/18/18 12:00 Pulse Ox 97 10/18/18 12:00 Intake & Output 10/17/18 10/18/18 10/18/18 18:59 06:59 18:59 Intake Total 1130 480 Output Total 650 800 Balance 480 -320 Weight 156.4 kg Intake: Oral 1130 480 Output: Urine 650 800 Other: Voiding Method Urinal Urinal Urinal # Voids 0 - Exam GENERAL EXAM: 63-year-old male in no distress, HEAD: Normocephalic/atraumatic. EYES: PERRLA, EOMI, no icterus. NOSE: Clear with pink turbinates. THROAT: No erythema or exudates. NECK: No masses, no JVD, no thyroid enlargement, no adenopathy. CHEST: No chest wall deformity. Symmetrical expansion. LUNGS: Diminished breath sounds bilaterally, no rhonchi or wheezes CVS: Regular rate and rhythm, normal S1 and S2, no gallops, no murmurs, no rubs ABDOMEN: Soft, nontender. No hepatosplenomegaly, normal bowel sounds, no guarding or rigidity. EXTREMITIES: No clubbing, mild edema, no cyanosis, 2+ pulses and upper and lower extremities. neurologic: Alert oriented 3, no gross focal neurologic deficit Psychiatric normal mood affect and mental status examination. - Labs CBC & Chem 7: 10/13/18 17:25 10/18/18 06:41 Labs: Abnormal Lab Results - Last 24 Hours (Table) 10/18/18 Range/Units 06:41 BUN 39 H (9-20) mg/dL Creatinine 1.92 H (0.66-1.25) mg/dL Glucose 107 H (74-99) mg/dL Microbiology - Last 24 Hours (Table) 10/15/18 13:35 Gram Stain - Final Sputum Sputum Culture - Final Assessment and Plan Assessment: #1. Hemoptysis related to oral anticoagulation, and tracheobronchitis. Patient was on oral Coumadin at home, did have 2 episodes of limited hemoptysis, about a teaspoon's worth. CT chest was obtained, and the findings are consistent with COPD with mild emphysema in the upper lobes, and there were some interstitial fibrotic changes at the lung bases, and some mild changes in the inferior li ngula that could represent inflammatory or infectious bronchiolitis. #2. Pancreatic mass, seen on the lower cuts of the CT chest, measuring 4.7 cm which had increased from previous studies. seen by oncology, and recommended outpatient follow-up in a tertiary care center #3. History of DVTs and pulmonary embolism in 2012 on chronic anticoagulation with Coumadin, which was subtherapeutic on admission, with INR 1.3. VQ scan was completed and showed low to intermediate probability of pulmonary embolism, lower extremity Dopplers were negative for DVT #4. Chronic persistent atrial fibrillation, on Coumadin, which has been switched to Eliquis #5. History of right ORIF for a recent fracture a few months ago, and patient has been sedentary, and not weightbearing up until a few weeks ago. #6. Chronic kidney disease stage III #7. Mildly elevated d-dimer, with hemoptysis, patient was on chronic anticoagulation although was subtherapeutic, patient has been switched to oral Eliquis. renal profile is abnormal, unable to do CT angios of the chest, VQ scan would probably be of little value in view of abnormal chest x-rays findings, and the patient will be on oral anticoagulation on oral Eliquis #8. acute exacerbation of chronic congestive heart failure, with diastolic dysfunction #9. Hypertension, hyperlipidemia, diabetes mellitus, morbid obesity, rheumatoid arthritis #10. Sleep apnea on CPAP therapy #11. Gout #12. Elevated troponins, cardiology following Recommendation: Continue present supportive care measures, CA 199 was noted to be relatively unremarkable, hence strongly doubt underlying pancreatic malignancy. Nonetheless the patient will require outpatient follow-up on his pancreatic mass. My recommendation this point is to continue present supportive care and consider discharge planning early next week. Good follow-up with me on outpatient basis. Time with Patient: Less than 30
--- NOTE | 2018-10-18 17:08 | PN ---
PROGRESS NOTE DATE OF SERVICE: 10/18/2018 PRESENTING COMPLAINT: Tired. INTERVAL HISTORY: The patient admitted with pneumonia, tracheobronchitis, hemoptysis. DVT and PE is ruled out. The patient otherwise feeling much better. The patient has been switched to oral Lasix. Pancreatic head mass will be worked up as an outpatient. Probably with endoscopic ultrasound. REVIEW OF SYSTEMS: Done for constitutional, cardiovascular, GI, pulmonary; relevant findings as above. CURRENT MEDICATIONS: Current medications are reviewed that include DuoNeb, Eliquis, IV ceftriaxone, oral prednisone. PHYSICAL EXAMINATION: VITAL SIGNS: Temperature 97.2 pulse 87, respirations 16, blood pressure 134/91, pulse ox 97% on room air. GENERAL APPEARANCE: Lying in bed, awake. EYES: Pupils equal. Conjunctiva injected. NECK: JVD unable to assess. Mass not palpable. RESPIRATORY: Effort increased. LUNGS: Diminished breath sounds. CARDIOVASCULAR: First and second sounds. Some edema. ABDOMEN: Distended, soft. Liver and spleen not palpable. PSYCHIATRY: Alert and oriented x3. Mood and affect normal. INVESTIGATIONS: Potassium 3.9, BUN 39, creatinine 1.92. ASSESSMENT: 1. Pneumonia, present on admission, clinical improvement. 2. Hemoptysis from pneumonia from being on anticoagulation. 3. Persistent atrial flutter, fibrillation. 4. Morbid obesity, body mass index 45. 5. Chronic kidney disease stage 3 from nephrosclerosis. 6. Gastroesophageal reflux disease. 7. Obstructive sleep apnea, uses CPAP. 8. Depression, not otherwise specified. 9. Troponin leak in setting of renal failure not felt to be acute coronary syndrome. 10.Anticoagulation switched over to Eliquis. 11.Acute on chronic congestive heart failure, diastolic dysfunction, stabilized. 12.Acute renal failure, on diuresis from prerenal component. 13.Bilateral hypoechoic nodules involving both the kidneys. 14.Cystic lesion on the pancreatic head 4.7 cm, for outpatient workup. PLAN: Care was discussed with the patient. Endoscopic ultrasound will have to be arranged through GI, who have been consulted. The patient is going to rehab on Saturday. Care was discussed with the patient. MMODL / IJN: [id number] /
--- NOTE | 2018-10-18 18:16 | P.PN ---
Subjective Progress Note Date: 10/18/18 This 63-year-old gentleman is admitted to the hospital with acute on chronic CHF, diastolic and also possible pneumonia. Patient has been on IV diuretics and has improved very well. Patient lost weight and his edema has cleared. Patient is being considered for rehab. Today. Appears to be stable. Computed tomography scan showed a cystic lesion in the pancreas and patient was brought up a oncology. Patient may have outpatient evaluation. Overall his critical status stable. Currently is on by mouth diuretics. We'll continue the current medical therapy. We will follow him as needed Objective - Vital Signs Vital signs: Vital Signs Temp 97.4 F L 10/18/18 16:00 Pulse 84 10/18/18 16:02 Resp 16 10/18/18 16:00 BP 124/80 10/18/18 16:00 Pulse Ox 96 10/18/18 16:00 Intake & Output 10/17/18 10/18/18 10/18/18 18:59 06:59 18:59 Intake Total 1130 480 Output Total 650 800 Balance 480 -320 Weight 156.4 kg Intake: Oral 1130 480 Output: Urine 650 800 Other: Voiding Method Urinal Urinal Urinal # Voids 0 - Exam GENERAL EXAM: Patient is alert and oriented and doesn't appear to be in any acute distress HEENT: Normocephalic. Normal reaction of pupils, equal size, normal range of extraocular motion. No erythema or exudates in the throat. NECK: No masses, no nuchal rigidity. CHEST: No chest wall deformity. LUNGS: Distant breath sounds at bases HEART: S1 and S2 normal with no audible mumurs or gallops. Regular rhythm, fem orals equal on both sides.. ABDOMEN: No hepatosplenomegaly, normal bowel sounds, no guarding or rigidity. SKIN: No rashes CENTRAL NERVOUS SYSTEM: No focal deficits. EXTREMITIES: Resolving edema - Labs CBC & Chem 7: 10/13/18 17:25 10/18/18 06:41 Labs: Abnormal Lab Results - Last 24 Hours (Table) 10/18/18 Range/Units 06:41 BUN 39 H (9-20) mg/dL Creatinine 1.92 H (0.66-1.25) mg/dL Glucose 107 H (74-99) mg/dL Microbiology - Last 24 Hours (Table) 10/15/18 13:35 Gram Stain - Final Sputum Sputum Culture - Final Assessment and Plan (1) Acute on chronic diastolic CHF (congestive heart failure) Current Visit: Yes Status: Acute Code(s): I50.33 - ACUTE ON CHRONIC DI ASTOLIC (CONGESTIVE) HEART FAILURE SNOMED Code(s): 531679456 (2) Cystic mass of pancreas Current Visit: Yes Status: Acute Code(s): K86.2 - CYST OF PANCREAS SNOMED Code(s): 12077156 (3) Elevated troponin Current Visit: Yes Status: Acute Code(s): R74.8 - ABNORMAL LEVELS OF OTHER SERUM ENZYMES SNOMED Code(s): 124692524 (4) Renal insufficiency syndrome Current Visit: Yes Status: Acute Code(s): N28.9 - DISORDER OF KIDNEY AND URETER, UNSPECIFIED SNOMED Code(s): 821900976 (5) Atrial fibrillation Current Visit: No Status: Acute Code(s): I48.91 - UNSPECIFIED ATRIAL FIBRILLATION SNOMED Code(s): 01583783 Plan: Continue current management. Possible transfer to rehab on Saturday. We'll follow him as needed
[2018-10-18] MEDS: LATANOPROST 0.005% OPHTH DROPS 2.5 ML BTL BOTH EYES SCH (20:49)
[2018-10-18] MEDS: CEFDINIR 300 MG CAP PO SCH (21:53)
[2018-10-19 07:25] LABS: Magnesium 1.8 mg/dL (1.6-2.3); Potassium 4.1 mmol/L (3.5-5.1)
[2018-10-19] MEDS: IPRATROPIUM-ALBUTEROL 3 ML NEB INHALATION SCH ×4 (08:08→19:37)
[2018-10-19] MEDS: CHOLECALCIFEROL 1,000 UNIT TAB PO SCH (08:55)
[2018-10-19] MEDS: METOPROLOL TARTRATE 25 MG TAB PO SCH ×2 (08:55→20:20)
[2018-10-19] MEDS: LISINOPRIL 20 MG TAB PO SCH (08:55)
[2018-10-19] MEDS: ASPIRIN 81 MG PO SCH (08:55)
[2018-10-19] MEDS: ALLOPURINOL 300 MG TAB PO SCH (08:55)
[2018-10-19] MEDS: ATORVASTATIN 20 MG TAB PO SCH (08:55)
[2018-10-19] MEDS: DULoxetine HCL 30 MG CAPSULE.DR PO SCH (08:55)
[2018-10-19] MEDS: APIXABAN 5 MG TAB PO SCH ×2 (08:55→20:20)
[2018-10-19] MEDS: FUROSEMIDE 40 MG TAB PO SCH ×2 (08:55→15:53)
[2018-10-19] MEDS: ISOSORBIDE MONONITRATE ER 30 MG TAB.ER.24H PO SCH (08:55)
[2018-10-19] MEDS: hydrALAZINE HCL 25 MG TAB PO SCH ×2 (08:55→20:20)
[2018-10-19] MEDS: predniSONE 10 MG TAB PO SCH (08:55)
[2018-10-19] MEDS: CYANOCOBALAMIN 500 MCG TAB PO SCH (08:55)
[2018-10-19] MEDS: oxyCODONE-APAP 10-325MG 1 EACH TAB PO PRN ×2 (08:55→15:53)
--- NOTE | 2018-10-19 10:12 | P.PN ---
Subjective Patient is seen in follow-up for acute kidney injury. Renal function is stable. He is currently maintained on Lasix 40 mg orally twice daily. Dyspnea and edema of both improved. Oral intake is fair. No vomiting or diarrhea. Potential plan to go to rehab tomorrow. Vital signs are stable. General: The patient appeared well nourished and normally developed. HEENT: Head exam is unremarkable. Neck is without jugular venous distension. LUNGS: Breath sounds decreased. HEART: Rate and Rhythm are regular. First and second heart sounds normal. No murmurs, rubs or gallops. ABDOMEN: Abdominal exam reveals normal bowel sounds. Non-tender and non- distended. No evidence of peritonitis. EXTREMITITES: Trace edema. Objective - Vital Signs Vital signs: Vital Signs Temp 97.7 F 10/19/18 07:59 Pulse 84 10/19/18 08:20 Resp 16 10/19/18 07:59 BP 133/85 10/19/18 07:59 Pulse Ox 99 10/19/18 08:08 Intake & Output 10/18/18 10/19/18 10/19/18 17:59 06:59 18:59 Intake Total Output Total 0 Balance 0 Weight Intake: Oral Output: Urine 0 Other: Voiding Method # Voids - Labs CBC & Chem 7: 10/13/18 17:25 10/19/18 06:30 Labs: Abnormal Lab Results - Last 24 Hours (Table) 10/19/18 Range/Units 06:30 BUN 41 H (9-20) mg/dL Creatinine 1.91 H (0.66-1.25) mg/dL Glucose 104 H (74-99) mg/dL Assessment and Plan Plan: Assessment: 1. Acute kidney injury mostly prerenal secondary to cardiorenal syndrome. Renal function stable. 2. Chronic kidney disease stage III with baseline creatinine near 1.5 secondary to nephrosclerosis. 3. Diastolic CHF with mild to moderate mitral regurgitation. 4. Volume overload improving the diuresis. 5. History of PE maintained on Eliquis. 6. Hypertension with chronic kidney disease. Controlled. 7. Complex cysts on the kidneys. 8. Hypomagnesemia secondary to diuresis status post replacement. Better. Plan: Maintain Lasix 40 mg po twice daily. Patient will need to follow-up with urology as an outpatient for the complex kidney cysts. Follow-up outpatient in CKD clinic in 2 weeks.
[2018-10-19] MEDS: CEFDINIR 300 MG CAP PO SCH ×2 (11:19→20:21)
[2018-10-19] MEDS: MULTIVITAMINS, THERA 1 EACH TAB PO SCH (11:19)
[2018-10-19] MEDS: FOLIC ACID 1 MG TAB PO SCH (11:19)
--- NOTE | 2018-10-19 11:47 | P.PN ---
Subjective Progress Note Date: 10/19/18 Principal diagnosis: Hemoptysis, tracheobronchitis. This is a 63 -year-old -[place] male with past medical history of obstructive sleep apnea on CPAP, chronic bronchial asthma, rheumatoid arthritis, chronic anemia, gout, past history of pulmonary embolism in 2012, and atrial fibrillation, and patient is on chronic anticoagulation the form of Coumadin. Patient presented to the emergency department with a few days history of cough, chest congestion, hemoptysis, abdominal discomfort on both sides of the torso from episodes of coughing.denied any fever or chills, denied any chest pain, no syncope.chest x-ray was completed and showed cardiomegaly with new mild central vascular congestion. labs showed a white blood cell count of 9.0, hemoglobin of 12.8, INR was subtherapeutic of 1.3, and patient states his been compliant with his Coumadin, sodium was 142, potassium is 4.8, chloride is 109, BUN was 23 and creatinine was 1.48. Patient does have underlying chronic kidney disease, and in the past has required hemodialysis. troponins were elevated to 0.042, 0.054, and 0.045. Magnesium was low at 1.5 proBNP was 3810. He has been afebrile. The amount of hemoptysis he describes as about a teaspoon. patient did have some increased swelling in his lower extremities. EKG showed atrial fibrillation with a rate of 104 BPM. He's been seen by cardiology, and his Coumadin was switched over to Eliquis. D-Dimer was slightly elevated to 0.90. he was started on IV Lasix at 40 mg every 12 hours, he is on oral prednisone at 10 mg daily for his history of rheumatoid arthritis, empiric antibiotics were added, and patient is on breathing treatments. On 10/15/2018 patient seen in follow-up on selective care unit, he is resting comfortably in bed, on CPAP. Did bring up a small amount of blood-tinged sputum this morning, a single episode, no further hemoptysis, vital signs are stable, no fever or chills. Patient has been switched from Coumadin to Eliquis Cardiology, he underwent a VQ scan last night which showed intermediate to low probability for pulmonary embolism, sounds are diminished, no significant rhonchi or wheezing, patient continues on IV diuretics, he is on antibiotic coverage in the form of Rocephin. He is on oral prednisone, and breathing treat ments. Lower extremity edema is improving, ultrasound of lower extremity did not show any evidence of DVT, today's labs have been reviewed, BNP was done, normal CBC, a large less are within normal limits, B1 is 31 and creatinine is 1.81. No complaints of chest pain, no worsening shortness of breath. On 10/16/2018 patient seen in follow-up. He is alert and awake, in no acute distress, he is resting comfortably in bed, he is wearing CPAP at bedtime and as needed during the day, on today's exam patient sounds less congested, his cough is essentially dry, did bring up a very small amount of brownish colored sputum this morning. Influenza screen was negative, antibiotic coverage in the form of Rocephin, he is on oral anticoagulation in the form of Eliquis, continues on IV diuretics, is in negative fluid balance, -1106 mL. Complaints of worsening chest pain, or shortness of breath. On 10/17/2018 patient seen in follow-up on selective care unit, he is resting comfortably in bed, in no acute distress, patient had a CT chest done yesterday, and the findings were consistent with COPD, with mild emphysema, pulmonary arterial hypertension, there was some mild reticular changes at the lung bases that could represent some interstitial fibrotic changes. There was some mild tree-in-bud densities in the inferior lingula that could represent inflammatory or infectious bronchiolitis. Upper abdomen findings include multiple lesions of the kidneys, but most concerning there was an enlarging exophytic lesion from the pancreatic head/neck measuring 4.7 cm which had previously measured 4.1 cm MRI pancreas was recommended for follow-up. But otherwise patient is less congested, he is wearing his CPAP unit during the day during naps, and at bedtime, no worsening shortness of breath, very small amount of brownish sputum this morning, no significant hemoptysis, afebrile, sputum culture gram stain showed no organisms. On 10/19/2018 patient seen in follow-up in selective care unit, he sitting up on the edge of the bed, in no acute distress, he is currently on room air, eyes any shortness of breath, no cough or congestion, no further episodes of hemoptysis. Afebrile, vital signs are stable, no chest pain. Medical oncology consultation was noted. CA 199 level is not elevated, patient will have outpatient follow- up with an endoscopic ultrasound in regards to the cystic mass of the pancreas. Labs have been reviewed and showed electrolytes within normal limits, renal profile is stable, would BUN of 41 and creatinine is 1.91. Sputum culture showed no growth, headaches have been transitioned to oral Omnicef, patient is on oral Lasix, nebulized bronchodilators. We'll perspective patient is stable, he is on oral anticoagulation in the form of Eliquis for his history of pulmonary embolisms. Objective - Vital Signs Vital signs: Vital Signs Temp 97.7 F 10/19/18 07:59 Pulse 84 10/19/18 08:20 Resp 16 10/19/18 07:59 BP 133/85 10/19/18 07:59 Pulse Ox 99 10/19/18 08:08 Intake & Output 10/18/18 10/19/18 10/19/18 17:59 06:59 18:59 Intake Total Output Total 0 Balance 0 Weight Intake: Oral Output: Urine 0 Other: Voiding Method # Voids - Exam GENERAL EXAM: Alert, pleasant, 63-year-old -[place] male, obese, on room air with a pulse ox of 94% HEAD: Normocephalic/atraumatic. EYES: Normal reaction of pupils, equal size. Conjunctiva pink, right scleral redness, could be related to episodes of coughing spells NOSE: Clear with pink turbinates. THROAT: No erythema or exudates. NECK: No masses, no JVD, no thyroid enlargement, no adenopathy. CHEST: No chest wall deformity. Symmetrical expansion. LUNGS: Diminished breath sounds bilaterally, no rhonchi or wheezes CVS: Regular rate and rhythm, normal S1 and S2, no gallops, no murmurs, no rubs ABDOMEN: Soft, nontender. No hepatosplenomegaly, normal bowel sounds, no guarding or rigidity. EXTREMITIES: No clubbing, mild edema, no cyanosis, 2+ pulses and upper and lower extremities. MUSCULOSKELETAL: Muscle strength and tone normal. Right wrist bony prominence maybe related to rheumatoid arthritis SPINE: No scoliosis or deformity SKIN: No rashes CENTRAL NERVOUS SYSTEM: Alert and oriented -3. No focal deficits, tone is normal in all 4 extremities. PSYCHIATRIC: Alert and oriented -3. Appropriate affect. Intact judgment and insight. - Labs CBC & Chem 7: 10/13/18 17:25 10/19/18 06:30 Labs: Abnormal Lab Results - Last 24 Hours (Table) 10/19/18 Range/Units 06:30 BUN 41 H (9-20) mg/dL Creatinine 1.91 H (0.66-1.25) mg/dL Glucose 104 H (74-99) mg/dL Assessment and Plan Plan: Assessment: #1. Hemoptysis related to oral anticoagulation, and tracheobronchitis. Patient was on oral Coumadin at home, did have 2 episodes of limited hemoptysis, about a teaspoon's worth. CT chest was obtained, and the findings are consistent with COPD with mild emphysema in the upper lobes, and there were some interstitial fibrotic changes at the lung bases, and some mild changes in the inferior lingula that could represent inflammatory or infectious bronchiolitis. #2. Pancreatic mass, seen on the lower cuts of the CT chest, measuring 4.7 cm which had increased from previous studies in December 2017, have an outpatient endoscopic ultrasound #3. History of DVTs and pulmonary embolism in 2012 on chronic anticoagulation with Coumadin, which was subtherapeutic on admission, with INR 1.3. VQ scan was completed and showed low to intermediate probability of pulmonary embolism, lower extremity Dopplers were negative for DVT #4. Chronic persistent atrial fibrillation, on Coumadin, which has been switched to Eliquis #5. History of right ORIF for a recent fracture a few months ago, and patient has been sedentary, and not weightbearing up until a few weeks ago. #6. Chronic kidney disease stage III #7. Mildly elevated d-dimer, with hemoptysis, patient was on chronic anticoagul ation although was subtherapeutic, patient has been switched to oral Eliquis. renal profile is abnormal, unable to do CT angios of the chest, VQ scan would probably be of little value in view of abnormal chest x-rays findings, and the patient will be on oral anticoagulation on oral Eliquis #8. acute exacerbation of chronic congestive heart failure, with diastolic dysfunction #9. Hypertension, hyperlipidemia, diabetes mellitus, morbid obesity, rheumatoid arthritis #10. Sleep apnea on CPAP therapy #11. Gout #12. Elevated troponins, cardiology following Plan: Continue current treatment, no acute events overnight, no further hemoptysis, vital signs are stable, patient is on oral anticoagulation in the form of Eliquis his history of pulmonary embolism, no worsening cough or chest con gestion. He is on room air, his discharge is being planned for tomorrow and patient will be going to subacute rehab for rehabilitation. I performed a history & physical examination of the patient and discussed their management with my nurse practitioner, Lakeisha Strauss. I reviewed the nurse practitioner's note and agree with the documented findings and plan of care. Lung sounds are positive diminished breath sounds. The findings and the impression was discussed with the patient. I attest to the documentation by the nurse practitioner. Time with Patient: Less than 30
--- NOTE | 2018-10-19 17:23 | PN ---
PROGRESS NOTE DATE OF SERVICE: October 19, 2018. PRESENTING COMPLAINT: Tired. INTERVAL HISTORY: Patient admitted with pneumonia and hemoptysis. [place] to be from blood thinners, which is all settled down. Breathing is much improved, DVT, PE was ruled out. Tolerating a diet. Lying in bed. The patient is waiting to go to the rehab. REVIEW OF SYSTEMS: Done for constitutional, cardiovascular, GI, pulmonary, relevant findings as above. CURRENT MEDICATIONS: Reviewed. PHYSICAL EXAMINATION: VITAL SIGNS: Temperature 97.5, pulse 91, respiration 16, blood pressure 137/96, pulse ox 97% on room air. GENERAL APPEARANCE: Lying in bed, awake. EYES: Pupils equal. Conjunctivae normal. Neck: JVD unable to assess. Mass not palpable. RESPIRATORY: Effort normal. LUNGS: Fair air entry. CARDIOVASCULAR: First and second sounds normal. Minimal edema. ABDOMEN: Soft, nontender. Liver and spleen not palpable. PSYCHIATRY: Alert and oriented x3. Mood and affect normal. INVESTIGATIONS: BUN 41, creatinine 1.91. ASSESSMENT: 1. Pneumonia, present on admission with significant improvement on oral antibiotic. 2. Hemoptysis from pneumonia from being on anticoagulation. 3. Persistent atrial flutter fibrillation. 4. Morbid obesity BMI 45. 5. Chronic kidney disease stage 3 from nephrosclerosis. 6. Gastroesophageal reflux disease. 7. Obstructive sleep apnea uses CPAP. 8. Depression, not otherwise specified. 9. Troponin leak from setting of renal failure not felt to be acute coronary syndrome. 10.Anticoagulation switched over to Eliquis. 11.Acute on chronic congestive heart failure, diastolic dysfunction, stabilized. 12.Acute renal failure on dialysis from prerenal component. 13.Bilateral hypoechoic nodules involving both the kidneys. 14.Cystic lesion in the pancreatic head 4.7 cm for outpatient endoscopic ultrasound. PLAN: Spoke to Dr. Vidales from Gastroenterology. He will coordinate the patient to have an endoscopic ultrasound as an outpatient. The patient should be able to go to rehab tomorrow. Care was discussed with the patient and at the bedside. MMODL / IJN: [id number] /
[2018-10-19] MEDS: LATANOPROST 0.005% OPHTH DROPS 2.5 ML BTL BOTH EYES SCH (20:20)
[2018-10-20] MEDS: oxyCODONE-APAP 10-325MG 1 EACH TAB PO PRN ×4 (03:42→21:38)
[2018-10-20] MEDS: IPRATROPIUM-ALBUTEROL 3 ML NEB INHALATION SCH ×4 (07:23→20:42)
[2018-10-20] MEDS: CHOLECALCIFEROL 1,000 UNIT TAB PO SCH (10:03)
[2018-10-20] MEDS: CEFDINIR 300 MG CAP PO SCH ×2 (10:03→21:39)
[2018-10-20] MEDS: predniSONE 10 MG TAB PO SCH (10:03)
[2018-10-20] MEDS: ISOSORBIDE MONONITRATE ER 30 MG TAB.ER.24H PO SCH (10:03)
[2018-10-20] MEDS: ASPIRIN 81 MG PO SCH (10:03)
[2018-10-20] MEDS: ALLOPURINOL 300 MG TAB PO SCH (10:03)
[2018-10-20] MEDS: FUROSEMIDE 40 MG TAB PO SCH ×2 (10:04→15:35)
[2018-10-20] MEDS: ATORVASTATIN 20 MG TAB PO SCH (10:04)
[2018-10-20] MEDS: hydrALAZINE HCL 25 MG TAB PO SCH ×2 (10:04→21:38)
[2018-10-20] MEDS: LISINOPRIL 20 MG TAB PO SCH (10:04)
[2018-10-20] MEDS: DULoxetine HCL 30 MG CAPSULE.DR PO SCH (10:04)
[2018-10-20] MEDS: APIXABAN 5 MG TAB PO SCH ×2 (10:04→21:38)
[2018-10-20] MEDS: CYANOCOBALAMIN 500 MCG TAB PO SCH (10:04)
[2018-10-20] MEDS: METOPROLOL TARTRATE 25 MG TAB PO SCH ×2 (10:04→21:38)
[2018-10-20] MEDS: FOLIC ACID 1 MG TAB PO SCH (12:04)
[2018-10-20] MEDS: MULTIVITAMINS, THERA 1 EACH TAB PO SCH (12:04)
--- NOTE | 2018-10-20 15:51 | PN ---
PROGRESS NOTE The patient is seen for followup for chronic kidney disease and acute kidney injury. His renal function is fairly stable now with creatinine staying at 1.9. Admission creatinine was 1.48 and previously he has been at about 1.3 and 1.5 mg/dL. Currently, patient is being diuresed with Lasix. It is p.o. 40 mg b.i.d. The patient has underlying polycystic kidney disease for which he will need followup as outpatient. PHYSICAL EXAMINATION: On examination today, blood pressure is 134/76, heart rate 92 per minute. He is afebrile. Examination of the heart S1, S2. Examination of the lungs bilateral breath sounds are heard. Decreased breath sounds at bases. Abdomen is soft, obese. Examination of lower extremity shows chronic skin changes, chronic edema 2+ bilaterally. JOURNEY LINEMAN exam is grossly intact. LABS: Show sodium 140, potassium 4.1, BUN 41, serum creatinine 1.91. ASSESSMENT: 1. Chronic kidney disease secondary to nephrosclerosis versus polycystic kidney disease. Baseline creatinine about 1.3-1.5 mg/dL. The patient is maintained on RORY inhibitors, which we can continue. 2. Volume overload, improved since admission. 3. Congestive heart failure, acute on top of chronic, mainly diastolic with ejection fraction 50 to 55% with severely dilated left atrium. PLAN: Continue with current dose of diuretics. Continue with RORY inhibitors. The patient will need follow up as outpatient with Nephrology as well as urology regarding the complexes. MMODL / IJN: [id number] /
--- NOTE | 2018-10-20 16:36 | DS ---
DISCHARGE SUMMARY DATE OF ADMISSION: 10/14/2018 DATE OF DISCHARGE: 10/20/2018 FINAL DIAGNOSES: 1. Pneumonia. Suspect gram-negative organism. 2. Hemoptysis from pneumonia. 3. Persistent atrial flutter/fibrillation, rate controlled. 4. Morbid obesity; body mass index 45. 5. Chronic kidney disease, stage III, from nephrosclerosis. 6. Gastroesophageal reflux disease. 7. Obstructive sleep apnea. Uses CPAP. 8. Depression not otherwise specified. 9. Troponin leak from the setting of renal failure, not felt to be acute coronary syndrome. 10.Anticoagulation switched from Coumadin to Eliquis. 11.Acute on chronic congestive heart failure from diastolic dysfunction, ejection fraction around 55%. 12.Acute renal failure, on diuresis, from prerenal component. 13.Bilateral hypoechoic nodules involving both the kidneys. 14.Cystic lesion in the pancreatic head, 4.7 cm, for which outpatient endoscopic ultrasound is being arranged by GI. HOSPITAL COURSE: This patient presented with pneumonia and hemoptysis felt to be secondary to same. Doppler ultrasound of the lower extremities was normal. Chest CT scan showed some changes. There were also changes in the kidneys. Pancreatic head with exophytic lesion 4.7 cm. I spoke to Dr. Vidales. He will arrange for outpatient endoscopic ultrasound at an outside facility. Doppler ultrasound was negative for DVT in both legs. Two-D echocardiogram showed an EF around 50% to 55%. Patient's respiratory symptoms are well controlled. Patient was felt to have a prerenal component. PHYSICAL EXAMINATION: Afebrile. Pulse 69, respiration 16, blood pressure 128/63, pulse ox 97% on room air. LUNGS: Fair air entry. Mild edema. ABDOMEN: Distended, soft. Liver and spleen not palpable. PSYCHIATRY: Alert and oriented x3. Mood and affect normal. INVESTIGATIONS: Potassium 4.1, BUN 41, creatinine 1.91. CONSULTATIONS: 1. Dr. Fletcher from Cardiology. 2. Dr. Marin from Pulmonary. 3. Dr. Unger from Nephrology. 4. Dr. Hernandez from Oncology for pancreatic head lesion. DISCHARGE MEDICATIONS: 1. Allopurinol 300 mg a day. 2. Vitamin D3 1000 units p.o. daily. 3. Vitamin B12 1000 mcg a day. 4. Folic acid 0.4 mg a day. 5. Zestril 10 mg b.i.d. 6. Lopressor 25 mg b.i.d. 7. Lipitor 20 mg p.o. daily. 8. Cymbalta 30 mg p.o. daily. 9. Multivitamin 1 tablet p.o. daily. 10.Latanoprost 0.005% one drop to both eyes at bedtime. 11.Prednisone 10 mg a day. 12.Eliquis 5 mg b.i.d. 13.Aspirin 81 mg p.o. daily. 14.Omnicef 300 mg b.i.d.; 6 capsules. 15.Lasix 40 mg b.i.d. 16.Imdur ER 30 mg p.o. daily. 17.Hydralazine 25 mg b.i.d. 18.Percocet 10 one tablet q.6 p.r.n. Follow up with Dr. Marin in one week. Follow up with Dr. Almonte in 2 weeks. Follow up with Dr. Unger in one week. Follow up with Dr. Vaca as needed. Follow up with Dr. Leonard at [facility]. DISPOSITION: [facility]. Labs CBC, BMP in 5 days. SPECIAL NOTE: Dr. Vidales's office will be arranging for endoscopic ultrasound for the patient at an outside facility for the pancreatic exophytic mass. MMODL / IJN: [id number] /
[2018-10-20 20:11] VITALS: RESP 18
--- NOTE | 2018-10-20 20:49 | P.CONS ---
History of Present Illness - Reason for Consult Consult date: 10/19/18 Pancreatic mass - History of Present Illness The patient is a 63-year-old male who was admitted to the hospital with incre asing shortness of breath, cough and chest congestion. He was also having intermittent hemoptysis. He required ICU care. During this admission, he had a VQ scan, that was low to intermediate probability for PE, Dopplers of the lower extremities which were negative, and a CT scan of the chest. Definite evidence of pneumonia was not found. He is currently improved with aggressive medical treatment per the admitting service, and pulmonary medicine. Due to his other medical issues, which include CAD, he is being followed by cardiology and nephrology and oncology. CT of the chest incidentally noted a 4.7 cm cystic lesion in the pancreas. This appeared to have increased in size compared to previous CAT scan done in 12/27, when it was 4.1 cm. we are asked to see him for evaluation and recommendations he has no history of pancreatitis or alcohol dependency. Review of Systems Constitutional: Denied fever, chills or unintentional weight loss Neurologic: No headaches, double vision or other sensory or motor changes Cardiopulmonary: No chest pains, shortness of breath or palpitations Gastrointestinal: See present illness above Genitourinary: No hematuria, dysuria or frequency Endocrine: No history of diabetes or thyroid disease Hematologic: No history of anemia or bleeding tendency Musculoskeletal: No joint pains or swelling Skin: No rashes Psychiatric: No anxiety or depression Past Medical History Past Medical History: Atrial Fibrillation, Asthma, Deep Vein Thrombosis (DVT), Hypertension, Pulmonary Embolus (PE), Renal Disease, Rheumatoid Arthritis (RA) Additional Past Medical History / Comment(s): gout, sickle cell, CKD stage 3 (dialysis 2004), sleep apnea, pneuropathy, glaucoma History of Any Multi-Drug Resistant Organisms: MRSA Year Discovered:: 2013 MDRO Source:: foot Past Surgical History: Joint Replacement, Orthopedic Surgery Additional Past Surgical History / Comment(s): Left knee replaced; multiple toe amputations, tib/fib surgery in May 2018 Past Anesthesia/Blood Transfusion Reactions: No Reported Reaction Past Psychological History: No Psychological Hx Reported Additional Psychological History / Comment(s): lives with his . [place] citizen living in [place]. No tobacco use or alcohol use. 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 No international travel. No animal exposures Smoking Status: Never smoker Past Alcohol Use History: None Reported Past Drug Use History: Marijuana Additional Drug Use History / Comment(s): pt. states he occasionally eats marijuana edibles for pain - Past Family History Father Family Medical History: Diabetes Mellitus, Myocardial Infarction ([place]) Mother Family Medical History: CVA/TIA Sister(s) Family Medical History: Hypertension Additional Family Medical History / Comment(s): RA Medications and Allergies Home Medications Medication Instructions Recorded Confirmed Type Allopurinol [Zyloprim] 300 mg PO DAILY 08/25/17 10/13/18 History Cholecalciferol [Vitamin D3] 1,000 unit PO DAILY 08/25/17 10/13/18 History Cyanocobalamin (Vitamin B-12) 1,000 mcg PO DAILY 08/25/17 10/13/18 History [Vitamin B-12] Folic Acid 0.4 mg PO DAILY 08/25/17 10/13/18 History Lisinopril [Zestril] 10 mg PO BID 08/25/17 10/13/18 History Metoprolol Tartrate [Lopressor] 25 mg PO BID 08/25/17 10/13/18 History Atorvastatin Calcium [Lipitor] 20 mg PO DAILY 05/14/18 10/13/18 History DULoxetine HCL [Cymbalta] 30 mg PO DAILY 05/14/18 10/13/18 History Multivitamins, Thera [Multivitamin 1 tab PO DAILY@1200 05/14/18 10/13/18 History (formulary)] Latanoprost/Pf [Latanoprost 0.005% 1 drop BOTH EYES HS 10/13/18 10/13/18 History Eye Drop] predniSONE 10 mg PO DAILY 10/13/18 10/13/18 History Apixaban [Eliquis] 5 mg PO BID tab 10/20/18 Rx Aspirin 81 mg PO DAILY chew 10/20/18 Rx Cefdinir [Omnicef] 300 mg PO BID #6 cap 10/20/18 Rx Furosemide [Lasix] 40 mg PO BID@0900,1600 tab 10/20/18 Rx Isosorbide Mononitrate ER [Imdur] 30 mg PO DAILY tab.er.24h 10/20/18 Rx hydrALAZINE HCL [Apresoline] 25 mg PO BID tab 03/11/19 Rx oxyCODONE-APAP 10-325MG [Percocet 1 tab PO Q6HR PRN #10 tab 10/20/18 Rx 10-325 mg] Allergies Allergy/AdvReac Type Severity Reaction Status Date / Time Sulfa (Sulfonamide Allergy Rash/Hives Verified 10/13/18 17:29 Antibiotics) Physical Exam Vitals: Vital Signs Temp Pulse Pulse Resp BP Pulse Ox 10/19/18 08:20 84 10/19/18 08:08 84 99 10/19/18 07:59 97.7 F 90 16 133/85 100 10/19/18 03:31 97.5 F L 85 20 153/79 96 10/18/18 23:22 96 20 136/92 93 L 10/18/18 20:52 97.8 F 85 18 139/71 94 L 10/18/18 19:39 88 10/18/18 19:30 85 10/18/18 16:02 84 10/18/18 16:00 97.4 F L 80 16 124/80 96 10/18/18 15:50 82 10/18/18 12:58 84 10/18/18 12:44 84 10/18/18 12:00 97.2 F L 87 16 134/91 97 Intake and Output 10/18/18 10/19/18 10/19/18 21:59 06:59 14:59 Output Total 0 Balance 0 Output: Urine 0 Other: # Voids Weight General: Appeared stated age, very pleasant in no acute distress Head and neck: Normocephalic and atraumatic, conjunctivae pink and sclerae not icteric, mucous membranes moist and pink. No masses in the neck or tracheal shifts Lungs: Clear to auscultation with no dullness to percussion Heart: Regular, no abnormal sounds, murmurs, gallops or friction rubs ABDOMEN: Soft no masses, organomegalies or tenderness. Bowel sounds present Extremities: No clubbing, cyanosis or edema Neurologic: Alert and oriented 3. Cranial nerves grossly intact. No gross sensory or motor other abnormalities Results CBC & Chem 7: 10/13/18 17:25 10/19/18 06:30 Labs: Abnormal Lab Results - Last 24 Hours (Table) 10/19/18 Range/Units 06:30 BUN 41 H (9-20) mg/dL Creatinine 1.91 H (0.66-1.25) mg/dL Glucose 104 H (74-99) mg/dL Assessment and Plan Assessment: 63-year-old male with finding of encopretic cystic lesion that has increased slightly in size compared to an exam from last year. Malignancy would still need to be excluded. Plan: We will facilitate referral for endoscopic ultrasound at the tertiary center. Patient preference is to go to [facility]. We will arrange the evaluation on the outpatient basis.
[2018-10-20] MEDS: LATANOPROST 0.005% OPHTH DROPS 2.5 ML BTL BOTH EYES SCH (21:40)
[2018-10-21 08:06] VITALS: TEMP 97.5
[2018-10-21] MEDS: IPRATROPIUM-ALBUTEROL 3 ML NEB INHALATION SCH ×3 (08:16→15:19)
[2018-10-21] MEDS: METOPROLOL TARTRATE 25 MG TAB PO SCH (08:45)
[2018-10-21] MEDS: ISOSORBIDE MONONITRATE ER 30 MG TAB.ER.24H PO SCH (08:45)
[2018-10-21] MEDS: CHOLECALCIFEROL 1,000 UNIT TAB PO SCH (08:45)
[2018-10-21] MEDS: LISINOPRIL 20 MG TAB PO SCH (08:45)
[2018-10-21] MEDS: ASPIRIN 81 MG PO SCH (08:45)
[2018-10-21] MEDS: ALLOPURINOL 300 MG TAB PO SCH (08:45)
[2018-10-21] MEDS: hydrALAZINE HCL 25 MG TAB PO SCH (08:45)
[2018-10-21] MEDS: DULoxetine HCL 30 MG CAPSULE.DR PO SCH (08:45)
[2018-10-21] MEDS: CYANOCOBALAMIN 500 MCG TAB PO SCH (08:45)
[2018-10-21] MEDS: predniSONE 10 MG TAB PO SCH (08:45)
[2018-10-21] MEDS: CEFDINIR 300 MG CAP PO SCH (08:46)
[2018-10-21] MEDS: FUROSEMIDE 40 MG TAB PO SCH (08:46)
[2018-10-21] MEDS: APIXABAN 5 MG TAB PO SCH (08:46)
[2018-10-21] MEDS: ATORVASTATIN 20 MG TAB PO SCH (08:46)
[2018-10-21] MEDS: oxyCODONE-APAP 10-325MG 1 EACH TAB PO PRN ×2 (08:46→15:15)
[2018-10-21 10:29] VITALS: BMI 47.8
--- NOTE | 2018-10-21 10:56 | P.PN ---
Subjective Progress Note Date: 10/21/18 Principal diagnosis: Pancreatic lesion Admitted with COPD exacerbation. Feels well today. No complaints. Being discharged to ECF today. Tolerating diet. CA-19-[address] chest 4.7 cm cystic lesion in the pancreas. Objective - Vital Signs Vital signs: Vital Signs Temp 97.5 F L 10/21/18 08:00 Pulse 72 10/21/18 08:24 Resp 18 10/21/18 08:00 BP 131/74 10/21/18 08:00 Pulse Ox 100 10/21/18 08:00 Intake & Output 10/20/18 10/21/18 10/21/18 18:59 06:59 18:59 Intake Total 600 10 Output Total 1000 300 Balance -400 -290 Weight 159.9 kg 159.9 kg Intake: IV 10 0.9 10 Oral 600 Output: Urine 1000 300 Other: Voiding Method Urinal # Voids 1 - Exam General appearance: The patient is alert, oriented, in no acute distress. HET: Head is normocephalic and atraumatic. Pupils are equal and reactive. Oropharynx is clear without lesions. Neck: Supple without lymphadenopathy. Trachea midline. Heart: S1 S2. Regular rate and rhythm. Lungs: No crackles or wheezes are heard. Diminished in bases bilaterally. Abdomen: Soft, nontender, nondistended with bowel sounds. No peritoneal signs. No palpable organomegaly or masses. Extremities: Normal skin color and turgor. No cyanosis, rash, ulceration, clubbing, or edema. Radial and pedal pulses are 2/4 bilaterally. Neurological: No focal deficits. Strength and sensation are grossly intact. - Labs CBC & Chem 7: 10/13/18 17:25 10/19/18 06:30 Assessment and Plan (1) Cystic mass of pancreas Narrative/Plan: Underlying malignant process cannot be excluded Current Visit: Yes Status: Acute Code(s): K86.2 - CYST OF PANCREAS SNOMED Code(s): 82919825 Plan: 1. Patient was advised to follow-up in office in 2-3 weeks for reevaluation, GI office will assist scheduling outpatient EUS however patient declined office visit at this time. He requested office phone number to be placed on his DC paperwork and he will discuss with his and they will call after November 10 to schedule. Assessment and plan a care discussed with Dr. Vidales
[2018-10-21 13:16] VITALS: BP 135/68; PULSE 68
[2018-10-21] MEDS: FOLIC ACID 1 MG TAB PO SCH (15:15)
[2018-10-21] MEDS: MULTIVITAMINS, THERA 1 EACH TAB PO SCH (15:15)
--- NOTE | 2018-10-21 16:07 | PN ---
PROGRESS NOTE Patient is seen for followup for chronic kidney disease and acute kidney injury which was mainly cardiorenal. Patient has been diuresed. He also has underlying bilateral renal cysts, and two of them are complex. Patient is being discharged. He will follow up as outpatient with Nephrology and Urology. On examination, patient is awake, comfortable. He is not in any acute distress. Blood pressure was 135/68, heart rate 76 per minute. He is afebrile. EXAMINATION OF THE HEART: S1 and S2. EXAMINATION OF LUNGS: Bilateral breath sounds are heard. ABDOMEN: Soft, non-tender, obese. Examination of lower extremities shows chronic skin changes. Bilateral 1+ edema is noted. Patient has bilateral deformities in both hands from rheumatoid arthritis. BOOK MENDER exam is grossly intact. Labs are not available from today. ASSESSMENT: 1. Chronic kidney disease secondary to nephrosclerosis and polycystic kidney disease. Patient will need to follow up as outpatient. He is stage III. 2. Volume overload, currently improved. 3. Congestive heart failure, acute on top of chronic, mainly diastolic. 4. Severely dilated left atrium. 5. Complex cysts noted on the kidney; to follow up with Urology as outpatient. 6. Rheumatoid arthritis with deformities in the hands. PLAN: Follow up with Nephrology and Urology as outpatient. Continue with diuretics. Continue with the current dose of RORY inhibitors as well. We will adjust the medications if needed as outpatient. MMODL / IJN: [id number] /
--- NOTE | 2018-10-22 12:59 | CDI ---
Documentation Clarification Form Date: 10/22/18 From: Rebecca Wilber Anny Roland, [employer] Hours-8:30 am & 5 pm M-F Admit Date: 10/14/2018 8:06:00 AM Patient Name: Danyel Ventura Visit Number: [id number] Discharge Date: 10/21/2018 3:29:00 PM ATTENTION: The Clinical Documentation Specialists (CDI) and [facility] Coding Staff appreciate your assistance in clarifying documentation. Please respond to the clarification below the line at the bottom and electronically sign. The CDI & [facility] Coding staff will review the response and follow-up if needed. Please note: Queries are made part of the Legal Health Record. If you have any questions, please contact the author of this message via ITS. Dr. Will Berry Atrial Flutter is documented in the your H&P, DS and your PNs. History/Risk factors: persistent a fib, HTN, A/C diastolic CHF, CKD III EKG/telemetry: shows atrial flutter fibrillation with some PVCs Treatment: chronically on Coumadin, Coumadin changed to Eliquis In your professional opinion, in order to capture the severity of condition; can you please clarify the type of Atrial Flutter if known? Typical/Type I Atypical/Type II Other, please specify Unable to determine unable to determine MTDD
== END 2018-10-21 15:29 | DRG 177 ==
LOC: EC 16:40 → 3SCARD 20:46 → OBSVTOIN 10-14 08:06
PROVIDERS: ADMIT Hospitalist; ATTEND Hospitalist
DX: J15.6 Pneumonia due to other Gram-negative bacteria (principal); I50.33 Acute on chronic diastolic (congestive) heart failure; I13.0 Hypertensive heart and chronic kidney disease with heart failure and stage 1 through stage 4 chronic kidney disease, or unspecified chronic kidney disease; I48.1 Persistent atrial fibrillation; Z68.42 Body mass index [BMI] 45.0-49.9, adult; R04.2 Hemoptysis; N17.9 Acute kidney failure, unspecified; K86.2 Cyst of pancreas; J98.11 Atelectasis; Q61.3 Polycystic kidney, unspecified; I48.92 Unspecified atrial flutter; E66.01 Morbid (severe) obesity due to excess calories; E11.22 Type 2 diabetes mellitus with diabetic chronic kidney disease; E11.42 Type 2 diabetes mellitus with diabetic polyneuropathy; E83.42 Hypomagnesemia; J43.9 Emphysema, unspecified; D57.1 Sickle-cell disease without crisis; N18.3 Chronic kidney disease, stage 3 (moderate); G47.33 Obstructive sleep apnea (adult) (pediatric); E78.5 Hyperlipidemia, unspecified; I34.0 Nonrheumatic mitral (valve) insufficiency; I49.3 Ventricular premature depolarization; M06.9 Rheumatoid arthritis, unspecified; K21.9 Gastro-esophageal reflux disease without esophagitis; M10.9 Gout, unspecified; H40.9 Unspecified glaucoma; R77.8 Other specified abnormalities of plasma proteins; F32.9 Major depressive disorder, single episode, unspecified; Z71.3 Dietary counseling and surveillance; Z79.01 Long term (current) use of anticoagulants; Z79.52 Long term (current) use of systemic steroids; Z79.899 Other long term (current) drug therapy; Z86.718 Personal history of other venous thrombosis and embolism; Z86.711 Personal history of pulmonary embolism; Z87.81 Personal history of (healed) traumatic fracture; Z96.652 Presence of left artificial knee joint; Z86.14 Personal history of Methicillin resistant Staphylococcus aureus infection; Z89.429 Acquired absence of other toe(s), unspecified side; Z88.2 Allergy status to sulfonamides; Z83.3 Family history of diabetes mellitus; Z82.49 Family history of ischemic heart disease and other diseases of the circulatory system; Z82.61 Family history of arthritis; Z82.3 Family history of stroke; I25.10 Atherosclerotic heart disease of native coronary artery without angina pectoris; I27.21 Secondary pulmonary arterial hypertension; J20.9 Acute bronchitis, unspecified; M19.90 Unspecified osteoarthritis, unspecified site; T50.2X5A Adverse effect of carbonic-anhydrase inhibitors, benzothiadiazides and other diuretics, initial encounter; D64.9 Anemia, unspecified
CPT/HCPCS: 36415; 71046; 71250; 76770; 78582; 80048; 80053; 81003; 83735; 83880; 84484; 85025; 85379; 85610; 85730; 86301; 87070; 87205; 87502; 93005; 93306; 93970; 94640; 94660; 94760; 96365; 96366; 96375; 99285

== ENCOUNTER 2018-11-18 13:23 | Inpatient (IN) | payer MEDICARE ==
--- NOTE | 2018-11-18 13:42 | ED ---
Extremity Problem HPI - General Chief complaint: Extremity Problem,Nontraumatic Stated complaint: toe infection Time Seen by Provider: 11/18/18 13:30 Source: patient, RN notes reviewed, old records reviewed Mode of arrival: wheelchair Limitations: no limitations - History of Present Illness Initial comments: This is a 63-year-old male to the ER for evaluation. Patient does say for evaluation referrals or nonhealing left lower extremity foot ulcer secondary to be in diabetic disease. Patient has history of similar disease with agitation. Patient's been seeing podiatry and presented ER for evaluation MD Complaint: extremity pain, other (Left Foot Ulcer) -: week(s) Location: left, toe History of Same: Yes Radiation: none Severity scale (1-10): 3 Quality: constant Consistency: constant Improves with: nothing Worsens with: nothing Associated Symptoms: denies other symptoms - Related Data Home Medications Medication Instructions Recorded Confirmed Allopurinol [Zyloprim] 300 mg PO DAILY 08/25/17 11/18/18 Cholecalciferol [Vitamin D3] 1,000 unit PO DAILY 08/25/17 11/18/18 Cyanocobalamin (Vitamin B-12) 1,000 mcg PO DAILY 08/25/17 11/18/18 [Vitamin B-12] Folic Acid 0.4 mg PO DAILY 08/25/17 11/18/18 Lisinopril [Zestril] 10 mg PO BID 08/25/17 11/18/18 Metoprolol Tartrate [Lopressor] 25 mg PO BID 08/25/17 11/18/18 Atorvastatin Calcium [Lipitor] 20 mg PO HS 05/14/18 11/18/18 DULoxetine HCL [Cymbalta] 30 mg PO DAILY 05/14/18 11/18/18 Multivitamins, Thera [Multivitamin 1 tab PO DAILY@1200 05/14/18 11/18/18 (formulary)] Latanoprost/Pf [Latanoprost 0.005% 1 drop BOTH EYES HS 10/13/18 11/18/18 Eye Drop] predniSONE 10 mg PO DAILY 10/13/18 11/18/18 Previous Rx's Medication Instructions Recorded Apixaban [Eliquis] 5 mg PO BID tab 10/20/18 Aspirin 81 mg PO DAILY chew 10/20/18 Furosemide [Lasix] 40 mg PO BID@0900,1600 tab 10/20/18 Isosorbide Mononitrate ER [Imdur] 30 mg PO DAILY tab.er.24h 10/20/18 hydrALAZINE HCL [Apresoline] 25 mg PO BID tab 10/20/18 oxyCODONE-APAP 10-325MG [Percocet 1 tab PO Q6HR PRN #10 tab 10/20/18 10-325 mg] Allergies Allergy/AdvReac Type Severity Reaction Status Date / Time Sulfa (Sulfonamide Allergy Rash/Hives Verified 11/18/18 13:43 Antibiotics) Review of Systems ROS Statement: Those systems with pertinent positive or pertinent negative responses have been documented in the HPI. ROS Other: All systems not noted in ROS Statement are negative. Past Medical History Past Medical History: Atrial Fibrillation, Asthma, Deep Vein Thrombosis (DVT), Hypertension, Pneumonia, Pulmonary Embolus (PE), Renal Disease, Rheumatoid Arthritis (RA) Additional Past Medical History / Comment(s): gout, sickle cell, CKD stage 3 (dialysis 2004), sleep apnea, pneuropathy, glaucoma History of Any Multi-Drug Resistant Organisms: MRSA Date of last positivie culture/infection: 2013 MDRO Source:: foot Past Surgical History: Joint Replacement, Orthopedic Surgery Additional Past Surgical History / Comment(s): Left knee replaced; multiple toe amputations, tib/fib surgery in May 2018 Past Anesthesia/Blood Transfusion Reactions: No Reported Reaction Past Psychological History: No Psychological Hx Reported Smoking Status: Never smoker Past Alcohol Use History: None Reported Past Drug Use History: Marijuana - Past Family History Father Family Medical History: Diabetes Mellitus, Myocardial Infarction ([place]) Mother Family Medical History: CVA/TIA Sister(s) Family Medical History: Hypertension Additional Family Medical History / Comment(s): RA General Exam - General Exam Comments Initial Comments: Significant left ulcer with drainage malodorous Limitations: no limitations General appearance: alert, in no apparent distress Head exam: Present: atraumatic, normocephalic, normal inspection Eye exam: Present: normal appearance, PERRL, EOMI. Absent: scleral icterus, conjunctival injection, periorbital swelling ENT exam: Present: normal exam, mucous membranes moist Neck exam: Present: normal inspection. Absent: tenderness, meningismus, ly mphadenopathy Respiratory exam: Present: normal lung sounds bilaterally. Absent: respiratory distress, wheezes, rales, rhonchi, stridor Cardiovascular Exam: Present: regular rate, normal rhythm, normal heart sounds. Absent: systolic murmur, diastolic murmur, rubs, gallop, clicks GI/Abdominal exam: Present: soft, normal bowel sounds. Absent: distended, tenderness, guarding, rebound, rigid Extremities exam: Present: normal inspection, full ROM, normal capillary refill. Absent: tenderness, pedal edema, joint swelling, calf tenderness Back exam: Present: normal inspection Neurological exam: Present: alert, oriented X3, CN II-XII intact Psychiatric exam: Present: normal affect, normal mood Skin exam: Present: warm, dry, intact, normal color. Absent: rash Course Vital Signs 11/18/18 11/18/18 11/18/18 13:25 14:58 15:01 Temperature 98.2 F Pulse Rate 58 L 82 Respiratory 18 18 Rate Blood Pressure 132/72 99/65 102/68 O2 Sat by Pulse 97 97 Oximetry - Reevaluation(s) Reevaluation #1: 11/18/18 15:22 Medical record is reviewed Reevaluation #2: 11/18/18 15:22 Patient denying any fevers, feels better Medical Decision Making - Medical Decision Making 63 male the ER for evaluation patient resents today for evaluation regards to foot ulcer. Diabetic foot ulcer nonhealing with vascular disease. Patient be admitted for IV antibiotics and wound care - Lab Data Result diagrams: 11/18/18 14:30 11/18/18 14:30 Lab Results 11/18/18 11/18/18 11/18/18 Range/Units 14:30 14:30 14:30 WBC 9.2 (3.8-10.6) k/uL RBC 4.20 L (4.30-5.90) m/uL Hgb 12.2 L (13.0-17.5) gm/dL Hct 37.8 L (39.0-53.0) % MCV 90.1 (80.0-100.0) fL MCH 29.0 (25.0-35.0) pg MCHC 32.2 (31.0-37.0) g/dL RDW 16.4 H (11.5-15.5) % Plt Count 230 (150-450) k/uL Neutrophils % 62 % Lymphocytes % 29 % Monocytes % 6 % Eosinophils % 2 % Basophils % 0 % Neutrophils # 5.7 (1.3-7.7) k/uL Lymphocytes # 2.6 (1.0-4.8) k/uL Monocytes # 0.5 (0-1.0) k/uL Eosinophils # 0.1 (0-0.7) k/uL Basophils # 0.0 (0-0.2) k/uL Anisocytosis Slight PT (9.0-12.0) sec INR (<1.2) APTT (22.0-30.0) sec Sodium 140 (137-145) mmol/L Potassium 5.3 H (3.5-5.1) mmol/L Chloride 102 (98-107) mmol/L Carbon Dioxide 24 (22-30) mmol/L Anion Gap 14 mmol/L BUN 71 H (9-20) mg/dL Creatinine 3.06 H (0.66-1.25) mg/dL Est GFR (CKD-EPI)AfAm 24 (>60 ml/min/1.73 sqM) Est GFR (CKD-EPI)NonAf 21 (>60 ml/min/1.73 sqM) Glucose 147 H (74-99) mg/dL Plasma Lactic Acid [place] 2.5 H* (0.7-2.0) mmol/L Calcium 9.5 (8.4-10.2) mg/dL Phosphorus 5.3 H (2.5-4.5) mg/dL Magnesium 2.2 (1.6-2.3) mg/dL Total Bilirubin 0.6 (0.2-1.3) mg/dL AST 48 (17-59) U/L ALT 39 (21-72) U/L Alkaline Phosphatase 108 (38-126) U/L Total Protein 7.0 (6.3-8.2) g/dL Albumin 3.6 (3.5-5.0) g/dL Urine Color Urine Appearance (Clear) Urine pH (5.0-8.0) Ur Specific [place] (1.001-1.035) Urine Protein (Negative) Urine Glucose (UA) (Negative) Urine Ketones (Negative) Urine Blood (Negative) Urine Nitrite (Negative) Urine Bilirubin (Negative) Urine Urobilinogen (<2.0) mg/dL Ur Leukocyte Esterase (Negative) 11/18/18 11/18/18 Range/Units 14:30 14:30 WBC (3.8-10.6) k/uL RBC (4.30-5.90) m/uL Hgb (13.0-17.5) gm/dL Hct (39.0-53.0) % MCV (80.0-100.0) fL MCH (25.0-35.0) pg MCHC (31.0-37.0) g/dL RDW (11.5-15.5) % Plt Count (150-450) k/uL Neutrophils % % Lymphocytes % % Monocytes % % Eosinophils % % Basophils % % Neutrophils # (1.3-7.7) k/uL Lymphocytes # (1.0-4.8) k/uL Monocytes # (0-1.0) k/uL Eosinophils # (0-0.7) k/uL Basophils # (0-0.2) k/uL Anisocytosis PT 10.4 (9.0-12.0) sec INR 1.0 (<1.2) APTT 28.0 (22.0-30.0) sec Sodium (137-145) mmol/L Potassium (3.5-5.1) mmol/L Chloride (98-107) mmol/L Carbon Dioxide (22-30) mmol/L Anion Gap mmol/L BUN (9-20) mg/dL Creatinine (0.66-1.25) mg/dL Est GFR (CKD-EPI)AfAm (>60 ml/min/1.73 sqM) Est GFR (CKD-EPI)NonAf (>60 ml/min/1.73 sqM) Glucose (74-99) mg/dL Plasma Lactic Acid [place] (0.7-2.0) mmol/L Calcium (8.4-10.2) mg/dL Phosphorus (2.5-4.5) mg/dL Magnesium (1.6-2.3) mg/dL Total Bilirubin (0.2-1.3) mg/dL AST (17-59) U/L ALT (21-72) U/L Alkaline Phosphatase (38-126) U/L Total Protein (6.3-8.2) g/dL Albumin (3.5-5.0) g/dL Urine Color Yellow Urine Appearance Clear (Clear) Urine pH 5.0 (5.0-8.0) Ur Specific [place] 1.016 (1.001-1.035) Urine Protein Negative (Negative) Urine Glucose (UA) Negative (Negative) Urine Ketones Negative (Negative) Urine Blood Negative (Negative) Urine Nitrite Negative (Negative) Urine Bilirubin Negative (Negative) Urine Urobilinogen 2.0 (<2.0) mg/dL Ur Leukocyte Esterase Negative (Negative) - EKG Data -: EKG Interpreted by Me (EKG shows A. fib rate of 80, QRS 84, QTc 4:34) - Radiology Data Radiology results: report reviewed (X-ray left foot negative for significant disease), image reviewed Disposition Clinical Impression: Ulcer of toe of left foot, ARF (acute renal failure) Disposition: ADMITTED IP TO THIS [facility] Condition: Good Is patient prescribed a controlled substance at d/c from ED?: No Referrals: Josse Vaca DO [Primary Care Provider] - 1-2 days
[2018-11-18] MEDS ORDERED: SODIUM CHLORIDE 0.9% 1,000 ML IV STA (14:12)
[2018-11-18] MEDS ORDERED: VANCOMYCIN IV PER PHARMACY 1 EACH MISC MISCELLANE PRN (14:12)
[2018-11-18] MEDS ORDERED: VANCOMYCIN 2,250 MG in SODIUM CHLORIDE 0.9% 500 ML 500 ML IVPB STA (14:19)
[2018-11-18 14:57] LABS: Anisocytosis Slight; Basophils % (A) 0 %; Eosinophils # (A) 0.1 k/uL (0-0.7); Eosinophils % (A) 2 %; HCT 37.8 % (39.0-53.0); HGB 12.2 gm/dL (13.0-17.5); Lymphocytes # (A) 2.6 k/uL (1.0-4.8); Lymphocytes % (A) 29 %; MCHC 32.2 g/dL (31.0-37.0); MCV 90.1 fL (80.0-100.0); Mean Platelet Volume 7.4; Monocytes # (A) 0.5 k/uL (0-1.0); Monocytes % (A) 6 %; Neutrophils # (A) 5.7 k/uL (1.3-7.7); Neutrophils % (A) 62 %; Platelet Count 230 k/uL (150-450); RDW 16.4 % (11.5-15.5); WBC 9.2 k/uL (3.8-10.6)
[2018-11-18 14:59] LABS: Appearance,Urine Clear (Clear); Bilirubin,Urine Negative (Negative); Blood,Urine Negative (Negative); Color,Urine Yellow; Glucose,Urine (UA) Negative (Negative); Ketones,Urine Negative (Negative); Leukocyte Esterase,Urine Negative (Negative); Nitrite,Urine Negative (Negative); Protein,Urine Negative (Negative); Specific Gravity,Urine 1.016 (1.001-1.035)
[2018-11-18 15:02] LABS: Prothrombin Time 10.4 sec (9.0-12.0)
--- NOTE | 2018-11-18 15:02 | XR ---
EXAMINATION TYPE: XR foot complete LT DATE OF EXAM: 11/18/2018 CLINICAL HISTORY: Left foot pain and nonhealing wound of the second digit TECHNIQUE: Frontal, lateral, and oblique images of the left foot are obtained. COMPARISON: None FINDINGS: There is first phalanx and partial first metatarsal amputation. Lateral subluxation of the second metatarsal phalangeal joint and medial subluxation of the fifth metatarsal phalangeal joint ar e likely on a degenerative basis as there is severe hindfoot, midfoot and forefoot arthropathy. There are erosive changes of the distal second phalanx and medial aspect of the second middle phalanx with subtle periosteal reaction. There is generalized osseous demineralization present. Pes planus d eformity and moderate plantar heel spur also noted. Generalized mild cutaneous edema is also seen. IMPRESSION: Findings suggesting osteomyelitis of the distal and middle second phalanx. First digit am putation of the left foot, osseous demineralization, and extensive degenerative changes are also pres ent.
[2018-11-18 15:08] LABS: Albumin 3.6 g/dL (3.5-5.0); Calcium 9.5 mg/dL (8.4-10.2); Magnesium 2.2 mg/dL (1.6-2.3); Phosphorus 5.3 mg/dL (2.5-4.5); Potassium 5.3 mmol/L (3.5-5.1); Total Bilirubin 0.6 mg/dL (0.2-1.3)
[2018-11-18] MEDS: ATORVASTATIN 20 MG TAB PO SCH (22:00)
[2018-11-18] MEDS: APIXABAN 5 MG TAB PO SCH (22:00)
[2018-11-18] MEDS: METOPROLOL TARTRATE 25 MG TAB PO SCH (22:00)
[2018-11-18] MEDS: hydrALAZINE HCL 25 MG TAB PO SCH (22:00)
[2018-11-18] MEDS: LISINOPRIL 10 MG TAB PO SCH (22:01)
[2018-11-18] MEDS: oxyCODONE-APAP 10-325MG 1 EACH TAB PO PRN (22:01)
[2018-11-18] MEDS: LATANOPROST 0.005% OPHTH DROPS 2.5 ML BTL BOTH EYES SCH (23:48)
[2018-11-19 00:45] LABS: Glucose,Whole Blood 101 mg/dL (75-99)
[2018-11-19] MEDS: oxyCODONE-APAP 10-325MG 1 EACH TAB PO PRN ×2 (06:19→16:42)
[2018-11-19 07:14] LABS: Glucose,Whole Blood 111 mg/dL (75-99)
[2018-11-19] MEDS: ASPIRIN 81 MG PO SCH (08:38)
[2018-11-19] MEDS: predniSONE 10 MG TAB PO SCH (08:38)
[2018-11-19] MEDS: METOPROLOL TARTRATE 25 MG TAB PO SCH ×2 (08:38→21:40)
[2018-11-19] MEDS: CYANOCOBALAMIN 500 MCG TAB PO SCH (08:38)
[2018-11-19] MEDS: LISINOPRIL 10 MG TAB PO SCH (08:38)
[2018-11-19] MEDS: ISOSORBIDE MONONITRATE ER 30 MG TAB.ER.24H PO SCH (08:38)
[2018-11-19] MEDS: DULoxetine HCL 30 MG CAPSULE.DR PO SCH (08:38)
[2018-11-19] MEDS: MULTIVITAMINS, THERA 1 EACH TAB PO SCH (08:38)
[2018-11-19] MEDS: APIXABAN 5 MG TAB PO SCH ×2 (08:39→21:40)
[2018-11-19] MEDS: CHOLECALCIFEROL 1,000 UNIT TAB PO SCH (08:39)
[2018-11-19] MEDS: FOLIC ACID 1 MG TAB PO SCH (08:39)
[2018-11-19] MEDS: hydrALAZINE HCL 25 MG TAB PO SCH ×2 (08:39→21:40)
[2018-11-19] MEDS: ALLOPURINOL 300 MG TAB PO SCH (08:39)
[2018-11-19] MEDS ORDERED: ENOXAPARIN 40 MG/0.4 ML SYRINGE SQ SCH (09:00)
[2018-11-19] MEDS ORDERED: FUROSEMIDE 40 MG TAB PO SCH (09:00)
--- NOTE | 2018-11-19 09:24 | P.CONS ---
History of Present Illness - Reason for Consult Consult date: 11/19/18 - History of Present Illness This is a 63-year-old -[place] Citizen male well known to ID service as he has been treated multiple times in the past for osteomyelitis and has had previous amputations. Patient is a [place] citizen but lives in [place] and drives to [place] to see his physicians. He had appointments yesterday including a fig bar machine operator Dr. Longo. Dr. Longo evaluated the patient and sent him into [facility] emergency center for evaluation of wound to the left second toe. Patient has been afebrile, white count is 9.2, lactic acid 2.5 status post a liter of IV fluids with repeat at 2. Urinalysis was clear. Creatinine is 3.06 with baseline of 1.3-1.5 for chronic kidney disease stage III. Patient was on dialysis in 2004 and follows with nephrology. Wound culture has been obta ined. Foot x-ray shows suggested osteomyelitis of the distal middle second phalanx. First digit amputation. Osseous demineralization. Extensive degenerative changes. Blood cultures status received. He did have a recent hospitalization October 14 through October 21 which time he was treated for acute diastolic heart failure and chronic kidney disease, he was found have a cystic lesion on his pancreas and to follow with GI. Patient is on eliquis for chronic atrial fibrillation. Patient also has a small ulcer to the right pretibial area, present on admission. Review of Systems All systems: negative Constitutional: Denies as per HPI, Denies chills, Denies fatigue, Denies fever, Denies lethargy, Denies malaise, Denies poor appetite, Denies weakness Eyes: denies blurred vision, denies pain Ears, nose, mouth and throat: Denies dental pain, Denies headache, Denies mouth pain, Denies nasal congestion, Denies nasal discharge, Denies sore throat, Denies vertigo Cardiovascular: Denies chest pain, Denies dyspnea on exertion, Denies edema, Denies lightheadedness, Denies shortness of breath, Denies syncope Respiratory: Denies cough, Denies cough with sputum, Denies dyspnea, Denies excessive sputum, Denies hemoptysis, Denies home oxygen, Denies wheezing Gastrointestinal: Denies abdominal pain, Denies diarrhea, Denies loss of appetite, Denies nausea, Denies vomiting Genitourinary: Denies dysuria, Denies urinary frequency, Denies urinary retention Musculoskeletal: Denies frequent falls, Denies muscle weakness, Denies myalgias Integumentary: Reports wounds, Denies pruritus, Denies rash Neurological: Denies aphasia, Denies change in mentation, Denies numbness, Denies seizures, Denies weakness Psychiatric: Denies anxiety, Denies depression Endocrine: Denies fatigue, Denies weight change Past Medical History Past Medical History: Atrial Fibrillation, Asthma, Deep Vein Thrombosis (DVT), Hypertension, Pneumonia, Pulmonary Embolus (PE), Renal Disease, Rheumatoid Arthritis (RA) Additional Past Medical History / Comment(s): gout, sickle cell, CKD stage 3 (dialysis 2004), sleep apnea, pneuropathy, glaucoma History of Any Multi-Drug Resistant Organisms: MRSA Year Discovered:: 2013 MDRO Source:: foot Past Surgical History: Joint Replacement, Orthopedic Surgery Additional Past Surgical History / Comment(s): Left knee replaced; multiple toe amputations, tib/fib surgery in May 2018 Past Anesthesia/Blood Transfusion Reactions: No Reported Reaction Past Psychological History: No Psychological Hx Reported Additional Psychological History / Comment(s): lives with his . [place] Citizen citizen living in [place]. No tobacco use or alcohol use. 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 No international travel. No animal exposures Smoking Status: Never smoker Past Alcohol Use History: None Reported Past Drug Use History: Marijuana Additional Drug Use History / Comment(s): pt. states he occasionally eats marijuana edibles for pain. Patient is and lives with his . He is a [place] citizen living in [place]. He denies any tobacco use or alcohol use. 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 No international travel. No animal exposures. - Past Family History Father Family Medical History: Diabetes Mellitus, Myocardial Infarction (HI) Mother Family Medical History: CVA/TIA Sister(s) Family Medical History: Hypertension Additional Family Medical History / Comment(s): RA Medications and Allergies Home Medications Medication Instructions Recorded Confirmed Type Allopurinol [Zyloprim] 300 mg PO DAILY 08/25/17 11/18/18 History Cholecalciferol [Vitamin D3] 1,000 unit PO DAILY 08/25/17 11/18/18 History Cyanocobalamin (Vitamin B-12) 1,000 mcg PO DAILY 08/25/17 11/18/18 History [Vitamin B-12] Folic Acid 0.4 mg PO DAILY 08/25/17 11/18/18 History Lisinopril [Zestril] 10 mg PO BID 08/25/17 11/18/18 History Metoprolol Tartrate [Lopressor] 25 mg PO BID 08/25/17 11/18/18 History Atorvastatin Calcium [Lipitor] 20 mg PO HS 05/14/18 11/18/18 History DULoxetine HCL [Cymbalta] 30 mg PO DAILY 05/14/18 11/18/18 History Multivitamins, Thera [Multivitamin 1 tab PO DAILY@1200 05/14/18 11/18/18 History (formulary)] Latanoprost/Pf [Latanoprost 0.005% 1 drop BOTH EYES HS 10/13/18 11/18/18 History Eye Drop] predniSONE 10 mg PO DAILY 10/13/18 11/18/18 History Apixaban [Eliquis] 5 mg PO BID tab 10/20/18 11/18/18 Rx Aspirin 81 mg PO DAILY chew 10/20/18 11/18/18 Rx Furosemide [Lasix] 40 mg PO BID@0900,1600 tab 10/20/18 11/18/18 Rx Isosorbide Mononitrate ER [Imdur] 30 mg PO DAILY tab.er.24h 10/20/18 11/18/18 Rx hydrALAZINE HCL [Apresoline] 25 mg PO BID tab 10/20/18 11/18/18 Rx oxyCODONE-APAP 10-325MG [Percocet 1 tab PO Q6HR PRN #10 tab 10/20/18 11/18/18 Rx 10-325 mg] Allergies Allergy/AdvReac Type Severity Reaction Status Date / Time Sulfa (Sulfonamide Allergy Rash/Hives Verified 11/18/18 13:43 Antibiotics) Physical Exam Vitals: Vital Signs Temp Pulse Pulse Resp BP BP Pulse Ox 11/19/18 05:20 96.9 F L 86 20 113/68 100 11/18/18 22:35 97.8 F 75 20 113/54 98 11/18/18 17:34 75 18 106/65 98 11/18/18 15:45 87 18 107/73 96 11/18/18 15:01 102/68 11/18/18 14:58 82 18 99/65 97 11/18/18 13:25 98.2 F 58 L 18 132/72 97 Intake and Output 11/18/18 11/19/18 11/19/18 22:59 06:59 14:59 Intake Total 200 Output Total 1 Balance 199 Intake: Oral 200 Output: Urine/Stool Mix 1 Other: Voiding Method Toilet Urinal # Voids 2 1 # Bowel Movements 2 Gen: This is a morbidly obese 63-year-old F in [place] Citizen male. He hasn't been appears to be comfortable. He has a CPAP in place and removes for interview. HEENT: Head is atraumatic, normocephalic. Pupils equal, round. Sclerae is anicteric. Conjunctiva pink. Oral mucous members are moist. No thrush noted. NECK: Supple. No JVD. No lymphadenopathy. No thyromegaly. LUNGS: Clear to auscultation. No wheezes or rhonchi. No intercostal retractions. HEART: Regular rate and rhythm. No murmur. ABDOMEN: Morbidly obese. Soft. Bowel sounds are present. No masses. No tenderness. No redness under her abdominal apron. EXTREMITIES: The left foot, patient has had amputation to the left great toe. There is an ulcer on the distal second toe with scant amount of serous drainage, foul order, mild erythema and also with edema. To the right foot patient has had amputation of second third and fourth toes. Small ulcer to the pretibial area with serosanguineous drainage. No significant redness. NEUROLOGICAL: Patient is awake, alert and oriented x3. Cranial nerves 2 through 12 are grossly intact. Results Results: Laboratory Results WBC 9.2 k/uL (3.8-10.6) 11/18/18 14:30 RBC 4.20 m/uL (4.30-5.90) L 11/18/18 14:30 Hgb 12.2 gm/dL (13.0-17.5) L 11/18/18 14:30 Hct 37.8 % (39.0-53.0) L 11/18/18 14:30 MCV 90.1 fL (80.0-100.0) 11/18/18 14:30 MCH 29.0 pg (25.0-35.0) 11/18/18 14:30 MCHC 32.2 g/dL (31.0-37.0) 11/18/18 14:30 RDW 16.4 % (11.5-15.5) H 11/18/18 14:30 Plt Count 230 k/uL (150-450) 11/18/18 14:30 Neutrophils % 62 % 11/18/18 14:30 Lymphocytes % 29 % 11/18/18 14:30 Monocytes % 6 % 11/18/18 14:30 Eosinophils % 2 % 11/18/18 14:30 Basophils % 0 % 11/18/18 14:30 Neutrophils # 5.7 k/uL (1.3-7.7) 11/18/18 14:30 Lymphocytes # 2.6 k/uL (1.0-4.8) 11/18/18 14:30 Monocytes # 0.5 k/uL (0-1.0) 11/18/18 14:30 Eosinophils # 0.1 k/uL (0-0.7) 11/18/18 14:30 Basophils # 0.0 k/uL (0-0.2) 11/18/18 14:30 Anisocytosis Slight 11/18/18 14:30 PT 10.4 sec (9.0-12.0) 11/18/18 14:30 INR 1.0 (<1.2) 11/18/18 14:30 APTT 28.0 sec (22.0-30.0) 11/18/18 14:30 Sodium 140 mmol/L (137-145) 11/18/18 14:30 Potassium 5.3 mmol/L (3.5-5.1) H 11/18/18 14:30 Chloride 102 mmol/L (98-107) 11/18/18 14:30 Carbon Dioxide 24 mmol/L (22-30) 11/18/18 14:30 Anion Gap 14 mmol/L 11/18/18 14:30 BUN 71 mg/dL (9-20) H 11/18/18 14:30 Creatinine 3.06 mg/dL (0.66-1.25) H 11/18/18 14:30 Est GFR (CKD-EPI)AfAm 24 (>60 ml/min/1.73 sqM) 11/18/18 14:30 Est GFR (CKD-EPI)NonAf 21 (>60 ml/min/1.73 sqM) 11/18/18 14:30 Glucose 147 mg/dL (74-99) H 11/18/18 14:30 POC Glucose (mg/dL) 111 mg/dL (75-99) H 11/19/18 07:08 POC Glu Supervisor [employer] ID 11/19/18 07:08 Lactic Ac Sepsis Rflx Y 11/18/18 15:09 Plasma Lactic Acid [place] 2.0 mmol/L (0.7-2.0) 11/18/18 18:40 Calcium 9.5 mg/dL (8.4-10.2) 11/18/18 14:30 Phosphorus 5.3 mg/dL (2.5-4.5) H 11/18/18 14:30 Magnesium 2.2 mg/dL (1.6-2.3) 11/18/18 14:30 Total Bilirubin 0.6 mg/dL (0.2-1.3) 11/18/18 14:30 AST 48 U/L (17-59) 11/18/18 14:30 ALT 39 U/L (21-72) 11/18/18 14:30 Alkaline Phosphatase 108 U/L (38-126) 11/18/18 14:30 Total Protein 7.0 g/dL (6.3-8.2) 11/18/18 14:30 Albumin 3.6 g/dL (3.5-5.0) 11/18/18 14:30 Urine Color Yellow 11/18/18 14:30 Urine Appearance Clear (Clear) 11/18/18 14:30 Urine pH 5.0 (5.0-8.0) 11/18/18 14:30 Ur Specific [place] 1.016 (1.001-1.035) 11/18/18 14:30 Urine Protein Negative (Negative) 11/18/18 14:30 Urine Glucose (UA) Negative (Negative) 11/18/18 14:30 Urine Ketones Negative (Negative) 11/18/18 14:30 Urine Blood Negative (Negative) 11/18/18 14:30 Urine Nitrite Negative (Negative) 11/18/18 14:30 Urine Bilirubin Negative (Negative) 11/18/18 14:30 Urine Urobilinogen 2.0 mg/dL (<2.0) 11/18/18 14:30 Ur Leukocyte Esterase Negative (Negative) 11/18/18 14:30 CBC & Chem 7: 11/18/18 14:30 11/18/18 14:30 Labs: Abnormal Lab Results - Last 24 Hours (Table) 11/18/18 11/18/18 11/18/18 Range/Units 14:30 14:30 14:30 RBC 4.20 L (4.30-5.90) m/uL Hgb 12.2 L (13.0-17.5) gm/dL Hct 37.8 L (39.0-53.0) % RDW 16.4 H (11.5-15.5) % Potassium 5.3 H (3.5-5.1) mmol/L BUN 71 H (9-20) mg/dL Creatinine 3.06 H (0.66-1.25) mg/dL Glucose 147 H (74-99) mg/dL POC Glucose (mg/dL) (75-99) mg/dL Plasma Lactic Acid [place] 2.5 H* (0.7-2.0) mmol/L Phosphorus 5.3 H (2.5-4.5) mg/dL 11/19/18 11/19/18 Range/Units 00:42 07:08 RBC (4.30-5.90) m/uL Hgb (13.0-17.5) gm/dL Hct (39.0-53.0) % RDW (11.5-15.5) % Potassium (3.5-5.1) mmol/L BUN (9-20) mg/dL Creatinine (0.66-1.25) mg/dL Glucose (74-99) mg/dL POC Glucose (mg/dL) 101 H 111 H (75-99) mg/dL Plasma Lactic Acid [place] (0.7-2.0) mmol/L Phosphorus (2.5-4.5) mg/dL Microbiology - Last 24 Hours (Table) 11/18/18 20:23 Wound Culture - Preliminary Foot - Left 11/18/18 20:23 Anaerobic Culture - Preliminary Foot - Left 11/18/18 14:30 Urine Culture - Preliminary Urine,Clean Catch Assessment and Plan Plan: This is a 63-year-old gentleman who presents to hospital with ulcer to the left great toe and x-ray is suggestive of osteomyelitis. We will ask for bone scan to further evaluate for osteomyelitis. Consult placed with Dr. Colmenares who has performed some of his previous amputations. Patient is currently on Rocephin and vancomycin which will be continued. Wound cultures in progress as well as blood culture. Would recommend consult with nephrology for acute kidney injury. Patient does have history of requiring dialysis in 2004. Continue supportive care. Further recommendations as patient progresses. The above dictated assessment and findings were discussed with Dr. Schroeder. The impression and plan of care have been directed as dictated. Lilibeth Jose nurse practitioner acting as scribe for Dr. Schroeder.
[2018-11-19 12:00] LABS: Glucose,Whole Blood 135 mg/dL (75-99)
[2018-11-19] MEDS ORDERED: VANCOMYCIN 2,250 MG in SODIUM CHLORIDE 0.9% 500 ML 500 ML IVPB ONE (12:00)
--- NOTE | 2018-11-19 14:51 | NM ---
EXAMINATION TYPE: NM bone 3 phase DATE OF EXAM: 11/19/2018 COMPARISON: Plain film 12/08/2018 and prior bone scan 08/26/2017 HISTORY: Pain in left foot, nonhealing Triple phase bone scintigraphy was performed following the injection of 27.0 mCi Tc 99m MDP. Immedia te images and 3.5 hours post injection images acquired. FINDINGS: There is abnormal uptake corresponding to the second digit of the left foot on blood pool, delayed im aging and blood flow imaging. IMPRESSION: Findings compatible with osteomyelitis second digit left foot.
--- NOTE | 2018-11-19 16:02 | HP ---
HISTORY AND PHYSICAL DATE OF ADMISSION: 11/18/2018 DATE OF DISCHARGE: 11/19/2018 PRESENTING COMPLAINT: Left foot second toe infection. HISTORY OF PRESENTING COMPLAINT: This is a pleasant 63-year-old patient with a rather extensive medical history. The patient was here in October of this year and at that time was admitted with pneumonia and hemoptysis. The patient also had CHF exacerbation and acute renal failure. The patient also has a cystic lesion in the pancreatic head, 4.7 cm. The patient is being followed as an outpatient by GI for the same. Other chronic stable medical conditions include atrial flutter/fibrillation, chronic kidney disease, stage III, GERD, obstructive sleep apnea, uses CPAP, on anticoagulation with Eliquis and bilateral hypoechoic nodules involving both the kidneys. The patient went to see his auto inspection specialist, Dr. Longo, and the patient was found to have an infected left foot second toe. X-ray was suggestive of osteomyelitis, and the patient has been ordered a bone scan by Dr. Schroeder from Infectious Disease. The patient has chronic rheumatoid arthritis, from which he has pain, but the toe itself is not painful. It has some local discharge. REVIEW OF SYSTEMS: CONSTITUTIONAL: Tired. HEENT: None. RESPIRATORY: None. CARDIOVASCULAR: None. GASTROINTESTINAL: None. GENITOURINARY: None. MUSCULOSKELETAL: Arthritic pain in many joints. DERMATOLOGICAL: Chronic skin changes and that on the left foot second toe. HEMATOLOGICAL: None. LYMPHATICS: None. PSYCHIATRY: Depression, controlled. NEUROLOGICAL: Chronic neuropathy. PAST MEDICAL HISTORY: 1. DVT. 2. Hypertension. 3. PE. 4. Chronic kidney disease. 5. Sickle cell disease. 6. Rheumatoid arthritis. 7. Gout. 8. Sleep apnea. 9. Peripheral neuropathy. 10.Glaucoma. 11.Right tib-fib fracture. 12.Atrial flutter/fibrillation. 13.Chronic kidney disease, stage III. 14.GERD. 15.Congestive heart failure from diastolic dysfunction, EF 55%. 16.Bilateral hypoechoic nodules involving both the kidneys. 17.Cystic lesion on the pancreatic head, being followed by GI. PAST SURGICAL HISTORY: 1. Joint replacement. 2. Left knee replaced. 3. Multiple toe amputations. 4. Tib-fib surgery in May 2018 at [facility]. SOCIAL HISTORY: . 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 No alcohol. Occasionally takes marijuana for pain. FAMILY HISTORY: Diabetes, myocardial infarction, rheumatoid arthritis. HOME MEDICATIONS: 1. Prednisone 10 mg a day. 2. Percocet 10 one tablet q.6 p.r.n. 3. Hydralazine 25 mg b.i.d. 4. Multivitamin 1 tablet p.o. daily. 5. Lopressor 25 p.o. b.i.d. 6. Zestril 10 mg b.i.d. 7. Latanoprost 0.005% one drop to both eyes at bedtime. 8. Imdur ER 30 mg p.o. daily. 9. Lasix 40 mg p.o. b.i.d. 10.Folic acid 0.4 mg p.o. daily. 11.Cymbalta 30 mg p.o. daily. 12.Vitamin B12 1000 mcg a day. 13.Vitamin D3 1000 units p.o. daily. 14.Lipitor 20 mg at bedtime. 15.Aspirin 81 mg p.o. daily. 16.Eliquis 5 mg p.o. b.i.d. 17.Allopurinol 300 mg p.o. daily. ALLERGIES: SULFA. PHYSICAL EXAMINATION: VITAL SIGNS ON PRESENTATION: Temperature 98.2, pulse 58, respiration 18, blood pressure 130/72, pulse ox 97% on room air. GENERAL APPEARANCE: Well built; BMI more than 45. Lying in bed, awake. EYES: Pupils equal. Conjunctivae normal. HEENT: External appearance of nose and ears normal. Oral cavity normal. NECK: JVD unable to assess. Mass not palpable. RESPIRATORY: Effort normal. LUNGS: Diminished breath sounds. CARDIOVASCULAR: First and second sounds normal. No edema. ABDOMEN: Distended, soft. Liver and spleen not palpable. LYMPHATIC: No lymph node palpable in neck or axillae. PSYCHIATRY: Alert and oriented x3. Mood and affect normal. DERMATOLOGICAL: Patient has an infected-appearing left second toe. NEUROLOGICAL: Pupils equal. Power and sensation grossly intact. Decreased sensation distally. Amputation of some toes. INVESTIGATIONS: White count 9.2, hemoglobin 12.2, potassium 5.3, BUN 31, creatinine 3.06. Patient's creatinine was 1.91 on 10/19/2018. Foot x-ray is suggestive of osteomyelitis of the distal and middle second phalanx of the left foot, extensive demineralization. EKG tracing, personally reviewed by me, shows atrial flutter/fibrillation, rate controlled. ASSESSMENT: 1. Left foot second toe possible acute osteomyelitis. 2. Persistent atrial flutter/fibrillation, chronically on anticoagulation. 3. Morbid obesity with body mass index more than 45. 4. Chronic kidney disease, stage III, from nephrosclerosis. 5. Acute renal failure. Could be ATN, multifactorial. 6. Gastroesophageal reflux disease. 7. Obstructive sleep apnea. Uses CPAP machine. 8. Depression not otherwise specified. 9. Chronic congestive heart failure from diastolic dysfunction; ejection fraction 55%. 10.Bilateral hypoechoic nodules involving both the kidneys. 11.Cystic lesion on the pancreatic head measuring 4.7 cm, being followed by GI. PLAN: The patient was seen by Dr. Schroeder, Infectious Disease, who ordered a bone scan. Patient was put on IV ceftriaxone. He also has IV vancomycin. Will be very careful regarding renal failure; will get Nephrology on board. I will talk to Dr. Schroeder about the same. Other home medications are resumed. Will put the patient on a stress dose of steroids, follow renal function closely. Will hold off Zestril for right now. Will also hold off Lasix for right now in view of the renal function. Prognosis guarded. Dr. Colmenares from Vascular Surgery has also been consulted. MMODL / IJN: [id number] /
[2018-11-19] MEDS: SODIUM CHLORIDE 0.9% 1,000 ML IV SCH (16:26)
[2018-11-19 17:52] LABS: Glucose,Whole Blood 169 mg/dL (75-99)
[2018-11-19 21:12] LABS: Glucose,Whole Blood 162 mg/dL (75-99)
[2018-11-19] MEDS: ATORVASTATIN 20 MG TAB PO SCH (21:40)
[2018-11-19] MEDS: LATANOPROST 0.005% OPHTH DROPS 2.5 ML BTL BOTH EYES SCH (21:41)
--- NOTE | 2018-11-19 22:28 | P.CON ---
Consult Note - . Consult date: 11/19/18 Assessment/Plan:: his is a 63-year-old -[place] male well known to ID service as he has been treated multiple times in the past for osteomyelitis and has had previous amputations. Patient is a [place] citizen but lives in [place] and drives to [employer] to see his physicians. He had appointments yesterday including a softlines supervisor Dr. Longo. Dr. Longo evaluated the patient and sent him into [facility] emergency center for evaluation of wound to the left second toe. Patient has been afebrile, white count is 9.2, lactic acid 2.5 status post a liter of IV fluids with repeat at 2. Urinalysis was clear. Creatinine is 3 .06 with baseline of 1.3-1.5 for chronic kidney disease stage III. Patient was on dialysis in 2004 and follows with nephrology. Wound culture has been obtained. Foot x-ray shows suggested osteomyelitis of the distal middle second phalanx. First digit amputation. Osseous demineralization. Extensive degenerative changes. Blood cultures status received. He did have a recent hospitalization October 14 through October 21 which time he was treated for acute diastolic heart failure and chronic kidney disease, he was found have a cystic lesion on his pancreas and to follow with GI. Patient is on eliquis for chronic atrial fibrillation. Patient also has a small ulcer to the right pretibial area, present on admission.please see the consult is dictated byNurse practitioner Mrs. Lilibeth Jose. Pleasant 63-year-old man with many admissions who relates that he was just recovering from his recent spontaneous right leg fracture certainly do some walking. Apparently has an injury to the left foot second toe that he is unaware of. Has developed a large open ulceration with some drainage. Skin is been requested shows evidence of osteomyelitis. At this time that his surgeries been consulted hopefully for a distal toe amputation to resolve this rapidly to get him back on track with his physical therapy regiment to improve his overall health.his receiving a dose of vancomycin which will likely be active for several days given Chronic kidney disease stage III and will likely provide several days of coverage. We'll try to avoid further vancomycin given his kidney disease.wound care will be requested pending assessment and plan as dictated by nurse practitioner Mrs. Lilibeth Jose
[2018-11-20] MEDS: oxyCODONE-APAP 10-325MG 1 EACH TAB PO PRN ×3 (00:13→19:33)
[2018-11-20] MEDS: SODIUM CHLORIDE 0.9% 1,000 ML IV SCH ×2 (06:23→19:31)
[2018-11-20 07:20] LABS: Glucose,Whole Blood 105 mg/dL (75-99)
[2018-11-20] MEDS: ASPIRIN 81 MG PO SCH (09:32)
[2018-11-20] MEDS: CYANOCOBALAMIN 500 MCG TAB PO SCH (09:32)
[2018-11-20] MEDS: METOPROLOL TARTRATE 25 MG TAB PO SCH ×2 (09:32→21:53)
[2018-11-20] MEDS: ALLOPURINOL 300 MG TAB PO SCH (09:32)
[2018-11-20] MEDS: CHOLECALCIFEROL 1,000 UNIT TAB PO SCH (09:33)
[2018-11-20] MEDS: hydrALAZINE HCL 25 MG TAB PO SCH ×2 (09:33→21:52)
[2018-11-20] MEDS: DULoxetine HCL 30 MG CAPSULE.DR PO SCH (09:33)
[2018-11-20] MEDS: ISOSORBIDE MONONITRATE ER 30 MG TAB.ER.24H PO SCH (09:33)
[2018-11-20] MEDS: predniSONE 10 MG TAB PO SCH (09:33)
[2018-11-20] MEDS: APIXABAN 5 MG TAB PO SCH ×2 (09:33→21:53)
[2018-11-20] MEDS: MULTIVITAMINS, THERA 1 EACH TAB PO SCH (09:33)
[2018-11-20] MEDS: FOLIC ACID 1 MG TAB PO SCH (09:34)
[2018-11-20 11:21] LABS: Calcium 9.2 mg/dL (8.4-10.2); Potassium 4.6 mmol/L (3.5-5.1)
[2018-11-20 12:13] LABS: Glucose,Whole Blood 123 mg/dL (75-99)
[2018-11-20 13:12] VITALS: BMI 43.6
[2018-11-20 17:17] LABS: Glucose,Whole Blood 111 mg/dL (75-99)
[2018-11-20 20:44] LABS: Glucose,Whole Blood 159 mg/dL (75-99)
[2018-11-20] MEDS: LATANOPROST 0.005% OPHTH DROPS 2.5 ML BTL BOTH EYES SCH (21:52)
[2018-11-20] MEDS: ATORVASTATIN 20 MG TAB PO SCH (21:53)
--- NOTE | 2018-11-20 22:43 | HP ---
HISTORY AND PHYSICAL ADDENDUM: DATE OF ADMISSION: 11/20/2018 DATE OF SERVICE: 11/20/2018 MMODL / IJN: [id number] /
--- NOTE | 2018-11-20 22:55 | CONS ---
CONSULTATION REASON FOR CONSULT: Renal failure. HISTORY OF PRESENT ILLNESS: Patient is a 63-year-old male with history of diabetes, hypertension, recent acute kidney injury during his last admission earlier last month. The patient also has underlying chronic kidney disease secondary to polycystic kidney disease and nephrosclerosis. He has been at stage III, with previous creatinine, the lowest at 1.48 mg/dL on 10/13/2018. The patient was admitted to the hospital with discoloration of his left toe. It is his 2nd toe. The patient's noticed that it had blackish discoloration and there was a blister on it. He states he has been receiving treatment for an infected toe and there has been suggestion of osteomyelitis of the foot. The patient had been on vancomycin. Creatinine on this admission was 3.06 mg/dL. The patient is currently maintained on IV fluids. His creatinine is down to 2.0 mg/dL now. The patient states he has been voiding well. He was scheduled to see us as outpatient the end of this month. The patient denies use of any nonsteroidal anti-inflammatory agents prior to admission. He had been on RORY inhibitors and I do not believe he was on vancomycin prior to admission. PAST MEDICAL HISTORY: CKD stage 3 secondary to nephrosclerosis and polycystic kidney disease, recent acute kidney injury. Previous history of acute kidney injury requiring dialysis. Then the renal function had recovered. This was in the 2004. PAST SURGICAL HISTORY: Significant for left knee arthroplasty, multiple toe amputations. SOCIAL HISTORY: Negative for smoking. Patient does have a history of marijuana use, mainly edibles. MEDICATIONS: Prior to admission included Zyloprim, vitamin D3, vitamin B12, folic acid, Zestril, Lopressor, Lipitor, Cymbalta, prednisone, Eliquis, Lasix, aspirin, hydralazine, [place]. ALLERGIES: INCLUDE SULFA WHICH CAUSES A RASH AND HIVES. REVIEW OF SYSTEMS: As per HPI. Other systems negative. PHYSICAL EXAMINATION: Patient is comfortable, awake, alert, oriented x3, not in any acute distress. Blood pressure this afternoon was 131/78 from this morning. Heart rate about 61 per minute. Patient is afebrile. Examination of the heart S1, S2. Examination lungs bilateral breath sounds are heard. Abdomen is soft, nontender. Exam of lower extremities shows both feet currently wrapped. 1 +plus edema is noted. Chronic skin changes are noted. The patient has deformities from rheumatoid arthritis in his hands. WARPER FIXER exam is grossly intact. LAB: Shows sodium 142, potassium 4.6, chloride 111, BUN 55, serum creatinine 2.08, calcium 9.2. ASSESSMENT: 1. Acute kidney injury associated with hypoperfusion. The patient's blood pressure was low with systolic in the 99-107 range on 11/18/2018. He was on RORY inhibitors at home prior to admission. RORY inhibitors are currently on hold. The patient did receive IV fluids initially. His fluids are now discontinued. Renal function has improved. I will continue to maintain him off of RORY inhibitors for now until renal function returns back to baseline. 2. Chronic kidney disease stage 3 with baseline creatinine at about 1.48 mg/dL secondary to polycystic kidney disease and nephrosclerosis. 3. Rheumatoid arthritis with deformities in the hand. 4. Left second toe osteomyelitis infection and planned for amputation. The wound culture is growing MRSA. 5. Hypertension, currently controlled. 6. Dyslipidemia. 7. Atrial fibrillation/flutter, maintained on anticoagulation. PLAN: Continue off of Zestril. Continue off of IV fluids. Repeat labs in a.m. Avoid nephrotoxic medications. Thank you for this consultation. We will continue to follow the patient with you during his hospitalization. MMODL / IJN: [id number] /
--- NOTE | 2018-11-20 23:04 | PN ---
PROGRESS NOTE DATE OF SERVICE: 11/20/2018 PRESENTING COMPLAINT: Infected foot left foot second toe. INTERVAL HISTORY: This patient presented with infected left foot second toe. A bone scan is coming back showing osteomyelitis. Awaiting vascular input from Dr. Colmenares. Otherwise, patient is tolerating a diet. Patient also has acute renal failure. Vancomycin was discontinued. REVIEW OF SYSTEMS: Done for constitutional, cardiovascular, GI, pulmonary, musculoskeletal; relevant findings as above. CURRENT MEDICATIONS: Reviewed. They include IV ceftriaxone. PHYSICAL EXAMINATION: Temperature 96.1, pulse 95, respiration 20, blood pressure 152/63, pulse ox 97% on room air. GENERAL APPEARANCE: Sitting up, eating his lunch. EYES: Pupils equal. Conjunctivae normal. NECK: JVD not raised. Mass not palpable. RESPIRATORY: Effort normal. LUNGS: Diminished breath sounds. CARDIOVASCULAR: First and second sounds normal. No edema. ABDOMEN: Distended, soft. Liver and spleen not palpable. PSYCHIATRY: Alert and oriented x3. Mood and affect normal. EXTREMITIES: Left foot second toe infection-appearing. INVESTIGATIONS: Potassium 4.6, BUN 55, creatinine 2.08. Accu-Cheks are noted. Wound culture is growing MRSA. Bone scan results noted. ASSESSMENT: 1. Left foot second toe acute osteomyelitis from methicillin-resistant Staphylococcus aeruginosa. 2. Persistent atrial flutter/fibrillation, chronically on anticoagulation. 3. Morbid obesity with body mass index more than 45. 4. Chronic kidney disease, stage III, from nephrosclerosis. 5. Acute renal failure, possibly acute tubular necrosis, multifactorial. 6. Gastroesophageal reflux disease. 7. Obstructive sleep apnea. Uses CPAP machine. 8. Depression not otherwise specified. 9. Chronic congestive heart failure from diastolic dysfunction, ejection fraction 55%. 10.Bilateral hypoechoic nodules involving both the kidneys. 11.Cystic lesion at the pancreatic head, 4.47 cm, being followed by GI. PLAN: Care was discussed with the patient. Await input from Dr. Thompson. Keep a close eye on the renal function. MMODL / IJN: [id number] /
--- NOTE | 2018-11-20 23:31 | P.PN ---
Subjective Progress Note Date: 11/20/18 This is a 63-year-old -[place] male well known to ID service as he has been treated multiple times in the past for osteomyelitis and has had previous amputations. Patient is a [place] citizen but lives in [place] and drives to [place] to see his physicians. He had appointments yesterday including a fire chief Dr. Longo. Dr. Lnogo evaluated the patient and sent him into [facility] emergency [facility] for evaluation of wound to the left second toe. Patient has been afebrile, white count is 9.2, lactic acid 2.5 status post a liter of IV fluids with repeat at 2. Urinalysis was clear. Creatinine is 3.06 with baseline of 1.3-1.5 for chronic kidney disease stage III. Patient was on dialysis in 2004 and follows with nephrology. Wound culture has been obtained. Foot x-ray shows suggested osteomyelitis of the distal middle second phalanx. First digit amputation. Osseous demineralization. Extensive degenerative changes. Blood cultures status received. He did have a recent hospitalization October 14 through October 21 which time he was treated for acute diastolic heart failure and chronic kidney disease, he was found have a cystic lesion on his pancreas and to follow with GI. Patient is on eliquis for chronic atrial fibrillation. Patient also has a small ulcer to the right pretibial area, present on admission. 11/20/2018 patient is feeling about the same. No new troubles. No fevers or chills. Continues to have some bloody drainage from the left foot second toe. Objective - Vital Signs Vital signs: Vital Signs Temp 96.2 F L 11/20/18 21:45 Pulse 62 11/20/18 21:45 Resp 16 11/20/18 21:45 BP 145/79 11/20/18 21:45 Pulse Ox 96 11/20/18 21:45 Intake & Output 11/20/18 11/20/18 11/21/18 06:59 18:59 06:59 Intake Total 100 Output Total 2600 Balance 100 -2600 Weight 154.221 kg Intake: Oral 100 Output: Urine 2600 Other: Voiding Method Toilet Toilet Toilet Urinal Urinal Urinal # Voids 1 # Bowel Movements 1 - Exam Gen: This is a morbidly obese 63-year-old F in [place] male. He hasn't been appears to be comfortable. He has a CPAP in place and removes for interview. HEENT: Head is atraumatic, normocephalic. Pupils equal, round. Sclerae is anicteric. Conjunctiva pink. Oral mucous members are moist. No thrush noted. NECK: Supple. No JVD. No lymphadenopathy. No thyromegaly. LUNGS: Clear to auscultation. No wheezes or rhonchi. No intercostal retractions. HEART: Regular rate and rhythm. No murmur. ABDOMEN: Morbidly obese. Soft. Bowel sounds are present. No masses. No tenderness. No redness under her abdominal apron. EXTREMITIES: The left foot, patient has had amputation to the left great toe. There is an ulcer on the distal second toe with scant amount of serous drainage, foul order, mild erythema and also with edema. To the right foot patient has had amputation of second third and fourth toes. Small ulcer to the pretibial area with serosanguineous drainage. No significant redness. NEUROLOGICAL: Patient is awake, alert and oriented x3. - Labs CBC & Chem 7: 11/18/18 14:30 11/20/18 10:06 Labs: Abnormal Lab Results - Last 24 Hours (Table) 11/20/18 11/20/18 11/20/18 Range/Units 07:18 10:06 12:11 Chloride 111 H (98-107) mmol/L BUN 55 H (9-20) mg/dL Creatinine 2.08 H (0.66-1.25) mg/dL Glucose 136 H (74-99) mg/dL POC Glucose (mg/dL) 105 H 123 H (75-99) mg/dL 11/20/18 11/20/18 Range/Units 17:13 20:16 Chloride (98-107) mmol/L BUN (9-20) mg/dL Creatinine (0.66-1.25) mg/dL Glucose (74-99) mg/dL POC Glucose (mg/dL) 111 H 159 H (75-99) mg/dL Microbiology - Last 24 Hours (Table) 11/18/18 20:23 Anaerobic Culture - Preliminary Foot - Left 11/18/18 20:23 Gram Stain - Final Foot - Left Wound Culture - Final Methicillin resist S. aureus 11/18/18 14:30 Blood Culture - Preliminary Blood No Growth after 48 hours Laboratory Results WBC 9.2 k/uL (3.8-10.6) 11/18/18 14:30 RBC 4.20 m/uL (4.30-5.90) L 11/18/18 14:30 Hgb 12.2 gm/dL (13.0-17.5) L 11/18/18 14:30 Hct 37.8 % (39.0-53.0) L 11/18/18 14:30 MCV 90.1 fL (80.0-100.0) 11/18/18 14:30 MCH 29.0 pg (25.0-35.0) 11/18/18 14:30 MCHC 32.2 g/dL (31.0-37.0) 11/18/18 14:30 RDW 16.4 % (11.5-15.5) H 11/18/18 14:30 Plt Count 230 k/uL (150-450) 11/18/18 14:30 Neutrophils % 62 % 11/18/18 14:30 Lymphocytes % 29 % 11/18/18 14:30 Monocytes % 6 % 11/18/18 14:30 Eosinophils % 2 % 11/18/18 14:30 Basophils % 0 % 11/18/18 14:30 Neutrophils # 5.7 k/uL (1.3-7.7) 11/18/18 14:30 Lymphocytes # 2.6 k/uL (1.0-4.8) 11/18/18 14:30 Monocytes # 0.5 k/uL (0-1.0) 11/18/18 14:30 Eosinophils # 0.1 k/uL (0-0.7) 11/18/18 14:30 Basophils # 0.0 k/uL (0-0.2) 11/18/18 14:30 Anisocytosis Slight 11/18/18 14:30 PT 10.4 sec (9.0-12.0) 11/18/18 14:30 INR 1.0 (<1.2) 11/18/18 14:30 APTT 28.0 sec (22.0-30.0) 11/18/18 14:30 Sodium 142 mmol/L (137-145) 11/20/18 10:06 Potassium 4.6 mmol/L (3.5-5.1) 11/20/18 10:06 Chloride 111 mmol/L (98-107) H 11/20/18 10:06 Carbon Dioxide 22 mmol/L (22-30) 11/20/18 10:06 Anion Gap 9 mmol/L 11/20/18 10:06 BUN 55 mg/dL (9-20) H 11/20/18 10:06 Creatinine 2.08 mg/dL (0.66-1.25) H 11/20/18 10:06 Est GFR (CKD-EPI)AfAm 39 (>60 ml/min/1.73 sqM) 11/20/18 10:06 Est GFR (CKD-EPI)NonAf 33 (>60 ml/min/1.73 sqM) 11/20/18 10:06 Glucose 136 mg/dL (74-99) H 11/20/18 10:06 POC Glucose (mg/dL) 159 mg/dL (75-99) H 11/20/18 20:16 POC Glu Precipitate Washer ID Sheree Argueta 11/20/18 20:16 Lactic Ac Sepsis Rflx Y 11/18/18 15:09 Plasma Lactic Acid [place] 2.0 mmol/L (0.7-2.0) 11/18/18 18:40 Calcium 9.2 mg/dL (8.4-10.2) 11/20/18 10:06 Phosphorus 5.3 mg/dL (2.5-4.5) H 11/18/18 14:30 Magnesium 2.2 mg/dL (1.6-2.3) 11/18/18 14:30 Total Bilirubin 0.6 mg/dL (0.2-1.3) 11/18/18 14:30 AST 48 U/L (17-59) 11/18/18 14:30 ALT 39 U/L (21-72) 11/18/18 14:30 Alkaline Phosphatase 108 U/L (38-126) 11/18/18 14:30 Total Protein 7.0 g/dL (6.3-8.2) 11/18/18 14:30 Albumin 3.6 g/dL (3.5-5.0) 11/18/18 14:30 Urine Color Yellow 11/18/18 14:30 Urine Appearance Clear (Clear) 11/18/18 14:30 Urine pH 5.0 (5.0-8.0) 11/18/18 14:30 Ur Specific [place] 1.016 (1.001-1.035) 11/18/18 14:30 Urine Protein Negative (Negative) 11/18/18 14:30 Urine Glucose (UA) Negative (Negative) 11/18/18 14:30 Urine Ketones Negative (Negative) 11/18/18 14:30 Urine Blood Negative (Negative) 11/18/18 14:30 Urine Nitrite Negative (Negative) 11/18/18 14:30 Urine Bilirubin Negative (Negative) 11/18/18 14:30 Urine Urobilinogen 2.0 mg/dL (<2.0) 11/18/18 14:30 Ur Leukocyte Esterase Negative (Negative) 11/18/18 14:30 Microbiology 11/18/18 20:23 Foot - Left Anaerobic Culture - Preliminary 11/18/18 20:23 Foot - Left Gram Stain - Final 11/18/18 20:23 Foot - Left Wound Culture - Final Methicillin resist S. aureus 11/18/18 14:30 Blood Blood Culture - Preliminary No Growth after 48 hours 11/18/18 14:30 Urine,Clean Catch Urine Culture - Final Assessment and Plan (1) Ulcer of toe of left foot Narrative/Plan: Pleasant 63-year-old man with many admissions who relates that he was just recovering from his recent spontaneous right leg fracture certainly do some walking. Apparently has an injury to the left foot second toe that he is unaware of. Has developed a large open ulceration with some drainage. Skin is been requested shows evidence of osteomyelitis. At this time that his surgeries been consulted hopefully for a distal toe amputation to resolve this rapidly to get him back on track with his physical therapy regiment to improve his overall health.his receiving a dose of vancomycin which will likely be active for several days given Chronic kidney disease stage III and will likely provide several days of coverage. We'll try to avoid further vancomycin given his kidney disease.wound care will be requested. 11/20/2018 patient is with little change his status. Over the pleasure of dis cussing the case with the vascular surgeon and the patient will proceed to amputation early tomorrow afternoon of the distal aspect of the left foot second toe. Wound care can be adjusted at time of the amputation. Does have a small ulceration in the right pretibial area optifoam will be applied to that site. Patient received a dose of vancomycin which should be adequate opposite time of the surgical intervention tomorrow. Current Visit: Yes Status: Acute Code(s): L97.529 - NON-PRESSURE CHRONIC ULCER OTH PRT LEFT FOOT W UNSP SEVERITY SNOMED Code(s): 064508184
[2018-11-21 07:05] LABS: Glucose,Whole Blood 123 mg/dL (75-99)
[2018-11-21] MEDS: CHOLECALCIFEROL 1,000 UNIT TAB PO SCH (08:43)
[2018-11-21] MEDS: CYANOCOBALAMIN 500 MCG TAB PO SCH (08:44)
[2018-11-21] MEDS: hydrALAZINE HCL 25 MG TAB PO SCH ×2 (08:44→21:37)
[2018-11-21] MEDS: METOPROLOL TARTRATE 25 MG TAB PO SCH ×2 (08:44→21:37)
[2018-11-21] MEDS: FOLIC ACID 1 MG TAB PO SCH (08:44)
[2018-11-21] MEDS: predniSONE 10 MG TAB PO SCH (08:44)
[2018-11-21] MEDS: ALLOPURINOL 300 MG TAB PO SCH (08:44)
[2018-11-21] MEDS: DULoxetine HCL 30 MG CAPSULE.DR PO SCH (08:44)
[2018-11-21] MEDS: ISOSORBIDE MONONITRATE ER 30 MG TAB.ER.24H PO SCH (08:45)
[2018-11-21] MEDS: ASPIRIN 81 MG PO SCH (08:45)
[2018-11-21 10:13] LABS: Calcium 9.4 mg/dL (8.4-10.2); Potassium 4.5 mmol/L (3.5-5.1)
[2018-11-21] MEDS: MULTIVITAMINS, THERA 1 EACH TAB PO SCH (11:18)
[2018-11-21 11:28] LABS: Glucose,Whole Blood 119 mg/dL (75-99)
--- NOTE | 2018-11-21 12:58 | P.GSCN ---
History of Present Illness History of present illness: 63-year-old gentleman patient is known to me from the past patient had a left big toe and revision done about a year ago he came with infected hammertoe with osteo-of the left foot second toe. I was consulted for amputation of the left foot second toe Surgical history patient had a left foot second toe pressure done in the past and also patient had a left total knee done in the past Personal history nonsmoker Neck examination neck is supple no bruit appreciated Chest examination first and second sound normal good entry both lungs Abdomen abdomen soft nontender Vascular examination femorals are palpable bilateral patient has a dorsal pedis palpable left foot has a hammertoe with the open wound with osteo-mellitus Plan is patient is on IV antibiotic and we will do this left foot second toe amputation risk and complication bleeding infection thrombosis has been discussed Past Medical History Past Medical History: Atrial Fibrillation, Asthma, Deep Vein Thrombosis (DVT), Hypertension, Pneumonia, Pulmonary Embolus (PE), Renal Disease, Rheumatoid Arthritis (RA) Additional Past Medical History / Comment(s): gout, sickle cell, CKD stage 3 (dialysis 2004), sleep apnea, pneuropathy, glaucoma History of Any Multi-Drug Resistant Organisms: MRSA Year Discovered:: 11/18/18 MDRO Source:: foot Past Surgical History: Joint Replacement, Orthopedic Surgery Additional Past Surgical History / Comment(s): Left knee replaced; multiple toe amputations, tib/fib surgery in May 2018 Past Anesthesia/Blood Transfusion Reactions: No Reported Reaction Past Psychological History: No Psychological Hx Reported Additional Psychological History / Comment(s): lives with his . [place] citizen living in [place]. No tobacco use or alcohol use. 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 No international travel. No animal exposures Smoking Status: Never smoker Past Alcohol Use History: None Reported Past Drug Use History: Marijuana Additional Drug Use History / Comment(s): pt. states he occasionally eats m arijuana edibles for pain. Patient is and lives with his . He is a [facility] citizen living in [place]. He denies any tobacco use or alcohol use. 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 No international travel. No animal exposures. - Past Family History Father Family Medical History: Diabetes Mellitus, Myocardial Infarction (OR) Mother Family Medical History: CVA/TIA Sister(s) Family Medical History: Hypertension Additional Family Medical History / Comment(s): RA Medications and Allergies Home Medications Medication Instructions Recorded Confirmed Type Allopurinol [Zyloprim] 300 mg PO DAILY 08/25/17 11/18/18 History Cholecalciferol [Vitamin D3] 1,000 unit PO DAILY 08/25/17 11/18/18 History Cyanocobalamin (Vitamin B-12) 1,000 mcg PO DAILY 08/25/17 11/18/18 History [Vitamin B-12] Folic Acid 0.4 mg PO DAILY 08/25/17 11/18/18 History Lisinopril [Zestril] 10 mg PO BID 08/25/17 11/18/18 History Metoprolol Tartrate [Lopressor] 25 mg PO BID 08/25/17 11/18/18 History Atorvastatin Calcium [Lipitor] 20 mg PO HS 05/14/18 11/18/18 History DULoxetine HCL [Cymbalta] 30 mg PO DAILY 05/14/18 11/18/18 History Multivitamins, Thera [Multivitamin 1 tab PO DAILY@1200 05/14/18 11/18/18 History (formulary)] Latanoprost/Pf [Latanoprost 0.005% 1 drop BOTH EYES HS 10/13/18 11/18/18 History Eye Drop] predniSONE 10 mg PO DAILY 10/13/18 11/18/18 History Apixaban [Eliquis] 5 mg PO BID tab 10/20/18 11/18/18 Rx Aspirin 81 mg PO DAILY chew 10/20/18 11/18/18 Rx Furosemide [Lasix] 40 mg PO BID@0900,1600 tab 10/20/18 11/18/18 Rx Isosorbide Mononitrate ER [Imdur] 30 mg PO DAILY tab.er.24h 10/20/18 11/18/18 Rx hydrALAZINE HCL [Apresoline] 25 mg PO BID tab 10/20/18 11/18/18 Rx oxyCODONE-APAP 10-325MG [Percocet 1 tab PO Q6HR PRN #10 tab 10/20/18 11/18/18 Rx 10-325 mg] Allergies Allergy/AdvReac Type Severity Reaction Status Date / Time Sulfa (Sulfonamide Allergy Rash/Hives Verified 11/18/18 13:43 Antibiotics) Surgical - Exam Vital Signs Temp Pulse Resp BP Pulse Ox 98.2 F 58 L 18 132/72 97 11/18/18 13:25 11/18/18 13:25 11/18/18 13:25 11/18/18 13:25 11/18/18 13:25 Results - Labs 11/18/18 14:30 11/21/18 09:15 Abnormal Lab Results - Last 24 Hours (Table) 11/20/18 11/20/18 11/21/18 Range/Units 17:13 20:16 07:03 Chloride (98-107) mmol/L Carbon Dioxide (22-30) mmol/L BUN (9-20) mg/dL Creatinine (0.66-1.25) mg/dL POC Glucose (mg/dL) 111 H 159 H 123 H (75-99) mg/dL 11/21/18 11/21/18 Range/Units 09:15 11:26 Chloride 111 H (98-107) mmol/L Carbon Dioxide 21 L (22-30) mmol/L BUN 51 H (9-20) mg/dL Creatinine 1.81 H (0.66-1.25) mg/dL POC Glucose (mg/dL) 119 H (75-99) mg/dL Microbiology - Last 24 Hours (Table) 11/18/18 20:23 Anaerobic Culture - Preliminary Foot - Left 11/18/18 20:23 Gram Stain - Final Foot - Left Wound Culture - Final Methicillin resist S. aureus 11/18/18 14:30 Blood Culture - Preliminary Blood No Growth after 48 hours Diabetes panel 11/21/18 Range/Units 09:15 Sodium 144 (137-145) mmol/L Potassium 4.5 (3.5-5.1) mmol/L Chloride 111 H (98-107) mmol/L Carbon Dioxide 21 L (22-30) mmol/L BUN 51 H (9-20) mg/dL Creatinine 1.81 H (0.66-1.25) mg/dL Glucose 91 (74-99) mg/dL Calcium 9.4 (8.4-10.2) mg/dL Calcium panel 11/21/18 Range/Units 09:15 Calcium 9.4 (8.4-10.2) mg/dL Pituitary panel 11/21/18 Range/Units 09:15 Sodium 144 (137-145) mmol/L Potassium 4.5 (3.5-5.1) mmol/L Chloride 111 H (98-107) mmol/L Carbon Dioxide 21 L (22-30) mmol/L BUN 51 H (9-20) mg/dL Creatinine 1.81 H (0.66-1.25) mg/dL Glucose 91 (74-99) mg/dL Calcium 9.4 (8.4-10.2) mg/dL Adrenal panel 11/21/18 Range/Units 09:15 Sodium 144 (137-145) mmol/L Potassium 4.5 (3.5-5.1) mmol/L Chloride 111 H (98-107) mmol/L Carbon Dioxide 21 L (22-30) mmol/L BUN 51 H (9-20) mg/dL Creatinine 1.81 H (0.66-1.25) mg/dL Glucose 91 (74-99) mg/dL Calcium 9.4 (8.4-10.2) mg/dL
--- NOTE | 2018-11-21 14:41 | XR ---
EXAMINATION TYPE: XR chest 1V DATE OF EXAM: 11/21/2018 COMPARISON: 10/17/2018 HISTORY: Shortness of breath TECHNIQUE: Single frontal view of the chest is obtained. FINDINGS: The heart is enlarged there subsegmental consolidation at both lung bases. No overt failur e or pneumothorax. Hyperinflation suggests COPD. IMPRESSION: Heart is enlarged and there is right basilar infiltrate and small effusion.
[2018-11-21 17:28] LABS: Glucose,Whole Blood 107 mg/dL (75-99)
--- NOTE | 2018-11-21 19:44 | PN ---
PROGRESS NOTE Patient is seen for followup for chronic kidney disease and acute kidney injury. His renal function continues to improve. Patient is scheduled for amputation of the left second toe this afternoon. He denies any significant complaints. On examination this morning, blood pressure was 120/75, heart rate 74 per minute. He is afebrile. EXAMINATION OF THE HEART: S1 and S2. EXAMINATION OF LUNGS: Bilateral breath sounds are heard. ABDOMEN: Soft, obese. Examination of lower extremities shows no significant edema. Left foot is currently wrapped. Patient has rheumatoid deformities in his hands. Labs show sodium 144, potassium 4.5, BUN 51, serum creatinine 1.8, calcium 9.4. ASSESSMENT: 1. Acute kidney injury, acute tubular necrosis, currently improved. 2. Chronic kidney disease, NKF stage III, with baseline creatinine about 1.5 mg/dL secondary to nephrosclerosis and polycystic kidney disease. 3. Left toe infection with osteomyelitis; scheduled for surgery with Dr. Colmenares. Wound cultures have grown MRSA. Patient is maintained on ceftriaxone. 4. Hypertension, controlled. PLAN: Continue to avoid nephrotoxic agents. Continue off of IV fluids and diuretics. Repeat labs in a.m. MMODL / IJN: [id number] /
[2018-11-21 20:27] LABS: Glucose,Whole Blood 106 mg/dL (75-99)
[2018-11-21] MEDS: LATANOPROST 0.005% OPHTH DROPS 2.5 ML BTL BOTH EYES SCH (21:34)
[2018-11-21] MEDS: oxyCODONE-APAP 10-325MG 1 EACH TAB PO PRN (21:35)
[2018-11-21] MEDS: ATORVASTATIN 20 MG TAB PO SCH (21:37)
[2018-11-21 22:21] LABS: Hemoglobin A1C 7.1 % (4.0-6.0)
--- NOTE | 2018-11-21 23:41 | PN ---
PROGRESS NOTE DATE OF SERVICE: November 21, 2018. PRESENTING COMPLAINT: Infected left 2nd toe. INTERVAL HISTORY: This patient presented with osteomyelitis of the left 2nd toe, on IV antibiotics. The patient seen by Dr. Colmenares, now scheduled for amputation on Saturday. Patient's Eliquis is being held. Also patient was treated for acute renal failure. REVIEW OF SYSTEMS: Done for constitutional, cardiovascular, GI, pulmonary, musculoskeletal and relevant findings as above. CURRENT MEDICATIONS: Reviewed and include IV ceftriaxone. PHYSICAL EXAMINATION: VITAL SIGNS: Temperature 96.7, pulse 79, respiration 16, blood pressure 114/68, pulse ox 96% on room air. GENERAL APPEARANCE: Sitting up awake. EYES: Pupils equal. Conjunctivae normal. NECK: JVD not raised. Mass not palpable. RESPIRATORY: Effort normal. LUNGS: Decreased breath sounds. CARDIOVASCULAR: 1st and 2nd sounds normal. No edema. ABDOMEN: Soft, nontender. Liver and spleen not palpable. PSYCHIATRY: Alert and oriented times three. Mood and affect normal. EXTREMITIES: Left foot 2nd toe infected. INVESTIGATIONS: Potassium 4.5, BUN 51, creatinine 1.81. ASSESSMENT: 1. Left foot 2nd toe acute osteomyelitis from MRSA, pending amputation. 2. Persistent atrial flutter fibrillation chronically on Eliquis which is being held today now for surgery. 3. Morbid obesity BMI more than 45. 4. Chronic kidney stage 3 from nephrosclerosis. 5. Acute renal failure probably acute tubular necrosis from infection. 6. Gastroesophageal reflux disease. 7. Obstructive sleep apnea uses CPAP. 8. Depression, not otherwise specified. 9. Chronic congestive heart failure from diastolic dysfunction. EF 35%. 10.Bilateral nodules involving both the kidneys. 11.Lesion at the pancreatic head 4.4 cm being followed by Gastroenterology as an outpatient. PLAN: Care was discussed with the patient. Also discussed with Dr. Colmenares. Eliquis has been held. Vancomycin was discontinued by Dr. Schroeder. Renal function started to turn around. Follow closely. MMODL / IJN: [id number] /
[2018-11-22 07:01] LABS: Glucose,Whole Blood 102 mg/dL (75-99)
[2018-11-22] MEDS: oxyCODONE-APAP 10-325MG 1 EACH TAB PO PRN ×2 (08:54→20:57)
[2018-11-22] MEDS: ISOSORBIDE MONONITRATE ER 30 MG TAB.ER.24H PO SCH (08:54)
[2018-11-22] MEDS: FOLIC ACID 1 MG TAB PO SCH (08:55)
[2018-11-22] MEDS: hydrALAZINE HCL 25 MG TAB PO SCH ×2 (08:55→20:55)
[2018-11-22] MEDS: ASPIRIN 81 MG PO SCH (08:55)
[2018-11-22] MEDS: DULoxetine HCL 30 MG CAPSULE.DR PO SCH (08:55)
[2018-11-22] MEDS: CYANOCOBALAMIN 500 MCG TAB PO SCH (08:55)
[2018-11-22] MEDS: predniSONE 10 MG TAB PO SCH (08:55)
[2018-11-22] MEDS: ALLOPURINOL 300 MG TAB PO SCH (08:55)
[2018-11-22] MEDS: CHOLECALCIFEROL 1,000 UNIT TAB PO SCH (08:55)
[2018-11-22] MEDS: MULTIVITAMINS, THERA 1 EACH TAB PO SCH (08:55)
[2018-11-22] MEDS: METOPROLOL TARTRATE 25 MG TAB PO SCH ×2 (08:55→20:55)
[2018-11-22 08:59] LABS: Calcium 9.6 mg/dL (8.4-10.2); Potassium 4.6 mmol/L (3.5-5.1)
[2018-11-22 11:32] LABS: Glucose,Whole Blood 111 mg/dL (75-99)
[2018-11-22] MEDS ORDERED: DOCUSATE 100 MG CAP PO STA (12:09)
[2018-11-22 16:57] LABS: Glucose,Whole Blood 121 mg/dL (75-99)
--- NOTE | 2018-11-22 20:18 | PN ---
PROGRESS NOTE Patient is seen for followup for acute kidney injury and chronic kidney disease. He did not have his surgery which is postponed for possibly tomorrow. At this time, patient is on a bedpan. He denies any significant complaints. PHYSICAL EXAMINATION: Blood pressure was 121/73, heart rate 89 per minute. He is afebrile. Patient appears euvolemic with no significant edema in his lower extremities. Abdomen is soft, nontender. LABS: Show sodium 144, potassium 4.6, chloride 115, BUN 39, serum creatinine 1.5. ASSESSMENT: 1. Acute kidney injury, nonoliguric, associated with hypotension hypoperfusion currently improving. 2. Chronic kidney disease NKF stage III, secondary to nephrosclerosis and polycystic kidney disease with baseline creatinine about 1.5 mg/dL. 3. Left second ischemic toe scheduled for amputation of the toe. 4. Osteomyelitis with wound culture growing MRSA. PLAN: Continue antibiotics. Repeat labs in a.m. Avoid nephrotoxic agents. MMODL / IJN: [id number] /
[2018-11-22 20:35] LABS: Glucose,Whole Blood 114 mg/dL (75-99)
[2018-11-22] MEDS: ATORVASTATIN 20 MG TAB PO SCH (20:55)
[2018-11-22] MEDS: LATANOPROST 0.005% OPHTH DROPS 2.5 ML BTL BOTH EYES SCH (20:55)
[2018-11-23 07:08] LABS: Glucose,Whole Blood 90 mg/dL (75-99)
[2018-11-23] MEDS: METOPROLOL TARTRATE 25 MG TAB PO SCH ×2 (07:48→21:50)
[2018-11-23] MEDS ORDERED: PROPOFOL 10 MG/ML 20 ML VIAL IV ONE (08:37)
[2018-11-23] MEDS ORDERED: SODIUM CHLORIDE 0.9% 1,000 ML IV ONE ×2 (08:37→09:05)
[2018-11-23] MEDS ORDERED: MIDAZOLAM 2 MG/2 ML VIAL ONE (08:37)
[2018-11-23] MEDS ORDERED: HYDROCORTISONE SUCCINATE 100 MG/2 ML VIAL ONE (08:37)
[2018-11-23] MEDS ORDERED: KETAMINE 10 MG/ML 20 ML VIAL ONE (08:37)
[2018-11-23] MEDS: predniSONE 10 MG TAB PO SCH (09:36)
--- NOTE | 2018-11-23 09:39 | OP ---
OPERATIVE REPORT PREOP DIAGNOSIS: Osteomyelitis of the left foot second toe with open chronic wound. OPERATION: Amputation of the left foot second toe. ANESTHESIA: Local IV sedation. DESCRIPTION OF PROCEDURE: Patient was brought to the operating room. 1% lidocaine was infiltrated with a ring block. Incision was made on the dorsal aspect of the foot, went circumferentially around the second toe. Deepened through skin fat and fascia. After that, tendons were divided on the dorsal and plantar aspect of the second toe. We reached the proximal phalanx. Using bone cutter, we divided at the proximal phalanx of the second toe and specimen was removed. There was some the bleeding which was controlled by using 4-0 Prolene, ligated with Prolene and then incision was closed with Vicryl and skin was closed with 4-0 nylon with interrupted suture. There was some oozing which was stopped. Dressing applied. Patient tolerated the procedure well. MMODL / IJN: [id number] /
[2018-11-23] MEDS: ISOSORBIDE MONONITRATE ER 30 MG TAB.ER.24H PO SCH (09:54)
[2018-11-23] MEDS: CHOLECALCIFEROL 1,000 UNIT TAB PO SCH (09:54)
[2018-11-23] MEDS: FOLIC ACID 1 MG TAB PO SCH (09:54)
[2018-11-23] MEDS: hydrALAZINE HCL 25 MG TAB PO SCH ×2 (09:54→21:50)
[2018-11-23] MEDS: DULoxetine HCL 30 MG CAPSULE.DR PO SCH (09:54)
[2018-11-23] MEDS: ASPIRIN 81 MG PO SCH (09:54)
[2018-11-23] MEDS: CYANOCOBALAMIN 500 MCG TAB PO SCH (09:54)
[2018-11-23] MEDS: ALLOPURINOL 300 MG TAB PO SCH (09:54)
[2018-11-23] MEDS: MULTIVITAMINS, THERA 1 EACH TAB PO SCH (09:54)
[2018-11-23 11:22] LABS: Calcium 9.6 mg/dL (8.4-10.2); Potassium 4.5 mmol/L (3.5-5.1)
[2018-11-23 11:34] LABS: Glucose,Whole Blood 119 mg/dL (75-99)
--- NOTE | 2018-11-23 11:48 | P.PN ---
Subjective Progress Note Date: 11/22/18 Principal diagnosis: Infected left second toe Covering for Dr. Berry over the weekend 63-year-old male admitted to the hospital with osteomyelitis of the left second toe currently on IV antibiotics. Patient has been boarded for amputation by Dr. Colmenares for tomorrow morning. Today the patient is comfortably sleeping in his bed on his CPAP machine. He has no active complaints. Patient denies having any fevers chills or rigors overnight. No cough or difficulty in breathing. No chest pain or palpitations. No abdominal pain nausea vomiting or diarrhea. Patient's labs have been reviewed and his creatinine is trending down. Active Medications Allopurinol (Zyloprim) 300 mg PO DAILY [facility] Last Admin: 11/22/18 08:55 Dose: 300 mg Documented by: Aspirin (Aspirin) 81 mg PO DAILY [facility] Last Admin: 11/22/18 08:55 Dose: 81 mg Documented by: Atorvastatin Calcium (Lipitor) 20 mg PO [facility] Last Admin: 11/21/18 21:37 Dose: 20 mg Documented by: Cholecalciferol (Vitamin D3) 1,000 unit PO DAILY [facility] Last Admin: 11/22/18 08:55 Dose: 1,000 unit Documented by: Cyanocobalamin (Vitamin B-12) 1,000 mcg PO DAILY [facility] Last Admin: 11/22/18 08:55 Dose: 1,000 mcg Documented by: Duloxetine HCl (Cymbalta) 30 mg PO DAILY [facility] Last Admin: 11/22/18 08:55 Dose: 30 mg Documented by: Folic Acid (Folic Acid) 0.5 mg PO DAILY [facility] Last Admin: 11/22/18 08:55 Dose: 0.5 mg Documented by: Hydralazine HCl (Apresoline) 25 mg PO BID [facility] Last Admin: 11/22/18 08:55 Dose: 25 mg Documented by: Ceftriaxone Sodium 1 gm/ (Sodium Chloride) 50 mls @ 100 mls/hr IVPB Q24H [facility] Last Admin: 11/21/18 17:49 Dose: 100 mls/hr Documented by: Isosorbide Mononitrate (Imdur) 30 mg PO DAILY [facility] Last Admin: 11/22/18 08:54 Dose: 30 mg Documented by: Latanoprost (Xalatan 0.005%) 1 drops BOTH EYES [facility] Last Admin: 11/21/18 21:34 Dose: 1 drops Documented by: Metoprolol Tartrate (Lopressor) 25 mg PO BID [facility] Last Admin: 11/22/18 08:55 Dose: 25 mg Documented by: Multivitamins (Theragran) 1 each PO DAILY@1200 [facility] Last Admin: 11/22/18 08:55 Dose: 1 each Documented by: Oxycodone/Acetaminophen (Percocet 10-325) 1 each PO Q6HR PRN PRN Reason: Pain Last Admin: 11/22/18 08:54 Dose: 1 each Documented by: Prednisone () 10 mg PO DAILY [facility] Last Admin: 11/22/18 08:55 Dose: 10 mg Documented by: Objective - Vital Signs Vital signs: Vital Signs Temp 97.0 F L 11/22/18 05:00 Pulse 84 11/22/18 05:00 Resp 18 11/22/18 05:00 BP 144/91 11/22/18 05:00 Pulse Ox 95 11/22/18 05:00 Intake & Output 11/21/18 11/22/18 11/22/18 18:59 06:59 18:59 Output Total 1250 600 Balance -1250 -600 Output: Urine 1250 600 Other: Voiding Method Toilet Toilet Urinal Urinal # Voids 2 - Exam On physical exam Gen. examination - patient is off his CPAP machine and sleeping comfortably in bed HEENT-normocephalic, conjunctiva no pallor Neck- no JVD Respiratory- bilateral breath sounds are positive. No wheeze or crackles. Cardiovascular - S1 and S2 heard Abdomen- soft, nontender. Extremities - infection of the left second toe. - Labs CBC & Chem 7: 11/18/18 14:30 11/22/18 08:26 Labs: Abnormal Lab Results - Last 24 Hours (Table) 11/21/18 11/21/18 11/21/18 Range/Units 09:15 11:26 17:26 Chloride (98-107) mmol/L BUN (9-20) mg/dL Creatinine (0.66-1.25) mg/dL POC Glucose (mg/dL) 119 H 107 H (75-99) mg/dL Hemoglobin A1c 7.1 H (4.0-6.0) % 11/21/18 11/22/18 11/22/18 Range/Units 20:25 06:59 08:26 Chloride 115 H (98-107) mmol/L BUN 39 H (9-20) mg/dL Creatinine 1.54 H (0.66-1.25) mg/dL POC Glucose (mg/dL) 106 H 102 H (75-99) mg/dL Hemoglobin A1c (4.0-6.0) % Microbiology - Last 24 Hours (Table) 11/18/18 14:30 Blood Culture - Preliminary Blood No Growth after 72 hours Assessment and Plan Assessment: ASSESSMENT Infected left second toe- osteomyelitis from MRSA - boarded for amputation tomorrow Persistent atrial fibrillation - on Uloric was but being helped for tomorrow surgery Acute kidney injury on CKD - creatinine trending down CK D stage III GERD Obstructive sleep apnea on CPAP Chronic congestive heart failure from diastolic dysfunction not in acute exacerbation Lesion in the pancreatic head measuring 4.4 cm being followed by GI as outpatient Plan: Continue the patient on ceftriaxone. Vancomycin has been discontinued yesterday. Patient's creatinine is trending down. Eliquis being held as the patient is provided for left second toe amputation by Dr. Colmenares for tomorrow. We'll continue with the rest of his current medication regimen. Further recommendations depending on the progress of the patient.
--- NOTE | 2018-11-23 11:53 | P.PN ---
Subjective Progress Note Date: 11/23/18 Principal diagnosis: Infected left second toe Covering for Dr. Berry over the weekend. 63-year-old male admitted to the hospital with osteomyelitis of the left second toe currently on IV antibiotics. Patient had the amputation of his left second toe done this morning by Dr. Colmenares. Today the patient is comfortably sleeping in his bed on his CPAP machine. His is at the bedside. He complains of some pain at the surgical site. On review of systems - Patient denies having any fevers chills or rigors overnight. No cough or difficulty in breathing. No chest pain or palpitations. No abdominal pain nausea vomiting or diarrhea. No dysuria or hematuria. Active Medications Allopurinol (Zyloprim) 300 mg PO DAILY [facility] Last Admin: 11/23/18 09:54 Dose: 300 mg Documented by: Apixaban (Eliquis) 5 mg PO BID [facility] Aspirin (Aspirin) 81 mg PO DAILY [facility] Last Admin: 11/23/18 09:54 Dose: 81 mg Documented by: Atorvastatin Calcium (Lipitor) 20 mg PO HS [facility] Last Admin: 11/22/18 20:55 Dose: 20 mg Documented by: Cholecalciferol (Vitamin D3) 1,000 unit PO DAILY [facility] Last Admin: 11/23/18 09:54 Dose: 1,000 unit Documented by: Cyanocobalamin (Vitamin B-12) 1,000 mcg PO DAILY [facility] Last Admin: 11/23/18 09:54 Dose: 1,000 mcg Documented by: Duloxetine HCl (Cymbalta) 30 mg PO DAILY [facility] Last Admin: 11/23/18 09:54 Dose: 30 mg Documented by: Folic Acid (Folic Acid) 0.5 mg PO DAILY [facility] Last Admin: 11/23/18 09:54 Dose: 0.5 mg Documented by: Hydralazine HCl (Apresoline) 25 mg PO BID [facility] Last Admin: 11/23/18 09:54 Dose: 25 mg Documented by: Ceftriaxone Sodium 1 gm/ (Sodium Chloride) 50 mls @ 100 mls/hr IVPB Q24H [facility] Last Admin: 11/22/18 17:35 Dose: 100 mls/hr Documented by: Isosorbide Mononitrate (Imdur) 30 mg PO DAILY [facility] Last Admin: 11/23/18 09:54 Dose: 30 mg Documented by: Latanoprost (Xalatan 0.005%) 1 drops BOTH EYES HS [facility] Last Admin: 11/22/18 20:55 Dose: 1 drops Documented by: Metoprolol Tartrate (Lopressor) 25 mg PO BID [facility] Last Admin: 11/23/18 07:48 Dose: 25 mg Documented by: Multivitamins (Theragran) 1 each PO DAILY@1200 [facility] Last Admin: 11/23/18 09:54 Dose: 1 each Documented by: Oxycodone/Acetaminophen (Percocet 10-325) 1 each PO Q6HR PRN PRN Reason: Pain Last Admin: 11/22/18 20:57 Dose: 1 each Documented by: Prednisone () 10 mg PO DAILY [facility] Last Admin: 11/23/18 09:36 Dose: Not Given Documented by: Patient's labs have been reviewed and his creatinine is trending down. Objective - Vital Signs Vital signs: Vital Signs Temp 97.8 F 11/23/18 09:16 Pulse 78 11/23/18 09:31 Resp 16 11/23/18 09:31 BP 159/88 11/23/18 09:31 Pulse Ox 97 11/23/18 09:31 Intake & Output 11/22/18 11/23/18 11/23/18 18:59 06:59 18:59 Intake Total 195 Output Total 800 700 Balance -800 -505 Intake: IV 195 Output: Urine 800 600 Estimated Blood Loss 100 Other: # Voids 3 1 # Bowel Movements 0 - Exam On physical exam Gen. examination - patient is off his CPAP machine and sleeping comfortably in bed HEENT-normocephalic, conjunctiva no pallor Neck- no JVD Respiratory- bilateral breath sounds are positive. No wheeze or crackles. Cardiovascular - S1 and S2 heard Abdomen- soft, nontender. Extremities -surgical dressing in place of the left foot. Mild pitting edema in the left lower extremity. - Labs CBC & Chem 7: 11/18/18 14:30 11/23/18 10:56 Labs: Abnormal Lab Results - Last 24 Hours (Table) 11/22/18 11/22/18 11/23/18 Range/Units 16:55 20:34 10:56 Chloride 115 H (98-107) mmol/L Carbon Dioxide 19 L (22-30) mmol/L BUN 34 H (9-20) mg/dL Creatinine 1.66 H (0.66-1.25) mg/dL Glucose 113 H (74-99) mg/dL POC Glucose (mg/dL) 121 H 114 H (75-99) mg/dL 11/23/18 Range/Units 11:33 Chloride (98-107) mmol/L Carbon Dioxide (22-30) mmol/L BUN (9-20) mg/dL Creatinine (0.66-1.25) mg/dL Glucose (74-99) mg/dL POC Glucose (mg/dL) 119 H (75-99) mg/dL Microbiology - Last 24 Hours (Table) 11/18/18 20:23 Anaerobic Culture - Final Foot - Left 11/18/18 14:30 Blood Culture - Preliminary Blood No Growth after 96 hours Assessment and Plan Assessment: ASSESSMENT Infected left second toe- osteomyelitis from MRSA -status post amputation done today by Dr. Colmenares Persistent atrial fibrillation -Eliquis to be started tonight Acute kidney injury on CKD - creatinine trending down CK D stage III GERD Obstructive sleep apnea on CPAP Chronic congestive heart failure from diastolic dysfunction not in acute exacerbation Lesion in the pancreatic head measuring 4.4 cm being followed by GI as outpatient Plan: Continue the patient on ceftriaxone. Vancomycin has been discontinued. Patient's creatinine is trending down and now around baseline. Eliquis to be restarted tonight. We'll continue with the rest of his current medication regimen. Dr. Berry to follow the patient from tomorrow.
[2018-11-23] MEDS: oxyCODONE-APAP 10-325MG 1 EACH TAB PO PRN ×2 (13:23→20:09)
[2018-11-23 16:51] LABS: Glucose,Whole Blood 150 mg/dL (75-99)
[2018-11-23 20:19] LABS: Glucose,Whole Blood 189 mg/dL (75-99)
[2018-11-23] MEDS: LATANOPROST 0.005% OPHTH DROPS 2.5 ML BTL BOTH EYES SCH (21:50)
[2018-11-23] MEDS: APIXABAN 5 MG TAB PO SCH (21:51)
[2018-11-23] MEDS: ATORVASTATIN 20 MG TAB PO SCH (21:51)
[2018-11-24 07:35] LABS: Glucose,Whole Blood 99 mg/dL (75-99)
[2018-11-24] MEDS: ALLOPURINOL 300 MG TAB PO SCH (08:06)
[2018-11-24] MEDS: CHOLECALCIFEROL 1,000 UNIT TAB PO SCH (08:06)
[2018-11-24] MEDS: predniSONE 10 MG TAB PO SCH (08:06)
[2018-11-24] MEDS: METOPROLOL TARTRATE 25 MG TAB PO SCH ×2 (08:06→20:51)
[2018-11-24] MEDS: CYANOCOBALAMIN 500 MCG TAB PO SCH (08:06)
[2018-11-24] MEDS: FOLIC ACID 1 MG TAB PO SCH (08:06)
[2018-11-24] MEDS: ASPIRIN 81 MG PO SCH (08:06)
[2018-11-24] MEDS: DULoxetine HCL 30 MG CAPSULE.DR PO SCH (08:06)
[2018-11-24] MEDS: hydrALAZINE HCL 25 MG TAB PO SCH ×2 (08:07→20:51)
[2018-11-24] MEDS: ISOSORBIDE MONONITRATE ER 30 MG TAB.ER.24H PO SCH (08:07)
[2018-11-24] MEDS: APIXABAN 5 MG TAB PO SCH ×2 (08:07→20:52)
[2018-11-24] MEDS: oxyCODONE-APAP 10-325MG 1 EACH TAB PO PRN ×2 (08:10→15:15)
[2018-11-24 08:14] LABS: Calcium 9.4 mg/dL (8.4-10.2); Potassium 4.6 mmol/L (3.5-5.1)
[2018-11-24 12:01] LABS: Glucose,Whole Blood 113 mg/dL (75-99)
[2018-11-24] MEDS: MULTIVITAMINS, THERA 1 EACH TAB PO SCH (12:12)
--- NOTE | 2018-11-24 15:02 | PN ---
PROGRESS NOTE Patient is seen for followup for CKD and acute kidney injury. He was admitted to the hospital with gangrene of his left 2nd toe. He had amputation of his left 2nd toe yesterday by Dr. Colmenares. Serum creatinine on admission was 3.0, it is now down to 1.5. Patient was hypotensive on initial admission. He received IV fluids initially. Currently, he is hep-locked and the patient has had good oral intake. His serum creatinine is down to 1.5. He also has underlying CKD stage III secondary to polycystic kidney disease and nephrosclerosis. His baseline creatinine is around 1.5 mg/dL. Patient had been med maintained on vancomycin. The wound cultures had grown MRSA. PHYSICAL EXAMINATION: This morning, patient is comfortable. Blood pressure 138/73, heart rate 80 per minute. He is afebrile. Examination of the heart, S1, S2. Examination of the lungs, bilateral breath sounds are heard. Abdomen is soft, obese, nontender. Examination of the lower extremities shows left foot is currently wrapped. No significant edema is noted. [employer] exam is grossly intact. LABS: Show sodium 144, potassium 4.6, BUN 31, serum creatinine 1.5, calcium 9.4. ASSESSMENT: 1. Acute kidney injury, acute tubular necrosis secondary to hypotension, ongoing infection and volume depletion, currently improved. Renal function is close to baseline. 2. Chronic kidney disease stage III secondary to nephrosclerosis and polycystic kidney disease. 3. Gangrene of the left second toe, status post amputation. 4. Osteomyelitis of the second toe. Patient was maintained on vancomycin. 5. Dyslipidemia. 6. Hypertension currently controlled. PLAN: Continue off of IV fluids. Follow up as outpatient for CKD management. Avoid hypotension. May continue with the Eliquis for now. MMODL / IJN: [id number] /
[2018-11-24 16:48] LABS: Glucose,Whole Blood 132 mg/dL (75-99)
[2018-11-24 20:39] LABS: Glucose,Whole Blood 108 mg/dL (75-99)
[2018-11-24] MEDS: LATANOPROST 0.005% OPHTH DROPS 2.5 ML BTL BOTH EYES SCH (20:52)
[2018-11-24] MEDS: ATORVASTATIN 20 MG TAB PO SCH (20:52)
--- NOTE | 2018-11-24 21:55 | P.PN ---
Subjective Progress Note Date: 11/24/18 This is a 63-year-old -Stateless male well known to ID service as he has been treated multiple times in the past for osteomyelitis and has had previous amputations. Patient is a [place] citizen but lives in [place] and drives to [place] to see his physicians. He had appointments yesterday including a erecting crane operator Dr. Longo. Dr. Longo evaluated the patient and sent him into [facility] emergency center for evaluation of wound to the left second toe. Patient has been afebrile, white count is 9.2, lactic acid 2.5 status post a liter of IV fluids with repeat at 2. Urinalysis was clear. Creatinine is 3.06 with baseline of 1.3-1.5 for chronic kidney disease stage III. Patient was on dialysis in 2004 and follows with nephrology. Wound culture has been obtained. Foot x-ray shows suggested osteomyelitis of the distal middle second phalanx. First digit amputation. Osseous demineralization. Extensive degenerative changes. Blood cultures status received. He did have a recent hospitalization October 14 through October 21 which time he was treated for acute diastolic heart failure and chronic kidney disease, he was found have a cystic lesion on his pancreas and to follow with GI. Patient is on eliquis for chronic atrial fibrillation. Patient also has a small ulcer to the right pretibial area, present on admission. 11/20/2018 patient is feeling about the same. No new troubles. No fevers or chills. Continues to have some bloody drainage from the left foot second toe. 11/24/2018 patient is now considerably improved. The toe has been amputated without difficulties. Likely discharge in the morning. Objective - Vital Signs Vital signs: Vital Signs Temp 97.9 F 11/24/18 21:00 Pulse 77 11/24/18 21:00 Resp 18 11/24/18 21:00 BP 126/81 11/24/18 21:00 Pulse Ox 100 11/24/18 21:00 Intake & Output 11/24/18 11/24/18 11/25/18 06:59 18:59 06:59 Intake Total 1300 240 Output Total 600 875 300 Balance 700 -635 -300 Weight 154.221 kg Intake: Oral 1300 240 Output: Urine 600 875 300 Other: Voiding Method Toilet Urinal Urinal Urinal # Voids 1 2 # Bowel Movements 0 - Exam Gen: This is a morbidly obese 63-year-old F in Stateless male. He hasn't been appears to be comfortable. He has a CPAP in place and removes for interview. HEENT: Head is atraumatic, normocephalic. Pupils equal, round. Sclerae is anicteric. Conjunctiva pink. Oral mucous members are moist. No thrush noted. NECK: Supple. No JVD. No lymphadenopathy. No thyromegaly. LUNGS: Clear to auscultation. No wheezes or rhonchi. No intercostal retractions. HEART: Regular rate and rhythm. No murmur. ABDOMEN: Morbidly obese. Soft. Bowel sounds are present. No masses. No tenderness. No redness under her abdominal apron. EXTREMITIES: The left foot, patient has had amputation to the left great toe. Now has had amputation of the second toe with no difficulties. To the right foot patient has had amputation of second third and fourth toes. Small ulcer to the pretibial area with serosanguineous drainage. No significant redness. NEUROLOGICAL: Patient is awake, alert and oriented x3. - Labs CBC & Chem 7: 11/18/18 14:30 11/24/18 07:39 Labs: Abnormal Lab Results - Last 24 Hours (Table) 11/24/18 11/24/18 11/24/18 Range/Units 07:39 11:54 16:44 Chloride 115 H (98-107) mmol/L Carbon Dioxide 20 L (22-30) mmol/L BUN 31 H (9-20) mg/dL Creatinine 1.50 H (0.66-1.25) mg/dL POC Glucose (mg/dL) 113 H 132 H (75-99) mg/dL 11/24/18 Range/Units 20:02 Chloride (98-107) mmol/L Carbon Dioxide (22-30) mmol/L BUN (9-20) mg/dL Creatinine (0.66-1.25) mg/dL POC Glucose (mg/dL) 108 H (75-99) mg/dL Microbiology - Last 24 Hours (Table) 11/18/18 14:30 Blood Culture - Final Blood No Growth after 144 hours Laboratory Results WBC 9.2 k/uL (3.8-10.6) 11/18/18 14:30 RBC 4.20 m/uL (4.30-5.90) L 11/18/18 14:30 Hgb 12.2 gm/dL (13.0-17.5) L 11/18/18 14:30 Hct 37.8 % (39.0-53.0) L 11/18/18 14:30 MCV 90.1 fL (80.0-100.0) 11/18/18 14:30 MCH 29.0 pg (25.0-35.0) 11/18/18 14:30 MCHC 32.2 g/dL (31.0-37.0) 11/18/18 14:30 RDW 16.4 % (11.5-15.5) H 11/18/18 14:30 Plt Count 230 k/uL (150-450) 11/18/18 14:30 Neutrophils % 62 % 11/18/18 14:30 Lymphocytes % 29 % 11/18/18 14:30 Monocytes % 6 % 11/18/18 14:30 Eosinophils % 2 % 11/18/18 14:30 Basophils % 0 % 11/18/18 14:30 Neutrophils # 5.7 k/uL (1.3-7.7) 11/18/18 14:30 Lymphocytes # 2.6 k/uL (1.0-4.8) 11/18/18 14:30 Monocytes # 0.5 k/uL (0-1.0) 11/18/18 14:30 Eosinophils # 0.1 k/uL (0-0.7) 11/18/18 14:30 Basophils # 0.0 k/uL (0-0.2) 11/18/18 14:30 Anisocytosis Slight 11/18/18 14:30 PT 10.4 sec (9.0-12.0) 11/18/18 14:30 INR 1.0 (<1.2) 11/18/18 14:30 APTT 28.0 sec (22.0-30.0) 11/18/18 14:30 Sodium 144 mmol/L (137-145) 11/24/18 07:39 Potassium 4.6 mmol/L (3.5-5.1) 11/24/18 07:39 Chloride 115 mmol/L (98-107) H 11/24/18 07:39 Carbon Dioxide 20 mmol/L (22-30) L 11/24/18 07:39 Anion Gap 9 mmol/L 11/24/18 07:39 BUN 31 mg/dL (9-20) H 11/24/18 07:39 Creatinine 1.50 mg/dL (0.66-1.25) H 11/24/18 07:39 Est GFR (CKD-EPI)AfAm 58 (>60 ml/min/1.73 sqM) 11/24/18 07:39 Est GFR (CKD-EPI)NonAf 50 (>60 ml/min/1.73 sqM) 11/24/18 07:39 Glucose 93 mg/dL (74-99) 11/24/18 07:39 POC Glucose (mg/dL) 108 mg/dL (75-99) H 11/24/18 20:02 POC Glu [employer]oon [employer] ID Noemi Montes 11/24/18 20:[address] Glu mg/dL 157 11/21/18 09:15 Hemoglobin A1c 7.1 % (4.0-6.0) H 11/21/18 09:15 Lactic Ac Sepsis Rflx Y 11/18/18 15:09 Plasma Lactic Acid [place] 2.0 mmol/L (0.7-2.0) 11/18/18 18:40 Calcium 9.4 mg/dL (8.4-10.2) 11/24/18 07:39 Phosphorus 5.3 mg/dL (2.5-4.5) H 11/18/18 14:30 Magnesium 2.2 mg/dL (1.6-2.3) 11/18/18 14:30 Total Bilirubin 0.6 mg/dL (0.2-1.3) 11/18/18 14:30 AST 48 U/L (17-59) 11/18/18 14:30 ALT 39 U/L (21-72) 11/18/18 14:30 Alkaline Phosphatase 108 U/L (38-126) 11/18/18 14:30 Total Protein 7.0 g/dL (6.3-8.2) 11/18/18 14:30 Albumin 3.6 g/dL (3.5-5.0) 11/18/18 14:30 Urine Color Yellow 11/18/18 14:30 Urine Appearance Clear (Clear) 11/18/18 14:30 Urine pH 5.0 (5.0-8.0) 11/18/18 14:30 Ur Specific [place] 1.016 (1.001-1.035) 11/18/18 14:30 Urine Protein Negative (Negative) 11/18/18 14:30 Urine Glucose (UA) Negative (Negative) 11/18/18 14:30 Urine Ketones Negative (Negative) 11/18/18 14:30 Urine Blood Negative (Negative) 11/18/18 14:30 Urine Nitrite Negative (Negative) 11/18/18 14:30 Urine Bilirubin Negative (Negative) 11/18/18 14:30 Urine Urobilinogen 2.0 mg/dL (<2.0) 11/18/18 14:30 Ur Leukocyte Esterase Negative (Negative) 11/18/18 14:30 Microbiology 11/18/18 14:30 Blood Blood Culture - Final No Growth after 144 hours 11/18/18 20:23 Foot - Left Anaerobic Culture - Final 11/18/18 20:23 Foot - Left Gram Stain - Final 11/18/18 20:23 Foot - Left Wound Culture - Final Methicillin resist S. aureus 11/18/18 14:30 Urine,Clean Catch Urine Culture - Final Assessment and Plan (1) Ulcer of toe of left foot Narrative/Plan: Pleasant 63-year-old man with many admissions who relates that he was just recovering from his recent spontaneous right leg fracture certainly do some walking. Apparently has an injury to the left foot second toe that he is unaware of. Has developed a large open ulceration with some drainage. Skin is been requested shows evidence of osteomyelitis. At this time that his surgeries been consulted hopefully for a distal toe amputation to resolve this rapidly to get him back on track with his physical therapy regiment to improve his overall health.his receiving a dose of vancomycin which will likely be active for several days given Chronic kidney disease stage III and will likely provide several days of coverage. We'll try to avoid further vancomycin given his kidney disease.wound care will be requested. 11/20/2018 patient is with little change his status. Over the pleasure of discussing the case with the vascular surgeon and the patient will proceed to amputation early tomorrow afternoon of the distal aspect of the left foot second toe. Wound care can be adjusted at time of the amputation. Does have a small ulceration in the right pretibial area optifoam will be applied to that site. Patient received a dose of vancomycin which should be adequate opposite time of the surgical intervention tomorrow. 11/24/2018 patient is now had amputation of the infected toe and osteomyelitis. Is doing well in the postoperative time frame. Antibiotic therapy with doxycycline 100 mg twice per day has been sent to pharmacy. Discharge in the morning. Current Visit: Yes Status: Acute Code(s): L97.529 - NON-PRESSURE CHRONIC ULCER OTH PRT LEFT FOOT W UNSP SEVERITY SNOMED Code(s): 391598087
--- NOTE | 2018-11-24 23:20 | PN ---
PROGRESS NOTE DATE OF SERVICE: November 24, 2018. PRESENTING COMPLAINT: Infected left 2nd toe. INTERVAL HISTORY: The patient presented with acute osteomyelitis left 2nd toe and this was removed by amputation. Pain is well controlled. The patient is back on his anticoagulation. Tolerating a diet. He is using his BiPAP. REVIEW OF SYSTEMS: Done for constitutional, cardiovascular, GI, pulmonary, musculoskeletal and relevant findings above. CURRENT MEDICATIONS: Reviewed and include IV ceftriaxone. PHYSICAL EXAMINATION: VITAL SIGNS: Temperature 97.6, pulse 84, respiration 17, blood pressure 160/68, pulse ox 97% on room air. GENERAL APPEARANCE: Lying in bed, awake. EYES: Pupils are equal. Conjunctivae normal. NECK: JVD not raised. Mass not palpable. RESPIRATORY: Effort normal. LUNGS: Decreased breath sounds. CARDIOVASCULAR: 1st and 2nd sounds normal. No edema. ABDOMEN: Soft, nontender. Liver and spleen not palpable. PSYCHIATRY: Alert and oriented x3. Mood and affect normal. EXTREMITIES: Dressing over the left foot. INVESTIGATIONS: BUN 31, creatinine 1.50. ASSESSMENT: 1. Left foot 2nd toe acute osteomyelitis from hemolysis. Removed with amputation. 2. Persistent atrial flutter fibrillation chronically on Eliquis, now resumed after surgery. 3. Morbid obesity BMI more than 45. 4. Chronic kidney stage 3 from nephrosclerosis. 5. Acute renal failure probably from acute tubular necrosis from infection. 6. Gastroesophageal reflux disease. 7. Obstructive sleep apnea uses CPAP. 8. Depression, not otherwise specified. 9. Chronic congestive heart failure from EF 35%. 10.Lesion at the pancreatic head, being followed by Gastroenterology as an outpatient. PLAN: The patient is cleared by all the services to be discharged, but the patient's is unable to pear picker the patient today. She is to come from [place]. Therefore patient will be discharged tomorrow. MMODL / IJN: [id number] /
[2018-11-25 06:51] LABS: Glucose,Whole Blood 93 mg/dL (75-99)
[2018-11-25] MEDS: FOLIC ACID 1 MG TAB PO SCH (08:32)
[2018-11-25] MEDS: ISOSORBIDE MONONITRATE ER 30 MG TAB.ER.24H PO SCH (08:32)
[2018-11-25] MEDS: CHOLECALCIFEROL 1,000 UNIT TAB PO SCH (08:32)
[2018-11-25] MEDS: DULoxetine HCL 30 MG CAPSULE.DR PO SCH (08:32)
[2018-11-25] MEDS: ALLOPURINOL 300 MG TAB PO SCH (08:32)
[2018-11-25] MEDS: CYANOCOBALAMIN 500 MCG TAB PO SCH (08:33)
[2018-11-25] MEDS: ASPIRIN 81 MG PO SCH (08:33)
[2018-11-25] MEDS: hydrALAZINE HCL 25 MG TAB PO SCH (08:33)
[2018-11-25] MEDS: predniSONE 10 MG TAB PO SCH (08:33)
[2018-11-25] MEDS: APIXABAN 5 MG TAB PO SCH (08:33)
[2018-11-25] MEDS: METOPROLOL TARTRATE 25 MG TAB PO SCH (08:33)
[2018-11-25] MEDS: oxyCODONE-APAP 10-325MG 1 EACH TAB PO PRN (08:36)
--- NOTE | 2018-11-25 10:36 | P.PN ---
Subjective Patient is seen in follow-up for acute kidney injury on chronic kidney disease. Patient has chronic kidney disease stage III with baseline creatinine in the range of 1.3-1.5 secondary to nephrosclerosis and polycystic kidney disease. Crit and was 1.5 as of yesterday. He is currently being treated for left foot infection. He underwent amputation of left second toe this admission. Urine output is good. No chest pain or shortness of breath. Vital signs are stable. General: The patient appeared well nourished and normally developed. HEENT: Head exam is unremarkable. Neck is without jugular venous distension. LUNGS: Lungs are clear to auscultation and percussion. Breath sounds decreased. HEART: Rate and Rhythm are regular. First and second heart sounds normal. No murmurs, rubs or gallops. ABDOMEN: Abdominal exam reveals normal bowel sounds. Non-tender and non- distended. No evidence of peritonitis. EXTREMITITES: No clubbing, cyanosis, or edema. Left foot drop. No obvious drainage noted. Objective - Vital Signs Vital signs: Vital Signs Temp 97.9 F 11/25/18 05:00 Pulse 80 11/25/18 05:00 Resp 17 11/25/18 05:00 BP 143/83 11/25/18 05:00 Pulse Ox 98 11/25/18 05:00 Intake & Output 11/24/18 11/25/18 11/25/18 18:59 06:59 18:59 Intake Total 240 650 Output Total 875 1150 Balance -635 -500 Weight 154.221 kg Intake: Oral 240 650 Output: Urine 875 1150 Other: Voiding Method Urinal Urinal # Voids 2 3 # Bowel Movements 0 - Labs CBC & Chem 7: 11/18/18 14:30 11/24/18 07:39 Labs: Abnormal Lab Results - Last 24 Hours (Table) 11/24/18 11/24/18 11/24/18 Range/Units 11:54 16:44 20:02 POC Glucose (mg/dL) 113 H 132 H 108 H (75-99) mg/dL Microbiology - Last 24 Hours (Table) 11/18/18 14:30 Blood Culture - Final Blood No Growth after 144 hours Assessment and Plan Plan: Assessment: 1. Acute kidney injury secondary to ATN secondary to hypotension and infection. Improved. 2. Chronic kidney disease stage III secondary to nephrosclerosis and polycystic kidney disease with baseline creatinine near 1.5. 3. Gangrene of the left second toe status post amputation. 4. Hypertension with chronic kidney disease. Controlled. Plan: Remains off IV fluids and diuretics. Encouraged oral intake. Avoid nephrotoxins. Potential discharge today. Patient to follow-up as an outpatient in the next 2 weeks.
[2018-11-25 11:07] LABS: Glucose,Whole Blood 113 mg/dL (75-99)
[2018-11-25] MEDS: MULTIVITAMINS, THERA 1 EACH TAB PO SCH (11:15)
[2018-11-25 11:45] VITALS: BP 133/70; PULSE 89; RESP 16; TEMP 97.8
--- NOTE | 2018-11-25 16:23 | P.PN ---
Subjective Progress Note Date: 11/25/18 This is a 63-year-old -[place] male well known to ID service as he has been treated multiple times in the past for osteomyelitis and has had previous amputations. Patient is a [place] citizen but lives in [place] and drives to [place] to see his physicians. He had appointments yesterday including a billing department supervisor Dr. Longo. Dr. Longo evaluated the patient and sent him into [facility] emergency center for evaluation of wound to the left second toe. Patient has been afebrile, white count is 9.2, lactic acid 2.5 status post a liter of IV fluids with repeat at 2. Urinalysis was clear. Creatinine is 3.06 with baseline of 1.3-1.5 for chronic kidney disease stage III. Patient was on dialysis in 2004 and follows with nephrology. Wound culture has been obtained. Foot x-ray shows suggested osteomyelitis of the distal middle second phalanx. First digit amputation. Osseous demineralization. Extensive degenerative changes. Blood cultures status received. He did have a recent hospitalization October 14 through October 21 which time he was treated for acute diastolic heart failure and chronic kidney disease, he was found have a cystic lesion on his pancreas and to follow with GI. Patient is on eliquis for chronic atrial fibrillation. Patient also has a small ulcer to the right pretibial area, present on admission. 11/20/2018 patient is feeling about the same. No new troubles. No fevers or chills. Continues to have some bloody drainage from the left foot second toe. 11/24/2018 patient is now considerably improved. The toe has been amputated without difficulties. Likely discharge in the morning. 11/25/2018 the patient is now improved. His pain is under good control. He will be discharged home today. He will follow-up with the surgeon after dischar ge. Objective - Vital Signs Vital signs: Vital Signs Temp 97.8 F 11/25/18 11:30 Pulse 89 11/25/18 11:30 Resp 16 11/25/18 11:30 BP 133/70 11/25/18 11:30 Pulse Ox 96 11/25/18 11:30 Intake & Output 11/24/18 11/25/18 11/25/18 18:59 06:59 18:59 Intake Total 240 650 Output Total 875 1150 Balance -635 -500 Weight 154.221 kg Intake: Oral 240 650 Output: Urine 875 1150 Other: Voiding Method Urinal Urinal Urinal # Voids 2 3 # Bowel Movements 0 - Exam Gen: This is a morbidly obese 63-year-old F in [place] male. He hasn't been appears to be comfortable. He has a CPAP in place and removes for interview. HEENT: Head is atraumatic, normocephalic. Pupils equal, round. Sclerae is anicteric. Conjunctiva pink. Oral mucous members are moist. No thrush noted. NECK: Supple. No JVD. No lymphadenopathy. No thyromegaly. LUNGS: Clear to auscultation. No wheezes or rhonchi. No intercostal retractions. HEART: Regular rate and rhythm. No murmur. ABDOMEN: Morbidly obese. Soft. Bowel sounds are present. No masses. No t enderness. No redness under her abdominal apron. EXTREMITIES: The left foot, patient has had amputation to the left great toe. Now has had amputation of the second toe with no difficulties. To the right foot patient has had amputation of second third and fourth toes. Small ulcer to the pretibial area with serosanguineous drainage. No significant redness. NEUROLOGICAL: Patient is awake, alert and oriented x3. - Labs CBC & Chem 7: 11/18/18 14:30 11/24/18 07:39 Labs: Abnormal Lab Results - Last 24 Hours (Table) 11/24/18 11/24/18 11/25/18 Range/Units 16:44 20:02 11:06 POC Glucose (mg/dL) 132 H 108 H 113 H (75-99) mg/dL Microbiology - Last 24 Hours (Table) 11/18/18 14:30 Blood Culture - Final Blood No Growth after 144 hours Laboratory Results WBC 9.2 k/uL (3.8-10.6) 11/18/18 14:30 RBC 4.20 m/uL (4.30-5.90) L 11/18/18 14:30 Hgb 12.2 gm/dL (13.0-17.5) L 11/18/18 14:30 Hct 37.8 % (39.0-53.0) L 11/18/18 14:30 MCV 90.1 fL (80.0-100.0) 11/18/18 14:30 MCH 29.0 pg (25.0-35.0) 11/18/18 14:30 MCHC 32.2 g/dL (31.0-37.0) 11/18/18 14:30 RDW 16.4 % (11.5-15.5) H 11/18/18 14:30 Plt Count 230 k/uL (150-450) 11/18/18 14:30 Neutrophils % 62 % 11/18/18 14:30 Lymphocytes % 29 % 11/18/18 14:30 Monocytes % 6 % 11/18/18 14:30 Eosinophils % 2 % 11/18/18 14:30 Basophils % 0 % 11/18/18 14:30 Neutrophils # 5.7 k/uL (1.3-7.7) 11/18/18 14:30 Lymphocytes # 2.6 k/uL (1.0-4.8) 11/18/18 14:30 Monocytes # 0.5 k/uL (0-1.0) 11/18/18 14:30 Eosinophils # 0.1 k/uL (0-0.7) 11/18/18 14:30 Basophils # 0.0 k/uL (0-0.2) 11/18/18 14:30 Anisocytosis Slight 11/18/18 14:30 PT 10.4 sec (9.0-12.0) 11/18/18 14:30 INR 1.0 (<1.2) 11/18/18 14:30 APTT 28.0 sec (22.0-30.0) 11/18/18 14:30 Sodium 144 mmol/L (137-145) 11/24/18 07:39 Potassium 4.6 mmol/L (3.5-5.1) 11/24/18 07:39 Chloride 115 mmol/L (98-107) H 11/24/18 07:39 Carbon Dioxide 20 mmol/L (22-30) L 11/24/18 07:39 Anion Gap 9 mmol/L 11/24/18 07:39 BUN 31 mg/dL (9-20) H 11/24/18 07:39 Creatinine 1.50 mg/dL (0.66-1.25) H 11/24/18 07:39 Est GFR (CKD-EPI)AfAm 58 (>60 ml/min/1.73 sqM) 11/24/18 07:39 Est GFR (CKD-EPI)NonAf 50 (>60 ml/min/1.73 sqM) 11/24/18 07:39 Glucose 93 mg/dL (74-99) 11/24/18 07:39 POC Glucose (mg/dL) 113 mg/dL (75-99) H 11/25/18 11:06 POC Glu Liaison Officer ID Filemon Merrill 11/25/18 11:[address] Glu mg/dL 157 11/21/18 09:15 Hemoglobin A1c 7.1 % (4.0-6.0) H 11/21/18 09:15 Lactic Ac Sepsis Rflx Y 11/18/18 15:09 Plasma Lactic Acid [place] 2.0 mmol/L (0.7-2.0) 11/18/18 18:40 Calcium 9.4 mg/dL (8.4-10.2) 11/24/18 07:39 Phosphorus 5.3 mg/dL (2.5-4.5) H 11/18/18 14:30 Magnesium 2.2 mg/dL (1.6-2.3) 11/18/18 14:30 Total Bilirubin 0.6 mg/dL (0.2-1.3) 11/18/18 14:30 AST 48 U/L (17-59) 11/18/18 14:30 ALT 39 U/L (21-72) 11/18/18 14:30 Alkaline Phosphatase 108 U/L (38-126) 11/18/18 14:30 Total Protein 7.0 g/dL (6.3-8.2) 11/18/18 14:30 Albumin 3.6 g/dL (3.5-5.0) 11/18/18 14:30 Urine Color Yellow 11/18/18 14:30 Urine Appearance Clear (Clear) 11/18/18 14:30 Urine pH 5.0 (5.0-8.0) 11/18/18 14:30 Ur Specific [place] 1.016 (1.001-1.035) 11/18/18 14:30 Urine Protein Negative (Negative) 11/18/18 14:30 Urine Glucose (UA) Negative (Negative) 11/18/18 14:30 Urine Ketones Negative (Negative) 11/18/18 14:30 Urine Blood Negative (Negative) 11/18/18 14:30 Urine Nitrite Negative (Negative) 11/18/18 14:30 Urine Bilirubin Negative (Negative) 11/18/18 14:30 Urine Urobilinogen 2.0 mg/dL (<2.0) 11/18/18 14:30 Ur Leukocyte Esterase Negative (Negative) 11/18/18 14:30 Microbiology 11/18/18 14:30 Blood Blood Culture - Final No Growth after 144 hours 11/18/18 20:23 Foot - Left Anaerobic Culture - Final 11/18/18 20:23 Foot - Left Gram Stain - Final 11/18/18 20:23 Foot - Left Wound Culture - Final Methicillin resist S. aureus 11/18/18 14:30 Urine,Clean Catch Urine Culture - Final Assessment and Plan (1) Ulcer of toe of left foot Narrative/Plan: Pleasant 63-year-old man with many admissions who relates that he was just recovering from his recent spontaneous right leg fracture certainly do some walking. Apparently has an injury to the left foot second toe that he is unaware of. Has developed a large open ulceration with some drainage. Skin is been requested shows evidence of osteomyelitis. At this time that his surgeries been consulted hopefully for a distal toe amputation to resolve this rapidly to get him back on track with his physical therapy regiment to improve his overall health.his receiving a dose of vancomycin which will likely be active for several days given Chronic kidney disease stage III and will likely provide several days of coverage. We'll try to avoid further vancomycin given his kidney disease.wound care will be requested. 11/20/2018 patient is with little change his status. Over the pleasure of discussing the case with the vascular surgeon and the patient will proceed to amputation early tomorrow afternoon of the distal aspect of the left foot second toe. Wound care can be adjusted at time of the amputation. Does have a small ulceration in the right pretibial area optifoam will be applied to that site. Patient received a dose of vancomycin which should be adequate opposite time of the surgical intervention tomorrow. 11/24/2018 patient is now had amputation of the infected toe and osteomyelitis. Is doing well in the postoperative time frame. Antibiotic therapy with doxycycline 100 mg twice per day has been sent to pharmacy. Discharge in the morning. 11/25/2018 the patient has improved. He will be discharged home today. Doxycycline is sent to his pharmacy Status: Acute Code(s): L97.529 - NON-PRESSURE CHRONIC ULCER OTH PRT LEFT FOOT W UNSP SEVERITY SNOMED Code(s): 759318555
--- NOTE | 2018-11-26 10:11 | CDI ---
Documentation Clarification Form Date: 11/26/2018 9:59:10 AM From: Shabana Calhoun Phone: If you have a question about this query, please contact Anny Roland, [employer] at [phone] between 8am and 5pm. Admit Date: 11/18/2018 3:19:00 PM Patient Name: Danyel Ventura Visit Number: [id number] Discharge Date: 11/25/2018 2:08:00 PM ATTENTION: The Clinical Documentation Specialists (CDI) and [facility] Coding Staff appreciate your assistance in clarifying documentation. Please respond to the clarification below the line at the bottom and electronically sign. The CDI & [facility] Coding staff will review the response and follow-up if needed. Please note: Queries are made part of the Legal Health Record. If you have any questions, please contact the author of this message via ITS. Dr. Will Berry ER notes document diabetic foot ulcer and lower extremity foot ulcer secondary to DM. Renal consult also lists DM in History of Present Illness. Please clarify if patient has DM and is the ulcer and osteomyelitis linked to the DM. History/Risk Factors: Patient with osteomyelitis, CKD, PAD with multiple toe amputations. Clinical Indicators: Glucose 147 on admit: In order to capture the severity of Illness and necessary documentation specificity, please clarify if patient has DM and if so is ulcer and osteomyelitis linked to DM. DM Type 1 DM Type 2 Other, please specify Unable to Determine Please document any body system complications or specific manifestations related to the diabetes: Diabetic Nephropathy Diabetic Autonomic Neuropathy Diabetic Peripheral Vascular Disease Diabetic foot ulcers, specify location Hyperglycemia Osteomyelitis Other condition __NO diabetes mellitus MTDD
== END 2018-11-25 14:08 | disposition home or self-care (01) | DRG 503 ==
LOC: EC 13:23 → 4MS4W 15:19 → 3NMEDONC 11-24 17:07
PROVIDERS: ADMIT Hospitalist; ATTEND Hospitalist
PROC: 5A09357 Assistance with Respiratory Ventilation, Less than 24 Consecutive Hours, Continuous Positive Airway Pressure (ICD-10-PCS; 2018-11-23)
PROC: 0Y6S0Z1 Detachment at Left 2nd Toe, High, Open Approach (ICD-10-PCS; principal; 2018-11-23 08:00)
DX: M86.172 Other acute osteomyelitis, left ankle and foot (principal); N17.0 Acute kidney failure with tubular necrosis; K86.2 Cyst of pancreas; I13.0 Hypertensive heart and chronic kidney disease with heart failure and stage 1 through stage 4 chronic kidney disease, or unspecified chronic kidney disease; I50.32 Chronic diastolic (congestive) heart failure; Q61.3 Polycystic kidney, unspecified; Z68.41 Body mass index [BMI] 40.0-44.9, adult; I48.1 Persistent atrial fibrillation; I48.92 Unspecified atrial flutter; I95.9 Hypotension, unspecified; D57.1 Sickle-cell disease without crisis; E66.01 Morbid (severe) obesity due to excess calories; G62.9 Polyneuropathy, unspecified; L97.529 Non-pressure chronic ulcer of other part of left foot with unspecified severity; N18.3 Chronic kidney disease, stage 3 (moderate); E78.5 Hyperlipidemia, unspecified; E86.9 Volume depletion, unspecified; B95.62 Methicillin resistant Staphylococcus aureus infection as the cause of diseases classified elsewhere; F32.9 Major depressive disorder, single episode, unspecified; G47.33 Obstructive sleep apnea (adult) (pediatric); H40.9 Unspecified glaucoma; I48.2 Chronic atrial fibrillation; J45.909 Unspecified asthma, uncomplicated; K21.9 Gastro-esophageal reflux disease without esophagitis; M06.9 Rheumatoid arthritis, unspecified; M10.9 Gout, unspecified; I70.209 Unspecified atherosclerosis of native arteries of extremities, unspecified extremity; Z96.652 Presence of left artificial knee joint; Z86.711 Personal history of pulmonary embolism; Z89.412 Acquired absence of left great toe; Z79.01 Long term (current) use of anticoagulants; Z79.82 Long term (current) use of aspirin; Z79.899 Other long term (current) drug therapy; Z79.52 Long term (current) use of systemic steroids; Z86.718 Personal history of other venous thrombosis and embolism; Z87.01 Personal history of pneumonia (recurrent); Z86.14 Personal history of Methicillin resistant Staphylococcus aureus infection; Z87.81 Personal history of (healed) traumatic fracture; Z82.49 Family history of ischemic heart disease and other diseases of the circulatory system; Z88.2 Allergy status to sulfonamides; Z83.3 Family history of diabetes mellitus; Z82.3 Family history of stroke; Z82.61 Family history of arthritis
CPT/HCPCS: 36415; 71045; 78315; 80048; 80053; 81003; 83036; 83605; 83735; 84100; 85025; 85610; 85730; 87040; 87070; 87075; 87077; 87086; 87186; 87205; 88305; 88311; 88312; 93005; 94660; 96365; 96366; 96368; 99285

== ENCOUNTER 2019-09-08 13:08 | Inpatient (IN) | payer MEDICARE ==
[2019-09-08] MEDS ORDERED: SODIUM CHLORIDE 0.9% 500 ML 500 ML IV STA (14:10)
--- NOTE | 2019-09-08 14:17 | ED ---
General Adult HPI - General Chief complaint: GI Bleed Stated complaint: blood in stool Time Seen by Provider: 09/08/19 13:30 Source: patient, family, RN notes reviewed, old records reviewed Mode of arrival: wheelchair Limitations: no limitations - History of Present Illness Initial comments: This is a 64-year-old male who presents emergency Department complaining that he is having bright red blood per rectum. Patient states he is on eliquis for blood clots. Patient states it occurred on Saturday and intermittently since then. Patient denies any chest pain difficulty breathing first breath per patient denies any palpitations. Patient denies dizziness or dizziness. Patient denies any abdominal pain. Patient denies any recent fever chills per patient denies any similar history in the past. Patient denies any hemorrhoid history. Patient states he has had a colonoscopy and probably 15 years. Patient states the bleeding continues intermittently so he decided to come to the emergency department. - Related Data Home Medications Medication Instructions Recorded Confirmed Allopurinol [Zyloprim] 300 mg PO DAILY 08/25/17 11/18/18 Cholecalciferol [Vitamin D3 (25 1,000 unit PO DAILY 08/25/17 11/18/18 Mcg = 1000 Iu)] Cyanocobalamin (Vitamin B-12) 1,000 mcg PO DAILY 08/25/17 11/18/18 [Vitamin B-12] Folic Acid 0.4 mg PO DAILY 08/25/17 11/18/18 Metoprolol Tartrate [Lopressor] 25 mg PO BID 08/25/17 11/18/18 Atorvastatin Calcium [Lipitor] 20 mg PO HS 05/14/18 11/18/18 DULoxetine HCL [Cymbalta] 30 mg PO DAILY 05/14/18 11/18/18 Multivitamins, Thera [Multivitamin 1 tab PO DAILY@1200 05/14/18 11/18/18 (formulary)] Latanoprost/Pf [Latanoprost 0.005% 1 drop BOTH EYES HS 10/13/18 11/18/18 Eye Drop] predniSONE 10 mg PO DAILY 10/13/18 11/18/18 Previous Rx's Medication Instructions Recorded Apixaban [Eliquis] 5 mg PO BID tab 10/20/18 Aspirin 81 mg PO DAILY chew 10/20/18 Isosorbide Mononitrate ER [Imdur] 30 mg PO DAILY tab.er.24h 10/20/18 hydrALAZINE HCL [Apresoline] 25 mg PO BID tab 10/20/18 oxyCODONE-APAP 10-325MG [Percocet 1 tab PO Q6HR PRN #10 tab 10/20/18 10-325 mg] Doxycycline Monohydrate [Monodox] 100 mg PO Q12HR #14 cap 11/24/18 Allergies Allergy/AdvReac Type Severity Reaction Status Date / Time Sulfa (Sulfonamide Allergy Rash/Hives Verified 09/08/19 15:34 Antibiotics) Review of Systems ROS Statement: Those systems with pertinent positive or pertinent negative responses have been documented in the HPI. ROS Other: All systems not noted in ROS Statement are negative. Past Medical History Past Medical History: Atrial Fibrillation, Asthma, Deep Vein Thrombosis (DVT), Hypertension, Pneumonia, Pulmonary Embolus (PE), Renal Disease, Rheumatoid Arthritis (RA) Additional Past Medical History / Comment(s): gout, sickle cell, CKD stage 3 (dialysis 2004), sleep apnea, pneuropathy, glaucoma History of Any Multi-Drug Resistant Organisms: MRSA Date of last positivie culture/infection: 2013 MDRO Source:: foot Past Surgical History: Joint Replacement, Orthopedic Surgery Additional Past Surgical History / Comment(s): Left knee replaced; multiple toe amputations, tib/fib surgery in May 2018 Past Anesthesia/Blood Transfusion Reactions: No Reported Reaction Past Psychological History: No Psychological Hx Reported Smoking Status: Never smoker Past Alcohol Use History: None Reported Past Drug Use History: Marijuana - Past Family History Father Family Medical History: Diabetes Mellitus, Myocardial Infarction (RI) Mother Family Medical History: CVA/TIA Sister(s) Family Medical History: Hypertension Additional Family Medical History / Comment(s): RA General Exam - General Exam Comments Initial Comments: GENERAL: Patient is well-developed and well-nourished. Patient is nontoxic and well- hydrated and is in no acute distress. ENT: Neck is soft and supple. No significant lymphadenopathy is noted. Oropharynx is clear. Moist mucous membranes. Neck has full range of motion without eliciting any pain. EYES: The sclera were anicteric and conjunctiva were pink and moist. Extraocular movements were intact and pupils were equal round and reactive to light. Eyelids were unremarkable. PULMONARY: Unlabored respirations. Good breath sounds bilaterally. No audible rales rhonchi or wheezing was noted. CARDIOVASCULAR: There is a regular rate and rhythm without any murmurs gallops or rubs. ABDOMEN: Soft and nontender with normal bowel sounds. No palpable organomegaly was noted. There is no palpable pulsatile mass. SKIN: Skin is clear with no lesions or rashes and otherwise unremarkable. NEUROLOGIC: Patient is alert and oriented x3. Cranial nerves II through XII are grossly intact. Motor and sensory are also intact. Normal speech, volume and content. Symmetrical smile. MUSCULOSKELETAL: Normal extremities with adequate strength and full range of motion. LYMPHATICS: No significant lymphadenopathy is noted PSYCHIATRIC: Normal psychiatric evaluation. Limitations: no limitations Course Vital Signs 09/08/19 09/08/19 09/08/19 13:29 13:36 14:36 Temperature 97.8 F Pulse Rate 69 79 Respiratory 18 20 20 Rate Blood Pressure 95/59 103/75 O2 Sat by Pulse 97 98 Oximetry Medical Decision Making - Medical Decision Making I spoke with Dr. Garcia he agreed to admit the patient admitted the patient I consult GI. - Lab Data Result diagrams: 09/08/19 14:20 09/08/19 14:20 Lab Results 09/08/19 09/08/19 09/08/19 Range/Units 13:50 14:20 14:20 WBC 10.2 (3.8-10.6) k/uL RBC 3.38 L (4.30-5.90) m/uL Hgb 10.5 L (13.0-17.5) gm/dL Hct 31.9 L (39.0-53.0) % MCV 94.4 (80.0-100.0) fL MCH 31.0 (25.0-35.0) pg MCHC 32.9 (31.0-37.0) g/dL RDW 16.1 H (11.5-15.5) % Plt Count 258 (150-450) k/uL Neutrophils % 65 % Lymphocytes % 29 % Monocytes % 4 % Eosinophils % 0 % Basophils % 0 % Neutrophils # 6.6 (1.3-7.7) k/uL Lymphocytes # 2.9 (1.0-4.8) k/uL Monocytes # 0.4 (0-1.0) k/uL Eosinophils # 0.0 (0-0.7) k/uL Basophils # 0.0 (0-0.2) k/uL Anisocytosis Slight PT (9.0-12.0) sec INR (<1.2) APTT (22.0-30.0) sec Sodium 139 (137-145) mmol/L Potassium 5.4 H (3.5-5.1) mmol/L Chloride 104 (98-107) mmol/L Carbon Dioxide 26 (22-30) mmol/L Anion Gap 9 mmol/L BUN 81 H (9-20) mg/dL Creatinine 2.11 H (0.66-1.25) mg/dL Est GFR (CKD-EPI)AfAm 38 (>60 ml/min/1.73 sqM) Est GFR (CKD-EPI)NonAf 33 (>60 ml/min/1.73 sqM) Glucose 134 H (74-99) mg/dL Calcium 8.8 (8.4-10.2) mg/dL Magnesium 2.3 (1.6-2.3) mg/dL Total Bilirubin 0.7 (0.2-1.3) mg/dL AST 55 (17-59) U/L ALT 57 H (4-49) U/L Alkaline Phosphatase 117 (38-126) U/L Troponin I (0.000-0.034) ng/mL Total Protein 6.9 (6.3-8.2) g/dL Albumin 3.5 (3.5-5.0) g/dL Blood Type Blood Type Confirm B Positive Blood Type Recheck Bld Type Recheck Status Antibody Screen Spec Expiration Date 09/08/19 09/08/19 09/08/19 Range/Units 14:20 14:20 14:20 WBC (3.8-10.6) k/uL RBC (4.30-5.90) m/uL Hgb (13.0-17.5) gm/dL Hct (39.0-53.0) % MCV (80.0-100.0) fL MCH (25.0-35.0) pg MCHC (31.0-37.0) g/dL RDW (11.5-15.5) % Plt Count (150-450) k/uL Neutrophils % % Lymphocytes % % Monocytes % % Eosinophils % % Basophils % % Neutrophils # (1.3-7.7) k/uL Lymphocytes # (1.0-4.8) k/uL Monocytes # (0-1.0) k/uL Eosinophils # (0-0.7) k/uL Basophils # (0-0.2) k/uL Anisocytosis PT 10.1 (9.0-12.0) sec INR 1.0 (<1.2) APTT 26.0 (22.0-30.0) sec Sodium (137-145) mmol/L Potassium (3.5-5.1) mmol/L Chloride (98-107) mmol/L Carbon Dioxide (22-30) mmol/L Anion Gap mmol/L BUN (9-20) mg/dL Creatinine (0.66-1.25) mg/dL Est GFR (CKD-EPI)AfAm (>60 ml/min/1.73 sqM) Est GFR (CKD-EPI)NonAf (>60 ml/min/1.73 sqM) Glucose (74-99) mg/dL Calcium (8.4-10.2) mg/dL Magnesium (1.6-2.3) mg/dL Total Bilirubin (0.2-1.3) mg/dL AST (17-59) U/L ALT (4-49) U/L Alkaline Phosphatase (38-126) U/L Troponin I 0.020 (0.000-0.034) ng/mL Total Protein (6.3-8.2) g/dL Albumin (3.5-5.0) g/dL Blood Type B Positive Blood Type Confirm Blood Type Recheck No Previous Record Bld Type Recheck Status CABO Indicated Antibody Screen NEGATIVE Spec Expiration Date 09/11/20192319 Disposition Clinical Impression: Rectal bleeding, Anemia Disposition: ADMITTED IP TO THIS [facility] Referrals: Josse Vaca DO [Primary Care Provider] - 1-2 days Time of Disposition: 15:36
[2019-09-08 14:37] LABS: Anisocytosis Slight; Basophils % (A) 0 %; Eosinophils % (A) 0 %; HCT 31.9 % (39.0-53.0); HGB 10.5 gm/dL (13.0-17.5); Lymphocytes # (A) 2.9 k/uL (1.0-4.8); Lymphocytes % (A) 29 %; MCHC 32.9 g/dL (31.0-37.0); MCV 94.4 fL (80.0-100.0); Mean Platelet Volume 8.8; Monocytes # (A) 0.4 k/uL (0-1.0); Monocytes % (A) 4 %; Neutrophils # (A) 6.6 k/uL (1.3-7.7); Neutrophils % (A) 65 %; Platelet Count 258 k/uL (150-450); RBC 3.38 m/uL (4.30-5.90); RDW 16.1 % (11.5-15.5); WBC 10.2 k/uL (3.8-10.6)
[2019-09-08 14:47] LABS: Prothrombin Time 10.1 sec (9.0-12.0)
[2019-09-08 14:48] LABS: Albumin 3.5 g/dL (3.5-5.0); Calcium 8.8 mg/dL (8.4-10.2); Magnesium 2.3 mg/dL (1.6-2.3); Potassium 5.4 mmol/L (3.5-5.1); Total Bilirubin 0.7 mg/dL (0.2-1.3); Total Protein 6.9 g/dL (6.3-8.2)
[2019-09-08] MEDS ORDERED: SODIUM CHLORIDE 0.9% 1,000 ML IV ONE (15:36)
[2019-09-08] MEDS ORDERED: ACETAMINOPHEN TAB 500 MG TAB PO PRN (18:53)
[2019-09-08] MEDS ORDERED: ALPRAZolam 0.25 MG TAB PO PRN (18:53)
[2019-09-08] MEDS ORDERED: ONDANSETRON 4 MG/2 ML VIAL IVP PRN (18:53)
--- NOTE | 2019-09-08 19:33 | CT ---
EXAMINATION TYPE: CT abdomen pelvis wo con DATE OF EXAM: 09/08/2019 COMPARISON: 01/09/2018 HISTORY: Blood in stool CT DLP: 2151.4 mGycm Automated exposure control for dose reduction was used. Multiple axial sections were obtained from the diaphragm to the floor the pelvis with no contrast. There is minimal subsegmental atelectasis right lung base. Heart size is fairly normal. There is no p ericardial effusion. There is no pleural effusion. There is small hiatal hernia. There is a 2 cm cyst in the left lobe of the liver. The bile ducts are not dilated. Gallbladder appea rs normal. There is 5 cm cyst on the anterior aspect of the pancreatic head. There is minimal calcifi cation. This could BE a pseudocyst. Spleen is intact. Stomach is intact. There is no adrenal mass. There are numerous bilateral renal cortical cysts that measure up to 5.5 cm . There is no hydronephrosis. Some of the cysts contain calcium. There is no retroperitoneal adenopat hy. Bladder distends smoothly. There is prostatic calcification. Ureters are not dilated. There is no retroperitoneal adenopathy. There is no inguinal hernia. There is no mesenteric edema. There is no ascites or free air. There is no sign of a bowel obstructio n. There are multiple sigmoid diverticula. I see no sign of diverticulitis. There is moderate spondyl osis at L4-5 and L5-S1 with vacuum disc and spur formation. There is a degenerative anterior subluxat ion of L4-5. The bony pelvis is intact. IMPRESSION: Minimal subsegmental atelectasis at the lung bases. Unchanged. Numerous bilateral renal cortical cysts unchanged. There is pancreatic pseudocyst increased slightly in size compared to old exam with measurement of 4.1 cm. No acute abnormality of the abdomen pelvis.
--- NOTE | 2019-09-08 21:43 | HP ---
HISTORY AND PHYSICAL DATE OF SERVICE: 09/08/2019. CHIEF COMPLAINT: Lower GI bleed. HISTORY OF PRESENT ILLNESS: This 64-year-old gentleman with a past medical history of multiple medical problems including atrial fibrillation, asthma, DVT, history of pulmonary embolism, history of rheumatoid arthritis, history of gout, being followed by Dr. Vaca in the outpatient setting, was noted to have lower gastrointestinal bleed. Initially it was bright red. Subsequently patient's family found clots and as well as some altered reddish colored stools also. The patient came to [facility] and was admitted to the hospital for further evaluation and treatment. There is no history of fever, rigors, or chills. No headache. Loss of consciousness or seizures. Minimal abdominal pain is complained of at this time. There is no history of fever, rigors or chills. PAST MEDICAL HISTORY: History of asthma, history of atrial fibrillation, DVT, hypertension, pneumonia, history of pulmonary embolism, rheumatoid arthritis, gout, sickle cell anemia, chronic kidney disease stage 3. MEDICATIONS: Prior to admission include: 1. Prednisone 10 mg p.o. daily. 2. Percocet 10 mg q.6h p.r.n. 3. Apresoline 25 mg p.o. b.i.d. 4. Vitamin B complex 1 p.o. daily. 5. Lopressor 25 mg p.o. b.i.d. 6. Prinivil 10 mg p.o. b.i.d. 7. Latanoprost 1 drop q.h.s. 8. Imdur 30 mg daily. 9. Lasix 40 mg b.i.d. 10.Folic acid 0.4 daily. 11.Cymbalta 60 mg daily. 12.Vitamin D3 1000 daily. 13.Lipitor 20 mg q.h.s. 14.Ecotrin 81 mg daily. 15.Eliquis 5 mg p.o. b.i.d. 16.Zyloprim 300 mg daily. ALLERGIES: SULFA. FAMILY HISTORY: Family history of diabetes, myocardial infarction and rheumatoid arthritis. SOCIAL HISTORY: No history of smoking. History of THC. REVIEW OF SYSTEMS: ENT: No diminished vision. No diminished hearing. CARDIOVASCULAR system is as mentioned earlier. RESPIRATORY: As mentioned earlier. GI: As mentioned earlier. no dysuria. NERVOUS SYSTEM: No numbness or weakness. ALLERGY/IMMUNOLOGY: No asthma or hayfever. MUSCULOSKELETAL as mentioned earlier. HEMATOLOGY/ONCOLOGY: No history of anemia. ENDOCRINE: No history of diabetes or hypothyroidism. CONSTITUTIONAL: As mentioned earlier. DERMATOLOGY: Negative. RHEUMATOLOGY: Negative. PSYCHIATRIC: As mentioned earlier. PHYSICAL EXAMINATION: The patient is alert and oriented x3. Pulse is 75. Blood pressure 105/75, respirations 20, temperature 97.8, pulse ox 98% on room air. HEENT: Conjunctivae normal. Oral mucosa moist. NECK is no jugular venous distention. No carotid bruit. No lymph node enlargement. CARDIOVASCULAR SYSTEM: S1, S2 muffled. RESPIRATORY: Breath sounds diminished in the bases. No rhonchi. No crackles. ABDOMEN: Soft, mild diffuse discomfort on palpation. Otherwise no mass palpable. No guarding. No rigidity. LEGS: No edema. No swelling. NERVOUS SYSTEM: Higher functions as mentioned earlier. Moves all 4 limbs. No focal motor or sensory deficits. LYMPHATICS: No lymph nodes palpable in the neck, axillae or groin. SKIN: No ulcer, no rashes and no bleeding. JOINTS: No active deforming arthropathy. LAB STUDIES: WBC 10.2, hemoglobin 10.5 sodium 139, potassium 5.5, creatinine is 2.11. ASSESSMENT: 1. Acute lower gastrointestinal bleeding, rule out colitis or diverticulosis. 2. Anemia, normocytic anemia secondary to blood loss anemia secondary to lower gastrointestinal bleeding. 3. Chronic kidney disease stage III. 4. Hyperkalemia. 5. History of persistent atrial fibrillation. 6. History of asthma, intermittent. 7. History of deep vein thrombosis. 8. Hypertension. 9. History of pneumonia. 10.History of pulmonary embolism. 11.History rheumatoid arthritis. 12.History of gout. 13.Sickle cell disease. 14.History of chronic kidney stage III. 15.History of neuropathy. 16.History of glaucoma. 17.History of MRSA. 18.History of degenerative joint disease. RECOMMENDATIONS AND DISCUSSION: This 64-year-old gentleman who presented with multiple medical issues, at this time, I recommend to continue current medications, symptomatic treatment. Otherwise, hold the Eliquis and aspirin. Gastroenterology, Cardiology consultations. Otherwise, monitor closely. Resume the rest of medications. Guarded prognosis because of multiple complex medical issues. Monitor hemoglobin closely. If hemoglobin falls, we will transfuse p.r.n. We will monitor the creatinine function also closely. A copy of this dictation is being forwarded to Dr. Vaca who is the primary physician. MMODL / IJN: [id number] /
[2019-09-08] MEDS: FUROSEMIDE 40 MG TAB PO SCH (21:45)
[2019-09-08] MEDS: LISINOPRIL 10 MG TAB PO SCH (21:46)
[2019-09-08] MEDS: hydrALAZINE HCL 25 MG TAB PO SCH (21:47)
[2019-09-08] MEDS: ATORVASTATIN 20 MG TAB PO SCH (21:55)
[2019-09-08] MEDS: PANTOPRAZOLE 40 MG/10 ML VIAL IVP SCH (21:56)
[2019-09-08] MEDS: METOPROLOL TARTRATE 25 MG TAB PO SCH (21:59)
[2019-09-08] MEDS: LATANOPROST 0.005% OPHTH DROPS 2.5 ML BTL BOTH EYES SCH (22:00)
[2019-09-08 22:06] LABS: Basophils # (A) 0.1 k/uL (0-0.2); Basophils % (A) 1 %; Eosinophils # (A) 0.1 k/uL (0-0.7); Eosinophils % (A) 1 %; HCT 29.9 % (39.0-53.0); HGB 9.6 gm/dL (13.0-17.5); Lymphocytes # (A) 3.1 k/uL (1.0-4.8); Lymphocytes % (A) 34 %; MCH 30.6 pg (25.0-35.0); MCHC 32.2 g/dL (31.0-37.0); MCV 94.9 fL (80.0-100.0); Mean Platelet Volume 7.8; Monocytes # (A) 0.5 k/uL (0-1.0); Monocytes % (A) 5 %; Neutrophils # (A) 5.1 k/uL (1.3-7.7); Neutrophils % (A) 57 %; Platelet Count 254 k/uL (150-450); RBC 3.15 m/uL (4.30-5.90); RDW 15.9 % (11.5-15.5)
[2019-09-08] MEDS: oxyCODONE-APAP 10-325MG 1 EACH TAB PO PRN (22:34)
[2019-09-09] MEDS ORDERED: NON FORMULARY DRUG (Vitamin B Complex [Vitamin B Complex] 1 CAP) PO SCH (09:00)
[2019-09-09] MEDS: PANTOPRAZOLE 40 MG/10 ML VIAL IVP SCH (09:09)
[2019-09-09] MEDS: predniSONE 10 MG TAB PO SCH (09:10)
[2019-09-09] MEDS: FUROSEMIDE 40 MG TAB PO SCH ×2 (09:10→16:54)
[2019-09-09] MEDS: FOLIC ACID 1 MG TAB PO SCH (09:10)
[2019-09-09] MEDS: ISOSORBIDE MONONITRATE ER 30 MG TAB.ER.24H PO SCH (09:10)
[2019-09-09] MEDS: DULoxetine HCL 60 MG CAPSULE.DR PO SCH (09:10)
[2019-09-09] MEDS: LISINOPRIL 10 MG TAB PO SCH (09:11)
[2019-09-09] MEDS: ALLOPURINOL 300 MG TAB PO SCH (09:11)
[2019-09-09] MEDS: METOPROLOL TARTRATE 25 MG TAB PO SCH ×2 (09:11→20:18)
[2019-09-09] MEDS: hydrALAZINE HCL 25 MG TAB PO SCH ×2 (09:11→20:16)
[2019-09-09] MEDS: oxyCODONE-APAP 10-325MG 1 EACH TAB PO PRN ×3 (09:34→23:33)
[2019-09-09 10:20] LABS: Calcium 8.5 mg/dL (8.4-10.2); Potassium 4.3 mmol/L (3.5-5.1)
[2019-09-09 10:31] LABS: Anisocytosis Slight; Basophils % (A) 0 %; Eosinophils # (A) 0.1 k/uL (0-0.7); Eosinophils % (A) 2 %; HCT 29.6 % (39.0-53.0); HGB 9.4 gm/dL (13.0-17.5); Lymphocytes % (A) 31 %; MCH 30.7 pg (25.0-35.0); MCHC 31.8 g/dL (31.0-37.0); MCV 96.5 fL (80.0-100.0); Mean Platelet Volume 7.7; Monocytes # (A) 0.6 k/uL (0-1.0); Monocytes % (A) 8 %; Neutrophils # (A) 3.7 k/uL (1.3-7.7); Neutrophils % (A) 56 %; Platelet Count 231 k/uL (150-450); RBC 3.07 m/uL (4.30-5.90); RDW 16.1 % (11.5-15.5); WBC 6.6 k/uL (3.8-10.6)
[2019-09-09] MEDS ORDERED: BISACODYL 5 MG TABLET.DR PO STA (15:34)
[2019-09-09] MEDS ORDERED: PEG 3350-NA SULF,BICARB,CL/KCL 4,000 ML BOTTLE PO ONE (17:00)
[2019-09-09] MEDS: ATORVASTATIN 20 MG TAB PO SCH (20:17)
[2019-09-09] MEDS: LATANOPROST 0.005% OPHTH DROPS 2.5 ML BTL BOTH EYES SCH (20:17)
--- NOTE | 2019-09-09 20:52 | CONS ---
CONSULTATION REASON FOR CONSULT: Renal failure. HISTORY OF PRESENT ILLNESS: The patient is a 64-year-old male with history of chronic kidney disease secondary to diabetic nephropathy, stage III, with previous creatinine about 1.8 to 1.5 mg/dL. The patient was admitted to the hospital with complaints of GI bleed. He noticed blood in his stools on having a bowel movement. Patient is maintained on Eliquis at home. He stated he continued to have clots. There is no previous history of peptic ulcers. Serum creatinine was about 2.1. Currently patient is maintained on fluids. His creatinine has decreased to 1.7. No history of use of NSAIDs. Patient is maintained on RORY inhibitors. PAST MEDICAL HISTORY: CKD, stage III, type 2 diabetes, hypertension, history of DVT, history of rheumatoid arthritis, history of chronic atrial fibrillation, gout, sickle cell anemia, history of PE and previous pneumonia. MEDICATIONS: Medications at home prior to admission included prednisone, vitamin B, lisinopril, Lopressor, Lasix, Imdur, folic acid, Cymbalta, Lipitor, aspirin, Eliquis, Zyloprim. SOCIAL HISTORY: Negative for smoking, drug abuse or alcohol abuse. PHYSICAL EXAMINATION: On examination, patient is comfortable. Blood pressure this morning 120/74, heart rate 73 per minute. He is afebrile. EXAMINATION OF THE HEART: S1 and S2. EXAMINATION OF LUNGS: Bilateral breath sounds are heard. ABDOMEN: Soft, non-tender. Examination of lower extremities shows no significant edema. Patient has deformities in both hands. LABS: Sodium 140, potassium 4.3, chloride 109, BUN 70, creatinine 1.76, hemoglobin 9.4 g/dL. ASSESSMENT: 1. Acute kidney injury, mostly prerenal. I will decrease the dose of Lasix. His blood pressure is also on the lower side. I will also decrease the dose of RORY inhibitors. Repeat labs in a.m. Renal function has improved. No nephrotoxic agents on board. 2. Chronic kidney disease, stage III, secondary to nephrosclerosis. No evidence of proteinuria on previous UA in November. Continue with the RORY inhibitors. The patient will continue to follow up as outpatient for CKD. 3. Gastrointestinal bleed. Possible EGD during this admission. No active bleeding noted currently. CT scan of the abdomen shows multiple bilateral renal cysts. Etiology for the CKD is also possibly underlying polycystic kidney disease. PLAN: Decrease Lasix. Decrease RORY inhibitors. Repeat labs in a.m. Avoid nephrotoxic agents. MMODL / IJN: [id number] /
--- NOTE | 2019-09-09 23:43 | P.PN ---
Progress Note - Text Progress Note Date: 09/09/19 Presenting complaint: Blood per rectum Interval history: This is a pleasant 64-year-old patient of Dr. Vaca. 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 Admitted with blood) rectum over couple of days. Slight abdominal discomfort. Today-eliquis has been held. Pending input from GI. No further bleeding here. Patient is using his CPAP. .Review of systems: Was done for constitutional, cardiovascular, GI, pulmonary. relevant finding as above Active Medications Acetaminophen (Tylenol Tab) 500 mg PO Q6HR PRN PRN Reason: Fever and/ or Mild Pain Hydrocodone Bitart/Acetaminophen ([place] 5-325) 1 each PO Q6HR PRN PRN Reason: Moderate Pain Allopurinol (Zyloprim) 300 mg PO DAILY [facility] Last Admin: 09/09/19 09:11 Dose: 300 mg Documented by: Alprazolam (Xanax) 0.25 mg PO TID PRN PRN Reason: Anxiety Atorvastatin Calcium (Lipitor) 20 mg PO HS [facility] Last Admin: 09/09/19 20:17 Dose: 20 mg Documented by: Duloxetine HCl (Cymbalta) 60 mg PO DAILY [facility] Last Admin: 09/09/19 09:10 Dose: 60 mg Documented by: Folic Acid (Folic Acid) 0.5 mg PO DAILY [facility] Last Admin: 09/09/19 09:10 Dose: 0.5 mg Documented by: Furosemide (Lasix) 40 mg PO DAILY [facility] Hydralazine HCl (Apresoline) 25 mg PO BID [facility] Last Admin: 09/09/19 09:11 Dose: 25 mg Documented by: Isosorbide Mononitrate (Imdur) 30 mg PO DAILY [facility] Last Admin: 09/09/19 09:10 Dose: 30 mg Documented by: Latanoprost (Xalatan 0.005%) 1 drops BOTH EYES [facility] Last Admin: 09/09/19 20:17 Dose: 1 drops Documented by: Lisinopril (Zestril) 5 mg PO DAILY [facility] Metoprolol Tartrate (Lopressor) 25 mg PO BID [facility] Last Admin: 09/09/19 20:18 Dose: 25 mg Documented by: Ondansetron HCl (Zofran) 4 mg IVP Q6HR PRN PRN Reason: Nausea And Vomiting Oxycodone/Acetaminophen (Percocet 10-325) 1 each PO Q6H PRN PRN Reason: Severe Pain Last Admin: 09/09/19 23:33 Dose: 1 each Documented by: Pantoprazole Sodium (Protonix) 40 mg IVP DAILY [facility] Last Admin: 09/09/19 09:09 Dose: 40 mg Documented by: Prednisone () 10 mg PO DAILY [facility] Last Admin: 09/09/19 09:10 Dose: 10 mg Documented by: On examination: VITAL SIGNS: 97.4, 73, 16, 120/74, 94% on room air GENERAL APPEARANCE: Laying in bed, awake. HEENT: Normal external appearance of nose and ear. Oral cavity normal EYES: Pupils equal. Conjunctiva normal. NECK: JVD not raised. Mass not palpable. RESPIRATORY: Respiratory effort normal. Lungs clear to auscultation. CARDIOVASCULAR: First and second sounds normal. No edema. ABDOMEN: Soft. Liver and spleen not palpable. No tenderness. No mass palpable. PSYCHIATRY: Alert and oriented x3. Mood and affect normal. Musculoskeletal: Severe disfigurement of the digits of the hands INVESTIGATIONS, reviewed in the clinical context: White count 6.6 hemoglobin 0.4 potassium 4.3 BUN 70 creatinine 1.76 Previous testing: Patient is BUN and creatinine back in November 2018 was 31/1.50 Assessment: -Acute fresh lower GI bleed with blood clots in a patient is on eliquis. Patient has slight abdominal discomfort. -Persistent atrial flutter fibrillation chronic and on eliquis -Chronic kidney disease stage III from nephrosclerosis -Acute renal failure possibly prerenal -GERD -Severe rheumatoid arthritis -Obstructive sleep apnea uses CPAP -Peripheral neuropathy -Depression otherwise specified -Chronic congestive heart failure from systolic dysfunction EF 35-40% Plan: Other medications to continue. We'll keep a close and renal function. And hemoglobin. Await input from GI. Eliquis has been held. Care was discussed with the patient. Questions were answered.
[2019-09-10] MEDS: hydrALAZINE HCL 25 MG TAB PO SCH ×3 (01:09→20:30)
[2019-09-10] MEDS: DULoxetine HCL 60 MG CAPSULE.DR PO SCH (09:23)
[2019-09-10] MEDS: METOPROLOL TARTRATE 25 MG TAB PO SCH ×2 (09:23→20:29)
[2019-09-10] MEDS: ISOSORBIDE MONONITRATE ER 30 MG TAB.ER.24H PO SCH (09:23)
[2019-09-10] MEDS: FOLIC ACID 1 MG TAB PO SCH (09:24)
[2019-09-10] MEDS: LISINOPRIL 5 MG TAB PO SCH (09:24)
[2019-09-10] MEDS: ALLOPURINOL 300 MG TAB PO SCH (09:25)
[2019-09-10] MEDS: HYDROcodone/APAP 5-325MG 1 EACH TAB PO PRN ×2 (09:28→20:32)
[2019-09-10] MEDS: predniSONE 10 MG TAB PO SCH (09:28)
[2019-09-10] MEDS: FUROSEMIDE 40 MG TAB PO SCH (09:30)
[2019-09-10 09:49] LABS: Basophils % (A) 1 %; Eosinophils # (A) 0.1 k/uL (0-0.7); Eosinophils % (A) 1 %; HCT 29.2 % (39.0-53.0); HGB 9.3 gm/dL (13.0-17.5); Lymphocytes # (A) 2.6 k/uL (1.0-4.8); Lymphocytes % (A) 33 %; MCH 30.2 pg (25.0-35.0); MCHC 31.7 g/dL (31.0-37.0); MCV 95.2 fL (80.0-100.0); Mean Platelet Volume 8.2; Monocytes # (A) 0.5 k/uL (0-1.0); Monocytes % (A) 7 %; Neutrophils # (A) 4.4 k/uL (1.3-7.7); Neutrophils % (A) 56 %; Platelet Count 238 k/uL (150-450); RBC 3.07 m/uL (4.30-5.90); WBC 7.8 k/uL (3.8-10.6)
[2019-09-10 09:52] LABS: Calcium 8.4 mg/dL (8.4-10.2); Potassium 4.1 mmol/L (3.5-5.1)
[2019-09-10] MEDS: PANTOPRAZOLE 40 MG/10 ML VIAL IVP SCH (10:07)
--- NOTE | 2019-09-10 10:48 | P.CONS ---
History of Present Illness - Reason for Consult Consult date: 09/09/19 GI bleed Requesting physician: Ileana Garcia - Chief Complaint Blood per rectum - History of Present Illness 64-year-old male with a medical history significant for atrial fibrillation on Eliquis therapy, chronic kidney disease, GERD, MANNY, rheumatoid arthritis, chronic lesion of the pancreatic head which is being followed up as an outpatient and congestive heart failure who presented to the hospital with complaints of dark-colored stool. The patient reports passing dark-colored stool and bright red blood with clots over this past week. He denies any prior history of GI bleeding. He denies any abdominal pain with his symptoms. His last colonoscopy was over 15 years ago. No prior EGD. The patient is on prednisone daily for his rheumatoid arthritis. He also takes aspirin daily and Eliquis therapy. He denies any nausea, vomiting or hematemesis. On presentat ion patient was found to have INR 1.0, WBC 6.6, hemoglobin 9.4, platelet count 231,000, total bilirubin 0.7, alkaline phosphatase 117, AST 55 and ALT 27. Computed tomography scan of the abdomen was negative for any intra-abdominal pathology but previously seen pancreatic cyst was noted and slightly bigger of 4.1 cm than previously noted. Review of Systems REVIEW OF SYSTEMS: CONSTITUTIONAL: Denies any fevers, chills, weight change or fatigue. CARDIOVASCULAR: Denies any chest pain, palpitations high or low blood pressures RESPIRATORY: Denies any shortness of breath, hemoptysis or cough. GENITOURINARY: No dysuria or hematuria. MUSCULOSKELETAL: No weakness reported. SKIN: Denies any new rashes or lesions, jaundice or pallor. PSYCHIATRIC: Denies any depression or anxiety. NEUROLOGY: Denies headache, denies any new focal deficits. EARS/NOSE/THROAT: No recent hearing change, congestion, nasal discharge or sore throat. EYES: No pain in eyes, discharge or change in vision. GASTROINTESTINAL: As per HPI. Past Medical History Past Medical History: Atrial Fibrillation, Asthma, Deep Vein Thrombosis (DVT), Hypertension, Pneumonia, Pulmonary Embolus (PE), Renal Disease, Rheumatoid Arthr itis (RA) Additional Past Medical History / Comment(s): gout, sickle cell, CKD stage 3 (dialysis 2004), sleep apnea, neuropathy, glaucoma History of Any Multi-Drug Resistant Organisms: MRSA Year Discovered:: 2013 MDRO Source:: Right Foot Past Surgical History: Joint Replacement, Orthopedic Surgery Additional Past Surgical History / Comment(s): Left knee replaced; multiple toe amputations, tib/fib surgery in May 2018; left upper arm fistula 2004 Past Anesthesia/Blood Transfusion Reactions: No Reported Reaction Past Psychological History: No Psychological Hx Reported Additional Psychological History / Comment(s): lives with his . [place] citizen living in [place]. No tobacco use or alcohol use. Occasional edible Marijuana use for rhuematoid arthritis. 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 No international travel. No animal exposures Smoking Status: Never smoker Past Alcohol Use History: None Reported Past Drug Use History: Marijuana Additional Drug Use History / Comment(s): pt. states he occasionally eats marijuana edibles for pain. Patient is and lives with his . He is a [place] citizen living in [place]. He denies any tobacco use or alcohol use. 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 No international travel other than [place]. No animal exposures. - Past Family History Father Family Medical History: Diabetes Mellitus, Myocardial Infarction ([place]) Mother Family Medical History: CVA/TIA Sister(s) Family Medical History: Hypertension Additional Family Medical History / Comment(s): RA Medications and Allergies Home Medications Medication Instructions Recorded Confirmed Type Allopurinol [Zyloprim] 300 mg PO DAILY 08/25/17 09/08/19 History Cholecalciferol [Vitamin D3 (25 1,000 unit PO DAILY 08/25/17 09/08/19 History Mcg = 1000 Iu)] Folic Acid 0.4 mg PO DAILY 08/25/17 09/08/19 History Metoprolol Tartrate [Lopressor] 25 mg PO BID 08/25/17 09/08/19 History Atorvastatin Calcium [Lipitor] 20 mg PO HS 05/14/18 09/08/19 History Latanoprost/Pf [Latanoprost 0.005% 1 drop BOTH EYES HS 10/13/18 09/08/19 History Eye Drop] predniSONE 10 mg PO DAILY 10/13/18 09/08/19 History Apixaban [Eliquis] 5 mg PO BID tab 10/20/18 09/08/19 Rx Isosorbide Mononitrate ER [Imdur] 30 mg PO DAILY tab.er.24h 10/20/18 09/08/19 Rx hydrALAZINE HCL [Apresoline] 25 mg PO BID tab 10/20/18 09/08/19 Rx Aspirin EC [Ecotrin Low Dose] 81 mg PO DAILY 09/08/19 09/08/19 History DULoxetine HCL [Cymbalta] 60 mg PO DAILY 09/08/19 09/08/19 History Furosemide [Lasix] 40 mg PO BID 09/08/19 09/08/19 History Lisinopril [Prinivil] 10 mg PO BID 09/08/19 09/08/19 History Vitamin B Complex 1 cap PO DAILY 09/08/19 09/08/19 History oxyCODONE-APAP 10-325MG [Percocet 1 tab PO Q6H PRN 09/08/19 09/08/19 History 10-325 mg] Allergies Allergy/AdvReac Type Severity Reaction Status Date / Time Sulfa (Sulfonamide Allergy Rash/Hives Verified 09/08/19 15:34 Antibiotics) Physical Exam Vitals: Vital Signs Temp Pulse Pulse Resp BP BP Pulse Ox 09/09/19 07:00 97.4 F L 73 16 120/74 94 L 09/09/19 06:15 97.6 F 81 19 104/60 98 09/08/19 21:33 103/68 09/08/19 21:00 103/68 09/08/19 20:00 99.1 F 76 19 93/57 98 09/08/19 15:00 75 20 105/75 98 09/08/19 14:36 79 20 103/75 98 09/08/19 13:36 20 09/08/19 13:29 97.8 F 69 18 95/59 97 Intake and Output 09/08/19 09/09/19 09/09/19 22:59 06:59 14:59 Other: Weight 149.685 kg On physical examination, patient appears comfortable in no apparent distress. HEAD: Normocephalic, atraumatic. EYES: No scleral icterus. No conjunctival injection. MOUTH: No lesions, tongue midline. NECK: Trachea midline, no gross abnormalities. CHEST: Clear to auscultation with no wheezing or rhonchi appreciated. HEART: S1-S2 appreciated. ABDOMEN: Soft, obese. Bowel sounds are positive. No organomegaly. No guarding or rigidity. EXTREMITIES: No pedal edema ulnar deviation of hands bilaterally as well as enlarged left elbow with finding secondary to are. SKIN: No rashes, no jaundice. NEUROLOGIC: Alert and oriented x3. No focal deficits. Results CBC & Chem 7: 09/09/19 09:34 09/09/19 09:34 Labs: Abnormal Lab Results - Last 24 Hours (Table) 09/08/19 09/08/19 09/08/19 Range/Units 14:20 14:20 21:43 RBC 3.38 L 3.15 L (4.30-5.90) m/uL Hgb 10.5 L 9.6 L (13.0-17.5) gm/dL Hct 31.9 L 29.9 L (39.0-53.0) % RDW 16.1 H 15.9 H (11.5-15.5) % Potassium 5.4 H (3.5-5.1) mmol/L Chloride (98-107) mmol/L BUN 81 H (9-20) mg/dL Creatinine 2.11 H (0.66-1.25) mg/dL Glucose 134 H (74-99) mg/dL ALT 57 H (4-49) U/L 09/09/19 09/09/19 Range/Units 09:34 09:34 RBC 3.07 L (4.30-5.90) m/uL Hgb 9.4 L (13.0-17.5) gm/dL Hct 29.6 L (39.0-53.0) % RDW 16.1 H (11.5-15.5) % Potassium (3.5-5.1) mmol/L Chloride 109 H (98-107) mmol/L BUN 70 H (9-20) mg/dL Creatinine 1.76 H (0.66-1.25) mg/dL Glucose 104 H (74-99) mg/dL ALT (4-49) U/L CT scan - abdomen: report reviewed (Computed tomography scan of the abdomen with no intra-abdominal pathology noted, the patient does have previously seen pancreatic cysts previously noted at 41 cm.) Assessment and Plan (1) Anemia associated with acute blood loss Narrative/Plan: 64-year-old male with multiple medical comorbidities who comes in with complaints of melena and bright red blood per rectum. Patient had associated fall in hemoglobin found to be 9.4 on repeat blood draw. He denies any prior history of GI bleeding. Last colonoscopy over 15 years ago. The patient is on prednisone therapy as well as daily aspirin and Eliquis. Unknown etiology with differential including upper GI pathology such as peptic ulcer disease, gastr itis, or AVM, or lower GI pathology such as diverticular disease. Current Visit: Yes Status: Acute Code(s): D62 - ACUTE POSTHEMORRHAGIC ANEMIA SNOMED Code(s): 111811228 (2) Rectal bleeding Current Visit: Yes Status: Acute Code(s): K62.5 - HEMORRHAGE OF ANUS AND RECTUM SNOMED Code(s): 85022627 Plan: Supportive care Clear liquid diet Continue monitor hemoglobin and hematocrit and transfuse as needed Continue Protonix therapy Continue to monitor for signs or symptoms of GI bleeding Hold anticoagulation therapy at this time Plan for EGD and colonoscopy for further evaluation tomorrow Thank you for allowing us to participate in the care of the patient we will continue to follow
[2019-09-10] MEDS ORDERED: PROPOFOL 10 MG/ML 20 ML VIAL IV ONE (12:56)
[2019-09-10] MEDS ORDERED: ePHEDrine SULFATE/0.9% NACL/PF 50 MG/5 ML SYRINGE IV ONE (12:56)
[2019-09-10] MEDS ORDERED: KETAMINE 10 MG/ML 20 ML VIAL ONE (12:56)
[2019-09-10] MEDS ORDERED: MIDAZOLAM 2 MG/2 ML VIAL ONE (12:56)
[2019-09-10] MEDS ORDERED: LIDOCAINE 1% INJ 10MG/ML (20 ML MDV) ONE (12:56)
[2019-09-10] MEDS ORDERED: PHENYLEPHRINE-0.9% NACL SYG 1 MG/10 ML SYRINGE ONE (12:56)
[2019-09-10] MEDS ORDERED: SODIUM CHLORIDE 0.9% 500 ML IV ONE ×2 (12:59→14:14)
[2019-09-10 13:50] LABS: HGB 10.1 gm/dL (13.0-17.5); MCH 30.7 pg (25.0-35.0); MCHC 31.6 g/dL (31.0-37.0); MCV 97.3 fL (80.0-100.0); Macrocytosis Slight; Mean Platelet Volume 7.5; Platelet Count 248 k/uL (150-450); RBC 3.28 m/uL (4.30-5.90); RDW 15.7 % (11.5-15.5)
--- NOTE | 2019-09-10 14:23 | P.PCN ---
Date of Procedure: 09/10/19 Description of Procedure: Brief history: Patient is a pleasant scheduled for an elective upper endoscopy as well as colonoscopy as a part of evaluation of Procedure performed: Esophagogastroduodenoscopy Colonoscopy Estimated blood loss: Minimal. Preoperative diagnosis: Anesthesia: MAC Procedure: After informed consent was obtained from the patient was brought into the endoscopy unit and IV sedation was administered by anesthesia under continuous monitoring. Initially upper endoscopy was done. The Olympus GF 190 video endoscope was inserted into the mouth and esophagus intubated without any difficulty and was gradually advanced into the stomach and duodenum and carefull y examined. The bulb and second part of the duodenum appeared normal, with biopsies taken. The scope was then withdrawn into the stomach adequately insufflated with air and upon careful examination the antrum and body, cardia and fundus appeared normal, except for some mild gastritis in the antrum and body with biopsies taken. The scope was then withdrawn into the esophagus. The GE junction was located at 40 cm to the incisors with a small 1 cm hiatal hernia noted. It appeared regular with no erythema erosions or ulcerations. Rest of the esophagus appeared normal. Patient tolerated the procedure well. At this time the patient continued to remain sedation. Initial digital rectal examination was normal. Olympus CF 190 video colonoscope was then inserted into the rectum and gradually advanced to the cecum without any difficulty. Careful examination was performed as the scope was gradually being withdrawn. The prep was excellent. The cecum, ascending colon, transverse colon, descending colon, sigmoid colon and rectum appeared normal. Numerous small and large mouth diverticula noted throughout the colon with old blood noted throughout the colon. Multiple colonic polyps measuring greater than a centimeter seen throughout the colon not removed in the setting of active GI bleed. Retroflexion was performed in the rectum and no lesions were noted. Patient tolerated the procedure well. Impression: 1. No active bleeding or old blood seen on EGD. Mild gastritis antrum body biopsy. Duodenal biopsies. Small hiatal hernia. 2. Old blood noted throughout the colon with no active seen. Moderate hamm diverticulosis, likely the etiology of the patient's lower GI bleed. Multiple colonic polyps, removed in the setting of GI bleed. Recommendations: Findings of this examination were discussed with the patient as well as his . Okay to resume liquid diet. Continue to monitor hemoglobin and hematocrit and transfuse as needed. Continue to hold anticoagulation therapy. If further bleeding consider tagged red blood cell scan for further evaluation, however it should be noted that patient will continue to pass old blood per rectum which was seen on colonoscopy. Patient will need to return within 3 months for repeat colonoscopy with polypectomy.
--- NOTE | 2019-09-10 18:43 | PN ---
PROGRESS NOTE Patient was seen this morning for followup for chronic kidney disease. He was admitted to the hospital with GI bleed and is scheduled for endoscopy later on today. I do see the procedure notes, and it looks like patient has no active bleeding noted or blood seen in the colon. Some diverticulosis noted. No bleeding noted on EGD. Renal function has been stable, with creatinine down to 1.6 today from 2.1 on initial admission. This appears to be his baseline. Patient is maintained on oral Lasix once a day. The Zestril was decreased yesterday, as blood pressure was on the lower side. PHYSICAL EXAMINATION: On examination today, blood pressure was 102/69, heart rate of 60 per minute. Patient is afebrile. EXAMINATION OF THE HEART: S1 and S2. EXAMINATION OF LUNGS: Bilateral breath sounds are heard. ABDOMEN: Soft, non-tender. Examination of lower extremities shows edema 1+ bilaterally. 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 Patient has rheumatoid arthritis deformities in both hands. LABS: Sodium of 140, potassium 4.1, chloride 107, BUN 60, creatinine 1.6, hemoglobin 9.3 g/dL. ASSESSMENT: 1. Acute kidney injury, nonoliguric, currently improved, mostly associated with some degree of hypoperfusion. RORY inhibitor dose was decreased yesterday, as blood pressure is borderline. Repeat labs in a.m. No nephrotoxic agents on board. Continue with the Lasix for now. 2. 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 Baseline creatinine about 1.7 to 1.6 mg/dL. 3. Bilateral renal cysts with complex cysts noted as well, for further workup down the road as outpatient. 4. Gastrointestinal bleed, status post EGD and colonoscopy which showed no active bleeding or blood seen in the colon. Patient is being followed by GI. He is maintained on proton pump inhibitors. 5. Rheumatoid arthritis, maintained on prednisone. PLAN: Continue with the lower dose of Zestril. Continue with oral Lasix. Repeat labs in a.m. MMODL / IJN: [id number] /
[2019-09-10] MEDS: ATORVASTATIN 20 MG TAB PO SCH (20:29)
[2019-09-10] MEDS: LATANOPROST 0.005% OPHTH DROPS 2.5 ML BTL BOTH EYES SCH (20:29)
--- NOTE | 2019-09-10 22:16 | P.PN ---
Progress Note - Text Progress Note Date: 09/10/19 Presenting complaint: Blood per rectum Interval history: This is a pleasant 64-year-old patient of Dr. Vaca. 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 Admitted with blood) rectum over couple of days. Slight abdominal discomfort. Eliquis was held. Today-soft the patient this morning. Had some more blood last evening. Pending endoscopy studies this afternoon. .Review of systems: Was done for constitutional, cardiovascular, GI, pulmonary. relevant finding as above Active Medications Acetaminophen (Tylenol Tab) 500 mg PO Q6HR PRN PRN Reason: Fever and/ or Mild Pain Hydrocodone Bitart/Acetaminophen (Miller 5-325) 1 each PO Q6HR PRN PRN Reason: Moderate Pain Last Admin: 09/10/19 20:32 Dose: 1 each Documented by: Allopurinol (Zyloprim) 300 mg PO DAILY [facility] Last Admin: 09/10/19 09:25 Dose: 300 mg Documented by: Alprazolam (Xanax) 0.25 mg PO TID PRN PRN Reason: Anxiety Atorvastatin Calcium (Lipitor) 20 mg PO [facility] Last Admin: 09/10/19 20:29 Dose: 20 mg Documented by: Duloxetine HCl (Cymbalta) 60 mg PO DAILY [facility] Last Admin: 09/10/19 09:23 Dose: 60 mg Documented by: Folic Acid (Folic Acid) 0.5 mg PO DAILY [facility] Last Admin: 09/10/19 09:24 Dose: 0.5 mg Documented by: Furosemide (Lasix) 40 mg PO DAILY [facility] Last Admin: 09/10/19 09:30 Dose: 40 mg Documented by: Hydralazine HCl (Apresoline) 25 mg PO BID [facility] Last Admin: 09/10/19 20:30 Dose: Not Given Documented by: Isosorbide Mononitrate (Imdur) 30 mg PO DAILY [facility] Last Admin: 09/10/19 09:23 Dose: 30 mg Documented by: Latanoprost (Xalatan 0.005%) 1 drops BOTH EYES [facility] Last Admin: 09/10/19 20:29 Dose: 1 drops Documented by: Lisinopril (Zestril) 5 mg PO DAILY [facility] Last Admin: 09/10/19 09:24 Dose: 5 mg Documented by: Metoprolol Tartrate (Lopressor) 25 mg PO BID [facility] Last Admin: 09/10/19 20:29 Dose: 25 mg Documented by: Ondansetron HCl (Zofran) 4 mg IVP Q6HR PRN PRN Reason: Nausea And Vomiting Oxycodone/Acetaminophen (Percocet 10-325) 1 each PO Q6H PRN PRN Reason: Severe Pain Last Admin: 09/09/19 23:33 Dose: 1 each Documented by: Pantoprazole Sodium (Protonix) 40 mg IVP DAILY [facility] Last Admin: 09/10/19 10:07 Dose: 40 mg Documented by: Prednisone () 10 mg PO DAILY [facility] Last Admin: 09/10/19 09:28 Dose: 10 mg Documented by: On examination: VITAL SIGNS: 97.7, 64, 19, 102/69, 92% room air GENERAL APPEARANCE: Laying in bed, awake. HEENT: Normal external appearance of nose and ear. Oral cavity normal EYES: Pupils equal. Conjunctiva normal. NECK: JVD not raised. Mass not palpable. RESPIRATORY: Respiratory effort normal. Lungs clear to auscultation. CARDIOVASCULAR: First and second sounds normal. No edema. ABDOMEN: Soft. Liver and spleen not palpable. No tenderness. No mass palpable. PSYCHIATRY: Alert and oriented x3. Mood and affect normal. Musculoskeletal: Severe disfigurement of the digits of the hands INVESTIGATIONS, reviewed in the clinical context: White count 9 hemoglobin 10.1 Previous testing: Patient is BUN and creatinine back in November 2018 was 31/1.50 Assessment: -Acute fresh lower GI bleed with blood clots in a patient is on eliquis. Patient has slight abdominal discomfort. -Persistent atrial flutter fibrillation chronic and on eliquis -Chronic kidney disease stage III from nephrosclerosis -Acute renal failure possibly prerenal -GERD -Severe rheumatoid arthritis -Obstructive sleep apnea uses CPAP -Peripheral neuropathy -Depression otherwise specified -Chronic congestive heart failure from systolic dysfunction EF 35-40% Plan: Later on today had EGD and colonoscope.. Endoscopy showed dark blood in the colon. Evidence of diverticulosis. Per GI likely the source of bleeding. Started later on clear liquids.
[2019-09-11 08:40] LABS: Anisocytosis Slight; Basophils # (A) 0.1 k/uL (0-0.2); Basophils % (A) 1 %; Eosinophils # (A) 0.1 k/uL (0-0.7); Eosinophils % (A) 1 %; HCT 25.1 % (39.0-53.0); Lymphocytes % (A) 34 %; MCH 31.2 pg (25.0-35.0); MCHC 32.7 g/dL (31.0-37.0); MCV 95.2 fL (80.0-100.0); Monocytes # (A) 0.6 k/uL (0-1.0); Monocytes % (A) 7 %; Neutrophils % (A) 56 %; Platelet Count 226 k/uL (150-450); RBC 2.63 m/uL (4.30-5.90); RDW 16.2 % (11.5-15.5); WBC 8.9 k/uL (3.8-10.6)
[2019-09-11 08:42] LABS: HGB 8.2 gm/dL (13.0-17.5)
[2019-09-11 08:50] LABS: Calcium 8.2 mg/dL (8.4-10.2)
[2019-09-11] MEDS: PANTOPRAZOLE 40 MG/10 ML VIAL IVP SCH (09:00)
[2019-09-11] MEDS: DULoxetine HCL 60 MG CAPSULE.DR PO SCH (09:01)
[2019-09-11] MEDS: LISINOPRIL 5 MG TAB PO SCH (09:01)
[2019-09-11] MEDS: FUROSEMIDE 40 MG TAB PO SCH (09:01)
[2019-09-11] MEDS: ISOSORBIDE MONONITRATE ER 30 MG TAB.ER.24H PO SCH (09:01)
[2019-09-11] MEDS: METOPROLOL TARTRATE 25 MG TAB PO SCH ×2 (09:01→21:07)
[2019-09-11] MEDS: hydrALAZINE HCL 25 MG TAB PO SCH ×2 (09:01→21:06)
[2019-09-11] MEDS: FOLIC ACID 1 MG TAB PO SCH (09:02)
[2019-09-11] MEDS: predniSONE 10 MG TAB PO SCH (09:02)
[2019-09-11] MEDS: ALLOPURINOL 300 MG TAB PO SCH (09:02)
[2019-09-11] MEDS: oxyCODONE-APAP 10-325MG 1 EACH TAB PO PRN ×2 (09:05→16:24)
[2019-09-11] MEDS ORDERED: DARBEPOETIN ALFA 40 MCG/0.4 ML SYRINGE SQ SCH (16:00)
--- NOTE | 2019-09-11 16:44 | P.PN ---
Subjective Progress Note Date: 09/11/19 Principal diagnosis: Continue acute blood loss, blood per rectum, hematochezia Patient is seen lying in bed. He denies any abdominal pain. No further blood per rectum this morning. He did pass some dark stool yesterday. He has tolerated advancement in his diet. Objective - Vital Signs Vital signs: Vital Signs Temp 97.7 F 09/11/19 15:52 Pulse 85 09/11/19 15:55 Resp 20 09/11/19 15:52 BP 91/50 09/11/19 15:52 Pulse Ox 97 09/11/19 15:52 Intake & Output 09/10/19 09/11/19 09/11/19 18:59 06:59 18:59 Intake Total 500 Output Total 500 Balance 0 Intake: IV 500 Output: Estimated Blood Loss 500 Other: Voiding Method Bedside Commode Bedside Commode Urinal Urinal # Voids 0 2 # Bowel Movements 10 - Exam On physical examination, patient appears comfortable in no apparent distress. HEAD: Normocephalic, atraumatic. EYES: No scleral icterus. No conjunctival injection. MOUTH: No lesions, tongue midline. NECK: Trachea midline, no gross abnormalities. CHEST: Clear to auscultation with no wheezing or rhonchi appreciated. HEART: S1-S2 appreciated. ABDOMEN: Soft, obese. Bowel sounds are positive. No organomegaly. No guarding or rigidity. EXTREMITIES: No pedal edema ulnar deviation of hands bilaterally as well as enlarged left elbow with finding secondary to are. SKIN: No rashes, no jaundice. NEUROLOGIC: Alert and oriented x3. No focal deficits. - Labs CBC & Chem 7: 09/11/19 07:53 09/11/19 07:53 Labs: Abnormal Lab Results - Last 24 Hours (Table) 09/11/19 09/11/19 Range/Units 07:53 07:53 RBC 2.63 L (4.30-5.90) m/uL Hgb 8.2 L D (13.0-17.5) gm/dL Hct 25.1 L (39.0-53.0) % RDW 16.2 H (11.5-15.5) % BUN 51 H (9-20) mg/dL Creatinine 1.77 H (0.66-1.25) mg/dL Calcium 8.2 L (8.4-10.2) mg/dL Assessment and Plan (1) Anemia associated with acute blood loss Narrative/Plan: 64-year-old male with multiple medical comorbidities who comes in with complaints of melena and bright red blood per rectum. Patient had associated fall in hemoglobin found to be 9.4 on repeat blood draw. He denies any prior history of GI bleeding. Last colonoscopy over 15 years ago. The patient is on prednisone therapy as well as daily aspirin and Eliquis. The patient was taken for EGD yesterday with findings of a small hiatal hernia and gastritis with no source of bleeding or old blood noted, and colonoscopy with large amount of old blood noted throughout the colon as well as pandiverticulosis and multiple colonic polyps not removed in the setting of active GI bleed. Hemoglobin fell slightly today but no further signs of bleeding and patient is hemodynamically stable. Current Visit: Yes Status: Acute Code(s): D62 - ACUTE POSTHEMORRHAGIC ANEMIA SNOMED Code(s): 248704279 (2) Rectal bleeding Current Visit: Yes Status: Acute Code(s): K62.5 - HEMORRHAGE OF ANUS AND RECTUM SNOMED Code(s): 33372847 Plan: Supportive care Full liquid diet, advance to low fiber, low residual diet Continue monitor hemoglobin and hematocrit and transfuse as needed Continue Protonix therapy Continue to monitor for signs or symptoms of GI bleeding Hold anticoagulation therapy at this time, would have patient will for an additional 48 hours or longer if further signs or symptoms of bleeding occur No plans for further endoscopy, however patient should follow-up in the out patient setting to scheduled for colonoscopy for polypectomy Thank you for allowing us to participate in the care of the patient we will continue to follow
--- NOTE | 2019-09-11 18:51 | PN ---
PROGRESS NOTE Patient is seen for followup for chronic kidney disease and acute kidney injury. Renal function is stable with creatinine staying at 1.6-1.7 mg/dL. The patient was admitted with GI bleed. He is status post endoscopy which did not show any active bleeding. Colonoscopy showed old blood. The patient is maintained on proton pump inhibitors. He has been voiding well. PHYSICAL EXAMINATION: On examination, blood pressure was 106/60, heart rate of 47 per minute, patient is afebrile. Examination of the heart S1, S2. Examination of the lungs, bilateral breath sounds are heard. Abdomen is soft, nontender. Examination of lower extremities shows 1+ edema bilaterally. POINTER HELPER exam grossly intact. LAB: Show sodium 138, potassium 4.0, chloride 107. BUN 51, creatinine 1.7, hemoglobin 8.2 g/dL. ASSESSMENT: 1. Acute kidney injury associated with mostly prerenal currently improved. 2. Chronic kidney disease secondary to nephrosclerosis stage 3, with renal function at baseline. 3. Anemia associated with gastrointestinal bleed and as well as component of anemia of chronic disease. I will start the patient on Aranesp. I will also order iron profile. PLAN: Check iron profile. Add Aranesp. Continue current dose of Lasix. Follow up as outpatient for CKD. MMODL / IJN: [id number] /
--- NOTE | 2019-09-11 20:24 | P.PN ---
Progress Note - Text Progress Note Date: 09/11/19 Presenting complaint: Blood per rectum Interval history: This is a pleasant 64-year-old patient of Dr. Vaca. 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 Admitted with blood) rectum over couple of days. Slight abdominal discomfort. Eliquis was held. EGD/colonoscopy showed diverticulosis.-Doubt stools in the colon. Bleed was felt to be possible diverticular. Today-feeling better. No further bowel movements. Anticoagulation to be held for another 24 hours per GI. Diet is being advanced. .Review of systems: Was done for constitutional, cardiovascular, GI, pulmonary. relevant finding as above Active Medications Acetaminophen (Tylenol Tab) 500 mg PO Q6HR PRN PRN Reason: Fever and/ or Mild Pain Hydrocodone Bitart/Acetaminophen ([place] 5-325) 1 each PO Q6HR PRN PRN Reason: Moderate Pain Last Admin: 09/10/19 20:32 Dose: 1 each Documented by: Allopurinol (Zyloprim) 300 mg PO DAILY [facility] Last Admin: 09/11/19 09:02 Dose: 300 mg Documented by: Alprazolam (Xanax) 0.25 mg PO TID PRN PRN Reason: Anxiety Atorvastatin Calcium (Lipitor) 20 mg PO HS [facility] Last Admin: 09/10/19 20:29 Dose: 20 mg Documented by: Darbepoetin Marcial (Aranesp) 40 mcg SQ Q7D [facility] Last Admin: 09/11/19 16:52 Dose: 40 mcg Documented by: Duloxetine HCl (Cymbalta) 60 mg PO DAILY [facility] Last Admin: 09/11/19 09:01 Dose: 60 mg Documented by: Folic Acid (Folic Acid) 0.5 mg PO DAILY [facility] Last Admin: 09/11/19 09:02 Dose: 0.5 mg Documented by: Furosemide (Lasix) 40 mg PO DAILY [facility] Last Admin: 09/11/19 09:01 Dose: 40 mg Documented by: Hydralazine HCl (Apresoline) 25 mg PO BID [facility] Last Admin: 09/11/19 09:01 Dose: 25 mg Documented by: Isosorbide Mononitrate (Imdur) 30 mg PO DAILY [facility] Last Admin: 09/11/19 09:01 Dose: 30 mg Documented by: Latanoprost (Xalatan 0.005%) 1 drops BOTH EYES HS [facility] Last Admin: 09/10/19 20:29 Dose: 1 drops Documented by: Lisinopril (Zestril) 5 mg PO DAILY [facility] Last Admin: 09/11/19 09:01 Dose: 5 mg Documented by: Metoprolol Tartrate (Lopressor) 25 mg PO BID [facility] Last Admin: 09/11/19 09:01 Dose: 25 mg Documented by: Ondansetron HCl (Zofran) 4 mg IVP Q6HR PRN PRN Reason: Nausea And Vomiting Last Admin: 09/11/19 11:33 Dose: 4 mg Documented by: Oxycodone/Acetaminophen (Percocet 10-325) 1 each PO Q6H PRN PRN Reason: Severe Pain Last Admin: 09/11/19 16:24 Dose: 1 each Documented by: Pantoprazole Sodium (Protonix) 40 mg IVP DAILY [facility] Last Admin: 09/11/19 09:00 Dose: 40 mg Documented by: Prednisone () 10 mg PO DAILY [facility] Last Admin: 09/11/19 09:02 Dose: 10 mg Documented by: On examination: VITAL SIGNS: 97.7, 85, 20, 91/50, 97% room air GENERAL APPEARANCE: Laying in bed, comfortable HEENT: Normal external appearance of nose and ear. Oral cavity normal EYES: Pupils equal. Conjunctiva normal. NECK: JVD not raised. Mass not palpable. RESPIRATORY: Respiratory effort normal. Lungs clear to auscultation. CARDIOVASCULAR: First and second sounds normal. No edema. ABDOMEN: Soft. Liver and spleen not palpable. No tenderness. No mass palpable. PSYCHIATRY: Alert and oriented x3. Mood and affect normal. Musculoskeletal: Severe disfigurement of the digits of the hands INVESTIGATIONS, reviewed in the clinical context: Hemoglobin 8.2 Previous testing: Patient is BUN and creatinine back in November 2018 was 11/09.50 Assessment: -Acute fresh lower GI bleed with blood clots in a patient is on eliquis. Patient has slight abdominal discomfort. Possibly from diverticular bleed. -Persistent atrial flutter fibrillation chronic and on eliquis -Chronic kidney disease stage III from nephrosclerosis -Acute renal failure possibly prerenal -GERD -Severe rheumatoid arthritis -Obstructive sleep apnea uses CPAP -Peripheral neuropathy -Depression otherwise specified -Chronic congestive heart failure from systolic dysfunction EF 35-40% Plan: Diet is being advanced. Recheck hemoglobin in the morning. Remains stable and home tomorrow. Discussed the patient.
[2019-09-11] MEDS: ATORVASTATIN 20 MG TAB PO SCH (21:06)
[2019-09-11] MEDS: LATANOPROST 0.005% OPHTH DROPS 2.5 ML BTL BOTH EYES SCH (21:07)
[2019-09-11 23:32] LABS: % Iron Saturation 14.45 (15.00-50.00)
[2019-09-12 06:52] LABS: Anisocytosis Slight; HCT 22.3 % (39.0-53.0); HGB 7.1 gm/dL (13.0-17.5); MCH 30.7 pg (25.0-35.0); MCHC 31.9 g/dL (31.0-37.0); MCV 96.2 fL (80.0-100.0); Mean Platelet Volume 7.6; Platelet Count 212 k/uL (150-450); RBC 2.32 m/uL (4.30-5.90); RDW 16.3 % (11.5-15.5); WBC 6.7 k/uL (3.8-10.6)
[2019-09-12] MEDS: METOPROLOL TARTRATE 25 MG TAB PO SCH ×2 (08:11→20:40)
[2019-09-12] MEDS: HYDROcodone/APAP 5-325MG 1 EACH TAB PO PRN (08:11)
[2019-09-12] MEDS: hydrALAZINE HCL 25 MG TAB PO SCH ×2 (08:11→20:40)
[2019-09-12] MEDS: DULoxetine HCL 60 MG CAPSULE.DR PO SCH (08:11)
[2019-09-12] MEDS: ISOSORBIDE MONONITRATE ER 30 MG TAB.ER.24H PO SCH (08:11)
[2019-09-12] MEDS: PANTOPRAZOLE 40 MG/10 ML VIAL IVP SCH (08:11)
[2019-09-12] MEDS: FUROSEMIDE 40 MG TAB PO SCH (08:11)
[2019-09-12] MEDS: FOLIC ACID 1 MG TAB PO SCH (08:11)
[2019-09-12] MEDS: predniSONE 10 MG TAB PO SCH (08:11)
[2019-09-12] MEDS: LISINOPRIL 5 MG TAB PO SCH (08:11)
[2019-09-12] MEDS: ALLOPURINOL 300 MG TAB PO SCH (08:11)
[2019-09-12] MEDS ORDERED: SODIUM FERRIC GLUCONAT-SUCROSE 125 MG in SODIUM CHLORIDE 0.9% 100 ML IVPB ONE (09:00)
--- NOTE | 2019-09-12 10:23 | PN ---
PROGRESS NOTE Patient is seen for followup for chronic kidney disease and acute kidney injury. His renal function is stable. He was admitted with GI bleed. No evidence of active bleeding noted on EGD. Iron saturation was noted to be low. I will give him a dose of IV iron prior to discharge today. Patient's renal function has been stable. PHYSICAL EXAMINATION: On examination, he is comfortable, awake, alert, oriented x3, not in any acute distress. Blood pressure was 104/62, heart rate 87 per minute. He is afebrile. EXAMINATION OF THE HEART: S1 and S2. EXAMINATION OF LUNGS: Bilateral breath sounds are heard. ABDOMEN: Soft, non-tender. Examination of lower extremities shows no significant edema. 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 LABS: Sodium yesterday was 138, creatinine 1.7. Hemoglobin this morning is down to 7.1. ASSESSMENT: 1. Chronic kidney disease, NKF stage III, secondary to nephrosclerosis. Renal function at baseline. 2. Acute kidney injury, now improved, nonoliguric, possibly prerenal. 3. Anemia with evidence of significant iron deficiency in a patient with ongoing gastrointestinal bleed. I will give him a dose of IV iron today. Hemoglobin has dropped to 7.1 from 8.2. He may need to stay to monitor his hemoglobin. 4. History of rheumatoid arthritis. PLAN: IV iron x1. Continue with the current dose of Lasix. Continue Aranesp. Follow up on CBC. MMODL / IJN: [id number] /
--- NOTE | 2019-09-12 11:06 | PN ---
PROGRESS NOTE DATE OF DICTATION: 09/12/2019 The patient is a 64-year-old -[place] male admitted to the hospital with acute GI bleed. He underwent an upper endoscopy and colonoscopy by Dr. Quiroz two days ago which showed evidence of diffuse diverticulosis with some fresh blood in the colon suspicious for diverticular bleed. Patient has been doing well. He did not have any bowel movements yesterday or today. He denies any abdominal pain. No nausea, vomiting. PHYSICAL EXAMINATION: He appears comfortable. No apparent distress. VITAL SIGNS: Stable. Blood pressure 104/62, pulse rate 87, temperature 97.9. HEENT examination unremarkable. Conjunctivae pink. Sclerae anicteric. Oral cavity no lesions. NECK: No JVD or lymph node enlargement. CHEST: Clear to auscultation. HEART: Regular rate and rhythm. ABDOMEN: Soft. Bowel sounds are positive. No organomegaly. EXTREMITIES: No pedal edema. SKIN: No rashes. NEUROLOGIC: Alert and oriented x3. No focal deficits. LABS: Labs done today show hemoglobin 7.1, WBC 6.7, platelets 212. BUN is 51, creatinine 1.77. IMPRESSION: 1. Acute gastrointestinal bleed, possibly diverticular in nature, status post EGD and colonoscopy by Dr. Quiroz two days ago. Hemoglobin dropped to 7.1 g/dL but no evidence of further bleeding. 2. History of sleep apnea, on CPAP. 3. Atrial fibrillation, on Eliquis, currently on hold. RECOMMENDATIONS: 1. Advance diet as tolerated. 2. Transfuse one unit of blood. 3. Monitor CBC closely. 4. Hold Eliquis for two more days. Thank you for this consultation. MMODL / IJN: [id number] /
--- NOTE | 2019-09-12 19:39 | P.PN ---
Progress Note - Text Progress Note Date: 09/12/19 Presenting complaint: Blood per rectum Interval history: This is a pleasant 64-year-old patient of Dr. Vaca. 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 Admitted with blood) rectum over couple of days. Slight abdominal discomfort. Eliquis was held. EGD/colonoscopy showed diverticulosis.-Doubt stools in the colon. Bleed was felt to be possible diverticular. Today-Tolerating diet.. Has not had any bowel movements. Some drop in hemoglobin. Dr. Lyle ordered unit of blood. .Review of systems: Was done for constitutional, cardiovascular, GI, pulmonary. relevant finding as above Active Medications Acetaminophen (Tylenol Tab) 500 mg PO Q6HR PRN PRN Reason: Fever and/ or Mild Pain Hydrocodone Bitart/Acetaminophen ([place] 5-325) 1 each PO Q6HR PRN PRN Reason: Moderate Pain Last Admin: 09/12/19 08:11 Dose: 1 each Documented by: Allopurinol (Zyloprim) 300 mg PO DAILY [facility] Last Admin: 09/12/19 08:11 Dose: 300 mg Documented by: Alprazolam (Xanax) 0.25 mg PO TID PRN PRN Reason: Anxiety Atorvastatin Calcium (Lipitor) 20 mg PO HS [facility] Last Admin: 09/11/19 21:06 Dose: 20 mg Documented by: Darbepoetin Marcial (Aranesp) 40 mcg SQ Q7D [facility] Last Admin: 09/11/19 16:52 Dose: 40 mcg Documented by: Duloxetine HCl (Cymbalta) 60 mg PO DAILY [facility] Last Admin: 09/12/19 08:11 Dose: 60 mg Documented by: Folic Acid (Folic Acid) 0.5 mg PO DAILY [facility] Last Admin: 09/12/19 08:11 Dose: 0.5 mg Documented by: Furosemide (Lasix) 40 mg PO DAILY [facility] Last Admin: 09/12/19 08:11 Dose: 40 mg Documented by: Hydralazine HCl (Apresoline) 25 mg PO BID [facility] Last Admin: 09/12/19 08:11 Dose: 25 mg Documented by: Isosorbide Mononitrate (Imdur) 30 mg PO DAILY [facility] Last Admin: 09/12/19 08:11 Dose: 30 mg Documented by: Latanoprost (Xalatan 0.005%) 1 drops BOTH EYES HS [facility] Last Admin: 09/11/19 21:07 Dose: 1 drops Documented by: Lisinopril (Zestril) 5 mg PO DAILY [facility] Last Admin: 09/12/19 08:11 Dose: 5 mg Documented by: Metoprolol Tartrate (Lopressor) 25 mg PO BID [facility] Last Admin: 09/12/19 08:11 Dose: 25 mg Documented by: Ondansetron HCl (Zofran) 4 mg IVP Q6HR PRN PRN Reason: Nausea And Vomiting Last Admin: 09/11/19 11:33 Dose: 4 mg Documented by: Oxycodone/Acetaminophen (Percocet 10-325) 1 each PO Q6H PRN PRN Reason: Severe Pain Last Admin: 09/11/19 16:24 Dose: 1 each Documented by: Pantoprazole Sodium (Protonix) 40 mg IVP DAILY [facility] Last Admin: 09/12/19 08:11 Dose: 40 mg Documented by: Prednisone () 10 mg PO DAILY [facility] Last Admin: 09/12/19 08:11 Dose: 10 mg Documented by: On examination: VITAL SIGNS: 97.9, 87, 19, 104/62, 98% GENERAL APPEARANCE: Laying in bed, comfortable HEENT: Normal external appearance of nose and ear. Oral cavity normal EYES: Pupils equal. Conjunctiva normal. NECK: JVD not raised. Mass not palpable. RESPIRATORY: Respiratory effort normal. Lungs clear to auscultation. CARDIOVASCULAR: First and second sounds normal. No edema. ABDOMEN: Soft. Liver and spleen not palpable. No tenderness. No mass palpable. PSYCHIATRY: Alert and oriented x3. Mood and affect normal. Musculoskeletal: Severe disfigurement of the digits of the hands INVESTIGATIONS, reviewed in the clinical context: Hemoglobin 7.1 Previous testing: Patient is BUN and creatinine back in November 2018 was 11/09.50 Hemoglobin 10.5 Assessment: -Acute fresh lower GI bleed with blood clots in a patient is on eliquis. Patient has slight abdominal discomfort. Possibly from diverticular bleed. -Persistent atrial flutter fibrillation chronic and on eliquis -Chronic kidney disease stage III from nephrosclerosis -Acute renal failure possibly prerenal -GERD -Severe rheumatoid arthritis -Obstructive sleep apnea uses CPAP -Peripheral neuropathy -Depression otherwise specified -Chronic congestive heart failure from systolic dysfunction EF 35-40% Plan: -Under the unit of blood ordered. Check CBC in the morning. If no further bleeding and hemodynamically stable could DC tomorrow.
[2019-09-12] MEDS: ATORVASTATIN 20 MG TAB PO SCH (20:40)
[2019-09-12] MEDS: LATANOPROST 0.005% OPHTH DROPS 2.5 ML BTL BOTH EYES SCH (20:40)
[2019-09-13] MEDS: oxyCODONE-APAP 10-325MG 1 EACH TAB PO PRN ×2 (00:56→09:30)
[2019-09-13 07:10] LABS: Anisocytosis Slight; Basophils % (A) 0 %; Eosinophils # (A) 0.1 k/uL (0-0.7); Eosinophils % (A) 1 %; HGB 7.3 gm/dL (13.0-17.5); Lymphocytes % (A) 30 %; MCH 30.3 pg (25.0-35.0); MCV 94.8 fL (80.0-100.0); Mean Platelet Volume 7.6; Monocytes # (A) 0.4 k/uL (0-1.0); Monocytes % (A) 6 %; Neutrophils # (A) 3.9 k/uL (1.3-7.7); Neutrophils % (A) 60 %; Platelet Count 219 k/uL (150-450); RBC 2.42 m/uL (4.30-5.90); RDW 16.6 % (11.5-15.5); WBC 6.5 k/uL (3.8-10.6)
[2019-09-13 07:50] VITALS: TEMP 98
[2019-09-13] MEDS: predniSONE 10 MG TAB PO SCH (09:30)
[2019-09-13] MEDS: LISINOPRIL 5 MG TAB PO SCH (09:30)
[2019-09-13] MEDS: hydrALAZINE HCL 25 MG TAB PO SCH (09:30)
[2019-09-13] MEDS: METOPROLOL TARTRATE 25 MG TAB PO SCH (09:30)
[2019-09-13] MEDS: ALLOPURINOL 300 MG TAB PO SCH (09:30)
[2019-09-13] MEDS: FUROSEMIDE 40 MG TAB PO SCH (09:30)
[2019-09-13] MEDS: ISOSORBIDE MONONITRATE ER 30 MG TAB.ER.24H PO SCH (09:30)
[2019-09-13] MEDS: FOLIC ACID 1 MG TAB PO SCH (09:30)
[2019-09-13] MEDS: DULoxetine HCL 60 MG CAPSULE.DR PO SCH (09:30)
[2019-09-13] MEDS: PANTOPRAZOLE 40 MG/10 ML VIAL IVP SCH (09:31)
--- NOTE | 2019-09-13 10:30 | PN ---
PROGRESS NOTE DATE OF SERVICE: September 13, 2019 Patient is a 64-year-old pleasant male admitted to hospital with acute GI bleed. He received 1 unit of blood transfusion for hemoglobin of 7.3. He is doing better. He had no further episodes of bleeding. He had an EGD and colonoscopy by Dr. Quiroz that showed gastritis and diverticulosis, which appeared to be the source of bleeding and he thought it was possibly diverticular bleed. However, he did not have any further episodes of bleeding for the last 2 days. PHYSICAL EXAMINATION: Appears comfortable, no apparent distress. Vital signs stable. Blood pressure 119/66, pulse rate 91, temperature 98. HEENT examination unremarkable. Conjunctivae pink. Sclerae anicteric. Oral cavity no lesions. NECK: No JVD or lymph node enlargement. CHEST: Clear to auscultation. ABDOMEN: Obese. Bowel sounds are positive. No organomegaly. EXTREMITIES: No edema. NEURO: He is alert and oriented x3. No focal deficits. LABS: WBC 6.5, hemoglobin 7.3, platelets normal. Basic metabolic panel is within normal limits. IMPRESSION: 1. Acute gastrointestinal bleed, possibly diverticular in nature drop in hemoglobin from 10-7 g/dL, status post one unit of PRBC yesterday and today hemoglobin is 7.3. No further episodes of bleeding. Patient doing well. 2. Elevated BUN and creatinine secondary to chronic kidney disease. 3. Sleep apnea. RECOMMENDATIONS: 1. Advance diet as tolerated. 2. Hemoglobin remained stable at this time and no further episodes of bleeding. 3. Eliquis can be resumed at this time. 4. He can be discharged home with an outpatient followup with Dr. Quiroz in a couple of weeks. Thank you for this consultation. MMODL / IJN: [id number] /
--- NOTE | 2019-09-13 11:27 | PN ---
PROGRESS NOTE Patient is seen for followup for chronic kidney disease and acute kidney injury. His renal function is has been stable, creatinine staying 1.7-1.6 mg/dL, which is his baseline. The patient was admitted with anemia and GI bleed. He had EGD and colonoscopy done. His hemoglobin has dropped. He was noted to be iron deficient and received his 1st dose of IV iron yesterday. The patient is also maintained on Aranesp. He is being considered for discharge today. PHYSICAL EXAMINATION: On examination, blood pressure was 119/66, heart rate 91 per minute. He is afebrile. Examination of the heart S1, S2. Examination of the lungs, bilateral breath sounds are heard. Abdomen is soft, nontender. Examination of lower extremities shows no evidence of edema. [employer] exam shows patient moving all 4 extremities. Patient has rheumatoid deformities both hands. LABS: Show sodium of 138, potassium 4.0, BUN 51, creatinine 1.7, hemoglobin 7.3 g/dL. ASSESSMENT: 1. Acute kidney injury, prerenal currently resolved. 2. Chronic kidney disease, NKF stage III. Baseline GFR about 47-50 per minute. Baseline creatinine about 1.6-1.7 mg/dL secondary to nephrosclerosis. 3. Complex renal cyst, which will need followup as outpatient and referral to urology down the road. 4. Anemia with GI bleed, status post IV iron. Maintained on Aranesp. 5. Gastrointestinal bleed status post EGD which did not show any active bleeding. The patient also had a colonoscopy which showed old blood. He is maintained on proton pump inhibitors. PLAN: Avoid NSAIDs. Repeat IV iron. Follow up as outpatient for CKD management. MMODL / IJN: [id number] /
[2019-09-13] MEDS ORDERED: SODIUM FERRIC GLUCONAT-SUCROSE 125 MG in SODIUM CHLORIDE 0.9% 100 ML IVPB ONE (12:00)
[2019-09-13 14:23] VITALS: BP 111/72; PULSE 93; RESP 18
--- NOTE | 2019-09-13 23:31 | P.DS ---
Providers Date of admission: 09/09/19 11:19 Expected date of discharge: 09/13/19 Attending physician: Will Berry Consults: 09/08/19 15:36 Consult Physician Urgent Consulting Provider: Cayden Quiroz Consult Reason/Comments: GI bleed Do you want consulting provider notified?: Yes Primary care physician: Josse Vaca [facility] Hospital Course: Presenting complaint: Blood per rectum Hospital course: This is a pleasant 64-year-old patient of Dr. Vaca. 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 Admitted with blood from rectum over couple of days. Slight abdominal discomfort. Eliquis was held. EGD/colonoscopy showed diverticulosis.-dark stools in the colon. Bleed was felt to be possible diverticular.received phone neurological blood.hemoglobin before discharge was 7.3 Today-Tolerating diet.. feeling well. No new issues. Care was discussed in detail with the patient and his significant other. Questions were answered. Also received IV iron. Discussion and discharge planning more than 35 minutes consultation: Dr. Celestine Rodriguez from GI On examination: VITAL SIGNS: 98, 93, 18, 111/72, 100% on room air GENERAL APPEARANCE: sitting up, comfortable HEENT: Normal external appearance of nose and ear. Oral cavity normal EYES: Pupils equal. Conjunctiva normal. NECK: JVD not raised. Mass not palpable. RESPIRATORY: Respiratory effort normal. Lungs clear to auscultation. CARDIOVASCULAR: First and second sounds normal. No edema. ABDOMEN: Soft. Liver and spleen not palpable. No tenderness. No mass palpable. PSYCHIATRY: Alert and oriented x3. Mood and affect normal. Musculoskeletal: Severe disfigurement of the digits of the hands INVESTIGATIONS, reviewed in the clinical context: Hemoglobin 7.3 Previous testing: Patient is BUN and creatinine back in November 2018 was 31/.50 Hemoglobin 10.5 Assessment: -Acute fresh lower GI bleed with blood clots in a patient is on eliquis. Patient has slight abdominal discomfort. Possibly colonic diverticular bleed. -Persistent atrial flutter fibrillation chronic and on eliquis -Chronic kidney disease stage III from nephrosclerosis -Acute renal failure possibly prerenal -GERD -Severe rheumatoid arthritis -Obstructive sleep apnea uses CPAP -Peripheral neuropathy -Depression otherwise specified -Chronic congestive heart failure from systolic dysfunction EF 35-40% disposition: Home. Plan - Discharge Summary New Discharge Prescriptions: Continue Metoprolol Tartrate [Lopressor] 25 mg PO BID Folic Acid 0.4 mg PO DAILY Cholecalciferol [Vitamin D3 (25 Mcg = 1000 Iu)] 1,000 unit PO DAILY Allopurinol [Zyloprim] 300 mg PO DAILY Atorvastatin Calcium [Lipitor] 20 mg PO HS predniSONE 10 mg PO DAILY Latanoprost/Pf [Latanoprost 0.005% Eye Drop] 1 drop BOTH EYES HS hydrALAZINE HCL [Apresoline] 25 mg PO BID tab Apixaban [Eliquis] 5 mg PO BID tab Isosorbide Mononitrate ER [Imdur] 30 mg PO DAILY tab.er.24h DULoxetine HCL [Cymbalta] 60 mg PO DAILY Furosemide [Lasix] 40 mg PO BID Vitamin B Complex 1 cap PO DAILY oxyCODONE-APAP 10-325MG [Percocet 10-325 mg] 1 tab PO Q6H PRN PRN Reason: Pain Changed Lisinopril [Prinivil] 5 mg PO DAILY #0 Discontinued Aspirin EC [Ecotrin Low Dose] 81 mg PO DAILY Discharge Medication List Allopurinol [Zyloprim] 300 mg PO DAILY 08/25/17 [History] Cholecalciferol [Vitamin D3 (25 Mcg = 1000 Iu)] 1,000 unit PO DAILY 08/25/17 [Hi story] Folic Acid 0.4 mg PO DAILY 08/25/17 [History] Metoprolol Tartrate [Lopressor] 25 mg PO BID 08/25/17 [History] Atorvastatin Calcium [Lipitor] 20 mg PO HS 05/14/18 [History] Latanoprost/Pf [Latanoprost 0.005% Eye Drop] 1 drop BOTH EYES HS 10/13/18 [History] predniSONE 10 mg PO DAILY 10/13/18 [History] Apixaban [Eliquis] 5 mg PO BID tab 10/20/18 [Rx] Isosorbide Mononitrate ER [Imdur] 30 mg PO DAILY tab.er.24h 10/20/18 [Rx] hydrALAZINE HCL [Apresoline] 25 mg PO BID tab 10/20/18 [Rx] DULoxetine HCL [Cymbalta] 60 mg PO DAILY 09/08/19 [History] Furosemide [Lasix] 40 mg PO BID 09/08/19 [History] Vitamin B Complex 1 cap PO DAILY 09/08/19 [History] oxyCODONE-APAP 10-325MG [Percocet 10-325 mg] 1 tab PO Q6H PRN 09/08/19 [History] Lisinopril [Prinivil] 5 mg PO DAILY #0 09/13/19 [Rx] Follow up Appointment(s)/Referral(s): Ana Laura Jackson MD [STAFF PHYSICIAN] - 10 Days Josse Vaca DO [Primary Care Provider] - 1-2 days Cayden Quiroz MD [STAFF PHYSICIAN] - As Needed (Needs repeat colonoscopy in 3 months with biopsy) Patient Instructions/Handouts: Gastrointestinal Bleeding (DC), Anemia (DC) Activity/Diet/Wound Care/Special Instructions: cbc/bmp- 5 days Discharge Disposition: HOME SELF-CARE
== END 2019-09-13 16:43 | disposition home or self-care (01) | DRG 378 ==
LOC: EC 13:08 → 5NMEDONC 15:37 → 6NMEDSUR 09-09 05:53 → OBSVTOIN 09-09 11:19
PROVIDERS: ADMIT Hospitalist; ATTEND Hospitalist
PROC: 0DB78ZX Excision of Stomach, Pylorus, Via Natural or Artificial Opening Endoscopic, Diagnostic (ICD-10-PCS; principal; 2019-09-10 07:50)
PROC: 0DJD8ZZ Inspection of Lower Intestinal Tract, Via Natural or Artificial Opening Endoscopic (ICD-10-PCS; principal; 2019-09-10 07:50)
PROC: 30230N1 Transfusion of Nonautologous Red Blood Cells into Peripheral Vein, Open Approach (ICD-10-PCS; 2019-09-12)
DX: K57.31 Diverticulosis of large intestine without perforation or abscess with bleeding (principal); D62 Acute posthemorrhagic anemia; I13.0 Hypertensive heart and chronic kidney disease with heart failure and stage 1 through stage 4 chronic kidney disease, or unspecified chronic kidney disease; I48.19 Other persistent atrial fibrillation; I48.92 Unspecified atrial flutter; I50.22 Chronic systolic (congestive) heart failure; N17.9 Acute kidney failure, unspecified; K86.2 Cyst of pancreas; Z68.41 Body mass index [BMI] 40.0-44.9, adult; D57.1 Sickle-cell disease without crisis; D63.8 Anemia in other chronic diseases classified elsewhere; E11.22 Type 2 diabetes mellitus with diabetic chronic kidney disease; E11.42 Type 2 diabetes mellitus with diabetic polyneuropathy; E66.01 Morbid (severe) obesity due to excess calories; E87.5 Hyperkalemia; F32.9 Major depressive disorder, single episode, unspecified; G47.33 Obstructive sleep apnea (adult) (pediatric); J45.20 Mild intermittent asthma, uncomplicated; K21.9 Gastro-esophageal reflux disease without esophagitis; K29.70 Gastritis, unspecified, without bleeding; K44.9 Diaphragmatic hernia without obstruction or gangrene; K63.5 Polyp of colon; M06.9 Rheumatoid arthritis, unspecified; M19.90 Unspecified osteoarthritis, unspecified site; N18.3 Chronic kidney disease, stage 3 (moderate); N28.1 Cyst of kidney, acquired; H40.9 Unspecified glaucoma; M10.9 Gout, unspecified; Z79.01 Long term (current) use of anticoagulants; Z79.52 Long term (current) use of systemic steroids; Z79.82 Long term (current) use of aspirin; Z79.899 Other long term (current) drug therapy; Z88.2 Allergy status to sulfonamides; Z87.01 Personal history of pneumonia (recurrent); Z86.718 Personal history of other venous thrombosis and embolism; Z86.711 Personal history of pulmonary embolism; Z86.14 Personal history of Methicillin resistant Staphylococcus aureus infection; Z96.652 Presence of left artificial knee joint; Z89.429 Acquired absence of other toe(s), unspecified side; Z82.49 Family history of ischemic heart disease and other diseases of the circulatory system; Z83.3 Family history of diabetes mellitus; Z82.3 Family history of stroke; Z82.61 Family history of arthritis
CPT/HCPCS: 36415; 43239; 45378; 74176; 80048; 80053; 83540; 83550; 83735; 84484; 85025; 85027; 85610; 85730; 86850; 86900; 86901; 86920; 88305; 94660; 96361; 96374; 99285

== ENCOUNTER 2021-08-06 10:28 | Inpatient (IN) | payer MEDICARE ==
[2021-08-06] MEDS ORDERED: PANTOPRAZOLE 40 MG/10 ML VIAL IVP STA (10:49)
--- NOTE | 2021-08-06 10:52 | ED ---
General Adult HPI - General Chief complaint: GI Bleed Stated complaint: Rectal bleeding Time Seen by Provider: 08/06/21 10:40 Source: patient, family, RN notes reviewed Mode of arrival: wheelchair Limitations: no limitations - History of Present Illness Initial comments: Patient is a pleasant [age]-year-old male presenting to the emergency Department with complaints of rectal bleeding. Onset was yesterday. Patient is on Eliquis however stopped this yesterday. Patient is on Eliquis for history of A. fib and blood clot. Patient has had a couple episodes per day. Bleeding started as clots however now is more bright red. No abdominal pain. No dyspnea or fatigue. Patient did have similar episodes several years ago with unclear etiology, questionable polyps. - Related Data Home Medications Medication Instructions Recorded Confirmed Cholecalciferol [Vitamin D3 (25 1,000 unit PO DAILY 08/25/17 10/21/19 Mcg = 1000 Iu)] Folic Acid 0.4 mg PO DAILY 08/25/17 10/21/19 Metoprolol Tartrate [Lopressor] 25 mg PO BID 08/25/17 10/21/19 allopurinoL [Zyloprim] 300 mg PO DAILY 08/25/17 10/21/19 Atorvastatin Calcium [Lipitor] 20 mg PO HS 05/14/18 10/21/19 Latanoprost/Pf [Latanoprost 0.005% 1 drop BOTH EYES HS 10/13/18 10/21/19 Eye Drop] predniSONE 10 mg PO DAILY 10/13/18 10/21/19 DULoxetine HCL [Cymbalta] 60 mg PO DAILY 09/08/19 10/21/19 Furosemide [Lasix] 40 mg PO BID 09/08/19 10/21/19 Vitamin B Complex 1 cap PO DAILY 09/08/19 10/21/19 oxyCODONE-APAP 10-325MG [Percocet 1 tab PO Q6H PRN 09/08/19 10/21/19 10-325 mg] Previous Rx's Medication Instructions Recorded Apixaban [Eliquis] 5 mg PO BID tab 10/20/18 Isosorbide Mononitrate ER [Imdur] 30 mg PO DAILY tab.er.24h 10/20/18 hydrALAZINE HCL [Apresoline] 25 mg PO BID tab 10/20/18 Lisinopril [Prinivil] 5 mg PO DAILY #0 09/13/19 Allergies Allergy/AdvReac Type Severity Reaction Status Date / Time Sulfa (Sulfonamide Allergy Rash/Hives Verified 08/06/21 10:37 Antibiotics) Review of Systems ROS Statement: Those systems with pertinent positive or pertinent negative responses have been documented in the HPI. ROS Other: All systems not noted in ROS Statement are negative. Constitutional: Denies: fever Eyes: Denies: eye pain ENT: Denies: ear pain Respiratory: Denies: cough Cardiovascular: Denies: chest pain Endocrine: Denies: fatigue Gastrointestinal: Reports: as per HPI, hematochezia. Denies: abdominal pain Genitourinary: Denies: dysuria Musculoskeletal: Denies: back pain Skin: Denies: rash Neurological: Denies: weakness Past Medical History Past Medical History: Atrial Fibrillation, Asthma, Deep Vein Thrombosis (DVT), Hypertension, Pneumonia, Pulmonary Embolus (PE), Renal Disease, Rheumatoid Arthritis (RA) Additional Past Medical History / Comment(s): gout, sickle cell, CKD stage 3 (dialysis 2004), sleep apnea, neuropathy, glaucoma History of Any Multi-Drug Resistant Organisms: MRSA Date of last positivie culture/infection: 2013 MDRO Source:: Right Foot Past Surgical History: Joint Replacement, Orthopedic Surgery Additional Past Surgical History / Comment(s): Left knee replaced; multiple toe amputations, tib/fib surgery in May 2018; left upper arm fistula 2004 Past Anesthesia/Blood Transfusion Reactions: No Reported Reaction Past Psychological History: No Psychological Hx Reported Smoking Status: Never smoker Past Alcohol Use History: None Reported Past Drug Use History: Marijuana - Past Family History Father Family Medical History: Diabetes Mellitus, Myocardial Infarction ([place]) Mother Family Medical History: CVA/TIA Sister(s) Family Medical History: Hypertension Additional Family Medical History / Comment(s): RA General Exam Limitations: no limitations General appearance: alert, in no apparent distress Head exam: Present: normocephalic Eye exam: Present: normal appearance Respiratory exam: Present: normal lung sounds bilaterally Cardiovascular Exam: Present: regular rate, normal rhythm GI/Abdominal exam: Present: soft. Absent: tenderness Rectal exam: Present: bloody stool Extremities exam: Present: normal inspection Neurological exam: Present: alert Psychiatric exam: Present: normal affect, normal mood Skin exam: Present: normal color Course Vital Signs 08/06/21 08/06/21 10:29 11:44 Temperature 97.6 F Pulse Rate 103 H 104 H Respiratory 16 Rate Blood Pressure 120/84 103/79 O2 Sat by Pulse 99 94 L Oximetry Medical Decision Making - Medical Decision Making Patient reevaluated and resting comfortably in bed. Patient and family updated. Case was discussed with Dr. Rodriguez, patient previously had seen Dr. Larry. Dr. Berry has been paged for admission, covering Dr. Vaca. - Lab Data Result diagrams: 08/06/21 10:55 08/06/21 10:55 Lab Results 08/06/21 08/06/21 08/06/21 Range/Units 10:55 10:55 10:55 WBC 11.1 H (3.8-10.6) k/uL RBC 3.77 L (4.30-5.90) m/uL Hgb 11.7 L (13.0-17.5) gm/dL Hct 37.2 L (39.0-53.0) % MCV 98.7 (80.0-100.0) fL MCH 31.0 (25.0-35.0) pg MCHC 31.4 (31.0-37.0) g/dL RDW 15.9 H (11.5-15.5) % Plt Count 221 (150-450) k/uL MPV 8.2 Neutrophils % 45 % Lymphocytes % 46 % Monocytes % 5 % Eosinophils % 3 % Basophils % 0 % Neutrophils # 4.9 (1.3-7.7) k/uL Lymphocytes # 5.1 H (1.0-4.8) k/uL Monocytes # 0.5 (0-1.0) k/uL Eosinophils # 0.3 (0-0.7) k/uL Basophils # 0.1 (0-0.2) k/uL Manual Slide Review Performed RBC Morphology Normal Macrocytosis Slight PT 10.7 (9.0-12.0) sec INR 1.0 (<1.2) APTT 29.6 (22.0-30.0) sec Sodium 138 (137-145) mmol/L Potassium 4.9 (3.5-5.1) mmol/L Chloride 107 (98-107) mmol/L Carbon Dioxide 20 L (22-30) mmol/L Anion Gap 11 mmol/L BUN 43 H (9-20) mg/dL Creatinine 1.26 H (0.66-1.25) mg/dL Est GFR (CKD-EPI)AfAm 69 (>60 ml/min/1.73 sqM) Est GFR (CKD-EPI)NonAf 60 (>60 ml/min/1.73 sqM) Glucose 119 H (74-99) mg/dL Calcium 8.9 (8.4-10.2) mg/dL Total Bilirubin 1.1 (0.2-1.3) mg/dL AST 95 H (17-59) U/L ALT 66 H (4-49) U/L Alkaline Phosphatase 88 (38-126) U/L Total Protein 7.6 (6.3-8.2) g/dL Albumin 3.5 (3.5-5.0) g/dL Disposition Clinical Impression: Lower gastrointestinal hemorrhage Disposition: ADMITTED IP TO THIS HOSP Is patient prescribed a controlled substance at d/c from ED?: No Referrals: Josse Vaca DO [Primary Care Provider] - 1-2 days Decision Time: 12:33
[2021-08-06] MEDS: SODIUM CHLORIDE 0.9% 1,000 ML IV STA ×2 (11:00→19:31)
[2021-08-06 11:28] LABS: Basophils # (A) 0.1 k/uL (0-0.2); Basophils % (A) 0 %; Eosinophils # (A) 0.3 k/uL (0-0.7); Eosinophils % (A) 3 %; HCT 37.2 % (39.0-53.0); HGB 11.7 gm/dL (13.0-17.5); Lymphocytes # (A) 5.1 k/uL (1.0-4.8); Lymphocytes % (A) 46 %; MCHC 31.4 g/dL (31.0-37.0); MCV 98.7 fL (80.0-100.0); Macrocytosis Slight; Mean Platelet Volume 8.2; Monocytes # (A) 0.5 k/uL (0-1.0); Monocytes % (A) 5 %; Neutrophils # (A) 4.9 k/uL (1.3-7.7); Neutrophils % (A) 45 %; Platelet Count 221 k/uL (150-450); RBC 3.77 m/uL (4.30-5.90); RDW 15.9 % (11.5-15.5); WBC 11.1 k/uL (3.8-10.6)
[2021-08-06 11:31] LABS: Albumin 3.5 g/dL (3.5-5.0); Calcium 8.9 mg/dL (8.4-10.2); Total Bilirubin 1.1 mg/dL (0.2-1.3); Total Protein 7.6 g/dL (6.3-8.2)
[2021-08-06 11:43] LABS: Potassium 4.9 mmol/L (3.5-5.1)
[2021-08-06 12:06] LABS: Partial Thromboplastin Time 29.6 sec (22.0-30.0); Prothrombin Time 10.7 sec (9.0-12.0)
[2021-08-06] MEDS ORDERED: NALOXONE 0.4 MG/ML 1 ML VIAL IV PRN (12:34)
[2021-08-06] MEDS ORDERED: SODIUM CHLORIDE 0.9% 1,000 ML IV SCH (12:45)
[2021-08-06] MEDS ORDERED: MELATONIN 3 MG TABLET PO PRN (19:17)
[2021-08-06] MEDS ORDERED: CALCIUM CARBONATE 500 MG CHEWABLE PO PRN (19:17)
[2021-08-06] MEDS ORDERED: ACETAMINOPHEN TAB 325 MG TAB PO PRN (19:17)
[2021-08-06] MEDS ORDERED: ONDANSETRON 4 MG/2 ML VIAL IVP PRN (19:17)
--- NOTE | 2021-08-06 19:19 | P.HPIM ---
History of Present Illness H&P Date: 08/06/21 Chief Complaint: Blood clots per rectum Hospital course: This is a pleasant 66-year-old patient of Dr. Vaca. 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 Colonic diverticulosis. Because of leg fracture now patient uses a wheelchair at baseline. Lives with his significant other in [facility] Patient yesterday developed significant blood clots per rectum. Has slight abdominal discomfort. No nausea vomiting. No fever no chills. Appetite and rundown. Patient eliquis has been held. Surgery was consulted from the ER. at the bedside. 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 Occasionally he has done marijuana for pain. Family history: Diabetes, [place], rheumatoid arthritis On examination: VITAL SIGNS: 97.6, 103, 16, 120/84, 99% on room air GENERAL APPEARANCE: BMI 34, [place] bed, awake, comfortable HEENT: Normal external appearance of nose and ear. Oral cavity normal EYES: Pupils equal. Conjunctiva pale NECK: JVD not raised. Mass not palpable. RESPIRATORY: Respiratory effort normal. Lungs clear to auscultation. CARDIOVASCULAR: First and second sounds normal. No edema. ABDOMEN: Soft. Liver and spleen not palpable. No tenderness. No mass palpable. PSYCHIATRY: Alert and oriented x3. Mood and affect normal. 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 Limited range of motion his lower extremity. INVESTIGATIONS, reviewed in the clinical context: White count 13.1 hemoglobin 11.7 platelets 221 sodium 138 potassium 4.9 BUN 43 creatinine 1.26 Previous labs: Hemoglobin 7.3 in September 2019 Assessment and plan: -Acute lower GI bleed with blood clots in a patient is on eliquis. Prior episode over a year ago with the colonoscope he did show diverticulosis. Follow clinically -Persistent atrial flutter fibrillation , chronically on eliquis Eliquis hold -Chronic kidney disease stage III from nephrosclerosis Follow renal function -GERD Pepcid 20 mg twice a day -Severe rheumatoid arthritis -Obstructive sleep apnea uses CPAP -Peripheral neuropathy -Depression otherwise specified Cymbalta 60 mg a day -Chronic congestive heart failure from systolic dysfunction EF 35-40% Lopressor 25 mg twice a day Zestril 10 mg a day Lasix 40 mg twice a day Surgery was consulted in the ER. On a clear liquid diet. Home medications resumed. On eliquis. Follow H&H. Care was discussed with the patient at the bedside. Questions answered. Past Medical History Past Medical History: Atrial Fibrillation, Asthma, Deep Vein Thrombosis (DVT), Hypertension, Pneumonia, Pulmonary Embolus (PE), Renal Disease, Rheumatoid Arthritis (RA) Additional Past Medical History / Comment(s): gout, sickle cell, CKD stage 3 (dialysis 2004), sleep apnea, neuropathy, glaucoma History of Any Multi-Drug Resistant Organisms: MRSA Date of last positivie culture/infection: 2013 MDRO Source:: Right Foot Past Surgical History: Joint Replacement, Orthopedic Surgery Additional Past Surgical History / Comment(s): Left knee replaced; multiple toe amputations, tib/fib surgery in May 2018; left upper arm fistula 2004 Past Anesthesia/Blood Transfusion Reactions: No Reported Reaction Past Psychological History: No Psychological Hx Reported Smoking Status: Never smoker Past Alcohol Use History: None Reported Past Drug Use History: Marijuana - Past Family History Father Family Medical History: Diabetes Mellitus, Myocardial Infarction ([place]) Mother Family Medical History: CVA/TIA Sister(s) Family Medical History: Hypertension Additional Family Medical History / Comment(s): RA Medications and Allergies Home Medications Medication Instructions Recorded Confirmed Type Cholecalciferol [Vitamin D3 (25 25 mcg PO DAILY 08/25/17 08/06/21 History Mcg = 1000 Iu)] Metoprolol Tartrate [Lopressor] 25 mg PO BID 08/25/17 08/06/21 History allopurinoL [Zyloprim] 300 mg PO DAILY 08/25/17 08/06/21 History Atorvastatin Calcium [Lipitor] 20 mg PO HS 05/14/18 08/06/21 History Latanoprost/Pf [Latanoprost 0.005% 1 drop BOTH EYES HS 10/13/18 08/06/21 History Eye Drop] Apixaban [Eliquis] 5 mg PO BID tab 10/20/18 08/06/21 Rx hydrALAZINE HCL [Apresoline] 25 mg PO BID tab 10/20/18 08/06/21 Rx DULoxetine HCL [Cymbalta] 60 mg PO DAILY 09/08/19 08/06/21 History Furosemide [Lasix] 40 mg PO BID 09/08/19 08/06/21 History oxyCODONE-APAP 10-325MG [Percocet 1 tab PO BID 09/08/19 08/06/21 History 10-325 mg] Isosorbide Dinitrate 30 mg PO DAILY 08/06/21 08/06/21 History Lisinopril [Zestril] 10 mg PO DAILY 08/06/21 08/06/21 History Thiamine [Vitamin B-1] 100 mg PO DAILY 08/06/21 08/06/21 History predniSONE 10 mg PO DAILY 08/06/21 08/06/21 History Allergies Allergy/AdvReac Type Severity Reaction Status Date / Time Sulfa (Sulfonamide Allergy Rash/Hives Verified 08/06/21 13:14 Antibiotics) Physical Exam Vitals: Vital Signs Temp Pulse Resp BP Pulse Ox 08/06/21 13:23 101 H 17 104/78 97 08/06/21 11:44 104 H 16 103/79 94 L 08/06/21 10:29 97.6 F 103 H 120/84 99 Intake and Output 08/05/21 08/06/21 08/06/21 22:59 06:59 14:59 Other: Weight 120.202 kg Results CBC & Chem 7: 08/06/21 10:55 08/06/21 10:55 Labs: Abnormal Lab Results - Last 24 Hours (Table) 08/06/21 08/06/21 Range/Units 10:55 10:55 WBC 11.1 H (3.8-10.6) k/uL RBC 3.77 L (4.30-5.90) m/uL Hgb 11.7 L (13.0-17.5) gm/dL Hct 37.2 L (39.0-53.0) % RDW 15.9 H (11.5-15.5) % Lymphocytes # 5.1 H (1.0-4.8) k/uL Carbon Dioxide 20 L (22-30) mmol/L BUN 43 H (9-20) mg/dL Creatinine 1.26 H (0.66-1.25) mg/dL Glucose 119 H (74-99) mg/dL AST 95 H (17-59) U/L ALT 66 H (4-49) U/L
[2021-08-06] MEDS: IPRATROPIUM-ALBUTEROL 3 ML NEB INHALATION SCH ×2 (20:04→20:25)
[2021-08-06] MEDS: METOPROLOL TARTRATE 25 MG TAB PO SCH (21:38)
[2021-08-06] MEDS: ATORVASTATIN 20 MG TAB PO SCH (21:38)
[2021-08-06] MEDS: oxyCODONE-APAP 10-325MG 1 EACH TAB PO SCH (21:38)
[2021-08-06] MEDS: LATANOPROST 0.005% OPHTH DROPS 2.5 ML BTL BOTH EYES SCH (22:57)
[2021-08-07 06:47] LABS: Basophils % (A) 0 %; Eosinophils # (A) 0.1 k/uL (0-0.7); Eosinophils % (A) 2 %; HCT 33.5 % (39.0-53.0); HGB 10.4 gm/dL (13.0-17.5); Hypochromasia Slight; Lymphocytes # (A) 1.9 k/uL (1.0-4.8); Lymphocytes % (A) 25 %; MCH 31.2 pg (25.0-35.0); MCHC 31.1 g/dL (31.0-37.0); MCV 100.3 fL (80.0-100.0); Macrocytosis Slight; Mean Platelet Volume 8.4; Monocytes # (A) 0.5 k/uL (0-1.0); Monocytes % (A) 6 %; Neutrophils # (A) 4.8 k/uL (1.3-7.7); Neutrophils % (A) 65 %; Platelet Count 181 k/uL (150-450); RBC 3.34 m/uL (4.30-5.90); RDW 15.8 % (11.5-15.5); WBC 7.5 k/uL (3.8-10.6)
[2021-08-07] MEDS: IPRATROPIUM-ALBUTEROL 3 ML NEB INHALATION SCH ×3 (07:21→19:39)
[2021-08-07] MEDS ORDERED: predniSONE 10 MG TAB PO SCH (09:00)
[2021-08-07] MEDS ORDERED: PANTOPRAZOLE 40 MG/10 ML VIAL IV SCH (09:00)
[2021-08-07] MEDS: DULoxetine HCL 60 MG CAPSULE.DR PO SCH (10:04)
[2021-08-07] MEDS: oxyCODONE-APAP 10-325MG 1 EACH TAB PO SCH ×2 (10:04→21:30)
[2021-08-07] MEDS: allopurinoL 300 MG TAB PO SCH (10:04)
[2021-08-07] MEDS: ISOSORBIDE MONONITRATE ER 30 MG TAB.ER.24H PO SCH (10:04)
[2021-08-07] MEDS: THIAMINE 100 MG TAB PO SCH (10:04)
[2021-08-07] MEDS: METOPROLOL TARTRATE 25 MG TAB PO SCH ×2 (10:05→21:29)
[2021-08-07] MEDS: FUROSEMIDE 40 MG TAB PO SCH ×2 (10:06→17:04)
[2021-08-07 11:14] LABS: African American GFR (CKD) 66.2 (60.0-200.0); Anion Gap 13.8 mmol/L (10.00-18.00); BUN/Creat Ratio 31.53 Ratio (12.00-20.00); Blood Urea Nitrogen 41.3 mg/dL (9.0-27.0); Calcium 8.5 mg/dL (8.7-10.3); Carbon Dioxide 18.4 mmol/L (20.0-27.5); Non-African American GFR(CKD) 57.1 (60.0-200.0); Potassium 5.1 mmol/L (3.5-5.5)
--- NOTE | 2021-08-07 20:44 | P.PN ---
Progress Note - Text Progress Note Date: 08/07/21 Chief Complaint: Blood clots per rectum Hospital course: This is a pleasant 66-year-old patient of Dr. Vaca. 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 Colonic diverticulosis. Because of leg fracture now patient uses a wheelchair at baseline. Lives with his significant other in [place] Patient yesterday developed significant blood clots per rectum. Has slight abdominal discomfort. No nausea vomiting. No fever no chills. Appetite and rundown. Patient eliquis has been held. Surgery was consulted from the ER. at the bedside. August 07: Supple the patient this morning. Did pass some more blood clots last night. Very slight abdominal discomfort. Awaiting input from surgery. Discussed with patient. Review of systems: Was done for constitutional, cardiovascular, GI, pulmonary. relevant finding as above Active Medications Acetaminophen (Acetaminophen Tab 325 Mg Tab) 650 mg PO Q6HR PRN PRN Reason: Mild Pain or Fever > 100.5 Last Admin: 08/06/21 21:39 Dose: 650 mg Documented by: Albuterol/Ipratropium (Ipratropium-Albuterol 3 Ml Neb) 3 ml INHALATION TID [facility] Last Admin: 08/07/21 19:39 Dose: 3 ml Documented by: Allopurinol (Allopurinol 300 Mg Tab) 300 mg PO DAILY [facility] Last Admin: 08/07/21 10:04 Dose: 300 mg Documented by: Atorvastatin Calcium (Atorvastatin 20 Mg Tab) 20 mg PO HS [facility] Last Admin: 08/06/21 21:38 Dose: 20 mg Documented by: Calcium Carbonate/Glycine (Calcium Carbonate 500 Mg Chewable) 1,000 mg PO Q4HR PRN PRN Reason: Dyspepsia Duloxetine HCl (Duloxetine Hcl 60 Mg Capsule.) 60 mg PO DAILY [facility] Last Admin: 08/07/21 10:04 Dose: 60 mg Documented by: Furosemide (Furosemide 40 Mg Tab) 40 mg PO BID@0900,1600 [facility] Last Admin: 08/07/21 17:04 Dose: 40 mg Documented by: Isosorbide Mononitrate (Isosorbide Mononitrate Er 30 Mg Tab.Er.24h) 30 mg PO DAILY [facility] Last Admin: 08/07/21 10:04 Dose: 30 mg Documented by: Latanoprost (Latanoprost 0.005% Ophth Drops 2.5 Ml Btl) 1 drops BOTH EYES HS [facility] Last Admin: 08/06/21 22:57 Dose: 1 drops Documented by: Melatonin (Melatonin 3 Mg Tablet) 3 mg PO HS PRN PRN Reason: Insomnia Last Admin: 08/06/21 21:40 Dose: 3 mg Documented by: Metoprolol Tartrate (Metoprolol Tartrate 25 Mg Tab) 25 mg PO BID [facility] Last Admin: 08/07/21 10:05 Dose: 25 mg Documented by: Naloxone HCl (Naloxone 0.4 Mg/Ml 1 Ml Vial) 0.2 mg IV Q2M PRN PRN Reason: Opioid Reversal Ondansetron HCl (Ondansetron 4 Mg/2 Ml Vial) 4 mg IVP Q8HR PRN PRN Reason: Nausea And Vomiting Oxycodone/Acetaminophen (Oxycodone-Apap 10-325mg 1 Each Tab) 1 each PO BID [facility] Last Admin: 08/07/21 10:04 Dose: 1 each Documented by: Pantoprazole Sodium (Pantoprazole 40 Mg Tablet) 40 mg PO AC-BRKT [facility] Prednisone (Prednisone 10 Mg Tab) 10 mg PO [facility] Thiamine HCl (Thiamine 100 Mg Tab) 100 mg PO DAILY [facility] Last Admin: 08/07/21 10:04 Dose: 100 mg Documented by: Past medical history to include: Atrial flutter fibrillation on eliquis, CK D stage III, GERD, SLEEP apnea uses CPAP, depression, congestive heart failure EF 35%, chronic lesion on the pancreatic head, 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 Occasionally he has done marijuana for pain. Family history: Diabetes, [place], rheumatoid arthritis On examination: VITAL SIGNS: 97.7, 64, 16, [address] 6, 95% room air GENERAL APPEARANCE: Laying in bed, awake, comfortable HEENT: Normal external appearance of nose and ear. Oral cavity normal EYES: Pupils equal. Conjunctiva pale NECK: JVD not raised. Mass not palpable. RESPIRATORY: Respiratory effort normal. Lungs clear to auscultation. CARDIOVASCULAR: First and second sounds normal. No edema. ABDOMEN: Soft. Liver and spleen not palpable. No tenderness. No mass palpable. PSYCHIATRY: Alert and oriented x3. Mood and affect normal. 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 Limited range of motion his lower extremity. INVESTIGATIONS, reviewed in the clinical context: August 07: Hemoglobin 10.4 white count 7.5 potassium 5.1 creatinine 1.3 White count 13.1 hemoglobin 11.7 platelets 221 sodium 138 potassium 4.9 BUN 43 creatinine 1.26 Previous labs: Hemoglobin 7.3 in September 2019 Assessment and plan: -Acute lower GI bleed with blood clots in a patient is on eliquis. Prior episode over a year ago with the colonoscope he did show diverticulosis. Pending surgical input. -Persistent atrial flutter fibrillation , chronically on eliquis Eliquis hold -Chronic kidney disease stage III from nephrosclerosis Follow renal function -GERD Pepcid 20 mg twice a day -Severe rheumatoid arthritis -Obstructive sleep apnea uses CPAP -Peripheral neuropathy -Depression otherwise specified Cymbalta 60 mg a day -Chronic congestive heart failure from systolic dysfunction EF 35-40% Lopressor 25 mg twice a day Zestril 10 mg a day Lasix 40 mg twice a day On clear liquid diet. Continue current medications. Follow H&H. Awaiting input from surgery.
[2021-08-07] MEDS: ATORVASTATIN 20 MG TAB PO SCH (21:29)
[2021-08-07] MEDS: predniSONE 10 MG TAB PO SCH (21:30)
[2021-08-07] MEDS: LATANOPROST 0.005% OPHTH DROPS 2.5 ML BTL BOTH EYES SCH (22:28)
[2021-08-08 06:49] LABS: Anisocytosis Slight; Basophils % (A) 0 %; Eosinophils % (A) 0 %; HCT 32.3 % (39.0-53.0); HGB 10.3 gm/dL (13.0-17.5); Lymphocytes # (A) 1.7 k/uL (1.0-4.8); Lymphocytes % (A) 22 %; MCHC 31.8 g/dL (31.0-37.0); MCV 97.5 fL (80.0-100.0); Macrocytosis Slight; Mean Platelet Volume 10.4; Monocytes # (A) 0.3 k/uL (0-1.0); Monocytes % (A) 4 %; Neutrophils # (A) 5.5 k/uL (1.3-7.7); Neutrophils % (A) 72 %; Platelet Count 174 k/uL (150-450); RBC 3.31 m/uL (4.30-5.90); RDW 16.2 % (11.5-15.5); WBC 7.7 k/uL (3.8-10.6)
[2021-08-08] MEDS: ISOSORBIDE MONONITRATE ER 30 MG TAB.ER.24H PO SCH (07:26)
[2021-08-08] MEDS: PANTOPRAZOLE 40 MG TABLET PO SCH (07:26)
[2021-08-08] MEDS: oxyCODONE-APAP 10-325MG 1 EACH TAB PO SCH ×2 (07:26→22:52)
[2021-08-08] MEDS: METOPROLOL TARTRATE 25 MG TAB PO SCH ×2 (07:27→22:52)
[2021-08-08] MEDS: DULoxetine HCL 60 MG CAPSULE.DR PO SCH (07:27)
[2021-08-08] MEDS: allopurinoL 300 MG TAB PO SCH (07:27)
[2021-08-08] MEDS: THIAMINE 100 MG TAB PO SCH (07:27)
[2021-08-08] MEDS: FUROSEMIDE 40 MG TAB PO SCH ×2 (07:27→15:35)
[2021-08-08] MEDS: IPRATROPIUM-ALBUTEROL 3 ML NEB INHALATION SCH ×3 (07:55→19:40)
--- NOTE | 2021-08-08 08:33 | P.GSCN ---
History of Present Illness Consult date: 08/07/21 History of present illness: CHIEF COMPLAINT: Hematochezia HISTORY OF PRESENT ILLNESS: The patient is a 66 year old male with complicated medical history including atrial fibrillation, prior pulmonary embolism and on chronic anticoagulation and presented with gastrointestinal bleeding. His is at bedside and gives additional history of pre-existing gastrointestinal bleed 2 years ago. Patient's anticoagulant has been discontinued since Saturday, over 2 days ago. No reports of bleeding today. General surgery is consulted for gastrointestinal bleeding. PAST MEDICAL HISTORY: See list and reviewed PAST SURGICAL HISTORY: See list and reviewed MEDICATIONS: See list and reviewed ALLERGIES: See list and reviewed SOCIAL HISTORY: See list and reviewed FAMILY HISTORY: See list and reviewed REVIEW OF ORGAN SYSTEMS: CONSTITUTIONAL: No fevers or chills. No recent weight loss. EYES: Denies any trouble with vision. Wear glasses. HEENT: No difficulties with hearing. No nosebleeds. No difficulty swallowing. RESPIRATORY: Past pulmonary embolus CARDIOVASCULAR: Has atrial fibrillation GASTROINTESTINAL: Denies fatty food intolerance. Denies change in bowel habits and gas bloat. GENITOURINARY: Denies any blood in urine or increased urinary frequency. NEUROLOGICAL: Denies any numbness or tingling along the distal extremities. No seizure disorders or headaches. MUSCULOSKELETAL: Has back pain, stiffness or joint arthritis. SKIN: No current skin cancer. No rash. PSYCHIATRIC: Denies current depression or suicidal thoughts. ENDOCRINE: Denies current thyroid disorders. Denies any blood sugar glucose intolerance. HEME/LYMPHATIC: Denies any lumps and bumps around the neck. On chronic anticoagulation ALLERGY/IMMUNOLOGY: No immunoglobulin therapy. No immune deficiencies. BREAST: Denies current breast lumps, pain or nipple discharge. PHYSICAL EXAM: VITALS: Reviewed CONSTITUTIONAL: Well developed and in no acute distress. EYES: Conjuctivae without sclera icterus. Extraocular movements grossly intact. HEAD, EARS, NOSE, THROAT: Moist buccal mucosa. Head is atraumatic, normocephalic. Hears conversational speech. No nasal drainage. NECK: Supple. No JV distention. No thyroidomegaly. RESPIRATORY: Non-labored respirations and equal bilateral excursions. No gross wheezes. CARDIOVASCULAR: Regular rate and rhythm. Extremities without moderate edema. Palpable 2+ radial pulses. ABDOMEN: Protuberant. Nontender. LYMPH: No neck lymphadenopathy. MUSCULOSKELETAL: Nail and fingers with good capillary refill. SKIN: Warm and well perfused with good skin turgor. NEUROLOGIC: Cranial nerves II through XII grossly intact. Sensation upper and extremities intact. No focal or lateralizing signs. PSYCH: Appropriate affect. Alert and oriented to person, place and time. Displays appropriate insight. CLINCAL LABS: Reviewed. Hemoglobin down 10.4-10.3 from 11.7. IMAGING: Prior ultrasound of the liver independent review demonstrating hemangiomas. RADIOLOGY: Report reviewed RECORDS: previous old records reviewed from prior upper and lower endoscopy August 2019 with pandiverticulosis and hiatal hernia ASSESSMENT: 1. Gastrointestinal bleeding 2. Chronic anticoagulant needs PLAN: 1. Recommend upper and lower endoscopy due to gastrointestinal bleeding 2. Patient is a limited wrist due to pre-existing DVT and pulmonary embolism 3. Colonoscopy prep tomorrow 4. May have clear liquid diet in the interim ADVANCE DIRECTIVE: Thank you for this kind consultation. Past Medical History Past Medical History: Atrial Fibrillation, Asthma, Deep Vein Thrombosis (DVT), Hypertension, Pneumonia, Pulmonary Embolus (PE), Renal Disease, Rheumatoid Arthritis (RA) Additional Past Medical History / Comment(s): gout, sickle cell, CKD stage 3 (dialysis 2004), sleep apnea, neuropathy, glaucoma History of Any Multi-Drug Resistant Organisms: MRSA Year Discovered:: 2013 MDRO Source:: Right Foot Past Surgical History: Joint Replacement, Orthopedic Surgery Additional Past Surgical History / Comment(s): Left knee replaced; multiple toe amputations, tib/fib surgery in May 2018; left upper arm fistula 2004 Past Anesthesia/Blood Transfusion Reactions: No Reported Reaction Past Psychological History: No Psychological Hx Reported Smoking Status: Never smoker Past Alcohol Use History: None Reported Past Drug Use History: Marijuana - Past Family History Father Family Medical History: Diabetes Mellitus, Myocardial Infarction ([place]) Mother Family Medical History: CVA/TIA Sister(s) Family Medical History: Hypertension Additional Family Medical History / Comment(s): RA Medications and Allergies Home Medications Medication Instructions Recorded Confirmed Type Cholecalciferol [Vitamin D3 (25 25 mcg PO DAILY 08/25/17 08/06/21 History Mcg = 1000 Iu)] Metoprolol Tartrate [Lopressor] 25 mg PO BID 08/25/17 08/06/21 History allopurinoL [Zyloprim] 300 mg PO DAILY 08/25/17 08/06/21 History Atorvastatin Calcium [Lipitor] 20 mg PO HS 05/14/18 08/06/21 History Latanoprost/Pf [Latanoprost 0.005% 1 drop BOTH EYES HS 10/13/18 08/06/21 History Eye Drop] Apixaban [Eliquis] 5 mg PO BID tab 10/20/18 08/06/21 Rx hydrALAZINE HCL [Apresoline] 25 mg PO BID tab 10/20/18 08/06/21 Rx DULoxetine HCL [Cymbalta] 60 mg PO DAILY 09/08/19 08/06/21 History Furosemide [Lasix] 40 mg PO BID 09/08/19 08/06/21 History oxyCODONE-APAP 10-325MG [Percocet 1 tab PO BID 09/08/19 08/06/21 History 10-325 mg] Isosorbide Dinitrate 30 mg PO DAILY 08/06/21 08/06/21 History Lisinopril [Zestril] 10 mg PO DAILY 08/06/21 08/06/21 History Thiamine [Vitamin B-1] 100 mg PO DAILY 08/06/21 08/06/21 History predniSONE 10 mg PO DAILY 08/06/21 08/06/21 History Allergies Allergy/AdvReac Type Severity Reaction Status Date / Time Sulfa (Sulfonamide Allergy Rash/Hives Verified 08/06/21 13:14 Antibiotics) Surgical - Exam Vital Signs Temp Pulse BP Pulse Ox 97.6 F 103 H 120/84 99 08/06/21 10:29 08/06/21 10:29 08/06/21 10:29 08/06/21 10:29 Results - Labs 08/08/21 05:45 08/07/21 05:55 Abnormal Lab Results - Last 24 Hours (Table) 08/07/21 08/07/21 Range/Units 05:55 05:55 RBC 3.34 L (4.30-5.90) m/uL Hgb 10.4 L (13.0-17.5) gm/dL Hct 33.5 L (39.0-53.0) % MCV 100.3 H (80.0-100.0) fL RDW 15.8 H (11.5-15.5) % Carbon Dioxide 18.4 L (20.0-27.5) mmol/L BUN 41.3 H (9.0-27.0) mg/dL Est GFR (CKD-EPI)NonAf 57.1 L (60.0-200.0) BUN/Creatinine Ratio 31.53 H (12.00-20.00) Ratio Calcium 8.5 L (8.7-10.3) mg/dL Diabetes panel 08/07/21 Range/Units 05:55 Sodium 139 (135-145) mmol/L Potassium 5.1 (3.5-5.5) mmol/L Chloride 107 (96-109) mmol/L Carbon Dioxide 18.4 L (20.0-27.5) mmol/L BUN 41.3 H (9.0-27.0) mg/dL Creatinine 1.3 (0.6-1.5) mg/dL Glucose 108 (70-110) mg/dL Calcium 8.5 L (8.7-10.3) mg/dL Calcium panel 08/07/21 Range/Units 05:55 Calcium 8.5 L (8.7-10.3) mg/dL Pituitary panel 08/07/21 Range/Units 05:55 Sodium 139 (135-145) mmol/L Potassium 5.1 (3.5-5.5) mmol/L Chloride 107 (96-109) mmol/L Carbon Dioxide 18.4 L (20.0-27.5) mmol/L BUN 41.3 H (9.0-27.0) mg/dL Creatinine 1.3 (0.6-1.5) mg/dL Glucose 108 (70-110) mg/dL Calcium 8.5 L (8.7-10.3) mg/dL Adrenal panel 08/07/21 Range/Units 05:55 Sodium 139 (135-145) mmol/L Potassium 5.1 (3.5-5.5) mmol/L Chloride 107 (96-109) mmol/L Carbon Dioxide 18.4 L (20.0-27.5) mmol/L BUN 41.3 H (9.0-27.0) mg/dL Creatinine 1.3 (0.6-1.5) mg/dL Glucose 108 (70-110) mg/dL Calcium 8.5 L (8.7-10.3) mg/dL
[2021-08-08] MEDS ORDERED: POLYETHYLENE GLYCOL LYTES SOLN 4,000 ML SOLN.RECON PO ONE (08:45)
[2021-08-08] MEDS ORDERED: LIDOCAINE 1% (10MG/ML) FOR IV START INTRADERMA PRN (09:33)
[2021-08-08] MEDS: LACTATED RINGERS 1,000 ML IV SCH (09:41)
--- NOTE | 2021-08-08 20:01 | P.PN ---
Progress Note - Text Progress Note Date: 08/08/21 Chief Complaint: Blood clots per rectum Hospital course: This is a pleasant 66-year-old patient of Dr. Vaca. 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 Colonic diverticulosis. Because of leg fracture now patient uses a wheelchair at baseline. Lives with his significant other in [place] Patient yesterday developed significant blood clots per rectum. Has slight abdominal discomfort. No nausea vomiting. No fever no chills. Appetite and rundown. Patient eliquis has been held. Surgery was consulted from the ER. at the bedside. August 07: Supple the patient this morning. Did pass some more blood clots last night. Very slight abdominal discomfort. Awaiting input from surgery. Discussed with patient. August 08: Patient getting the bowel preparation. No further bleeding per rectum. Clear liquid diet. Sitting at edge of the bed. Review of systems: Was done for constitutional, cardiovascular, GI, pulmonary. relevant finding as above Active Medications Acetaminophen (Acetaminophen Tab 325 Mg Tab) 650 mg PO Q6HR PRN PRN Reason: Mild Pain or Fever > 100.5 Last Admin: 08/06/21 21:39 Dose: 650 mg Documented by: Albuterol/Ipratropium (Ipratropium-Albuterol 3 Ml Neb) 3 ml INHALATION TID [facility] Last Admin: 08/08/21 19:40 Dose: Not Given Documented by: Allopurinol (Allopurinol 300 Mg Tab) 300 mg PO DAILY [facility] Last Admin: 08/08/21 07:27 Dose: 300 mg Documented by: Atorvastatin Calcium (Atorvastatin 20 Mg Tab) 20 mg PO HS [facility] Last Admin: 08/07/21 21:29 Dose: 20 mg Documented by: Calcium Carbonate/Glycine (Calcium Carbonate 500 Mg Chewable) 1,000 mg PO Q4HR PRN PRN Reason: Dyspepsia Duloxetine HCl (Duloxetine Hcl 60 Mg Capsule.) 60 mg PO DAILY [facility] Last Admin: 08/08/21 07:27 Dose: 60 mg Documented by: Furosemide (Furosemide 40 Mg Tab) 40 mg PO BID@0900,1600 [facility] Last Admin: 08/08/21 15:35 Dose: 40 mg Documented by: Lactated Ringer's (Lactated Ringers) 1,000 mls @ 20 mls/hr IV .Q24H [facility] Last Admin: 08/08/21 09:41 Dose: Not Given Documented by: Isosorbide Mononitrate (Isosorbide Mononitrate Er 30 Mg Tab.Er.24h) 30 mg PO DAILY [facility] Last Admin: 08/08/21 07:26 Dose: 30 mg Documented by: Latanoprost (Latanoprost 0.005% Ophth Drops 2.5 Ml Btl) 1 drops BOTH EYES HS [facility] Last Admin: 08/07/21 22:28 Dose: 1 drops Documented by: Lidocaine HCl (Lidocaine 1% (10mg/Ml) For Iv Start) 0.1 ml INTRADERMA PER PROTOCOL PRN PRN Reason: IV Start Melatonin (Melatonin 3 Mg Tablet) 3 mg PO HS PRN PRN Reason: Insomnia Last Admin: 08/06/21 21:40 Dose: 3 mg Documented by: Metoprolol Tartrate (Metoprolol Tartrate 25 Mg Tab) 25 mg PO BID [facility] Last Admin: 08/08/21 07:27 Dose: 25 mg Documented by: Naloxone HCl (Naloxone 0.4 Mg/Ml 1 Ml Vial) 0.2 mg IV Q2M PRN PRN Reason: Opioid Reversal Ondansetron HCl (Ondansetron 4 Mg/2 Ml Vial) 4 mg IVP Q8HR PRN PRN Reason: Nausea And Vomiting Oxycodone/Acetaminophen (Oxycodone-Apap 10-325mg 1 Each Tab) 1 each PO BID [facility] Last Admin: 08/08/21 07:26 Dose: 1 each Documented by: Pantoprazole Sodium (Pantoprazole 40 Mg Tablet) 40 mg PO AC-BRKFST [facility] Last Admin: 08/08/21 07:26 Dose: 40 mg Documented by: Prednisone (Prednisone 10 Mg Tab) 10 mg PO HS [facility] Last Admin: 08/07/21 21:30 Dose: 10 mg Documented by: Thiamine HCl (Thiamine 100 Mg Tab) 100 mg PO DAILY [facility] Last Admin: 08/08/21 07:27 Dose: 100 mg Documented by: Past medical history to include: Atrial flutter fibrillation on eliquis, CK D stage III, GERD, SLEEP apnea uses CPAP, depression, congestive heart failure EF 35%, chronic lesion on the pancreatic head, 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 Occasionally he has done marijuana for pain. Family history: Diabetes, [place], rheumatoid arthritis On examination: VITAL SIGNS: 98.2, 100, 18, 136.75, 100% room air GENERAL APPEARANCE: Sitting at the edge of the bed awake, comfortable HEENT: Normal external appearance of nose and ear. Oral cavity normal EYES: Pupils equal. Conjunctiva pale NECK: JVD not raised. Mass not palpable. RESPIRATORY: Respiratory effort normal. Lungs clear to auscultation. CARDIOVASCULAR: First and second sounds normal. No edema. ABDOMEN: Soft. Liver and spleen not palpable. No tenderness. No mass palpable. PSYCHIATRY: Alert and oriented x3. Mood and affect normal. 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 Limited range of motion his lower extremity. INVESTIGATIONS, reviewed in the clinical context: August 08: He will globin 10.3 August 07: Hemoglobin 10.4 white count 7.5 potassium 5.1 creatinine 1.3 White count 13.1 hemoglobin 11.7 platelets 221 sodium 138 potassium 4.9 BUN 43 creatinine 1.26 Previous labs: Hemoglobin 7.3 in September 2019 Assessment and plan: -Acute lower GI bleed with blood clots in a patient is on eliquis. Prior episode over a year ago with the colonoscope he did show diverticulosis. Pending EGD colonoscope he tomorrow -Acute blood loss anemia from GI bleed Follow H&H -Persistent atrial flutter fibrillation , chronically on eliquis Eliquis hold -Chronic kidney disease stage III from nephrosclerosis Follow renal function -GERD Pepcid 20 mg twice a day -Severe rheumatoid arthritis -Obstructive sleep apnea uses CPAP -Peripheral neuropathy -Depression otherwise specified Cymbalta 60 mg a day -Chronic congestive heart failure from systolic dysfunction EF 35-40% Lopressor 25 mg twice a day Zestril 10 mg a day Lasix 40 mg twice a day On clear liquid diet. Bowel preparation. Pending endoscopy tomorrow. Discussed with patient.
--- NOTE | 2021-08-08 20:54 | P.PN ---
Subjective Progress Note Date: 08/08/21 CHIEF COMPLAINT: GI bleed HISTORY OF PRESENT ILLNESS: The patient is a 66-year-old male with gastroint estinal bleeding. He is tolerating bowel prep. ROS: No reports of nausea and vomiting. No fevers or chills. No new chest pain. No productive sputum PHYSICAL EXAM: VITAL SIGNS: Reviewed CONSTITUTIONAL: Well developed and in no acute distress. EYES: Conjuctivae without sclera icterus. Extraocular movements grossly intact. HEAD, EARS, NOSE, THROAT: Moist buccal mucosa. Head is atraumatic, normocephalic. Hears conversational speech. No nasal drainage. RESPIRATORY: Non-labored respirations and equal bilateral excursions. CARDIOVASCULAR: Palpable 2+ radial pulses. ABDOMEN: Protuberant. No peritonitis. MUSCULOSKELETAL: No gross deformity of the lower extremities noted. No clubbing. No cyanosis. SKIN: Good skin turgor. Well perfused. NEUROLOGIC: Cranial nerves II through XII grossly intact. No focal or lateralizing signs. PSYCH: Appropriate affect. Alert and oriented to person, place and time. CLINICAL LABS: Reviewed. Hgb low 10.3 with anemia ASSESSMENT: 1. GI bleed PLAN: 1. Recommend upper and lower endoscopy due to GI bleed. 2. He is elevated risk with personal history of diverticulosis. Objective - Vital Signs Vital signs: Vital Signs Temp 98.2 F 08/08/21 15:00 Pulse 100 08/08/21 15:00 Resp 18 08/08/21 15:00 BP 136/75 08/08/21 15:00 Pulse Ox 100 08/08/21 15:00 Intake & Output 08/08/21 08/08/21 08/09/21 06:59 18:59 06:59 Intake Total 778 Balance 778 Intake: Oral 778 Other: Voiding Method Urinal Urinal # Voids 2 - Labs CBC & Chem 7: 08/08/21 05:45 08/07/21 05:55 Labs: Abnormal Lab Results - Last 24 Hours (Table) 08/08/21 Range/Units 05:45 RBC 3.31 L (4.30-5.90) m/uL Hgb 10.3 L (13.0-17.5) gm/dL Hct 32.3 L (39.0-53.0) % RDW 16.2 H (11.5-15.5) % Assessment and Plan (1) Lower gastrointestinal hemorrhage Current Visit: Yes Status: Acute Code(s): K92.2 - GASTROINTESTINAL HEMORRHAGE, UNSPECIFIED SNOMED Code(s): 16851477 (2) Anemia Current Visit: No Status: Acute Code(s): D64.9 - ANEMIA, UNSPECIFIED SNOMED Code(s): 807197131 (3) Atrial fibrillation Current Visit: No Status: Acute Code(s): I48.91 - UNSPECIFIED ATRIAL FIBRILLATION SNOMED Code(s): 83854294
[2021-08-08] MEDS: predniSONE 10 MG TAB PO SCH (22:52)
[2021-08-08] MEDS: ATORVASTATIN 20 MG TAB PO SCH (22:52)
[2021-08-08] MEDS: LATANOPROST 0.005% OPHTH DROPS 2.5 ML BTL BOTH EYES SCH (22:52)
[2021-08-09 07:19] LABS: Basophils % (A) 0 %; Eosinophils # (A) 0.1 k/uL (0-0.7); Eosinophils % (A) 1 %; HCT 28.8 % (39.0-53.0); HGB 9.1 gm/dL (13.0-17.5); Hypochromasia Slight; Lymphocytes # (A) 1.6 k/uL (1.0-4.8); Lymphocytes % (A) 22 %; MCH 31.6 pg (25.0-35.0); MCHC 31.6 g/dL (31.0-37.0); MCV 100.1 fL (80.0-100.0); Macrocytosis Slight; Mean Platelet Volume 8.3; Monocytes # (A) 0.3 k/uL (0-1.0); Monocytes % (A) 4 %; Neutrophils % (A) 71 %; Platelet Count 206 k/uL (150-450); RBC 2.88 m/uL (4.30-5.90); RDW 15.7 % (11.5-15.5); WBC 7.1 k/uL (3.8-10.6)
[2021-08-09] MEDS: PANTOPRAZOLE 40 MG TABLET PO SCH (08:02)
[2021-08-09] MEDS: METOPROLOL TARTRATE 25 MG TAB PO SCH ×2 (08:02→20:49)
[2021-08-09] MEDS: LACTATED RINGERS 1,000 ML IV SCH (08:06)
[2021-08-09] MEDS: IPRATROPIUM-ALBUTEROL 3 ML NEB INHALATION SCH ×3 (08:43→19:53)
[2021-08-09] MEDS ORDERED: LIDOCAINE 1% INJ 10MG/ML (20 ML MDV) ONE (10:09)
[2021-08-09] MEDS ORDERED: PROPOFOL 10 MG/ML 20 ML VIAL IV ONE (10:09)
[2021-08-09] MEDS ORDERED: IV FLUID CONTINUATION 900 ML IV ONE (10:10)
--- NOTE | 2021-08-09 10:28 | P.PCN ---
Date of Procedure: 08/09/21 Description of Procedure: PREOPERATIVE DIAGNOSIS: Gastrointestinal bleeding Chronic anticoagulant use Atrial fibrillation POSTOPERATIVE DIAGNOSIS: Gastritis without bleeding Gastroesophageal reflux disease. Diaphragmatic hiatal hernia OPERATION: Esophagogastroduodenoscopy SURGEON: Sheree Easley MD ANESTHESIA: MAC. INDICATIONS: The patient is a 66-year-old male who presents with gastrointestinal bleeding. Benefits and risks of the procedure were described. Informed consent was obtained. DESCRIPTION: The patient was brought into the endoscopy suite and laid in the left lateral decubitus position. An Olympus gastroscope was passed along the posterior oropharynx down to the distal esophagus where the squamocolumnar junction was encountered at 42 cm from the incisors. The stomach was entered and bile reflux was found. Additional findings are listed below. The first through third portion of the duodenum was examined and unremarkable. Retroflexion of the scope confirmed Hill grade 2 lower esophageal valve. The squamocolumnar junction demonstrated LA grade B erosive esophagitis. The stomach was desufflated. The patient tolerated the procedure well. FINDINGS: Squamocolumnar junction 42 cm from the incisors. Diaphragmatic hiatus at 44 cm. Hiatal hernia, 2 cm Hill grade 2 lower esophageal valve. LA grade B erosive esophagitis. No active duodenitis. Chronic gastritis without bleeding RECOMMENDATIONS: Upper endoscopy as needed.
--- NOTE | 2021-08-09 11:25 | P.PCN ---
Date of Procedure: 08/09/21 Description of Procedure: PREOPERATIVE DIAGNOSIS: Gastrointestinal bleeding Melanotic stool Chronic anticoagulation Atrial fibrillation POSTOPERATIVE DIAGNOSIS: Active gastrointestinal bleeding from a small intestinal Tubular adenoma cecum Tubular adenoma ascending colon Tubular adenoma hepatic flexure Tubular adenoma transverse colon Tubular adenoma descending colon Sigmoid diverticulosis with pandiverticulosis Internal hemorrhoids, grade 2 OPERATION: Colonoscopy to the ileocecal valve and appendiceal orifice, cecum Colonoscopy with hot snare polypectomy Colonoscopy with normal saline lavage over 1 L SURGEON: Sheree Easley MD. ANESTHESIA: MAC. INDICATIONS: The patient is an 66-year-old male he presents with acute gastrointestinal bleeding. Benefits and risks were described and informed consent was obtained. DESCRIPTION OF PROCEDURE: The patient had undergone Nulytely prep. The patient had been brought into the operating room and laid in the left lateral decubitus position. After adequate intravenous sedation, the rectum was examined with 2% lidocaine jelly. The prostate was unremarkable. No external hemorrhoids were encountered. The rectal tone was within normal limits. No lesions were palpated in the rectal vault. An Olympus colonoscope was advanced until the cecum, ileocecal valve and appendiceal orifice were clearly viewed. The prep was poor requiring moderate colonic lavage over 1 L. Sigmoid diverticulosis with pandiverticulosiswas encountered. Colonic polyps were found and removed. Multiple impacted diverticulum inflammation was found without active bleeding. Retroflexion of the scope demonstrated grade 2 internal hemorrhoids without active bleeding or inflammation. The colon was desufflated. The patient had tolerated the procedure well. Withdrawal time was over 6 minutes. FINDINGS: Aronchick preparation quality scale 3+ (1-5) Internal hemorrhoids, grade 2 External hemorrhoids, grade 2. No arteriovenous malformations. Moderate melanotic effluent from small intestine confirming gastrointestinal bleeding from the small bowel. Sigmoid diverticulosis with pandiverticulosis Removal of 10 polyps: - Snare polypectomy ileocecal valve, 8 mm tubulovillous adenoma polyp. - Snare polypectomy ascending colon, 8 mm tubular adenoma polyp. - Snare polypectomy cecum, 12 mm flat villous adenoma polyp. - Snare polypectomy hepatic flexure, 10 mm tubular adenoma polyp. - Snare polypectomy mid transverse colon polyp 2, 8 to 12 mm tubular adenoma polyp. - Snare polypectomy splenic flexure, 10 mm tubular adenoma - Snare polypectomy 60 cm from the anal verge x 2 descending colon, 6-10 mm villous adenoma polyp. - Snare polypectomy 50 cm from the anal verge, 10 mm tubular adenoma polyp. RECOMMENDATIONS: 1. Repeat colonoscopy one year, 2021 2. May benefit from pill endoscopy for small bowel location of bleeding 3. Recommend avoid anticoagulants due to location of bleeding and recurrent gastrointestinal bleeding Plan - Discharge Summary Discharge Rx Participant: No New Discharge Prescriptions: No Action Metoprolol Tartrate [Lopressor] 25 mg PO BID Cholecalciferol [Vitamin D3 (25 Mcg = 1000 Iu)] 25 mcg PO DAILY allopurinoL [Zyloprim] 300 mg PO DAILY Atorvastatin Calcium [Lipitor] 20 mg PO HS Latanoprost/Pf [Latanoprost 0.005% Eye Drop] 1 drop BOTH EYES HS hydrALAZINE HCL [Apresoline] 25 mg PO BID tab Apixaban [Eliquis] 5 mg PO BID tab DULoxetine HCL [Cymbalta] 60 mg PO DAILY Furosemide [Lasix] 40 mg PO BID oxyCODONE-APAP 10-325MG [Percocet 10-325 mg] 1 tab PO BID Thiamine [Vitamin B-1] 100 mg PO DAILY Lisinopril [Zestril] 10 mg PO DAILY Isosorbide Dinitrate 30 mg PO DAILY predniSONE 10 mg PO DAILY Discharge Medication List Cholecalciferol [Vitamin D3 (25 Mcg = 1000 Iu)] 25 mcg PO DAILY 08/25/17 [History] Metoprolol Tartrate [Lopressor] 25 mg PO BID 08/25/17 [History] allopurinoL [Zyloprim] 300 mg PO DAILY 08/25/17 [History] Atorvastatin Calcium [Lipitor] 20 mg PO HS 05/14/18 [History] Latanoprost/Pf [Latanoprost 0.005% Eye Drop] 1 drop BOTH EYES HS 10/13/18 [History] Apixaban [Eliquis] 5 mg PO BID tab 10/20/18 [Rx] hydrALAZINE HCL [Apresoline] 25 mg PO BID tab 10/20/18 [Rx] DULoxetine HCL [Cymbalta] 60 mg PO DAILY 09/08/19 [History] Furosemide [Lasix] 40 mg PO BID 09/08/19 [History] oxyCODONE-APAP 10-325MG [Percocet 10-325 mg] 1 tab PO BID 09/08/19 [History] Isosorbide Dinitrate 30 mg PO DAILY 08/06/21 [History] Lisinopril [Zestril] 10 mg PO DAILY 08/06/21 [History] Thiamine [Vitamin B-1] 100 mg PO DAILY 08/06/21 [History] predniSONE 10 mg PO DAILY 08/06/21 [History] Follow up Appointment(s)/Referral(s): Josse Vaca DO [Primary Care Provider] - 1-2 days
--- NOTE | 2021-08-09 12:17 | P.PN ---
Progress Note - Text Progress Note Date: 08/09/21 Findings of procedure described to including bleeding from the small intestine inaccessible via upper or lower endoscopy. Patient is high risk for rebleeding on anticoagulation. Patient had lost IV access. Despite attempts by anesthesia and nursing, may need midline for IV fluids and continued hospitalization.
[2021-08-09] MEDS: oxyCODONE-APAP 10-325MG 1 EACH TAB PO SCH ×2 (12:33→20:49)
[2021-08-09] MEDS: FUROSEMIDE 40 MG TAB PO SCH ×2 (12:34→16:13)
[2021-08-09] MEDS: THIAMINE 100 MG TAB PO SCH (12:34)
[2021-08-09] MEDS: ISOSORBIDE MONONITRATE ER 30 MG TAB.ER.24H PO SCH (12:34)
[2021-08-09] MEDS: allopurinoL 300 MG TAB PO SCH (12:34)
[2021-08-09] MEDS: DULoxetine HCL 60 MG CAPSULE.DR PO SCH (12:34)
[2021-08-09] MEDS: predniSONE 10 MG TAB PO SCH (20:49)
[2021-08-09] MEDS: LATANOPROST 0.005% OPHTH DROPS 2.5 ML BTL BOTH EYES SCH (20:50)
[2021-08-09] MEDS: ATORVASTATIN 20 MG TAB PO SCH (21:01)
--- NOTE | 2021-08-09 22:10 | P.PN ---
Progress Note - Text Progress Note Date: 08/09/21 Chief Complaint: Blood clots per rectum Hospital course: This is a pleasant 66-year-old patient of Dr. Vaca. 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 Colonic diverticulosis. Because of leg fracture now patient uses a wheelchair at baseline. Lives with his significant other in [place] Patient yesterday developed significant blood clots per rectum. Has slight abdominal discomfort. No nausea vomiting. No fever no chills. Appetite and rundown. Patient eliquis has been held. Surgery was consulted from the ER. at the bedside. August 07: Supple the patient this morning. Did pass some more blood clots last night. Very slight abdominal discomfort. Awaiting input from surgery. Discussed with patient. August 08: Patient getting the bowel preparation. No further bleeding per rectum. Clear liquid diet. Sitting at edge of the bed. August 09: Patient underwent EGD coloscopy today. Patient is found to have some bloody effluent to the terminal ileum. Procedure was done by Dr. Larry. I did discuss with the patient and his that we do not have enteroscopy here. In any further diagnostic studies interval still not detected any further intervention. Tomorrow we'll try to transfer the patient and outside facility. Concern about keeping the patient off antibiotic recommendations also discussed. Follow H&H. Review of systems: Was done for constitutional, cardiovascular, GI, pulmonary. relevant finding as above Active Medications Acetaminophen (Acetaminophen Tab 325 Mg Tab) 650 mg PO Q6HR PRN PRN Reason: Mild Pain or Fever > 100.5 Last Admin: 08/06/21 21:39 Dose: 650 mg Documented by: Albuterol/Ipratropium (Ipratropium-Albuterol 3 Ml Neb) 3 ml INHALATION TID [facility] Last Admin: 08/09/21 19:53 Dose: 3 ml Documented by: Allopurinol (Allopurinol 300 Mg Tab) 300 mg PO DAILY [facility] Last Admin: 08/09/21 12:34 Dose: 300 mg Documented by: Atorvastatin Calcium (Atorvastatin 20 Mg Tab) 20 mg PO HS [facility] Last Admin: 08/09/21 21:01 Dose: 20 mg Documented by: Calcium Carbonate/Glycine (Calcium Carbonate 500 Mg Chewable) 1,000 mg PO Q4HR PRN PRN Reason: Dyspepsia Duloxetine HCl (Duloxetine Hcl 60 Mg Capsule.Dr) 60 mg PO DAILY [facility] Last Admin: 08/09/21 12:34 Dose: 60 mg Documented by: Furosemide (Furosemide 40 Mg Tab) 40 mg PO BID@0900,1600 [facility] Last Admin: 08/09/21 16:13 Dose: 40 mg Documented by: Lactated Ringer's (Lactated Ringers) 1,000 mls @ 20 mls/hr IV .Q24H [facility] Last Admin: 08/09/21 08:06 Dose: 20 mls/hr Documented by: Isosorbide Mononitrate (Isosorbide Mononitrate Er 30 Mg Tab.Er.24h) 30 mg PO DAILY [facility] Last Admin: 08/09/21 12:34 Dose: 30 mg Documented by: Latanoprost (Latanoprost 0.005% Ophth Drops 2.5 Ml Btl) 1 drops BOTH EYES HS [facility] Last Admin: 08/09/21 20:50 Dose: 1 drops Documented by: Lidocaine HCl (Lidocaine 1% (10mg/Ml) For Iv Start) 0.1 ml INTRADERMA PER PROTOCOL PRN PRN Reason: IV Start Melatonin (Melatonin 3 Mg Tablet) 3 mg PO HS PRN PRN Reason: Insomnia Last Admin: 08/06/21 21:40 Dose: 3 mg Documented by: Metoprolol Tartrate (Metoprolol Tartrate 25 Mg Tab) 25 mg PO BID [facility] Last Admin: 08/09/21 20:49 Dose: 25 mg Documented by: Naloxone HCl (Naloxone 0.4 Mg/Ml 1 Ml Vial) 0.2 mg IV Q2M PRN PRN Reason: Opioid Reversal Ondansetron HCl (Ondansetron 4 Mg/2 Ml Vial) 4 mg IVP Q8HR PRN PRN Reason: Nausea And Vomiting Oxycodone/Acetaminophen (Oxycodone-Apap 10-325mg 1 Each Tab) 1 each PO BID [facility] Last Admin: 08/09/21 20:49 Dose: 1 each Documented by: Pantoprazole Sodium (Pantoprazole 40 Mg Tablet) 40 mg PO AC-BRKFST [facility] Last Admin: 08/09/21 08:02 Dose: 40 mg Documented by: Prednisone (Prednisone 10 Mg Tab) 10 mg PO HS [facility] Last Admin: 08/09/21 20:49 Dose: 10 mg Documented by: Thiamine HCl (Thiamine 100 Mg Tab) 100 mg PO DAILY [facility] Last Admin: 08/09/21 12:34 Dose: 100 mg Documented by: Past medical history to include: Atrial flutter fibrillation on eliquis, CK D stage III, GERD, SLEEP apnea uses CPAP, depression, congestive heart failure EF 35%, chronic lesion on the pancreatic head, 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 Occasionally he has done marijuana for pain. Family history: Diabetes, [place], rheumatoid arthritis On examination: VITAL SIGNS: 97.6, 95, 20, 119 with 79, 100% room air GENERAL APPEARANCE: Laying in bed awake, comfortable HEENT: Normal external appearance of nose and ear. Oral cavity normal EYES: Pupils equal. Conjunctiva pale NECK: JVD not raised. Mass not palpable. RESPIRATORY: Respiratory effort normal. Lungs clear to auscultation. CARDIOVASCULAR: First and second sounds normal. No edema. ABDOMEN: Soft. Liver and spleen not palpable. No tenderness. No mass palpable. PSYCHIATRY: Alert and oriented x3. Mood and affect normal. 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 Limited range of motion his lower extremity. INVESTIGATIONS, reviewed in the clinical context: August 09: Hemoglobin 9.1 August 08: Hemoglobin 10.3 August 07: Hemoglobin 10.4 white count 7.5 potassium 5.1 creatinine 1.3 White count 13.1 hemoglobin 11.7 platelets 221 sodium 138 potassium 4.9 BUN 43 creatinine 1.26 Previous labs: Hemoglobin 7.3 in September 2019 Assessment and plan: -Acute GI bleed with blood clots in a patient is on eliquis. Source appears to be small bowel. He did not have GI service in the hospital. Even if it capsule studies done in terms of intervention patient will probably need a higher level of care. Did talk to the patient and . Possible transfer to an outside facility. In the meantime hold off any anticoagulation for H&H. -Acute blood loss anemia from GI bleed Follow H&H -Persistent atrial flutter fibrillation , chronically on eliquis Eliquis hold -Chronic kidney disease stage III from nephrosclerosis Follow renal function -GERD Pepcid 20 mg twice a day -Severe rheumatoid arthritis -Obstructive sleep apnea uses CPAP -Peripheral neuropathy -Depression otherwise specified Cymbalta 60 mg a day -Chronic congestive heart failure from systolic dysfunction EF 35-40% Lopressor 25 mg twice a day Zestril 10 mg a day Lasix 40 mg twice a day Results discussed with patient and . Possible transfer to an onset facility tomorrow. Follow H&H. Hold off ventricular admission. Total time spent about 45 minutes with over 25 minutes of discussion.
[2021-08-10 06:43] LABS: Basophils % (A) 0 %; Eosinophils % (A) 0 %; HCT 26.1 % (39.0-53.0); HGB 8.3 gm/dL (13.0-17.5); Hypochromasia Slight; Lymphocytes # (A) 1.7 k/uL (1.0-4.8); Lymphocytes % (A) 22 %; MCH 31.3 pg (25.0-35.0); MCHC 31.6 g/dL (31.0-37.0); MCV 98.9 fL (80.0-100.0); Macrocytosis Slight; Mean Platelet Volume 8.1; Monocytes # (A) 0.3 k/uL (0-1.0); Monocytes % (A) 4 %; Neutrophils # (A) 5.5 k/uL (1.3-7.7); Neutrophils % (A) 72 %; Platelet Count 230 k/uL (150-450); RBC 2.64 m/uL (4.30-5.90); WBC 7.6 k/uL (3.8-10.6)
[2021-08-10] MEDS: PANTOPRAZOLE 40 MG TABLET PO SCH (09:09)
[2021-08-10] MEDS: oxyCODONE-APAP 10-325MG 1 EACH TAB PO SCH ×2 (09:09→21:53)
[2021-08-10] MEDS: THIAMINE 100 MG TAB PO SCH (09:09)
[2021-08-10] MEDS: FUROSEMIDE 40 MG TAB PO SCH ×2 (09:09→16:33)
[2021-08-10] MEDS: allopurinoL 300 MG TAB PO SCH (09:09)
[2021-08-10] MEDS: DULoxetine HCL 60 MG CAPSULE.DR PO SCH (09:09)
[2021-08-10] MEDS: METOPROLOL TARTRATE 25 MG TAB PO SCH ×2 (09:09→21:52)
[2021-08-10] MEDS: ISOSORBIDE MONONITRATE ER 30 MG TAB.ER.24H PO SCH (09:10)
[2021-08-10] MEDS: IPRATROPIUM-ALBUTEROL 3 ML NEB INHALATION SCH ×3 (10:05→21:36)
[2021-08-10] MEDS: LACTATED RINGERS 1,000 ML IV SCH (14:59)
--- NOTE | 2021-08-10 19:16 | P.PN ---
Subjective Progress Note Date: 08/10/21 CHIEF COMPLAINT: GI bleed HISTORY OF PRESENT ILLNESS: The patient is a 66-year-old male with gastroint estinal bleeding. Yesterday, upper lower endoscopy was performed. Moderate maroon affluent was found along the colon consistent with small bowel intestinal bleed. Patient's hemoglobin has dropped 2 g in the last 2 days. Family is at bedside. Admitting attending at bedside. Patient been discussed transfer to facility for advanced level care. ROS: No reports of nausea and vomiting. No fevers or chills. No new chest pain. No productive sputum PHYSICAL EXAM: VITAL SIGNS: Reviewed CONSTITUTIONAL: Well developed and in no acute distress. EYES: Conjuctivae without sclera icterus. Extraocular movements grossly intact. HEAD, EARS, NOSE, THROAT: Moist buccal mucosa. Head is atraumatic, normocephalic. Hears conversational speech. No nasal drainage. RESPIRATORY: Non-labored respirations and equal bilateral excursions. CARDIOVASCULAR: Palpable 2+ radial pulses. ABDOMEN: Protuberant. No peritonitis. MUSCULOSKELETAL: No gross deformity of the lower extremities noted. No clubbin g. No cyanosis. SKIN: Good skin turgor. Well perfused. NEUROLOGIC: Cranial nerves II through XII grossly intact. No focal or lateralizing signs. PSYCH: Appropriate affect. Alert and oriented to person, place and time. CLINICAL LABS: Reviewed. Hgb low 10.3 with anemia down to 8.32 days. ASSESSMENT: 1. GI bleed small intestinal bleed 2. Atrial fibrillation 3. Multiple colon polyps PLAN: 1. Discussion with family attending and in agreement for transfer to tertiary care center for advanced level care regarding this intestinal bleeding. 2. Family and patient reminded repeat colonoscopy in one year due to multiple high-risk to colon adenomatous polyps Objective - Vital Signs Vital signs: Vital Signs Temp 98.2 F 08/10/21 07:00 Pulse 84 08/10/21 10:15 Resp 20 08/10/21 14:00 BP 119/75 08/10/21 07:00 Pulse Ox 94 L 08/10/21 07:00 Intake & Output 08/09/21 08/10/21 08/10/21 18:59 06:59 18:59 Intake Total 540 120 Output Total 700 Balance -160 120 Intake: IV 340 0 Lactated Ringers 1,000 ml 40 0 @ 20 mls/hr IV .Q24H [facility] Rx#:[id number] Oral 200 120 Output: Urine 700 Other: Voiding Method Urinal Urinal # Voids 1 # Bowel Movements 1 - Labs CBC & Chem 7: 08/10/21 05:57 08/07/21 05:55 Labs: Abnormal Lab Results - Last 24 Hours (Table) 08/10/21 Range/Units 05:57 RBC 2.64 L (4.30-5.90) m/uL Hgb 8.3 L (13.0-17.5) gm/dL Hct 26.1 L (39.0-53.0) % RDW 16.0 H (11.5-15.5) % Assessment and Plan (1) Lower gastrointestinal hemorrhage Current Visit: Yes Status: Acute Code(s): K92.2 - GASTROINTESTINAL HEMORRHAGE, UNSPECIFIED SNOMED Code(s): 37216295 (2) Anemia Current Visit: No Status: Acute Code(s): D64.9 - ANEMIA, UNSPECIFIED SNOMED Code(s): 011159160 (3) Atrial fibrillation Current Visit: No Status: Acute Code(s): I48.91 - UNSPECIFIED ATRIAL F IBRILLATION SNOMED Code(s): 03688269
[2021-08-10 20:47] VITALS: BP 120/74; TEMP 97.7
[2021-08-10 21:52] VITALS: PULSE 84
[2021-08-10] MEDS: predniSONE 10 MG TAB PO SCH (21:52)
[2021-08-10] MEDS: ATORVASTATIN 20 MG TAB PO SCH (21:53)
[2021-08-10] MEDS: LATANOPROST 0.005% OPHTH DROPS 2.5 ML BTL BOTH EYES SCH (21:54)
[2021-08-10 23:25] VITALS: RESP 20
--- NOTE | 2021-08-11 16:34 | P.DS ---
Providers Date of admission: 08/10/21 07:30 Expected date of discharge: 08/11/21 Attending physician: Will Berry Consults: 08/06/21 12:35 Consult Physician Urgent Consulting Provider: Sheree Easley Consult Reason/Comments: lower gi hemorrhage Do you want consulting provider notified?: Yes Primary care physician: Josse [facility] Hospital Course: Chief Complaint: Blood clots per rectum Hospital course: This is a pleasant 66-year-old patient of Dr. Vaca. 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 Colonic diverticulosis. Because of leg fracture now patient uses a wheelchair at baseline. Lives with his significant other in [place] Patient yesterday developed significant blood clots per rectum. Has slight abdominal discomfort. No nausea vomiting. No fever no chills. Appetite and rundown. Patient eliquis has been held. Surgery was consulted from the ER. at the bedside. August 07: Supple the patient this morning. Did pass some more blood clots last night. Very slight abdominal discomfort. Awaiting input from surgery. Discussed with patient. August 08: Patient getting the bowel preparation. No further bleeding per rectum. Clear liquid diet. Sitting at edge of the bed. August 09: Patient underwent EGD coloscopy today. Patient is found to have some bloody effluent to the terminal ileum. Procedure was done by Dr. Larry. I did discuss with the patient and his that we do not have enteroscopy here. In any further diagnostic studies interval still not detected any further intervention. Tomorrow we'll try to transfer the patient and outside facility. Concern about keeping the patient off antibiotic recomm endations also discussed. Follow H&H. August 10: Spoke with the patient and his at length. They have agreed to be transferred to [facility]. This morning's hemoglobin was a bit furt her down. I spoke to the transfer team and he [facility]. Patient was accepted. Also discussed with Dr. Larry. August 11: Patient transferred to [facility]. Review of systems: Was done for constitutional, cardiovascular, GI, pulmonary. 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 Occasionally he has done marijuana for pain. Family history: Diabetes, [place], rheumatoid arthritis On examination: VITAL SIGNS: 97.7, 84, 16, 120/74, 99% room air GENERAL APPEARANCE: Sitting up in a chair, comfortable HEENT: Normal external appearance of nose and ear. Oral cavity normal EYES: Pupils equal. Conjunctiva pale NECK: JVD not raised. Mass not palpable. RESPIRATORY: Respiratory effort normal. Lungs clear to auscultation. CARDIOVASCULAR: First and second sounds normal. No edema. ABDOMEN: Soft. Liver and spleen not palpable. No tenderness. No mass palpable. PSYCHIATRY: Alert and oriented x3. Mood and affect normal. 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 Limited range of motion his lower extremity. INVESTIGATIONS, reviewed in the clinical context: August 10: Hemoglobin 8.3 August 09: Hemoglobin 9.1 August 08: Hemoglobin 10.3 August 07: Hemoglobin 10.4 white count 7.5 potassium 5.1 creatinine 1.3 White count 13.1 hemoglobin 11.7 platelets 221 sodium 138 potassium 4.9 BUN 43 creatinine 1.26 Previous labs: Hemoglobin 7.3 in September 2019 Assessment and plan: -Acute GI bleed with blood clots in a patient is on eliquis. Source appears to be small bowel. He did not have GI service in the hospital. Even if it capsule studies done in terms of intervention patient will probably need a higher level of care. Did talk to the patient and . Possible transfer to an outside facility. In the meantime hold off any anticoagulation for H&H. Hemoglobin further dropped from 8.3. We have now GI services here. No intervention services. Spoke to [facility] team [place]. Patient accepted there. -Acute blood loss anemia from GI bleed Follow H&H -Persistent atrial flutter fibrillation , chronically on eliquis Eliquis hold -Chronic kidney disease stage III from nephrosclerosis Follow renal function -GERD Pepcid 20 mg twice a day -Severe rheumatoid arthritis -Obstructive sleep apnea uses CPAP -Peripheral neuropathy -Depression otherwise specified Cymbalta 60 mg a day -Chronic congestive heart failure from systolic dysfunction EF 35-40% Lopressor 25 mg twice a day Zestril 10 mg a day Lasix 40 mg twice a day Disposition: [facility], [facility] Plan - Discharge Summary Discharge Rx Participant: No New Discharge Prescriptions: No Action Metoprolol Tartrate [Lopressor] 25 mg PO BID Cholecalciferol [Vitamin D3 (25 Mcg = 1000 Iu)] 25 mcg PO DAILY allopurinoL [Zyloprim] 300 mg PO DAILY Atorvastatin Calcium [Lipitor] 20 mg PO HS Latanoprost/Pf [Latanoprost 0.005% Eye Drop] 1 drop BOTH EYES HS hydrALAZINE HCL [Apresoline] 25 mg PO BID tab Apixaban [Eliquis] 5 mg PO BID tab DULoxetine HCL [Cymbalta] 60 mg PO DAILY Furosemide [Lasix] 40 mg PO BID oxyCODONE-APAP 10-325MG [Percocet 10-325 mg] 1 tab PO BID Thiamine [Vitamin B-1] 100 mg PO DAILY Lisinopril [Zestril] 10 mg PO DAILY Isosorbide Dinitrate 30 mg PO DAILY predniSONE 10 mg PO DAILY Discharge Medication List Cholecalciferol [Vitamin D3 (25 Mcg = 1000 Iu)] 25 mcg PO DAILY 08/25/17 [History] Metoprolol Tartrate [Lopressor] 25 mg PO BID 08/25/17 [History] allopurinoL [Zyloprim] 300 mg PO DAILY 08/25/17 [History] Atorvastatin Calcium [Lipitor] 20 mg PO HS 05/14/18 [History] Latanoprost/Pf [Latanoprost 0.005% Eye Drop] 1 drop BOTH EYES HS 10/13/18 [History] Apixaban [Eliquis] 5 mg PO BID tab 10/20/18 [Rx] hydrALAZINE HCL [Apresoline] 25 mg PO BID tab 10/20/18 [Rx] DULoxetine HCL [Cymbalta] 60 mg PO DAILY 09/08/19 [History] Furosemide [Lasix] 40 mg PO BID 09/08/19 [History] oxyCODONE-APAP 10-325MG [Percocet 10-325 mg] 1 tab PO BID 09/08/19 [History] Isosorbide Dinitrate 30 mg PO DAILY 08/06/21 [History] Lisinopril [Zestril] 10 mg PO DAILY 08/06/21 [History] Thiamine [Vitamin B-1] 100 mg PO DAILY 08/06/21 [History] predniSONE 10 mg PO DAILY 08/06/21 [History] Follow up Appointment(s)/Referral(s): Josse Vaca DO [Primary Care Provider] - 1-2 days Sheree Easley MD [STAFF PHYSICIAN] - 09/05/21 (Please call to confirm time) Patient Instructions/Handouts: Diverticulosis (DC), Colorectal Polyps (DC), Diverticulosis Diet (GEN) Activity/Diet/Wound Care/Special Instructions: Repeat colonoscopy in one year, July 2022 Discharge Disposition: DC/TRNS INTERMEDIATE CARE FAC
--- NOTE | 2021-08-17 13:49 | CDI ---
Documentation Clarification Form Date: 08/17/2021 01:33:00 PM From: Shabana Calhoun Admit Date: 08/10/2021 07:30:00 AM Patient Name: Danyel Ventura Visit Number: [id number] Discharge Date: 08/11/2021 03:23:00 AM ATTENTION: The Clinical Documentation Specialists (CDI) and [facility] Coding Staff appreciate your assistance in clarifying documentation. Please respond to the clarification below the line at the bottom and electronically sign. The CDI & [facility] Coding staff will review the response and follow-up if needed. Please note: Queries are made part of the Legal Health Record. If you have any questions, please contact the author of this message via ITS. Dr. Will Berry Acute GI bleed with blood clots in a patient who is on Eliquis, source appears to be small bowel. Additional clarification regarding the etiology of the GI bleed is requested. Per EGD "Gastritis without bleeding, GERD, The squamocolumnar junctions demonstrated LA grade B erosive esophagitis." Per colonocopy " Active GI bleed from small intestine. Polyps, sigmoid divertiulosis with pandiverticulosis and internal hemorrhods Grade 2. History/risk factors: GI bleeding, melanotic stools, chronic anticoagulation. Clinical Indicators: melanic stoools EGD/colonoscopy performed and findings: Per EGD "Gastritis without bleeding, GERD, The squamocolumnar junctions demonstrated LA grade B erosive esophagitis." Per colonocopy " Active GI bleed from small intestine. Polyps, sigmoid divertiulosis with pandiverticulosis and internal hemorrhods Grade 2. Labs: HGB 8.3 Treatment: Monitor HH, INR EGD and Polypectomies patient transferred to [facility]. Medication: No med changes. Diverticulosis diet Consults: Surgical consult Please clarify the etiology of the GI bleed, if known: [ ] GIB due to erosive esophagitis [ ] GIB due to gastritis [ ] GIB due to diverticular disease [ ] GIB, etiology unknown [ ] Other, please specify [ ] Unable to determine Unable to determine MTDD
== END 2021-08-11 03:23 | disposition short-term general hospital (02) | DRG 378 ==
LOC: EC 10:28 → 6NMEDSUR 12:34 → OBSVTOIN 08-10 07:30
PROVIDERS: ADMIT Hospitalist; ATTEND Hospitalist
PROC: 0DJ08ZZ Inspection of Upper Intestinal Tract, Via Natural or Artificial Opening Endoscopic (ICD-10-PCS; principal; 2021-08-09 09:55)
PROC: 0DBC8ZX Excision of Ileocecal Valve, Via Natural or Artificial Opening Endoscopic, Diagnostic (ICD-10-PCS; 2021-08-09 09:55)
PROC: 0DBH8ZX Excision of Cecum, Via Natural or Artificial Opening Endoscopic, Diagnostic (ICD-10-PCS; 2021-08-09 09:55)
PROC: 0DBL8ZX Excision of Transverse Colon, Via Natural or Artificial Opening Endoscopic, Diagnostic (ICD-10-PCS; 2021-08-09 09:55)
PROC: 0DBM8ZX Excision of Descending Colon, Via Natural or Artificial Opening Endoscopic, Diagnostic (ICD-10-PCS; 2021-08-09 09:55)
PROC: 0DBK8ZX Excision of Ascending Colon, Via Natural or Artificial Opening Endoscopic, Diagnostic (ICD-10-PCS; 2021-08-09 09:55)
PROC: 0DJD8ZZ Inspection of Lower Intestinal Tract, Via Natural or Artificial Opening Endoscopic (ICD-10-PCS; 2021-08-09 09:55)
DX: K29.51 Unspecified chronic gastritis with bleeding (principal); D62 Acute posthemorrhagic anemia; I13.0 Hypertensive heart and chronic kidney disease with heart failure and stage 1 through stage 4 chronic kidney disease, or unspecified chronic kidney disease; I48.19 Other persistent atrial fibrillation; I48.92 Unspecified atrial flutter; I50.22 Chronic systolic (congestive) heart failure; K44.9 Diaphragmatic hernia without obstruction or gangrene; D12.3 Benign neoplasm of transverse colon; D12.2 Benign neoplasm of ascending colon; D12.0 Benign neoplasm of cecum; D12.4 Benign neoplasm of descending colon; F32.A Depression, unspecified; G47.33 Obstructive sleep apnea (adult) (pediatric); K21.00 Gastro-esophageal reflux disease with esophagitis, without bleeding; D57.1 Sickle-cell disease without crisis; G62.9 Polyneuropathy, unspecified; Z79.01 Long term (current) use of anticoagulants; J45.909 Unspecified asthma, uncomplicated; K57.30 Diverticulosis of large intestine without perforation or abscess without bleeding; K64.4 Residual hemorrhoidal skin tags; K64.1 Second degree hemorrhoids; M06.9 Rheumatoid arthritis, unspecified; M19.90 Unspecified osteoarthritis, unspecified site; N18.30 Chronic kidney disease, stage 3 unspecified; Z20.822 Contact with and (suspected) exposure to COVID-19; Z79.899 Other long term (current) drug therapy; Z82.3 Family history of stroke; Z82.49 Family history of ischemic heart disease and other diseases of the circulatory system; Z83.3 Family history of diabetes mellitus; Z86.711 Personal history of pulmonary embolism; Z86.718 Personal history of other venous thrombosis and embolism; Z82.61 Family history of arthritis; Z98.890 Other specified postprocedural states; Z88.2 Allergy status to sulfonamides; Z86.14 Personal history of Methicillin resistant Staphylococcus aureus infection; H40.9 Unspecified glaucoma; M10.9 Gout, unspecified; Z89.429 Acquired absence of other toe(s), unspecified side; K86.9 Disease of pancreas, unspecified; Z79.52 Long term (current) use of systemic steroids
CPT/HCPCS: 36410; 36415; 43235; 45385; 76937; 80048; 80053; 82272; 85025; 85610; 85730; 87635; 88305; 94640; 96374; 99284

== ENCOUNTER 2022-02-18 18:03 | Emergency (ER) | payer MEDICARE ==
[2022-02-18 19:01] VITALS: TEMP 98.6
--- NOTE | 2022-02-18 20:22 | ED ---
General Adult HPI - General Chief complaint: Neck Pain/Injury Stated complaint: Neck fracture Time Seen by Provider: 02/18/22 20:21 Source: patient, family Mode of arrival: ambulatory Limitations: no limitations - History of Present Illness Initial comments: Patient presents to the ED with his for evaluation. Patient reports having posterior neck pain for the past 5 weeks or so. states that the patient was undergoing massage therapy for relief of his neck pain without much improvement, so she took him to a clinic in [place] for evaluation. Per , the patient had cervical x-rays performed, and they were just notified of the results today. Per , the patient's cervical x-ray report demonstrated a C3 compression fracture of uncertain age, and so it was recommended that the patient come to the ED Patient was placed in a c-collar on arrival to the ED. Patient is currently only complaining of having posterior neck pain. Patient denies any other site of pain or any other complaints. Patient denies any known trauma or injury. Patient denies fever or chills, focal numbness/weakness/neuro deficit, extremity pain, back pain, chest pain, dyspnea, dizziness, palpitations, abdominal pain, nausea or vomiting, or any other symptoms or complaints. - Related Data Home Medications Medication Instructions Recorded Confirmed Metoprolol Tartrate [Lopressor] 25 mg PO BID 08/25/17 02/18/22 allopurinoL [Zyloprim] 300 mg PO DAILY 08/25/17 02/18/22 Atorvastatin Calcium [Lipitor] 20 mg PO HS 05/14/18 02/18/22 Furosemide [Lasix] 40 mg PO BID 09/08/19 02/18/22 Isosorbide Dinitrate 30 mg PO DAILY 08/06/21 02/18/22 lisinopriL [Zestril] 5 mg PO DAILY 08/06/21 02/18/22 predniSONE 10 mg PO DAILY 08/06/21 02/18/22 Cholecalciferol [Vitamin D3 (25 25 mcg PO DAILY 02/18/22 02/18/22 Mcg = 1000 Iu)] DULoxetine HCL [Cymbalta] 30 mg PO DAILY 02/18/22 02/18/22 Previous Rx's Medication Instructions Recorded Apixaban [Eliquis] 5 mg PO BID tab 10/20/18 Allergies Allergy/AdvReac Type Severity Reaction Status Date / Time Sulfa (Sulfonamide Allergy Rash/Hives Verified 02/18/22 21:06 Antibiotics) Review of Systems ROS Statement: Those systems with pertinent positive or pertinent negative responses have been documented in the HPI. ROS Other: All systems not noted in ROS Statement are negative. Past Medical History Past Medical History: Atrial Fibrillation, Asthma, Deep Vein Thrombosis (DVT), Hypertension, Pneumonia, Pulmonary Embolus (PE), Renal Disease, Rheumatoid Arthritis (RA) Additional Past Medical History / Comment(s): gout, sickle cell, CKD stage 3 (dialysis 2004), sleep apnea, neuropathy, glaucoma History of Any Multi-Drug Resistant Organisms: MRSA Date of last positivie culture/infection: 2013 MDRO Source:: Right Foot Past Surgical History: Joint Replacement, Orthopedic Surgery Additional Past Surgical History / Comment(s): Left knee replaced; multiple toe amputations, tib/fib surgery in May 2018; left upper arm fistula 2004 Past Anesthesia/Blood Transfusion Reactions: No Reported Reaction Past Psychological History: No Psychological Hx Reported Smoking Status: Never smoker Past Alcohol Use History: None Reported Past Drug Use History: Marijuana - Past Family History Father Family Medical History: Diabetes Mellitus, Myocardial Infarction ([place]) Mother Family Medical History: CVA/TIA Sister(s) Family Medical History: Hypertension Additional Family Medical History / Comment(s): RA General Exam Limitations: no limitations General appearance: alert, in no apparent distress Head exam: Present: atraumatic, normocephalic Eye exam: Present: normal appearance, EOMI ENT exam: Present: mucous membranes moist Neck exam: Present: other (C-collar is in place; mild posterior cervical tendern ess superiorly; no step-off deformity is appreciated; trachea is in midline) Respiratory exam: Present: normal lung sounds bilaterally. Absent: respiratory distress, wheezes, rales, rhonchi, stridor Cardiovascular Exam: Present: regular rate, normal rhythm, normal heart sounds, other (Normal radial pulses bilaterally) Extremities exam: Present: full ROM. Absent: tenderness, pedal edema Back exam: Absent: tenderness Neurological exam: Present: alert, oriented X3. Absent: motor sensory deficit Psychiatric exam: Present: normal affect, normal mood Skin exam: Present: warm, dry, intact, normal color Course Vital Signs 02/18/22 02/18/22 02/18/22 18:58 20:05 21:41 Temperature 98.6 F Pulse Rate 101 H 108 H 97 Respiratory 20 20 18 Rate Blood Pressure 95/69 112/73 111/80 O2 Sat by Pulse 96 98 98 Oximetry Medical Decision Making - Medical Decision Making Patient's cervical spine CT shows an old C3 compression fracture and no acute fracture. Patient has no neurological symptoms or deficits, and he has a normal neurological exam. Given these findings, will discharge patient home in a soft cervical collar and have him follow up with spinal orthopedic surgery. Patient and both feel comfortable with this plan. Patient was counseled about cervical compression fractures, and he was clearly explained return and follow- up instructions. - Radiology Data Noncontrast CT cervical spine: Old C3 compression fracture. Recommend comparison with old exams. No acute fracture seen. Spondylotic changes. Disposition Clinical Impression: Cervical compression fracture Disposition: HOME SELF-CARE Condition: Stable Instructions (If sedation given, give patient instructions): Cervical Fracture (ED) Additional Instructions: Return to the ER immediately should you develop new or worsening pain, arm numbness or weakness, shortness of breath, feeling dizzy or faint, or new or worsening symptoms. Follow up closely with your primary care provider, as well as spinal orthopedic surgery. Is patient prescribed a controlled substance at d/c from ED?: No Referrals: Josse Vaca DO [Primary Care Provider] - 1-2 days Filiberto Mcginnis DO [Doctor of Osteopathic Medicine] - 1-2 days Time of Disposition: 22:14
[2022-02-18] MEDS ORDERED: HYDROmorphone 0.5 MG/0.5 ML SYRINGE IM STA (21:36)
[2022-02-18 21:42] VITALS: PULSE 97; RESP 18
--- NOTE | 2022-02-18 21:55 | CT ---
EXAMINATION TYPE: CT cervical spine wo con DATE OF EXAM: 02/18/2022 COMPARISON: None HISTORY: Neck pain, no injury x6 weeks. CT DLP: 426 mGycm Automated exposure control for dose reduction was used. Images obtained from the skull base to T1 vertebra with no contrast. There is some straightening of the cervical spine and mild kyphotic deformity. There is 50% compressi on deformity of C3 vertebral body that appears old or subacute. There are spondylotic changes in the mid and lower cervical spine. No evidence of any significant cervical spinal stenosis. IMPRESSION: Old C3 compression fracture. Recommend comparison with old exams. No acute fracture seen. Spondylotic changes.
[2022-02-18] MEDS ORDERED: ACET/COD 300 MG/30 MG STARTER PACK 6 TAB BTL PO STA (22:58)
[2022-02-18 23:10] VITALS: BP 110/84
== END 2022-02-18 23:10 | disposition home or self-care (01) ==
LOC: EC 18:03
DX: S12.200A Unspecified displaced fracture of third cervical vertebra, initial encounter for closed fracture (principal); I12.9 Hypertensive chronic kidney disease with stage 1 through stage 4 chronic kidney disease, or unspecified chronic kidney disease; N18.30 Chronic kidney disease, stage 3 unspecified; I48.91 Unspecified atrial fibrillation; J45.909 Unspecified asthma, uncomplicated; M10.9 Gout, unspecified; F12.90 Cannabis use, unspecified, uncomplicated; Z86.718 Personal history of other venous thrombosis and embolism; Z86.711 Personal history of pulmonary embolism; Z79.01 Long term (current) use of anticoagulants; Z79.899 Other long term (current) drug therapy; X58.XXXA Exposure to other specified factors, initial encounter
CPT/HCPCS: 72125; 99283; 96372; J1170

== ENCOUNTER → 2022-03-20 | Outpatient (CLI) | payer MEDICARE ==
--- NOTE | 2022-03-20 12:45 | US ---
EXAMINATION TYPE: US abdomen complete DATE OF EXAM: 03/20/2022 COMPARISON: NONE CLINICAL HISTORY: K76.9 liver disease,unspecified. very poor patient condition; limited mobility; ryann ble to move on stretcher; best obtainable images TECHNIQUE: Multiple sonographic images of the abdomen are obtained. FINDINGS: EXAM MEASUREMENTS: Liver Length: 16.5 cm Gallbladder Wall: 0.2 cm CBD: 0.6 cm Spleen: 10.8 cm Right Kidney: 12.6 x 5.8 x 4.9 cm Left Kidney: 12.8 x 7.0 x 6.7 cm HEAD WAITER/WAITRESS NOTES: limited due to pt condition, best obtainable images, ml gassed out Pancreas: gassed out Liver: ml and left lobe obscured by overlying bowel gas, 2.1 x 1.9 x 1.4cm solid mass anterior to th e gb in the liver, 2.6 x 2.2 x 2.2cm solid mass within the right posterior lobe with a 1.3cm echogeni c mass adjacent. Gallbladder: layering sludge and stones Evidence for sonographic Benson's sign: no CBD: wnl Spleen: wnl Right Kidney: limited due to bowel gas, appears to have multiple cysts, largest at the upper pole me asuring 6.1cm Left Kidney: very limited visualization, appears to have multiple cysts however at the lower pole th ere appears to be a 2.5cm solid mass with shadowing Upper IVC: gassed out Abd Aorta: wnl as seen distally IMPRESSION: 1. Hepatic mass is suggested. CT correlation recommended. 2. Solid mass left kidney. Again CT correlation advised. 3. Layering the sludge and stones within the gallbladder.
== END | disposition home or self-care (01) ==
LOC: RADUSWWP 11:21
PROVIDERS: ATTEND Family Medicine
DX: K76.9 Liver disease, unspecified (principal); K80.20 Calculus of gallbladder without cholecystitis without obstruction
CPT/HCPCS: 76700